=== PATIENT | male | born 1945 | race Caucasian/White ===

== ENCOUNTER → 2017-01-10 | Outpatient (CLI) | payer OTHER ==
[~2017-01-10] MED LIST: AMOX875T PO; ASPI81TA28 PO; ATV5 PO; ATV5X PO; FLM4 PO; LEVO50TA6 PO; METF500T5 PO; MTR800 PO; PANC1200 PO; PHEN64.8 PO; PHN/100 PO; SIMV40TA4 PO; SYN50 PO
[2017-01-10 17:43] LABS: BASO % 0.8 %; BASO ABS # 0.04 K/uL (0-0.2); COMPLETE YES; EOS % 1.7 %; HEMATOCRIT 43.8 % (42-52); IG% 0.2 %; LYMPH % 26.3 %; LYMPH ABS # 1.38 K/uL (1.2-3.4); MEAN CELL VOLUME 100.5 fL (80-100); MEAN CORPUSCULAR HEMOGLOBIN 34.4 pg (25-34); MEAN CORPUSCULAR HGB CONC 34.2 g/dl (32-36); MEAN PLATELET VOLUME 8.7 fL (7.4-10.4); MONO % 9.7 %; NEUT % 61.3 %; PLATELET COUNT 208 K/uL (130-400); RED BLOOD COUNT 4.36 M/uL (4.7-6.1); WHITE BLOOD COUNT 5.25 K/uL (4.8-10.8)
[2017-01-10 18:04] LABS: BLOOD UREA NITROGEN 14 mg/dl (7-18); BUN/CREATININE RATIO 11.8 (10-20); CALCIUM 8.7 mg/dl (8.5-10.1); CARBON DIOXIDE 26 mmol/L (21-32); CHLORIDE 106 mmol/L (98-107); GLUCOSE 92 mg/dl (70-99); POTASSIUM 4.3 mmol/L (3.5-5.1); SODIUM 141 mmol/L (136-145)
[2017-01-11 07:20] LABS: ESTIMATED AVERAGE GLUCOSE 140 mg/dl; HA1C FLAG Normal (Normal)
== END | disposition home or self-care (01) ==
LOC: C.LAB1850 16:19
PROVIDERS: ATTEND Internal Medicine
DX: E11.9 Type 2 diabetes mellitus without complications (principal)

== ENCOUNTER → 2017-02-17 | Outpatient (CLI) | payer OTHER ==
[2017-02-17 10:21] LABS: BASO % 0.4 %; BASO ABS # 0.02 K/uL (0-0.2); COMPLETE YES; EOS % 1.6 %; HEMATOCRIT 43.2 % (42-52); LYMPH % 25.2 %; LYMPH ABS # 1.23 K/uL (1.2-3.4); MEAN CORPUSCULAR HEMOGLOBIN 33.8 pg (25-34); MEAN CORPUSCULAR HGB CONC 33.8 g/dl (32-36); MEAN PLATELET VOLUME 8.4 fL (7.4-10.4); MONO % 10.2 %; NEUT % 62.6 %; PLATELET COUNT 220 K/uL (130-400); RED BLOOD COUNT 4.32 M/uL (4.7-6.1); WHITE BLOOD COUNT 4.88 K/uL (4.8-10.8)
[2017-02-17 10:54] LABS: ALT/SGPT 28 U/L (12-78); AST/SGOT 12 U/L (15-37); BLOOD UREA NITROGEN 13 mg/dl (7-18); BUN/CREATININE RATIO 12.1 (10-20); CALCIUM 8.7 mg/dl (8.5-10.1); CARBON DIOXIDE 29 mmol/L (21-32); CHLORIDE 103 mmol/L (98-107); GLUCOSE 144 mg/dl (70-99); POTASSIUM 4.2 mmol/L (3.5-5.1); SODIUM 139 mmol/L (136-145)
[2017-02-17 11:05] LABS: CHOLESTEROL 162 mg/dl (0-200); CHOLESTEROL/HDL RATIO 3.1; HDL CHOLESTEROL 53 mg/dl; LDL CHOLESTEROL CALCULATED 73 mg/dl; TRIGLYCERIDES 180 mg/dl (0-150); VERY LOW DENSITY LIPOPROT CALC 36 mg/dl
[2017-02-17 11:26] LABS: ESTIMATED AVERAGE GLUCOSE 146 mg/dl; HA1C FLAG Normal (Normal)
== END | disposition home or self-care (01) ==
LOC: C.LAB1850 09:07
PROVIDERS: ATTEND Internal Medicine
DX: N40.1 Benign prostatic hyperplasia with lower urinary tract symptoms (principal); E11.9 Type 2 diabetes mellitus without complications

== ENCOUNTER 2017-03-10 19:22 | Emergency (ER) | payer OTHER ==
[~2017-03-10 19:22] MED LIST changes: -AMOX875T PO; -ATV5X PO; -LEVO50TA6 PO
[2017-03-10 19:29] VITALS: TEMP 36.8
[2017-03-10] MEDS ORDERED: OXYCODONE HCL IR 5 MG TAB (IMMEDIATE RELEASE) PO STA (19:42)
--- NOTE | 2017-03-10 19:42 | EMERGENCY ROOM VISIT NOTE ---
History Report prepared by Yuli: Beto Henriquez Under the Supervision of: Dr. Ravi Morin D.O. First contact with patient: 19:27 Chief Complaint: FALL Stated Complaint: FALL/ HEAD PAIN History of Present Illness The patient is a 71 year old male who presents to the Emergency Room with complaints of head discomfort that started prior to arrival. The patient was in the bathroom wiping off his shirt when he fell backwards into the drywall. He hit the back of his head on the wall and complains of a headache right now. He denies loss of consciousness, chest pain, shortness of breath, or cough. The patient took Ibuprofen without much relief of his pain after the fall. Per patient's family, the patient seems to be at baseline. Source of History: patient, family Onset: prior to arrival Position: head Timing: other (persistent) Associated Symptoms: + headache, No LOC, No SOB, No chest pain, No cough Review of Systems See HPI for pertinent positives & negatives. A total of 10 systems reviewed and were otherwise negative. Past Medical & Surgical Medical Problems: (1) Cholecystectomy (2) Diab Marisa Wo Compl, Type Ii Or Unspec Type, Uncontrolled (3) Hyperlipidemia Nec/Nos (4) Hypertension Nos (5) Hypothyroidism (6) Pancreatitis (7) Seizure (8) TIA (transient ischemic attack) Family History Cancer Seizures Social History Smoking Status: Former Smoker Drug Use: none Marital Status: Housing Status: lives with significant other Occupation Status: retired, disabled Current/Historical Medications Scheduled Aspirin (Aspirin Ec), 81 MG PO DAILY Levothyroxine Sodium (Levothyroxine Sodium), 50 MCG PO QAM Metformin Hcl Er (Glucophage Er), 500 MG PO DAILY Pancrelipase (Lipase-Protease- (Creon [id number]), 12,000 UNITS PO TIDM Phenobarbital (Phenobarbital), 64.8 MG PO QID Phenytoin Sodium (Dilantin), 100 MG PO TID Simvastatin (Zocor), 40 MG PO HS Tamsulosin HCl (Tamsulosin HCl), 0.4 MG PO QAM Scheduled PRN Ibuprofen (Ibuprofen), 1 TAB PO TID PRN for Headache or Pain Lorazepam (Lorazepam), 0.5 MG PO TID PRN for Anxiety Allergies Coded Allergies: Morphine (Verified Allergy, Unknown, ?, 03/10/17) Nitrofurantoin (Verified Adverse Reaction, Mild, NAUSEA, 03/10/17) Meperidine (Verified Adverse Reaction, Unknown, SEIZURES, 03/10/17) Quinolones (Unverified Adverse Reaction, Unknown, NAUSEA, 03/10/17) Physical Exam Vital Signs Date Time Temp Pulse Resp B/P Pulse Ox O2 Delivery O2 Flow Rate FiO2 03/10/17 20:45 71 20 157/85 96 03/10/17 19:29 36.8 81 20 176/79 94 Room Air Physical Exam GENERAL: Patient is awake alert in no acute distress patient is resting comfortably and showing no signs of anxiety HEAD: Abrasion to right occipital scalp. No swelling appreciated. EYES: The conjunctivae are clear. The pupils are round and reactive. EARS, NOSE, MOUTH AND THROAT: The nose is without any evidence of any deformity. Mucous membranes are moist tongue is midline NECK: The neck is nontender and supple. RESPIRATORY: Normal respiratory effort is noted there is no evidence of wheezing rhonchi or rales CARDIOVASCULAR: Regular rate and rhythm noted there no murmurs rubs or gallops normal S1 normal S2 GASTROINTESTINAL: The abdomen is soft. Bowel sounds are present in all quadrants. Abdomen is nontender BACK: No midline tenderness or or step-off noted range of motion in flexion extension as well as rotation no signs of muscle spasm noted MUSCULOSKELETAL/EXTREMITIES: There is no evidence of gross deformity full range of motion is noted in the hips and shoulders SKIN: Trace pedal edema bilaterally. NEUROLOGIC: Patient is at baseline according to family members. Awake alert and oriented x3. Strength was symmetric. GCS of 15. Medical Decision & Procedures ER Provider Diagnostic Interpretation: CT results as stated below per my review and radiologist interpretation. CT OF THE HEAD WITHOUT CONTRAST CLINICAL HISTORY: Fall. COMPARISON STUDY: Head CT July 09, 2015. CT DOSE: 773.57 mGy.cm TECHNIQUE: Helical axial images of the head were obtained without IV contrast. Automated exposure control was utilized for the study. FINDINGS: No acute intracranial hemorrhage, midline shift or mass effect is present. Ventricular system is stable. Basilar cisterns are patent. There are no extra-axial collections. An old lacunar infarct within left basal ganglia is noted. White matter hypodensity suggests small vessel disease. There is no calvarial fracture. Soft tissue calcifications adjacent to the ears are chronic and unchanged. IMPRESSION: 1. No acute intracranial findings. 2. No calvarial fracture. Electronically signed by: Donald Young M.D. 03/10/2017 8:16 PM Dictated Date/Time: 03/10/2017 8:14 PM Medications Administered Medications (Trade) Dose Ordered Sig/Leni Route Start Time Stop Time Status Last Admin Dose Admin Oxycodone HCl (Roxicodone Immediate Rel Tab) 5 mg NOW STAT PO 03/10/17 19:42 03/10/17 19:43 DC 03/10/17 19:54 5 MG Oxycodone HCl (Roxicodone Immediate Rel 5MG Home Pack) 1 homepack UD ONCE PO 03/10/17 20:30 03/10/17 20:31 DC 03/10/17 20:41 1 HOMEPACK ED Course 1930: The patient was evaluated in room B7. A complete history and physical examination were performed. 1941: Ordered Oxycodone HCl 5 mg PO. 2014: At this time, I reevaluated the patient and he was resting comfortably. 2029: Ordered Oxycodone HCl 1 homepack PO. 2036: Upon reevaluation, the patient is resting comfortably. I discussed the results and treatment plan with him. She verbalized agreement of the treatment plan. The patient was discharged home. Medical Decision Prior records/ancillary studies reviewed. Triage Nursing notes reviewed. The patient's history was concerning for traumatic injury Differential diagnosis: Etiologies such as fracture, dislocation, intra-abdominal, pneumothorax, intrathoracic , intracranial, neurologic, as well as other traumatic pathologies were entertained. The patient is a 71-year-old male who presented to the emergency department for an evaluation after fall. The patient relates that he had a trip and fall where he fell backwards striking his head. There was no loss of consciousness but the patient was very concerned because he is a headache at this time. The patient had no focal neurologic deficits. He appeared to be at his baseline mental status according to his family members. I discussed the patient's radiographic studies with him. He was treated with pain medication in the emergency department. On subsequent reevaluation was feeling much better. He was encouraged to rest and avoid any strenuous activity. He was given head injury discharge instructions. He was also encouraged to follow-up with his family doctor soon as possible for reevaluation but return to the emergency Department immediately if symptoms change worsen or the need arises. Impression Primary Impression: Fall Additional Impression: Head injury Scribe Attestation The scribe's documentation has been prepared under my direction and personally reviewed by me in its entirety. I confirm that the note above accurately reflects all work, treatment, procedures, and medical decision making performed by me. Departure Information Dispostion Home / Self-Care Referrals Coleman Gillespie M.D. (PCP) Forms HOME CARE DOCUMENTATION FORM, IMPORTANT VISIT INFORMATION Patient Instructions ED Head Injury Closed, My [facility] Additional Instructions Continue all medications as prescribed. Follow-up with your family this week for reevaluation. Return to the emergency department immediately if symptoms change worsen or the need arises. Problem Qualifiers
--- NOTE | 2017-03-10 20:18 | DIAGNOSTIC IMAGING REPORT ---
CT OF THE HEAD WITHOUT CONTRAST CLINICAL HISTORY: Fall. COMPARISON STUDY: Head CT July 09, 2015. CT DOSE: 773.57 mGy.cm TECHNIQUE: Helical axial images of the head were obtained without IV contrast. Automated exposure control was utilized for the study. FINDINGS: No acute intracranial hemorrhage, midline shift or mass effect is present. Ventricular system is stable. Basilar cisterns are patent. There are no extra-axial collections. An old lacunar infarct within left basal ganglia is noted. White matter hypodensity suggests small vessel disease. There is no calvarial fracture. Soft tissue calcifications adjacent to the ears are chronic and unchanged. IMPRESSION: 1. No acute intracranial findings. 2. No calvarial fracture. Electronically signed by: Donald Young M.D. 03/10/2017 8:16 PM Dictated Date/Time: 03/10/2017 8:14 PM
[2017-03-10] MEDS ORDERED: OXYCODONE IR HOME PACK PO ONE (20:30)
[2017-03-10] MEDS ORDERED: LEVO50TA6 PO (20:30)
[2017-03-10] MEDS ORDERED: ATV5X PO (20:31)
[2017-03-10] MEDS ORDERED: FLM4 PO (20:37)
[2017-03-10 20:45] VITALS: BP 157/85; PULSE 71; O2SAT 96
[2017-09-27] MEDS ORDERED: LEVE500T13 PO (12:00)
== END 2017-03-10 20:46 | disposition home or self-care (01) ==
LOC: EDBD 19:22 → C.EDB 19:23
DX: S09.90XA Unspecified injury of head, initial encounter (principal); W19.XXXA Unspecified fall, initial encounter; W22.09XA Striking against other stationary object, initial encounter; Z90.49 Acquired absence of other specified parts of digestive tract; E11.9 Type 2 diabetes mellitus without complications; I10 Essential (primary) hypertension; E03.9 Hypothyroidism, unspecified; Z86.73 Personal history of transient ischemic attack (TIA), and cerebral infarction without residual deficits; Z80.9 Family history of malignant neoplasm, unspecified; Z82.0 Family history of epilepsy and other diseases of the nervous system; Z87.891 Personal history of nicotine dependence; Z79.82 Long term (current) use of aspirin; Z79.899 Other long term (current) drug therapy

== ENCOUNTER 2017-03-16 18:11 | Emergency (ER) | payer OTHER ==
[~2017-03-16] VITALS: Ht 177.8 cm; Wt 103.6 kg
[~2017-03-16 18:11] MED LIST changes: -ATV5 PO; +ATV5X PO; +LEVO50TA6 PO; -SYN50 PO
--- NOTE | 2017-03-16 18:42 | EMERGENCY ROOM VISIT NOTE ---
History Report prepared by Yuli: Francis Ortega Under the Supervision of: Dr. Ravi Morin D.O. First contact with patient: 18:15 Chief Complaint: HEAD PAIN Stated Complaint: FELL THIS PAST SAT. HEAD PAIN History of Present Illness The patient is a 71 year old male who presents to the Emergency Room with complaints of episodes of falls that started 4 days ago. He was seen here 4 days ago after falling on the back of his head. Ever since then, the patient notes that when he coughs, the back of his head "thumps". He has also been having neck pain. The patient denies a headache currently. He has fallen twice since then, and he does not know why this keeps happening. The patient says that he occasionally has weakness and pain in his legs when he walks. The patient's notes that she feels that the patient is safe at home. However, the nursing staff said that there is concern about the patient falling so much recently, and the patient's has had trouble getting the patient off of the floor all the time. The patient has been to rehab before at [facility] many years ago. The patient denies any chest pain, shortness of breath, or back pain. He does have prostate problems as well as a history of seizures. He is not sure when his last seizure was. Source of History: patient, family, nursing staff Onset: 4 days ago Position: other (global - falls) Symptom Intensity: 3 falls recently Timing: other (episodes) Associated Symptoms: + neck pain, + weakness (legs), No SOB, No back pain, No chest pain Note: Associated symptoms: Whenever he coughs, back of head "thumps". Occasional leg pain when walking. Review of Systems See HPI for pertinent positives & negatives. A total of 10 systems reviewed and were otherwise negative. Past Medical & Surgical Medical Problems: (1) Cholecystectomy (2) Diab Marisa Wo Compl, Type Ii Or Unspec Type, Uncontrolled (3) Hyperlipidemia Nec/Nos (4) Hypertension Nos (5) Hypothyroidism (6) Pancreatitis (7) Seizure (8) TIA (transient ischemic attack) Family History Cancer Seizures Social History Smoking Status: Former Smoker Drug Use: none Marital Status: Housing Status: lives with significant other Occupation Status: retired, disabled Current/Historical Medications Scheduled Amoxicillin & Pot Clavulanate (Augmentin 875-125 mg), 875 MG PO BID Aspirin (Aspirin Ec), 81 MG PO DAILY Levothyroxine Sodium (Levothyroxine Sodium), 50 MCG PO QAM Metformin Hcl Er (Glucophage Er), 500 MG PO DAILY Pancrelipase (Lipase-Protease- (Creon 41808), 12,000 UNITS PO TIDM Phenobarbital (Phenobarbital), 64.8 MG PO QID Phenytoin Sodium (Dilantin), 100 MG PO TID Simvastatin (Zocor), 40 MG PO HS Tamsulosin HCl (Tamsulosin HCl), 0.4 MG PO QAM Scheduled PRN Ibuprofen (Ibuprofen), 1 TAB PO TID PRN for Headache or Pain Lorazepam (Lorazepam), 0.5 MG PO TID PRN for Anxiety Allergies Coded Allergies: Morphine (Verified Allergy, Unknown, ?, 03/16/17) Nitrofurantoin (Verified Adverse Reaction, Mild, NAUSEA, 03/16/17) Meperidine (Verified Adverse Reaction, Unknown, SEIZURES, 03/16/17) Quinolones (Unverified Adverse Reaction, Unknown, NAUSEA, 03/16/17) Physical Exam Vital Signs Date Time Temp Pulse Resp B/P Pulse Ox O2 Delivery O2 Flow Rate FiO2 03/16/17 21:30 36.6 69 20 173/86 95 03/16/17 19:44 95 Room Air 03/16/17 19:44 95 Room Air 03/16/17 19:17 58 148/84 67 166/84 69 173/86 03/16/17 18:16 36.6 96 20 176/89 96 Room Air Physical Exam GENERAL: Patient is awake, alert, slow to answer questions but does not appear to be in pain or uncomfortable. EYES: The conjunctivae are clear. The pupils are round and reactive. EARS, NOSE, MOUTH AND THROAT: The nose is without any evidence of any deformity. Mucous membranes are moist tongue is midline. Ecchymosis over occipital scalp, no lacerations noted. NECK: Tenderness of upper cervical spine, range of motion intact. RESPIRATORY: Lung sounds diminished at both bases, no tachypnea or conversational dyspnea noted. CARDIOVASCULAR: Regular rate and rhythm noted there no murmurs rubs or gallops normal S1 normal S2 GASTROINTESTINAL: The abdomen is mildly distended but soft, no specific guarding or rigidity noted. BACK: No midline tenderness or or step-off noted range of motion in flexion extension as well as rotation no signs of muscle spasm noted MUSCULOSKELETAL/EXTREMITIES: There is no evidence of gross deformity full range of motion is noted in the hips and shoulders SKIN: Trace pedal edema bilaterally. NEUROLOGIC: Patient is oriented x3, strength symmetric but diminished bilaterally, patellar tendon reflexes 1+ bilaterally. Patient's mental status is at baseline according to family members. Medical Decision & Procedures ER Provider Diagnostic Interpretation: Radiology results as stated below per my review and radiologist interpretation: HEAD CT NONCONTRAST CT DOSE: 1231.56 mGy.cm HISTORY: Trauma EVALUATE ALTERED MENTAL STATUS/WEAKNESS TECHNIQUE: Multiaxial CT images of the head were performed without the use of intravenous contrast. Comparison: None. Findings: The paranasal sinuses and mastoid air cells are clear. The calvarium and skull base are intact. The ventricles and sulci are within normal limits. There is no mass, hematoma, midline shift, or acute infarct. Age-related atrophy and chronic small vessel change Impression: Age-related change. No acute process. No change from the prior exam. Electronically signed by: Gerard Cole M.D. 03/16/2017 7:45 PM Dictated Date/Time: 03/16/2017 7:44 PM CHEST ONE VIEW PORTABLE CLINICAL HISTORY: EVALUATE ALTERED MENTAL STATUS/WEAKNESS dyspnea COMPARISON STUDY: 07/07/2015 FINDINGS: Increased pulmonary vasculature compared to the prior exam. Small parenchymal infiltrate medial right base. Chronic fullness of the hilar shadows. Subsegmental atelectasis left base. IMPRESSION: Pulmonary vascular congestion. Superimposed infiltrate right base Electronically signed by: Gerard Cole M.D. 03/16/2017 7:17 PM Dictated Date/Time: 03/16/2017 7:[address] DOSE: HISTORY: Trauma fall TECHNIQUE: Multiaxial CT images of the cervical spine were performed and reformatted in the sagittal and coronal plane without the use of contrast. COMPARISON: None. FINDINGS: No fractures. No subluxation. Prevertebral soft tissues and the C1-C2 interval are intact. No pneumothorax. Degenerative changes throughout. IMPRESSION: Degenerative change. No acute process. Electronically signed by: Gerrad Cole M.D. 03/16/2017 7:47 PM Dictated Date/Time: 03/16/2017 7:46 PM Laboratory Results 03/16/17 18:55 Red Blood Count 4.13, Mean Corpuscular Volume 100.0, Mean Corpuscular Hemoglobin 34.6, Mean Corpuscular Hemoglobin Concent 34.6, Mean Platelet Volume 8.2, Neutrophils (%) (Auto) 46.5, Lymphocytes (%) (Auto) 35.4, Monocytes (%) ( Auto) 13.6, Eosinophils (%) (Auto) 3.7, Basophils (%) (Auto) 0.8, Neutrophils # (Auto) 1.77, Lymphocytes # (Auto) 1.35, Monocytes # (Auto) 0.52, Eosinophils # ( Auto) 0.14, Basophils # (Auto) 0.03 03/16/17 18:55 Test 03/16/17 18:55 03/16/17 18:57 03/16/17 19:00 White Blood Count 3.81 K/uL (4.8-10.8) Red Blood Count 4.13 M/uL (4.7-6.1) Hemoglobin 14.3 g/dL (14.0-18.0) Hematocrit 41.3 % (42-52) Mean Corpuscular Volume 100.0 fL (80-100) Mean Corpuscular Hemoglobin 34.6 pg (25-34) Mean Corpuscular Hemoglobin Concent 34.6 g/dl (32-36) Platelet Count 180 K/uL (130-400) Mean Platelet Volume 8.2 fL (7.4-10.4) Neutrophils (%) (Auto) 46.5 % Lymphocytes (%) (Auto) 35.4 % Monocytes (%) (Auto) 13.6 % Eosinophils (%) (Auto) 3.7 % Basophils (%) (Auto) 0.8 % Neutrophils # (Auto) 1.77 K/uL (1.4-6.5) Lymphocytes # (Auto) 1.35 K/uL (1.2-3.4) Monocytes # (Auto) 0.52 K/uL (0.11-0.59) Eosinophils # (Auto) 0.14 K/uL (0-0.5) Basophils # (Auto) 0.03 K/uL (0-0.2) RDW Standard Deviation 45.9 fL (36.4-46.3) RDW Coefficient of Variation 12.5 % (11.5-14.5) Immature Granulocyte % (Auto) 0.0 % Immature Granulocyte # (Auto) 0.00 K/uL (0.00-0.02) Prothrombin Time 10.3 SECONDS (9.0-12.0) Prothromb Time International Ratio 1.0 (0.9-1.1) Activated Partial Thromboplast Time 26.0 SECONDS (21.0-31.0) Partial Thromboplastin Ratio 1.0 Anion Gap 3.0 mmol/L (3-11) Est Creatinine Clear Calc Drug Dose 79.4 ml/min Estimated GFR () 87.2 Estimated GFR (Non- 75.2 BUN/Creatinine Ratio 10.3 (10-20) Calcium Level 8.7 mg/dl (8.5-10.1) Phosphorus Level 2.7 mg/dl (2.5-4.9) Magnesium Level 2.5 mg/dl (1.8-2.4) Total Bilirubin 0.3 mg/dl (0.2-1) Direct Bilirubin < 0.1 mg/dl (0-0.2) Aspartate Amino Transf (AST/SGOT) 13 U/L (15-37) Alanine Aminotransferase (ALT/SGPT) 21 U/L (12-78) Alkaline Phosphatase 89 U/L (45-117) Total Creatine Kinase 65 U/L (39-308) Creatine Kinase MB < 0.5 ng/ml (0.5-3.6) Creatine Kinase MB Ratio (0-3.0) Troponin I < 0.015 ng/ml (0-0.045) Total Protein 7.6 gm/dl (6.4-8.2) Albumin 4.2 gm/dl (3.4-5.0) Thyroid Stimulating Hormone (TSH) 2.360 uIu/ml (0.300-4.500) Phenytoin (Dilantin) Level 12.9 mcg/mL (10-20) Phenobarbital Level 42.3 mcg/mL (15.0-40.0) Bedside Glucose 130 mg/dl (70-99) Urine Color YELLOW Urine Appearance CLEAR (CLEAR) Urine pH 6.0 (4.5-7.5) Urine Specific [place] 1.007 (1.000-1.030) Urine Protein NEG (NEG) Urine Glucose (UA) NEG (NEG) Urine Ketones NEG (NEG) Urine Occult Blood NEG (NEG) Urine Nitrite NEG (NEG) Urine Bilirubin NEG (NEG) Urine Urobilinogen NEG (NEG) Urine Leukocyte Esterase NEG (NEG) Laboratory results per my review. Medications Administered Medications (Trade) Dose Ordered Sig/Leni Route Start Time Stop Time Status Last Admin Dose Admin Amoxicillin/ Clavulanate Potassium (Augmentin Tab) 875 mg ONE ONCE PO 03/16/17 20:45 03/16/17 20:46 DC 03/16/17 21:16 875 MG Amoxicillin/ Clavulanate Potassium (Augmentin 875MG Home Pack) 1 homepack UD ONCE PO 03/16/17 20:45 03/16/17 20:46 DC 03/16/17 20:45 1 HOMEPACK ECG Indication: weakness Rate (beats per minute): 55 Rhythm: sinus bradycardia Findings: no ectopy, other (no acute ST segment abnormalities) Change: no significant change (compared to May 08 2015) ED Course 1831: The patient was evaluated in room C11B. A complete history and physical examination were performed. 2044: Ordered Augmentin 875MG Home Pack 1 homepack PO, Augmentin Tab 875 mg PO. 2039: Upon reevaluation, the patient does not want to stay in the hospital. I discussed the results and treatment plan with him. He verbalized agreement of the treatment plan. He was discharged home. Medical Decision Prior records/ancillary studies reviewed and summarized above. Nursing notes reviewed. Additional history obtained from family and nursing staff. The patient's history was concerning for falls. Differential diagnosis: Etiologies such as metabolic, infection, hypo/hyperglycemia, electrolyte abnormalities, cardiac sources, intracerebral event, toxicologic, neurologic, as well as others were entertained. The patient is a 71-year-old male who presented to the emergency department for an evaluation of headache. I met this patient in the past. He has a history of frequent falls. The patient presented to the emergency department with family members who state that he's been having problems ambulating recently. The patient only complained of a headache which was worse with cough but he does admit that he's had a productive cough recently. The patient does not a fever. I discussed the patient's laboratory and radiographic studies with him. CT the head was obtained because of the ongoing headache but no signs of intracranial traumatic injury were noted. The patient was found have a questionable infiltrate on chest x-ray. He was started on antibiotic in the emergency department. I discussed the patient's condition with him. At this time I do feel that he is at risk for future falls because of his underlying medical condition as well as his medications. Nursing staff ambulated the patient and he did not do so well. He was able to ambulate but appeared very unsteady. I recommended that he be evaluated by the inpatient hospitalist group for possible further management and admission for possible placement or rehabilitation but the patient does not wish to be admitted at this time. He was started on oral antibiotic for pneumonia. He was encouraged to rest and avoid any strenuous activity. He was also advised to continue all medications as prescribed. His phenobarbital level was mildly elevated but his family member state that this is the level that he is maintained that for his seizure condition. He was also encouraged return to the emergency Department immediately if symptoms change worsen or the need arises. Impression Primary Impression: Fall Additional Impressions: Head injury Headache PNA (pneumonia) Scribe Attestation The scribe's documentation has been prepared under my direction and personally reviewed by me in its entirety. I confirm that the note above accurately reflects all work, treatment, procedures, and medical decision making performed by me. Departure Information Dispostion Home / Self-Care Prescriptions Amoxicillin & Pot Clavulanate (Augmentin 875-125 mg) 1 Tab Tab 875 MG PO BID, #20 TAB Prov: Ravi Morin, 03/16/17 Referrals Coleman Gillespie M.D. (PCP) Forms HOME CARE DOCUMENTATION FORM, IMPORTANT VISIT INFORMATION, WORK / SCHOOL INSTRUCTIONS Patient Instructions ED Head Injury Closed, My [facility] Additional Instructions Continue all medications as prescribed. Rest and avoid any strenuous activity. Follow-up with your family this week for reevaluation. Return to the emergency department immediately if symptoms change worsen or the need arises. Problem Qualifiers Primary Impression: Fall Encounter type: initial encounter Qualified Codes: W19.XXXA - Unspecified fall, initial encounter Additional Impressions: Head injury Encounter type: subsequent encounter Qualified Codes: S09.90XD - Unspecified injury of head, subsequent encounter Headache Headache type: unspecified Headache chronicity pattern: acute headache Intractability: not intractable Qualified Codes: R51 - Headache PNA (pneumonia) Pneumonia type: due to unspecified organism Laterality: unspecified laterality Lung location: unspecified part of lung Qualified Codes: J18.9 - Pneumonia, unspecified organism
[2017-03-16 19:11] LABS: BASO % 0.8 %; BASO ABS # 0.03 K/uL (0-0.2); COMPLETE YES; EOS % 3.7 %; HEMATOCRIT 41.3 % (42-52); LYMPH % 35.4 %; LYMPH ABS # 1.35 K/uL (1.2-3.4); MEAN CORPUSCULAR HEMOGLOBIN 34.6 pg (25-34); MEAN CORPUSCULAR HGB CONC 34.6 g/dl (32-36); MEAN PLATELET VOLUME 8.2 fL (7.4-10.4); MONO % 13.6 %; NEUT % 46.5 %; PLATELET COUNT 180 K/uL (130-400); RED BLOOD COUNT 4.13 M/uL (4.7-6.1); WHITE BLOOD COUNT 3.81 K/uL (4.8-10.8)
--- NOTE | 2017-03-16 19:20 | DIAGNOSTIC IMAGING REPORT ---
CHEST ONE VIEW PORTABLE CLINICAL HISTORY: EVALUATE ALTERED MENTAL STATUS/WEAKNESS dyspnea COMPARISON STUDY: 07/07/2015 FINDINGS: Increased pulmonary vasculature compared to the prior exam. Small parenchymal infiltrate medial right base. Chronic fullness of the hilar shadows. Subsegmental atelectasis left base. IMPRESSION: Pulmonary vascular congestion. Superimposed infiltrate right base Electronically signed by: Gerard Cole M.D. 03/16/2017 7:17 PM Dictated Date/Time: 03/16/2017 7:17 PM
[2017-03-16 19:30] LABS: ALT/SGPT 21 U/L (12-78); AST/SGOT 13 U/L (15-37); BLOOD UREA NITROGEN 10 mg/dl (7-18); BUN/CREATININE RATIO 10.3 (10-20); CALCIUM 8.7 mg/dl (8.5-10.1); CARBON DIOXIDE 30 mmol/L (21-32); CHLORIDE 103 mmol/L (98-107); CREATININE 0.99 mg/dl (0.60-1.40); GLUCOSE 136 mg/dl (70-99); MAGNESIUM 2.5 mg/dl (1.8-2.4); POTASSIUM 4.2 mmol/L (3.5-5.1); SODIUM 136 mmol/L (136-145)
[2017-03-16 19:31] LABS: PROTHROMBIN TIME (PATIENT) 10.3 SECONDS (9.0-12.0)
[2017-03-16 19:38] LABS: ALKALINE PHOSPHATASE 89 U/L (45-117); PHOSPHORUS 2.7 mg/dl (2.5-4.9)
[2017-03-16 19:43] LABS: URINE APPEARANCE CLEAR (CLEAR); URINE BILIRUBIN NEG (NEG); URINE COLOR YELLOW; URINE NITRITE NEG (NEG); URINE SPECIFIC GRAVITY 1.007 (1.000-1.030); UROBILINOGEN NEG (NEG)
[2017-03-16 19:44] VITALS: O2SAT 95; Ht 177.8 cm; Wt 103.6 kg
--- NOTE | 2017-03-16 19:47 | DIAGNOSTIC IMAGING REPORT ---
HEAD CT NONCONTRAST CT DOSE: 1231.56 mGy.cm HISTORY: Trauma EVALUATE ALTERED MENTAL STATUS/WEAKNESS TECHNIQUE: Multiaxial CT images of the head were performed without the use of intravenous contrast. Comparison: None. Findings: The paranasal sinuses and mastoid air cells are clear. The calvarium and skull base are intact. The ventricles and sulci are within normal limits. There is no mass, hematoma, midline shift, or acute infarct. Age-related atrophy and chronic small vessel change Impression: Age-related change. No acute process. No change from the prior exam. Electronically signed by: Gerard Cole M.D. 03/16/2017 7:45 PM Dictated Date/Time: 03/16/2017 7:44 PM
[2017-03-16 19:48] LABS: PHENOBARBITAL 42.3 mcg/mL (15.0-40.0)
--- NOTE | 2017-03-16 19:49 | DIAGNOSTIC IMAGING REPORT ---
CERVICAL SPINE CT CT DOSE: HISTORY: Trauma fall TECHNIQUE: Multiaxial CT images of the cervical spine were performed and reformatted in the sagittal and coronal plane without the use of contrast. COMPARISON: None. FINDINGS: No fractures. No subluxation. Prevertebral soft tissues and the C1-C2 interval are intact. No pneumothorax. Degenerative changes throughout. IMPRESSION: Degenerative change. No acute process. Electronically signed by: Gerard Cole M.D. 03/16/2017 7:47 PM Dictated Date/Time: 03/16/2017 7:46 PM
[2017-03-16 19:52] LABS: MANUAL MICROSCOPIC REQUIRED? NO; REVIEW REQ? NO
[2017-03-16] MEDS ORDERED: AMOX875T PO (20:43)
[2017-03-16] MEDS ORDERED: AMOXICIL/CLAVU 875MG HOME PACK PO ONE (20:45)
[2017-03-16] MEDS ORDERED: AMOXICILLIN/CLAVULANATE TAB 875 MG TAB PO ONE (20:45)
[2017-03-16 21:30] VITALS: BP 173/86; PULSE 69; TEMP 36.6; O2SAT 95
[2017-09-27] MEDS ORDERED: LEVE500T13 PO (12:00)
== END 2017-03-16 21:32 | disposition home or self-care (01) ==
LOC: EDBD 18:11 → C.EDC 18:14
DX: S09.90XD Unspecified injury of head, subsequent encounter (principal); W19.XXXD Unspecified fall, subsequent encounter; J18.9 Pneumonia, unspecified organism; Z90.49 Acquired absence of other specified parts of digestive tract; E11.9 Type 2 diabetes mellitus without complications; I10 Essential (primary) hypertension; E78.5 Hyperlipidemia, unspecified; E03.9 Hypothyroidism, unspecified; Z86.73 Personal history of transient ischemic attack (TIA), and cerebral infarction without residual deficits; Z80.9 Family history of malignant neoplasm, unspecified; Z82.0 Family history of epilepsy and other diseases of the nervous system; Z87.891 Personal history of nicotine dependence; Z79.82 Long term (current) use of aspirin; Z79.899 Other long term (current) drug therapy

== ENCOUNTER → 2017-03-24 | Outpatient (CLI) | payer OTHER ==
[~2017-03-24] MED LIST changes: +AMOX875T PO; +KPP250 PO; +LEVE500T PO; +LEVE500T13 PO; +PB30 PO; +SULF800T23 PO
== END | disposition home or self-care (01) ==
LOC: C.LABSPEC 17:14
PROVIDERS: ATTEND Urology
DX: R33.9 Retention of urine, unspecified (principal)

== ENCOUNTER 2017-05-15 10:09 | Emergency (ER) | payer OTHER ==
[~2017-05-15] VITALS: Ht 172.7 cm; Wt 98.0 kg
[~2017-05-15 10:09] MED LIST changes: -AMOX875T PO; -KPP250 PO; -LEVE500T PO; -LEVE500T13 PO; -PB30 PO; -SULF800T23 PO
[2017-05-15 10:24] VITALS: TEMP 36.8; Ht 172.7 cm; Wt 98.0 kg
--- NOTE | 2017-05-15 11:01 | EMERGENCY ROOM VISIT NOTE ---
History Report prepared by Yuli: Jourdan Martinez Under the Supervision of: Dr. Colleen Jean D.O. First contact with patient: 10:35 Chief Complaint: BACK INJURY Stated Complaint: RT FLANK PAIN History of Present Illness The patient is a 72 year old male who presents to the Emergency Room with complaints of intermittent right flank, back pain that began yesterday morning. He rates his pain a 7/10 in severity. He got out of bed at this time, when his legs "gave out" on him and he fell onto a hard plastic trash can. He did not injure anything else on his body during this time. He did not lose consciousness. Patient denies any other injury. He states that he falls regularly due to an issue that his PCP cannot figure out but has chronic leg weakness. Patient ambulates with a walker. He was able to get back up after the fall. He states that he receives injections in his back, but does not remember for what. He has not gotten any recently. He is also experiencing abdominal pain which is new. He denies any pain radiation, numbness, or other abnormal symptoms. He takes Aspirin 81 mg PO. He has a history of prostate problems which makes him have urinary hesitancy. He also has a history of abdominal tumors removed. Source of History: patient Onset: yesterday morning Position: back (right flank) Symptom Intensity: 7/10 Quality: ache Timing: intermittent Modifying Factors (Worsening): movement Associated Symptoms: + abdominal pain, + urinary symptoms, No LOC, No headache, No neck pain, No chest pain, No numbness Review of Systems See HPI for pertinent positives & negatives. A total of 10 systems reviewed and were otherwise negative. Past Medical & Surgical Medical Problems: (1) Cholecystectomy (2) Diab Marisa Wo Compl, Type Ii Or Unspec Type, Uncontrolled (3) Hyperlipidemia Nec/Nos (4) Hypertension Nos (5) Hypothyroidism (6) Pancreatitis (7) Seizure (8) TIA (transient ischemic attack) Family History Cancer Seizures Social History Smoking Status: Former Smoker Smokeless Tobacco Use: No Drug Use: none Marital Status: Housing Status: lives with significant other Occupation Status: retired, disabled Current/Historical Medications Scheduled Aspirin (Aspirin Ec), 81 MG PO DAILY Levothyroxine Sodium (Levothyroxine Sodium), 50 MCG PO QAM Metformin Hcl Er (Glucophage Er), 500 MG PO DAILY Pancrelipase (Lipase-Protease- (Creon [id number]), 12,000 UNITS PO TIDM Phenobarbital (Phenobarbital), 64.8 MG PO QID Phenytoin Sodium (Dilantin), 100 MG PO TID Simvastatin (Zocor), 40 MG PO HS Tamsulosin HCl (Tamsulosin HCl), 0.4 MG PO HS Scheduled PRN Ibuprofen (Ibuprofen), 1 TAB PO TID PRN for Headache or Pain Lorazepam (Lorazepam), 0.5 MG PO TID PRN for Anxiety Allergies Coded Allergies: Morphine (Verified Allergy, Unknown, ?, 05/15/17) Nitrofurantoin (Verified Adverse Reaction, Mild, NAUSEA, 05/15/17) Meperidine (Verified Adverse Reaction, Unknown, SEIZURES, 05/15/17) Quinolones (Unverified Adverse Reaction, Unknown, NAUSEA, 05/15/17) Physical Exam Vital Signs Date Time Temp Pulse Resp B/P (MAP) Pulse Ox O2 Delivery O2 Flow Rate FiO2 05/15/17 13:13 68 18 155/83 94 Room Air 05/15/17 11:54 60 18 125/75 92 Room Air 05/15/17 10:24 36.8 80 16 144/68 93 Physical Exam GENERAL: alert, well appearing, well nourished, no distress, non-toxic EYE EXAM: normal conjunctiva, PERRL and EOM's grossly intact OROPHARYNX: no exudate, no erythema, lips, buccal mucosa, and tongue normal and mucous membranes are moist NECK: supple, no nuchal rigidity, no adenopathy, non-tender LUNGS: Clear to auscultation. Normal chest wall mechanics, no wheezes rhonchi or rales. HEART: no murmurs, S1 normal and S2 normal ABDOMEN: abdomen soft, non-tender, normo-active bowel sounds, no masses, no rebound or guarding. No evidence of trauma. BACK: Back is symmetrical on inspection and there is no deformity, no midline tenderness to palpation, no CVA tenderness. 2 cm area of mild ecchymosis at the right flank. No crepitus. Nontender. No other low reproducible back pain. SKIN: no rashes and no bruising UPPER EXTREMITIES: upper extremities are grossly normal. LOWER EXTREMITIES: No pitting edema. NEURO EXAM: Cranial nerves II-XII grossly intact, normal speech. Decreased strength and range of motion. Midly decreased sensory exam. All baseline to the patient. Medical Decision & Procedures ER Provider Diagnostic Interpretation: Radiology results have been interpreted by the radiologist and reviewed by me. RENAL ULTRASOUND HISTORY: right flank pain, fall COMPARISON: Abdomen and pelvis CT 12/24/2012. Renal ultrasound 03/15/2013. FINDINGS: Right kidney: 11.1 cm . No hydronephrosis. Moderate cortical renal thinning, unchanged. Left kidney: 12.1 cm. No hydronephrosis. Moderate cortical renal thinning, unchanged. Bladder: No bladder wall thickening. The bilateral ureteral jets were identified. IMPRESSION: No hydronephrosis. Moderate cortical renal thinning, unchanged. Electronically signed by: Cali Gerard M.D. 05/15/2017 12:19 PM Dictated Date/Time: 05/15/2017 12:17 PM L-SPINE MIN 4 VIEWS ROUTINE, PELVIS 1 OR 2 VIEW ROUTINE CLINICAL HISTORY: fall, pain right low back COMPARISON STUDY: Lumbar spine MRI 11/16/2006. FINDINGS: No fracture or subluxation within the lumbar spine. Mild disc space narrowing at L4-L5 and L5-S1 with mild facet degenerative changes. Endplate sclerosis at the inferior L3 vertebral body likely due to degenerative change. 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 No fracture or dislocation within the pelvis or hips. The sacrum is intact. IMPRESSION: 1. No fracture or subluxation within the lumbar spine. 2. No fracture or dislocation within the pelvis or hips. 3. Degenerative changes as described above Electronically signed by: Cali Gerard M.D. 05/15/2017 11:46 AM Dictated Date/Time: 05/15/2017 11:41 AM L-SPINE MIN 4 VIEWS ROUTINE, PELVIS 1 OR 2 VIEW ROUTINE CLINICAL HISTORY: fall, pain right low back COMPARISON STUDY: Lumbar spine MRI 11/16/2006. FINDINGS: No fracture or subluxation within the lumbar spine. Mild disc space narrowing at L4-L5 and L5-S1 with mild facet degenerative changes. Endplate sclerosis at the inferior L3 vertebral body likely due to degenerative change. 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 No fracture or dislocation within the pelvis or hips. The sacrum is intact. IMPRESSION: 1. No fracture or subluxation within the lumbar spine. 2. No fracture or dislocation within the pelvis or hips. 3. Degenerative changes as described above Electronically signed by: Cali Gerard M.D. 05/15/2017 11:46 AM Dictated Date/Time: 05/15/2017 11:41 AM Laboratory Results Test 05/15/17 11:10 Urine Color YELLOW Urine Appearance CLEAR (CLEAR) Urine pH 5.5 (4.5-7.5) Urine Specific [place] 1.012 (1.000-1.030) Urine Protein NEG (NEG) Urine Glucose (UA) NEG (NEG) Urine Ketones NEG (NEG) Urine Occult Blood NEG (NEG) Urine Nitrite NEG (NEG) Urine Bilirubin NEG (NEG) Urine Urobilinogen NEG (NEG) Urine Leukocyte Esterase NEG (NEG) Laboratory results per my review. Medications Administered Medications (Trade) Dose Ordered Sig/Leni Route Start Time Stop Time Status Last Admin Dose Admin Lidocaine (Lidoderm Patch 5%) 1 patch NOW STAT TD 05/15/17 12:37 05/15/17 12:39 DC 05/15/17 13:00 1 PATCH Ibuprofen (Motrin Tab) 600 mg NOW STAT PO 05/15/17 12:50 05/15/17 12:51 DC 05/15/17 13:04 600 MG ED Course 1035: The patient was evaluated in room C12B. A complete history and physical exam was performed. 1220: I updated the patient on his results. The nurses will road test the patient to see if he is ready for discharge. 1237: Ordered Lidocaine 1 patch TD 1250: Ordered Motrin Tab 600 mg PO 1330: Upon reevaluation, the patient is feeling better. I discussed the findings and the treatment plan with the patient. He verbalizes agreement and understanding. He was discharged home. Medical Decision Differential diagnoses include major intracranial, cervical, spinal, thoracic, abdominal, pelvic and neurologic injury. Fracture, contusion, sprain, strain, laceration, abrasions included as well. Medication Reconciliation: I attest that I have personally reviewed the patient' s current medication list. Blood pressure screening: Patient was found to have an elevated blood pressure and was referred to their primary doctor for recheck and further treatment. Patient well-appearing here despite complaints. History of renal abnormality noted on imaging, no hematuria noted. Patient with isolated right low back pain , not reproducible on exam. No additional injury found despite small area of ecchymosis in the right flank. Patient not anticoagulated, doubt occult traumatic injury or intrathoracic/intra-abdominal bleeding. Doubt retroperitoneal trauma. Patient well-appearing here throughout, vital signs stable, was able to ambulate in his usual state with his walker and verified that he appeared steady and at his baseline. Patient and with no other concerns or complaints. Discussed follow-up as an outpatient with family doctor, symptoms watch and return for, they verbalized understanding were agreeable with plan. Impression Primary Impression: Fall Additional Impression: Back pain Scribe Attestation The scribe's documentation has been prepared under my direction and personally reviewed by me in its entirety. I confirm that the note above accurately reflects all work, treatment, procedures, and medical decision making performed by me. Departure Information Dispostion Home / Self-Care Referrals Coleman Gillespie M.D. (PCP) Forms HOME CARE DOCUMENTATION FORM, IMPORTANT VISIT INFORMATION Patient Instructions My [facility] Additional Instructions Please follow up with her family doctor to recheck your pain. Please always use your walker. Please continue regular medications as prescribed. If you have any worsening pain, develop difficulty urinating, have numbness or tingling , fevers, or you have any other new or concerning symptoms, please return the emergency room. Problem Qualifiers Primary Impression: Fall Encounter type: initial encounter Qualified Codes: W19.XXXA - Unspecified fall, initial encounter Additional Impression: Back pain Back pain location: low back pain Chronicity: acute Back pain laterality: right Sciatica presence: without sciatica Qualified Codes: M54.5 - Low back pain
[2017-05-15 11:27] LABS: URINE APPEARANCE CLEAR (CLEAR); URINE BILIRUBIN NEG (NEG); URINE COLOR YELLOW; URINE NITRITE NEG (NEG); URINE PH 5.5 (4.5-7.5); URINE SPECIFIC GRAVITY 1.012 (1.000-1.030); UROBILINOGEN NEG (NEG); ZZUR CULT IF INDIC CLEAN CATCH NO
[2017-05-15 11:31] LABS: MANUAL MICROSCOPIC REQUIRED? NO; REVIEW REQ? NO
--- NOTE | 2017-05-15 11:47 | DIAGNOSTIC IMAGING REPORT ---
L-SPINE MIN 4 VIEWS ROUTINE, PELVIS 1 OR 2 VIEW ROUTINE CLINICAL HISTORY: fall, pain right low back COMPARISON STUDY: Lumbar spine MRI 11/16/2006. FINDINGS: No fracture or subluxation within the lumbar spine. Mild disc space narrowing at L4-L5 and L5-S1 with mild facet degenerative changes. Endplate sclerosis at the inferior L3 vertebral body likely due to degenerative change. 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 No fracture or dislocation within the pelvis or hips. The sacrum is intact. IMPRESSION: 1. No fracture or subluxation within the lumbar spine. 2. No fracture or dislocation within the pelvis or hips. 3. Degenerative changes as described above Electronically signed by: Cali Gerard M.D. 05/15/2017 11:46 AM Dictated Date/Time: 05/15/2017 11:41 AM
--- NOTE | 2017-05-15 12:20 | DIAGNOSTIC IMAGING REPORT ---
RENAL ULTRASOUND HISTORY: right flank pain, fall COMPARISON: Abdomen and pelvis CT 12/24/2012. Renal ultrasound 03/15/2013. FINDINGS: Right kidney: 11.1 cm . No hydronephrosis. Moderate cortical renal thinning, unchanged. Left kidney: 12.1 cm. No hydronephrosis. Moderate cortical renal thinning, unchanged. Bladder: No bladder wall thickening. The bilateral ureteral jets were identified. IMPRESSION: No hydronephrosis. Moderate cortical renal thinning, unchanged. Electronically signed by: Cali Gerard M.D. 05/15/2017 12:19 PM Dictated Date/Time: 05/15/2017 12:17 PM
[2017-05-15] MEDS ORDERED: ACETAMINOPHEN 325 MG TAB PO STA (12:37)
[2017-05-15] MEDS ORDERED: LIDODERM (LIDOCAINE) PATCH 5% TD STA (12:37)
[2017-05-15] MEDS ORDERED: IBUPROFEN 600 MG TAB PO STA (12:50)
[2017-05-15 13:13] VITALS: BP 155/83; PULSE 68; O2SAT 94
[2017-09-27] MEDS ORDERED: LEVE500T13 PO (12:00)
== END 2017-05-15 13:30 | disposition home or self-care (01) ==
LOC: C.EDC 11:10
DX: M54.9 Dorsalgia, unspecified (principal); W19.XXXA Unspecified fall, initial encounter; E11.9 Type 2 diabetes mellitus without complications; I10 Essential (primary) hypertension; E78.5 Hyperlipidemia, unspecified; E03.9 Hypothyroidism, unspecified; G40.909 Epilepsy, unspecified, not intractable, without status epilepticus; Z86.73 Personal history of transient ischemic attack (TIA), and cerebral infarction without residual deficits; Z90.49 Acquired absence of other specified parts of digestive tract; Z87.891 Personal history of nicotine dependence; Z79.82 Long term (current) use of aspirin; Z79.84 Long term (current) use of oral hypoglycemic drugs; Z79.899 Other long term (current) drug therapy; Z88.5 Allergy status to narcotic agent; Z88.8 Allergy status to other drugs, medicaments and biological substances; Z80.9 Family history of malignant neoplasm, unspecified; Z82.0 Family history of epilepsy and other diseases of the nervous system

== ENCOUNTER → 2017-05-19 | Outpatient (CLI) | payer OTHER ==
[~2017-05-19] MED LIST changes: +KPP250 PO; +LEVE500T PO; +LEVE500T13 PO; +PB30 PO; +SULF800T23 PO
== END | disposition home or self-care (01) ==
LOC: C.LABSPEC 16:52
PROVIDERS: ATTEND Podiatrist Foot & Ankle Surgery
DX: L60.0 Ingrowing nail (principal)

== ENCOUNTER → 2017-05-25 | Outpatient (CLI) | payer OTHER ==
[~2017-05-25] MED LIST changes: -KPP250 PO; -LEVE500T PO; -LEVE500T13 PO; -PB30 PO; -SULF800T23 PO
[2017-05-25 12:34] LABS: ESTIMATED AVERAGE GLUCOSE 151 mg/dl; HA1C FLAG Normal (Normal)
== END | disposition home or self-care (01) ==
LOC: C.LAB1850 09:50
PROVIDERS: ATTEND Internal Medicine
DX: E11.9 Type 2 diabetes mellitus without complications (principal)

== ENCOUNTER → 2017-08-18 | Outpatient (CLI) | payer OTHER ==
[2017-08-19 06:03] LABS: ESTIMATED AVERAGE GLUCOSE 157 mg/dl; HA1C FLAG Normal (Normal)
== END | disposition home or self-care (01) ==
LOC: C.LAB1850 15:48
PROVIDERS: ATTEND Physician Assistant
DX: E11.9 Type 2 diabetes mellitus without complications (principal)

== ENCOUNTER 2017-09-19 10:35 | Emergency (ER) | payer OTHER ==
[~2017-09-19] VITALS: Ht 177.8 cm; Wt 102.3 kg
[2017-09-19 10:58] VITALS: TEMP 36.6; Ht 177.8 cm; Wt 102.3 kg
[2017-09-19 11:02] VITALS: O2SAT 93
--- NOTE | 2017-09-19 12:19 | DIAGNOSTIC IMAGING REPORT ---
HEAD WITHOUT CONTRAST (CT) CLINICAL HISTORY: 72 years-old Male with fall hit head. Acute head injury status post fall. No loss of consciousness TECHNIQUE: Multiple axial CT images of the head were obtained without contrast. A dose lowering technique was utilized adhering to the principles of ALARA. COMPARISON: CT head 03/16/2017. FINDINGS: No acute intracranial hemorrhage, midline shift, mass, large territorial ischemia or abnormal extra-axial collection. Mild to moderate atrophy. Background chronic microvascular ischemic changes. Focal area of low-attenuation within the left bates radiata and internal capsule is compatible with remote lacunar infarction. This appears unchanged. The calvarium is intact. The paranasal sinuses, mastoid air cells, and middle ear cavities are clear. Prior bilateral cataract repair. IMPRESSION: 1. No acute intracranial abnormality. Negative for hemorrhage or calvarial fracture. 2. Chronic age-related findings as above. The above report was generated using voice recognition software. It may contain grammatical, syntax or spelling errors. Electronically signed by: Masoud Neely M.D. 09/19/2017 12:18 PM Dictated Date/Time: 09/19/2017 12:15 PM
--- NOTE | 2017-09-19 12:31 | DIAGNOSTIC IMAGING REPORT ---
CERVICAL SPINE CT CT DOSE: 1133.53 mGy.cm HISTORY: Neck pain. fall hit head TECHNIQUE: Multiaxial CT images of the cervical spine were performed and reformatted in the sagittal and coronal plane without the use of contrast. A dose lowering technique was utilized adhering to the principles of ALARA. COMPARISON: Cervical spine CT 03/16/2017. FINDINGS: No fractures. No subluxation. Prevertebral soft tissues and the C1-C2 interval are intact. No pneumothorax. Mild disc space narrowing at C2-C3. Severe disc space narrowing at C3-C4, C4-C5, C5-C6 with endplate osteophytes. This remains unchanged. Mild to moderate facet osteoarthritis throughout the cervical spine. IMPRESSION: No fractures within the cervical spine. Electronically signed by: Cali Gerard M.D. 09/19/2017 12:29 PM Dictated Date/Time: 09/19/2017 12:17 PM
[2017-09-19 12:54] VITALS: BP 99/65; PULSE 57; O2SAT 94
--- NOTE | 2017-09-19 17:00 | EMERGENCY ROOM VISIT NOTE ---
History Report prepared by Glenibedith: Lopez Stratton Under the Supervision of: Dr. Martinez Cruz D.O. First contact with patient: 10:42 Stated Complaint: FALL History of Present Illness The patient is a 72 year old male who presents to the Emergency Room by EMS for evaluation of a head injury occurring just prior to arrival. He states that he was taking a bath when he lost his balance and fell. He denies any headache, chest pain, nausea, abdominal pain, back pain, neck pain, or urinary symptoms. The patient has a history of a previous stroke. He notes that he has slurred speech at baseline. He did not lose consciousness on the fall. The patient's states that the patient has a history of seizures, but did not have any seizure-like activity today. She states that the patient is at his mental baseline. The patient is not on any blood thinners. He always has a slight left -sided facial droop which is from her previous old stroke associated with slurred speech per . He denies any other complaints. Source of History: patient Onset: Just prior to arrival Position: head Quality: other (injury) Timing: other (episode) Associated Symptoms: No LOC, No headache, No neck pain, No chest pain, No abdominal pain, No back pain, No urinary symptoms Review of Systems See HPI for pertinent positives & negatives. A total of 10 systems reviewed and were otherwise negative. Past Medical & Surgical Medical Problems: (1) Cholecystectomy (2) Diab Marisa Wo Compl, Type Ii Or Unspec Type, Uncontrolled (3) Hyperlipidemia Nec/Nos (4) Hypertension Nos (5) Hypothyroidism (6) Pancreatitis (7) Seizure (8) TIA (transient ischemic attack) Family History Cancer Seizures Social History Smoking Status: Former Smoker Drug Use: none Marital Status: Housing Status: lives with significant other Occupation Status: retired, disabled Current/Historical Medications Scheduled Aspirin (Aspirin Ec), 81 MG PO DAILY Levothyroxine Sodium (Levothyroxine Sodium), 50 MCG PO QAM Metformin Hcl Er (Glucophage Er), 500 MG PO DAILY Pancrelipase (Lipase-Protease- (Creon 36137), 12,000 UNITS PO TIDM Phenobarbital (Phenobarbital), 64.8 MG PO QID Phenytoin Sodium (Dilantin), 100 MG PO TID Simvastatin (Zocor), 40 MG PO HS Tamsulosin HCl (Tamsulosin HCl), 0.4 MG PO HS Scheduled PRN Lorazepam (Lorazepam), 0.5 MG PO TID PRN for Anxiety Allergies Coded Allergies: Morphine (Verified Allergy, Unknown, ?, 05/15/17) Nitrofurantoin (Verified Adverse Reaction, Mild, NAUSEA, 05/15/17) Meperidine (Verified Adverse Reaction, Unknown, SEIZURES, 05/15/17) Quinolones (Unverified Adverse Reaction, Unknown, NAUSEA, 05/15/17) Physical Exam Vital Signs Date Time Temp Pulse Resp B/P (MAP) Pulse Ox O2 Delivery O2 Flow Rate FiO2 09/19/17 12:54 57 16 99/65 94 09/19/17 12:15 62 18 148/90 93 Room Air 09/19/17 11:02 93 Room Air 09/19/17 10:58 36.6 71 18 147/78 94 Room Air 09/19/17 10:53 68 Physical Exam GENERAL: Sitting up in bed, disheveled, slightly slurred speech (at baseline per ). HEAD: normal cephalic, atraumatic EYE EXAM: normal conjunctiva, PERRL and EOM's grossly intact OROPHARYNX: no exudate, no erythema, lips, buccal mucosa, and tongue normal and mucous membranes are moist EARS: TMs clear b/l NECK: supple, no nuchal rigidity, no adenopathy, non-tender CHEST: stable to compression anteriorly and posteriorly LUNGS: clear to auscultation. Normal chest wall mechanics HEART: no murmurs, S1 normal and S2 normal ABDOMEN: abdomen soft, non-tender, normo-active bowel sounds, no masses, no rebound or guarding. PELVIS: stable to compression anteriorly and posteriorly BACK: Back is symmetrical on inspection and there is no deformity, no midline tenderness, no CVA tenderness. UPPER EXTREMITIES: full active and passive range of motion of all joints without tenderness to palpation LOWER EXTREMITIES: full active and passive range of motion of all joints without tenderness to palpation NEURO EXAM: Normal sensorium. Slightly slurred speech(old per Pt/). Faint left sided facial droop (old per Pt/). No weakness of arms, no weakness of legs. No drift. Finger to nose intact. Gross sensation intact. Medical Decision & Procedures ER Provider Diagnostic Interpretation: Radiology results as stated below per my review and the radiologist's interpretation: HEAD WITHOUT CONTRAST (CT) FINDINGS: No acute intracranial hemorrhage, midline shift, mass, large territorial ischemia or abnormal extra-axial collection. Mild to moderate atrophy. Background chronic microvascular ischemic changes. Focal area of low-attenuation within the left bates radiata and internal capsule is compatible with remote lacunar infarction. This appears unchanged. The calvarium is intact. The paranasal sinuses, mastoid air cells, and middle ear cavities are clear. Prior bilateral cataract repair. IMPRESSION: 1. No acute intracranial abnormality. Negative for hemorrhage or calvarial fracture. 2. Chronic age-related findings as above. The above report was generated using voice recognition software. It may contain grammatical, syntax or spelling errors. Electronically signed by: Masoud Neely M.D. 09/19/2017 12:[address] FINDINGS: No fractures. No subluxation. Prevertebral soft tissues and the C1-C2 interval are intact. No pneumothorax. Mild disc space narrowing at C2-C3. Severe disc space narrowing at C3-C4, C4-C5, C5-C6 with endplate osteophytes. This remains unchanged. Mild to moderate facet osteoarthritis throughout the cervical spine. IMPRESSION: No fractures within the cervical spine. Electronically signed by: Cali Gerard M.D. 09/19/2017 12:29 PM ECG Indication: other (fall) Rate (beats per minute): 69 Rhythm: sinus rhythm Findings: no ectopy, other (Normal axis) ED Course ED COURSE: Vital signs were reviewed and showed mild hypertension. The patients medical record was reviewed The above diagnostic studies were performed and reviewed. ED treatments and interventions as stated above. 1050: The patient was evaluated in room B3B. A complete history and physical examination was performed. 1140: I updated the patient on his results. 1240: Upon reevaluation, the patient is resting comfortably. I discussed my findings with the patient and he understands and agrees with the treatment plan. Based on the patients age, coexisting illnesses, exam and lab findings the decision to treat as an outpatient was made. The patient remained stable while under my care. The patient appeared well at the time of discharge. Medical Decision Differential diagnoses include major intracranial, cervical, spinal, thoracic, abdominal, pelvic and neurologic injury. Fracture, contusion, sprain, strain, laceration, abrasions included as well. Patient is a 72-year-old male who presents to ER following a fall. Patient notes he was in the bathtub and lost his balance and fell down. He has no other complaints. She did not pass out. Does not take blood thinners. No head or neck pain. CT was performed was unremarkable. Patient has no other complaints. Exam is completely benign. EKG was unremarkable. Left sided facial droop and slurred speech his old following multiple years. Patient was discharged follow-up with PCP. Discussed with Pt concerning signs and symptoms to watch out for. Pt was instructed to follow up with their PCP and discussed with the patient their option to return to the ED at anytime for persistent or worsening symptoms. The appropriate anticipatory guidance and out-patient management, including indications for return to the emergency department, were explained at length to the patient and understood. Blood Pressure Screening Patient's blood pressure: Elevated blood pressure Blood pressure disposition: Elevated BP felt to be situational Impression Primary Impression: Fall Scribe Attestation The scribe's documentation has been prepared under my direction and personally reviewed by me in its entirety. I confirm that the note above accurately reflects all work, treatment, procedures, and medical decision making performed by me. Departure Information Dispostion Home / Self-Care Referrals Coleman Gillespie M.D. (PCP) Forms HOME CARE DOCUMENTATION FORM, IMPORTANT VISIT INFORMATION Patient Instructions Falls Prevent Home, My [facility], Patient When Falls Additional Instructions Please follow up with your primary care doctor or if you are a student, [facility] with in the next 24 hours. Any worsening of your symptoms, please return to the ED immediately. This includes any fevers greater than 100.4, worsening pain, chest pain, shortness breath, persistent nausea, vomiting, unable to eat or drink, or any other concerning signs or symptoms from your standpoint. Problem Qualifiers Primary Impression: Fall Encounter type: initial encounter Qualified Codes: W19.XXXA - Unspecified fall, initial encounter
== END 2017-09-19 12:57 | disposition home or self-care (01) ==
LOC: EDBD 10:35 → C.EDB 10:36
DX: S09.90XA Unspecified injury of head, initial encounter (principal); W19.XXXA Unspecified fall, initial encounter; R47.81 Slurred speech; E78.5 Hyperlipidemia, unspecified; E11.9 Type 2 diabetes mellitus without complications; E03.9 Hypothyroidism, unspecified; K86.1 Other chronic pancreatitis; G40.909 Epilepsy, unspecified, not intractable, without status epilepticus; Z86.73 Personal history of transient ischemic attack (TIA), and cerebral infarction without residual deficits; Z90.49 Acquired absence of other specified parts of digestive tract; Z87.891 Personal history of nicotine dependence; Z79.82 Long term (current) use of aspirin; Z79.84 Long term (current) use of oral hypoglycemic drugs; Z79.899 Other long term (current) drug therapy; Z88.5 Allergy status to narcotic agent; Z88.8 Allergy status to other drugs, medicaments and biological substances; Z80.9 Family history of malignant neoplasm, unspecified; Z82.0 Family history of epilepsy and other diseases of the nervous system

== ENCOUNTER 2017-10-07 10:56 | Emergency (ER) | payer OTHER ==
[~2017-10-07] VITALS: Ht 180.3 cm; Wt 99.3 kg
[~2017-10-07 10:56] MED LIST changes: +LEVE500T13 PO; -MTR800 PO
[2017-10-07 11:04] VITALS: TEMP 36.5; Ht 180.3 cm; Wt 99.3 kg
[2017-10-07 11:57] VITALS: O2SAT 93
--- NOTE | 2017-10-07 12:02 | EMERGENCY ROOM VISIT NOTE ---
History First contact with patient: 11:42 Chief Complaint: OTHER COMPLAINT Stated Complaint: REFERRED BY PHYSICIAN History of Present Illness The patient is a 72 year old male who presents to the Emergency Room via ambulance with complaints of "referred by physician". The patient was recently admitted here for seizures, and has been on a new seizure medication. He is receiving therapy at home. This morning with the therapist was at the house, the patient went to stand up and became dizzy. There was also apparently some coordinating ability with his legs. They then called his family doctor, Dr. Gillespie. Dr. Gillespie then recommended coming to the hospital for evaluation. The therapist called the ambulance and he was brought here. The patient denies any complaints at this time. The at the bedside notes he does seem to be weaker over the past week, as he used to be independent going to the bathroom now she has to help him to this region. The patient at this time denies any nausea, vomiting, chest pain, shortness of breath, new onset of weakness or speech troubles. He does have a history of urinary tract infections/ complications of this region. Review of Systems A complete 10-point Review of Systems was discussed with the patient, with pertinent positives and negatives listed in the History of Present Illness. All remaining Review of Systems questions can be considered negative unless otherwise specified. Past Medical/Surgical History Medical Problems: (1) Altered mental status (2) Cholecystectomy (3) Diab Marisa Wo Compl, Type Ii Or Unspec Type, Uncontrolled (4) Hyperlipidemia Nec/Nos (5) Hypertension Nos (6) Hypothyroidism (7) Pancreatitis (8) Seizure (9) TIA (transient ischemic attack) Family History Cancer Seizures Social History Smoking Status: Former Smoker Drug Use: none Marital Status: Housing Status: lives with significant other Occupation Status: retired, disabled Current/Historical Medications Scheduled Aspirin (Aspirin Ec), 81 MG PO DAILY Levetiracetam (Keppra), 500 MG PO BID Levothyroxine Sodium (Levothyroxine Sodium), 50 MCG PO QAM Metformin Hcl Er (Glucophage Er), 500 MG PO DAILY Pancrelipase (Lipase-Protease- (Creon 39823), 12,000 UNITS PO TIDM Phenobarbital (Phenobarbital), 64.8 MG PO QID Phenytoin Sodium (Dilantin), 100 MG PO TID Simvastatin (Zocor), 40 MG PO HS Tamsulosin HCl (Tamsulosin HCl), 0.4 MG PO HS Scheduled PRN Lorazepam (Lorazepam), 0.5 MG PO TID PRN for Anxiety Physical Exam Vital Signs Date Time Temp Pulse Resp B/P (MAP) Pulse Ox O2 Delivery O2 Flow Rate FiO2 10/07/17 13:49 65 18 118/66 94 Room Air 71 122/70 70 123/64 10/07/17 13:19 89 Room Air 10/07/17 13:18 63 10/07/17 13:02 64 18 147/81 93 Room Air 10/07/17 11:57 93 Room Air 10/07/17 11:04 36.5 68 20 147/81 95 Room Air 10/07/17 11:04 70 Physical Exam VITAL SIGNS - Vital signs and nursing notes were reviewed. Stable. GENERAL -72-year-old male appearing his stated age who is in no acute distress. Communicates well with provider and answers questions appropriately, his responses are slightly delayed/slowed but are appropriate. SKIN - Without rashes. No petechial rashes. HEAD - NC/AT. EYES - PERRL with EOMI bilaterally. Sclera anicteric. No hyphema. EARS - No deformities of external structures noted on gross examination bilaterally. NOSE - Midline and without cyanosis. No epistaxis or purulent drainage noted. MOUTH/OROPHARYNX - Without perioral cyanosis. Buccal mucosa pink and moist and without leukoplakia. Tongue midline with equal elevation of palate bilaterally. NECK - Neck with FROM. No meningismus. LUNGS - Chest wall symmetric without accessory muscle use, intercostals retractions, or central cyanosis. Normal vesicular breath sounds CTA B/L. No wheezes, rales, or rhonchi appreciated. CARDIAC - RRR with S1/S2. No murmur, rubs, or gallops appreciated. EXTREMITIES - No clubbing or peripheral cyanosis. No pretibial edema present. He is neurovascularly intact in the extremities. +5/5 strength noted in UE/LE bilaterally. NEUROLOGIC - Cranial nerves II through XII grossly intact. Sensory intact to light touch throughout. Equal elevation of the legs bilaterally and appropriately. PSYCH - A&Ox3 and cooperates fully with examiner. Pt is very pleasant and interacts well with examiner. Medical Decision & Procedures ER Provider Diagnostic Interpretation: HEAD WITHOUT CONTRAST (CT) CT DOSE: 634.23 mGy.cm HISTORY: Mental status change Stroke TECHNIQUE: Multiaxial CT images of the head were performed without the use of intravenous contrast. A dose lowering technique was utilized adhering to the principles of ALARA. Comparison: 09/25/2017 Findings: The paranasal sinuses and mastoid air cells are clear. The calvarium and skull base are intact. The ventricles and sulci are within normal limits. There is no mass, hematoma, midline shift, or acute infarct. Age-related atrophy and chronic small vessel change Impression: No acute intracranial abnormality. Age-related change The above report was generated using voice recognition software. It may contain grammatical, syntax or spelling errors. Electronically signed by: Gerard Cole M.D. 10/07/2017 12:23 PM Dictated Date/Time: 10/07/2017 12:16 PM CHEST ONE VIEW PORTABLE CLINICAL HISTORY: recent febrile state infection COMPARISON STUDY: 09/25/2017 FINDINGS: Mild chronic bibasilar atelectatic change. Lungs otherwise appear clear. No evidence for cardiac enlargement. IMPRESSION: Chronic change. No acute process. The above report was generated using voice recognition software. It may contain grammatical, syntax or spelling errors. Electronically signed by: Gerard Cole M.D. 10/07/2017 12:14 PM Dictated Date/Time: 10/07/2017 12:13 PM Laboratory Results 10/07/17 11:10 Red Blood Count 4.56, Mean Corpuscular Volume 99.6, Mean Corpuscular Hemoglobin 34.6, Mean Corpuscular Hemoglobin Concent 34.8, Mean Platelet Volume 8.3, Neutrophils (%) (Auto) 65.6, Lymphocytes (%) (Auto) 24.2, Monocytes (%) (Auto) 7.9, Eosinophils (%) (Auto) 1.3, Basophils (%) (Auto) 0.6, Neutrophils # (Auto) 3.58, Lymphocytes # (Auto) 1.32, Monocytes # (Auto) 0.43, Eosinophils # (Auto) 0.07, Basophils # (Auto) 0.03 10/07/17 11:10 Test 10/07/17 11:10 White Blood Count 5.45 K/uL (4.8-10.8) Red Blood Count 4.56 M/uL (4.7-6.1) Hemoglobin 15.8 g/dL (14.0-18.0) Hematocrit 45.4 % (42-52) Mean Corpuscular Volume 99.6 fL (80-100) Mean Corpuscular Hemoglobin 34.6 pg (25-34) Mean Corpuscular Hemoglobin Concent 34.8 g/dl (32-36) Platelet Count 278 K/uL (130-400) Mean Platelet Volume 8.3 fL (7.4-10.4) Neutrophils (%) (Auto) 65.6 % Lymphocytes (%) (Auto) 24.2 % Monocytes (%) (Auto) 7.9 % Eosinophils (%) (Auto) 1.3 % Basophils (%) (Auto) 0.6 % Neutrophils # (Auto) 3.58 K/uL (1.4-6.5) Lymphocytes # (Auto) 1.32 K/uL (1.2-3.4) Monocytes # (Auto) 0.43 K/uL (0.11-0.59) Eosinophils # (Auto) 0.07 K/uL (0-0.5) Basophils # (Auto) 0.03 K/uL (0-0.2) RDW Standard Deviation 46.6 fL (36.4-46.3) RDW Coefficient of Variation 12.9 % (11.5-14.5) Immature Granulocyte % (Auto) 0.4 % Immature Granulocyte # (Auto) 0.02 K/uL (0.00-0.02) Prothrombin Time 10.9 SECONDS (9.0-12.0) Prothromb Time International Ratio 1.0 (0.9-1.1) Activated Partial Thromboplast Time 27.7 SECONDS (21.0-31.0) Partial Thromboplastin Ratio 1.1 Anion Gap 9.0 mmol/L (3-11) Est Creatinine Clear Calc Drug Dose 65.4 ml/min Estimated GFR () 69.3 Estimated GFR (Non- 59.8 BUN/Creatinine Ratio 8.9 (10-20) Calcium Level 9.1 mg/dl (8.5-10.1) Magnesium Level 2.7 mg/dl (1.8-2.4) Total Creatine Kinase 43 U/L (39-308) Creatine Kinase MB < 0.5 ng/ml (0.5-3.6) Creatine Kinase MB Ratio (0-3.0) Troponin I < 0.015 ng/ml (0-0.045) Medical Decision Patient was seen and evaluated as above. The patient questions why he is here. He believes he is here because when he stood up today from a chair while his therapist was at the house he felt slightly dizzy. The states he is slightly weaker compared to baseline and has to help to the bathroom and at times is like a "wet noodle". He is well on exam, and there is no neurovascular deficit. His strength is equal in the upper and lower extremities. EKG reveals normal sinus rhythm. No evidence of ME. Nonspecific ST segment abnormality which is unchanged compared to previous. There is no leukocytosis. Slight anemia with red blood cell count of 4.56. Hemoglobin appropriate 15.8. Coags normal. Metabolic panel reveals sodium low at 135, random glucose high at 169, mag 2.7. Troponin negative. Chest x-ray negative. CT the head no acute process. I suspect that the patient may be either experiencing side effects of his new seizure medication, but do not suspect any emergent process. He was offered inpatient management, but prefers to go home. I certainly will honor this request and the case was also discussed with the attending physician. The patient was educated upon management, educated upon worrisome symptoms which to return, had questions and provided discharge, was discharged home in good condition. The patient does take antibiotic daily for underlying urinary tract infection ailments. I do not suspect any worsening or exacerbation of this. In the evaluation and treatment of this patient, the following differential diagnoses were considered: Concussion, Contrecoup Injury, Brain Tumor, Depression, Encephalitis, Hypothyroidism, Meningitis, CVA, TIA, Migraine, Cluster Headache, Intracranial Abnormality, Intracranial Hemorrhage, Subdural Hematoma, Subarachnoid Hemorrhage, Hydrocephalus. Medication Reconcilliation Current Medication List: was personally reviewed by me Blood Pressure Screening Patient's blood pressure: Elevated blood pressure Blood pressure disposition: Elevated BP felt to be situational Impression Primary Impression: Dizziness Departure Information Dispostion Home / Self-Care Condition GOOD Referrals Coleman Gillespie M.D. (PCP) Patient Instructions My [facility] Additional Instructions You have been treated in the Emergency Department your initial episode of dizziness. Laboratory results and imaging studies have ruled out any emergent causes for your dizziness. As per your request we will discharge you to home. For pain control, you can use the following [id number] medicines (if >12 yo): Drink plenty of water and stay well hydrated. As with any trip to the Emergency Department, you should follow-up with your Primary Care Provider from today's visit. Return to the emergency department if your symptoms persist despite treatment plan outlined above or if the following symptoms occur: increased fevers, chills , worsening nausea/vomiting, blood in your stool or urine.
--- NOTE | 2017-10-07 12:15 | DIAGNOSTIC IMAGING REPORT ---
CHEST ONE VIEW PORTABLE CLINICAL HISTORY: recent febrile state infection COMPARISON STUDY: 09/25/2017 FINDINGS: Mild chronic bibasilar atelectatic change. Lungs otherwise appear clear. No evidence for cardiac enlargement. IMPRESSION: Chronic change. No acute process. The above report was generated using voice recognition software. It may contain grammatical, syntax or spelling errors. Electronically signed by: Gerard Cole M.D. 10/07/2017 12:14 PM Dictated Date/Time: 10/07/2017 12:13 PM
--- NOTE | 2017-10-07 12:25 | DIAGNOSTIC IMAGING REPORT ---
HEAD WITHOUT CONTRAST (CT) CT DOSE: 634.23 mGy.cm HISTORY: Mental status change Stroke TECHNIQUE: Multiaxial CT images of the head were performed without the use of intravenous contrast. A dose lowering technique was utilized adhering to the principles of ALARA. Comparison: 09/25/2017 Findings: The paranasal sinuses and mastoid air cells are clear. The calvarium and skull base are intact. The ventricles and sulci are within normal limits. There is no mass, hematoma, midline shift, or acute infarct. Age-related atrophy and chronic small vessel change Impression: No acute intracranial abnormality. Age-related change The above report was generated using voice recognition software. It may contain grammatical, syntax or spelling errors. Electronically signed by: Gerard Cole M.D. 10/07/2017 12:23 PM Dictated Date/Time: 10/07/2017 12:16 PM
[2017-10-07 12:27] LABS: BASO % 0.6 %; BASO ABS # 0.03 K/uL (0-0.2); COMPLETE YES; EOS % 1.3 %; HEMATOCRIT 45.4 % (42-52); IG% 0.4 %; LYMPH % 24.2 %; LYMPH ABS # 1.32 K/uL (1.2-3.4); MEAN CELL VOLUME 99.6 fL (80-100); MEAN CORPUSCULAR HEMOGLOBIN 34.6 pg (25-34); MEAN CORPUSCULAR HGB CONC 34.8 g/dl (32-36); MEAN PLATELET VOLUME 8.3 fL (7.4-10.4); MONO % 7.9 %; NEUT % 65.6 %; PLATELET COUNT 278 K/uL (130-400); RED BLOOD COUNT 4.56 M/uL (4.7-6.1); WHITE BLOOD COUNT 5.45 K/uL (4.8-10.8)
[2017-10-07 12:34] LABS: BLOOD UREA NITROGEN 11 mg/dl (7-18); BUN/CREATININE RATIO 8.9 (10-20); CALCIUM 9.1 mg/dl (8.5-10.1); CARBON DIOXIDE 25 mmol/L (21-32); CHLORIDE 101 mmol/L (98-107); CREATININE 1.19 mg/dl (0.60-1.40); GLUCOSE 169 mg/dl (70-99); MAGNESIUM 2.7 mg/dl (1.8-2.4); POTASSIUM 4.2 mmol/L (3.5-5.1); SODIUM 135 mmol/L (136-145)
[2017-10-07 12:37] LABS: PARTIAL THROMBOPLASTIN RATIO 1.1; PROTHROMBIN TIME (PATIENT) 10.9 SECONDS (9.0-12.0)
--- NOTE | 2017-10-07 13:24 | EMERGENCY ROOM VISIT NOTE ---
ED Visit Note First contact with patient: 11:42 I have seen and examined this patient with Azar Ibarra and agree with the treatment plan. Problem List Medical Problems: (1) Cholecystectomy Status: Resolved (2) Diab Marisa Wo Compl, Type Ii Or Unspec Type, Uncontrolled Status: Chronic (3) Hyperlipidemia Nec/Nos Status: Chronic (4) Hypertension Nos Status: Chronic (5) Hypothyroidism Status: Chronic (6) Pancreatitis Status: Resolved (7) Seizure Status: Chronic (8) TIA (transient ischemic attack) Status: Resolved Current/Historical Medications Scheduled Aspirin (Aspirin Ec), 81 MG PO DAILY Levetiracetam (Keppra), 500 MG PO BID Levothyroxine Sodium (Levothyroxine Sodium), 50 MCG PO QAM Metformin Hcl Er (Glucophage Er), 500 MG PO DAILY Pancrelipase (Lipase-Protease- (Creon 29071), 12,000 UNITS PO TIDM Phenobarbital (Phenobarbital), 64.8 MG PO QID Phenytoin Sodium (Dilantin), 100 MG PO TID Simvastatin (Zocor), 40 MG PO HS Tamsulosin HCl (Tamsulosin HCl), 0.4 MG PO HS Scheduled PRN Lorazepam (Lorazepam), 0.5 MG PO TID PRN for Anxiety Allergies Coded Allergies: Morphine (Verified Allergy, Unknown, ?, 10/07/17) Nitrofurantoin (Verified Adverse Reaction, Mild, NAUSEA, 10/07/17) Quinolones (Verified Adverse Reaction, Mild, NAUSEA, 10/07/17) Meperidine (Verified Adverse Reaction, Unknown, SEIZURES, 10/07/17) Vital Signs Date Time Temp Pulse Resp B/P (MAP) Pulse Ox O2 Delivery O2 Flow Rate FiO2 10/07/17 13:19 89 Room Air 10/07/17 13:18 63 10/07/17 13:02 64 18 147/81 93 Room Air 10/07/17 11:57 93 Room Air 10/07/17 11:04 36.5 68 20 147/81 95 Room Air 10/07/17 11:04 70 Laboratory Results 10/07/17 11:10 Red Blood Count 4.56, Mean Corpuscular Volume 99.6, Mean Corpuscular Hemoglobin 34.6, Mean Corpuscular Hemoglobin Concent 34.8, Mean Platelet Volume 8.3, Neutrophils (%) (Auto) 65.6, Lymphocytes (%) (Auto) 24.2, Monocytes (%) (Auto) 7.9, Eosinophils (%) (Auto) 1.3, Basophils (%) (Auto) 0.6, Neutrophils # (Auto) 3.58, Lymphocytes # (Auto) 1.32, Monocytes # (Auto) 0.43, Eosinophils # (Auto) 0.07, Basophils # (Auto) 0.03 10/07/17 11:10 Test 10/07/17 11:10 White Blood Count 5.45 K/uL (4.8-10.8) Red Blood Count 4.56 M/uL (4.7-6.1) Hemoglobin 15.8 g/dL (14.0-18.0) Hematocrit 45.4 % (42-52) Mean Corpuscular Volume 99.6 fL (80-100) Mean Corpuscular Hemoglobin 34.6 pg (25-34) Mean Corpuscular Hemoglobin Concent 34.8 g/dl (32-36) Platelet Count 278 K/uL (130-400) Mean Platelet Volume 8.3 fL (7.4-10.4) Neutrophils (%) (Auto) 65.6 % Lymphocytes (%) (Auto) 24.2 % Monocytes (%) (Auto) 7.9 % Eosinophils (%) (Auto) 1.3 % Basophils (%) (Auto) 0.6 % Neutrophils # (Auto) 3.58 K/uL (1.4-6.5) Lymphocytes # (Auto) 1.32 K/uL (1.2-3.4) Monocytes # (Auto) 0.43 K/uL (0.11-0.59) Eosinophils # (Auto) 0.07 K/uL (0-0.5) Basophils # (Auto) 0.03 K/uL (0-0.2) RDW Standard Deviation 46.6 fL (36.4-46.3) RDW Coefficient of Variation 12.9 % (11.5-14.5) Immature Granulocyte % (Auto) 0.4 % Immature Granulocyte # (Auto) 0.02 K/uL (0.00-0.02) Prothrombin Time 10.9 SECONDS (9.0-12.0) Prothromb Time International Ratio 1.0 (0.9-1.1) Activated Partial Thromboplast Time 27.7 SECONDS (21.0-31.0) Partial Thromboplastin Ratio 1.1 Anion Gap 9.0 mmol/L (3-11) Est Creatinine Clear Calc Drug Dose 65.4 ml/min Estimated GFR () 69.3 Estimated GFR (Non- 59.8 BUN/Creatinine Ratio 8.9 (10-20) Calcium Level 9.1 mg/dl (8.5-10.1) Magnesium Level 2.7 mg/dl (1.8-2.4) Total Creatine Kinase 43 U/L (39-308) Creatine Kinase MB < 0.5 ng/ml (0.5-3.6) Creatine Kinase MB Ratio (0-3.0) Troponin I < 0.015 ng/ml (0-0.045) Departure Information Referrals Coleman Gillespie M.D. (PCP) Patient Instructions My [facility]
[2017-10-07 13:49] VITALS: BP 123/64; PULSE 70; O2SAT 94
== END 2017-10-07 14:02 | disposition home or self-care (01) ==
LOC: EDBD 10:56 → C.EDC 10:57
DX: R42 Dizziness and giddiness (principal); E11.9 Type 2 diabetes mellitus without complications; E78.5 Hyperlipidemia, unspecified; I10 Essential (primary) hypertension; E03.9 Hypothyroidism, unspecified; R56.9 Unspecified convulsions; Z86.73 Personal history of transient ischemic attack (TIA), and cerebral infarction without residual deficits; Z87.891 Personal history of nicotine dependence; Z79.82 Long term (current) use of aspirin; Z79.84 Long term (current) use of oral hypoglycemic drugs; Z82.0 Family history of epilepsy and other diseases of the nervous system

== ENCOUNTER 2017-10-10 17:22 | Inpatient (IN) | payer OTHER ==
[~2017-10-10] VITALS: Ht 182.9 cm; Wt 96.9 kg
--- NOTE | 2017-10-10 17:45 | EMERGENCY ROOM VISIT NOTE ---
History Report prepared by Yuli: Jourdan Martinez Under the Supervision of: Dr. Alcides Nichols M.D. First contact with patient: 17:26 Stated Complaint: WEAKNESS History of Present Illness The patient is a 72 year old male who presents to the Emergency Room with complaints of worsening weakness that has been about 2 weeks ago. He has a past medical history of small seizures and was placed on two new seizure medications while continuing his Phenobarbital 1 month ago. Since then, his family believes he seems more confused and "drugged up." He was seen in our ER a couple of days ago for the same symptoms. They tried to follow up with his PCP, but they referred him back to the ER. This is because he experience three falls today. He did not fall to the ground and did not experience any injury, trauma, or loss of consciousness. He also has a history of chronic UTI's and is taking Cefadroxil. He denies any fevers, chills, chest pain, shortness of breath, nausea, vomiting, and diarrhea. . Source of History: patient Onset: 2 weeks ago Position: other (global) Symptom Intensity: moderate Quality: other (Weakness) Timing: constant Associated Symptoms: No LOC, No fevers, No chills, No chest pain, No SOB, No nausea, No vomiting, No diarrhea Note: He experienced three falls today without any known trauma or injury. Per the patient's family, he is mildly confused. Review of Systems See HPI for pertinent positives and negatives. A total of ten systems were reviewed and were otherwise negative. Past Medical & Surgical Medical Problems: (1) Altered mental status (2) Cholecystectomy (3) Diab Marisa Wo Compl, Type Ii Or Unspec Type, Uncontrolled (4) Falls frequently (5) Hyperlipidemia Nec/Nos (6) Hypertension Nos (7) Hypothyroidism (8) Pancreatitis (9) Seizure (10) TIA (transient ischemic attack) Family History Cancer Seizures Social History Smoking Status: Former Smoker Drug Use: none Marital Status: Housing Status: lives with significant other Occupation Status: retired, disabled Current/Historical Medications Scheduled Aspirin (Aspirin Ec), 81 MG PO DAILY Levetiracetam (Keppra), 500 MG PO BID Levothyroxine Sodium (Levothyroxine Sodium), 50 MCG PO QAM Metformin Hcl Er (Glucophage Er), 500 MG PO DAILY Pancrelipase (Lipase-Protease- (Creon [id number]), 12,000 UNITS PO TIDM Phenobarbital (Phenobarbital), 64.8 MG PO QID Phenytoin Sodium (Dilantin), 100 MG PO TID Simvastatin (Zocor), 40 MG PO HS Tamsulosin HCl (Tamsulosin HCl), 0.4 MG PO HS Scheduled PRN Lorazepam (Lorazepam), 0.5 MG PO TID PRN for Anxiety Allergies Coded Allergies: Morphine (Verified Allergy, Unknown, ?, 10/07/17) Nitrofurantoin (Verified Adverse Reaction, Mild, NAUSEA, 10/07/17) Quinolones (Verified Adverse Reaction, Mild, NAUSEA, 10/07/17) Meperidine (Verified Adverse Reaction, Unknown, SEIZURES, 10/07/17) Physical Exam Vital Signs Date Time Temp Pulse Resp B/P (MAP) Pulse Ox O2 Delivery O2 Flow Rate FiO2 10/10/17 19:15 71 10/10/17 19:01 68 20 140/70 95 Room Air 10/10/17 18:36 68 18 134/68 94 Room Air 10/10/17 17:35 79 18 145/76 96 Room Air Physical Exam GENERAL: Drowsy and fatigued appearing, in no distress. HENT: Normocephalic, atraumatic. Oropharynx reveals dry mucous membranes. EYES: Normal conjunctiva. Sclera non-icteric. NECK: Supple. No nuchal rigidity. FROM. No JVD. RESPIRATORY: Clear to auscultation. CARDIAC: Regular rate, normal rhythm. Extremities warm and well perfused. Pulses equal. ABDOMEN: Obese, soft, non-distended. No tenderness to palpation. No rebound or guarding. No masses. RECTAL: Deferred. MUSCULOSKELETAL: Chest examination reveals no tenderness. The back is symmetrical on inspection without obvious abnormality. There is no CVA tenderness to palpation. No joint edema. LOWER EXTREMITIES: Calves are equal size bilaterally and non-tender. No edema. No discoloration. NEURO: Normal sensorium. Mild slow dysarthric speech. Slow motor movements but no gross motor or sensory deficits. SKIN: No rash or jaundice noted. Medical Decision & Procedures ER Provider Diagnostic Interpretation: Radiology results as stated below per my review and radiologist interpretation: CHEST ONE VIEW PORTABLE CLINICAL HISTORY: Weakness. COMPARISON STUDY: Chest radiograph October 07, 2017. FINDINGS: Lung volumes are normal. Linear bibasilar opacities suggest atelectasis or scarring. There is no consolidation to suggest pneumonia and there is no evidence of pulmonary edema. Cardiomediastinal silhouette is normal. A battery pack projects over the lower chest. Note is made of an indeterminate 1.2 cm radiodensity which projects over the left upper hemithorax. IMPRESSION: 1. No acute cardiopulmonary findings. 2. 1.2 cm oval-shaped radiodensity which projects over the left upper hemithorax. It's unclear whether this is on or within the patient. Electronically signed by: Donald Young M.D. 10/10/2017 6:28 PM Dictated Date/Time: 10/10/2017 6:25 PM Laboratory Results 10/10/17 18:00 Red Blood Count 4.34, Mean Corpuscular Volume 100.9, Mean Corpuscular Hemoglobin 34.1, Mean Corpuscular Hemoglobin Concent 33.8, Mean Platelet Volume 8.1, Neutrophils (%) (Auto) 56.4, Lymphocytes (%) (Auto) 30.4, Monocytes (%) ( Auto) 10.4, Eosinophils (%) (Auto) 2.2, Basophils (%) (Auto) 0.4, Neutrophils # (Auto) 2.59, Lymphocytes # (Auto) 1.40, Monocytes # (Auto) 0.48, Eosinophils # ( Auto) 0.10, Basophils # (Auto) 0.02 10/10/17 18:00 Test 10/10/17 17:35 10/10/17 18:00 Urine Color YELLOW Urine Appearance CLEAR (CLEAR) Urine pH 5.0 (4.5-7.5) Urine Specific [place] 1.020 (1.000-1.030) Urine Protein NEG (NEG) Urine Glucose (UA) 1+ (NEG) Urine Ketones NEG (NEG) Urine Occult Blood NEG (NEG) Urine Nitrite NEG (NEG) Urine Bilirubin NEG (NEG) Urine Urobilinogen NEG (NEG) Urine Leukocyte Esterase TRACE (NEG) Urine WBC (Auto) 1-5 /hpf (0-5) Urine RBC (Auto) 0-4 /hpf (0-4) Urine Hyaline Casts (Auto) 1-5 /lpf (0-5) Urine Epithelial Cells (Auto) 5-10 /lpf (0-5) Urine Bacteria (Auto) NEG (NEG) White Blood Count 4.60 K/uL (4.8-10.8) Red Blood Count 4.34 M/uL (4.7-6.1) Hemoglobin 14.8 g/dL (14.0-18.0) Hematocrit 43.8 % (42-52) Mean Corpuscular Volume 100.9 fL (80-100) Mean Corpuscular Hemoglobin 34.1 pg (25-34) Mean Corpuscular Hemoglobin Concent 33.8 g/dl (32-36) Platelet Count 237 K/uL (130-400) Mean Platelet Volume 8.1 fL (7.4-10.4) Neutrophils (%) (Auto) 56.4 % Lymphocytes (%) (Auto) 30.4 % Monocytes (%) (Auto) 10.4 % Eosinophils (%) (Auto) 2.2 % Basophils (%) (Auto) 0.4 % Neutrophils # (Auto) 2.59 K/uL (1.4-6.5) Lymphocytes # (Auto) 1.40 K/uL (1.2-3.4) Monocytes # (Auto) 0.48 K/uL (0.11-0.59) Eosinophils # (Auto) 0.10 K/uL (0-0.5) Basophils # (Auto) 0.02 K/uL (0-0.2) RDW Standard Deviation 48.2 fL (36.4-46.3) RDW Coefficient of Variation 13.1 % (11.5-14.5) Immature Granulocyte % (Auto) 0.2 % Immature Granulocyte # (Auto) 0.01 K/uL (0.00-0.02) Anion Gap 9.0 mmol/L (3-11) Est Creatinine Clear Calc Drug Dose 78.1 ml/min Estimated GFR () 85.6 Estimated GFR (Non- 73.8 BUN/Creatinine Ratio 13.1 (10-20) Calcium Level 9.1 mg/dl (8.5-10.1) Phosphorus Level 2.8 mg/dl (2.5-4.9) Magnesium Level 2.4 mg/dl (1.8-2.4) Total Bilirubin 0.2 mg/dl (0.2-1) Direct Bilirubin < 0.1 mg/dl (0-0.2) Aspartate Amino Transf (AST/SGOT) 14 U/L (15-37) Alanine Aminotransferase (ALT/SGPT) 24 U/L (12-78) Alkaline Phosphatase 104 U/L (45-117) Ammonia 47.2 umol/L (11-32) Total Protein 8.3 gm/dl (6.4-8.2) Albumin 4.0 gm/dl (3.4-5.0) Lipase 175 U/L (73-393) Thyroid Stimulating Hormone (TSH) 2.180 uIu/ml (0.300-4.500) Phenytoin (Dilantin) Level 14.6 mcg/mL (10-20) Phenobarbital Level 52.7 mcg/mL (15.0-40.0) Laboratory results reviewed by me Medications Administered Medications (Trade) Dose Ordered Sig/Leni Route Start Time Stop Time Status Last Admin Dose Admin Sodium Chloride 1,000 ml @ 999 mls/hr Q1H1M STAT IV 10/10/17 18:02 10/10/17 19:02 DC 10/10/17 18:38 999 MLS/HR ED Course 1726: The patient was evaluated in room B8. A complete history and physical exam was performed. 1801: Ordered Sodium Chloride 1000 ml @ 999 mls/hr IV 0: The patient was updated on his need for further treatment as an inpatient at this time. He doesn't want to stay; however, he is unable to demonstrate capacity in terms of describing his diagnosis and risks/benefits of leaving vs. staying. I will speak with a medicine service. 1914: Upon reexamination, the patient was resting. I discussed the test results and treatment plan with him and his family. The patient will be evaluated by Dr. Nolan of the [facility] for further management. Medical Decision I reviewed the patient's past medical history, medications, and the nursing notes as described above. Differential diagnosis includes but is not limited to: polypharmacy, medications adverse effect, dehydration, electrolyte abnormality, pneumonia, bronchitis, and UTI. The patient is a 72-year-old gentleman with a past medical history of TIA, seizure disorder on phenobarbital, Keppra, Dilantin presents to emergency Department from home after experiencing worsening generalized weakness per history of present illness. Patient was seen emergency Department 3 days ago and had unremarkable workup with negative CT of the head. Patient was feeling improved and so was discharged with plan for outpatient follow-up and physical therapy evaluation, which has not been performed yet. On arrival the patient is in no acute distress, afebrile with stable vital signs. He has mild slurred speech but is able to answer questions appropriately although has poor, short- term memory. He was able to ambulatge to the bathroom with a walker and 2 person assist and even still the patient did stumble (which he did not remember 10 minutes later). Family reports that his worsening symptoms have really evolved since his recent admission for seizures where they say was put on Keppra and Dilantin into addition to his long-standing phenobarbital. Labs notable for supratherapeutic level of phenobarbital which is 52.7 up from his normally elevated level of low 40s, which likely explains his worsening ataxia, drowsiness and fatigue. I discussed this with the patient and the family and the patient did report that he did not want to be admitted, however, he was unable to demonstrate he has capacity to make that decision at this time , as he was unable to explain with sufficient detail his diagnosis and risks and benefits. For instance, when asked why it was recommended he stay he replied that "his blood pressure was up". When I corrected him that it was his phenobarbital that was elevated, he was unable to explain the risks of such and elevation. Case was d/w Dr. Nolan, [facility] hospitalist, who will admit the patient for further management to allow his phenobarbital to metabolize and likely neurology consultation to discuss improved titration of his AEDs. Medication Reconcilliation Current Medication List: was personally reviewed by me Blood Pressure Screening Patient's blood pressure: Normal blood pressure Blood pressure disposition: Did not require urgent referral Consults Time Called: 1909 Consulting Physician: Dr. Nolan - [facility] [place] Returned Call: 1914 I discussed the patient with him - He will evaluate the patient for further treatment. Impression Primary Impression: Accidental medication overdose Additional Impression: Phenobarbital toxicity Scribe Attestation The scribe's documentation has been prepared under my direction and personally reviewed by me in its entirety. I confirm that the note above accurately reflects all work, treatment, procedures, and medical decision making performed by me. Departure Information Dispostion Being Evaluated By Hospitalist Referrals Coleman Gillespie M.D. (PCP) Problem Qualifiers Primary Impression: Accidental medication overdose Encounter type: initial encounter Qualified Codes: T50.901A - Poisoning by unspecified drugs, medicaments and biological substances, accidental ( unintentional), initial encounter Additional Impression: Phenobarbital toxicity Encounter type: initial encounter Injury intent: accidental or unintentional Qualified Codes: T42.3X1A - Poisoning by barbiturates, accidental (unintentional), initial encounter
[2017-10-10] MEDS ORDERED: SODIUM CHLORIDE 0.9% 1000ML 1,000 ML IV STA (18:02)
[2017-10-10 18:14] LABS: BASO % 0.4 %; BASO ABS # 0.02 K/uL (0-0.2); COMPLETE YES; EOS % 2.2 %; HEMATOCRIT 43.8 % (42-52); IG% 0.2 %; LYMPH % 30.4 %; MEAN CELL VOLUME 100.9 fL (80-100); MEAN CORPUSCULAR HEMOGLOBIN 34.1 pg (25-34); MEAN CORPUSCULAR HGB CONC 33.8 g/dl (32-36); MEAN PLATELET VOLUME 8.1 fL (7.4-10.4); MONO % 10.4 %; NEUT % 56.4 %; PLATELET COUNT 237 K/uL (130-400); RED BLOOD COUNT 4.34 M/uL (4.7-6.1)
[2017-10-10 18:24] LABS: URINE APPEARANCE CLEAR (CLEAR); URINE BILIRUBIN NEG (NEG); URINE COLOR YELLOW; URINE NITRITE NEG (NEG); UROBILINOGEN NEG (NEG); ZZUR CULT IF INDIC CLEAN CATCH NO
[2017-10-10 18:29] LABS: MANUAL MICROSCOPIC REQUIRED? NO; REVIEW REQ? NO
--- NOTE | 2017-10-10 18:29 | DIAGNOSTIC IMAGING REPORT ---
CHEST ONE VIEW PORTABLE CLINICAL HISTORY: Weakness. COMPARISON STUDY: Chest radiograph October 07, 2017. FINDINGS: Lung volumes are normal. Linear bibasilar opacities suggest atelectasis or scarring. There is no consolidation to suggest pneumonia and there is no evidence of pulmonary edema. Cardiomediastinal silhouette is normal. A battery pack projects over the lower chest. Note is made of an indeterminate 1.2 cm radiodensity which projects over the left upper hemithorax. IMPRESSION: 1. No acute cardiopulmonary findings. 2. 1.2 cm oval-shaped radiodensity which projects over the left upper hemithorax. It's unclear whether this is on or within the patient. Electronically signed by: Donald Young M.D. 10/10/2017 6:28 PM Dictated Date/Time: 10/10/2017 6:25 PM
[2017-10-10 18:34] LABS: ALT/SGPT 24 U/L (12-78); AST/SGOT 14 U/L (15-37); BLOOD UREA NITROGEN 13 mg/dl (7-18); BUN/CREATININE RATIO 13.1 (10-20); CALCIUM 9.1 mg/dl (8.5-10.1); CARBON DIOXIDE 27 mmol/L (21-32); CHLORIDE 102 mmol/L (98-107); GLUCOSE 166 mg/dl (70-99); MAGNESIUM 2.4 mg/dl (1.8-2.4); POTASSIUM 4.3 mmol/L (3.5-5.1); SODIUM 138 mmol/L (136-145)
[2017-10-10 18:43] LABS: ALKALINE PHOSPHATASE 104 U/L (45-117); PHOSPHORUS 2.8 mg/dl (2.5-4.9)
[2017-10-10 18:58] LABS: PHENOBARBITAL 52.7 mcg/mL (15.0-40.0)
--- NOTE | 2017-10-10 20:13 | History and Physical ---
History & Physical Date & Time of Service: Oct 10, 2017 at 20:13 Chief Complaint: Weakness Primary Care Physician: Coleman Gillespie M.D. History of Present Illness Source: patient, family The patient is a 72-year-old male who presents to the emergency department with progressively worsening generalized weakness and increased frequency of falling over the past 2 weeks. He was most recently hospitalized at [facility] from September 25 through September 27, where he had the addition of Keppra and Dilantin to his present phenobarbital dose to better control seizures. Since that time, his family reports that he's been more confused. He was seen in the ER a few days ago for the similar symptoms. He was referred back to the ER again today by his PCP due to a series of 3 falls that occurred earlier in the day today prior to arrival. He denies any injury to his head or other body areas. He does have a history of recurrent urinary tract infections, and presently is taking cefadroxil. He has not had any recent travels or sick exposures. Past Medical/Surgical History Medical Problems: (1) Cholecystectomy Status: Resolved (2) Diab Marisa Wo Compl, Type Ii Or Unspec Type, Uncontrolled Status: Chronic (3) Hyperlipidemia Nec/Nos Status: Chronic (4) Hypertension Nos Status: Chronic (5) Hypothyroidism Status: Chronic (6) Pancreatitis Status: Resolved (7) Seizure Status: Chronic (8) TIA (transient ischemic attack) Status: Resolved Family History Cancer Seizures Social History Smoking Status: Former Smoker Smokeless Tobacco Use: No Alcohol Use: none Drug Use: none Marital Status: Housing status: lives with family Occupational Status: retired, disabled Immunizations History of Influenza Vaccine: Yes History of Tetanus Vaccine?: Yes History of Pneumococcal: Yes History of Hepatitis B Vaccine: Unknown Multi-Drug Resistant Organisms History of MDRO: No Allergies Coded Allergies: Morphine (Verified Allergy, Unknown, ?, 10/07/17) Nitrofurantoin (Verified Adverse Reaction, Mild, NAUSEA, 10/07/17) Quinolones (Verified Adverse Reaction, Mild, NAUSEA, 10/07/17) Meperidine (Verified Adverse Reaction, Unknown, SEIZURES, 10/07/17) Home Medications Scheduled Aspirin (Aspirin Ec), 81 MG PO DAILY Levetiracetam (Keppra), 500 MG PO BID Levothyroxine Sodium (Levothyroxine Sodium), 50 MCG PO QAM Metformin Hcl Er (Glucophage Er), 500 MG PO DAILY Pancrelipase (Lipase-Protease- (Creon 31993), 12,000 UNITS PO TIDM Phenobarbital (Phenobarbital), 64.8 MG PO QID Phenytoin Sodium (Dilantin), 100 MG PO TID Simvastatin (Zocor), 40 MG PO HS Tamsulosin HCl (Tamsulosin HCl), 0.4 MG PO HS Scheduled PRN Lorazepam (Lorazepam), 0.5 MG PO TID PRN for Anxiety Review of Systems The patient denies chest pain, palpitations, shortness of breath, cough, lower extremity swelling, sore throat, fevers, chills, sweats, weight change, fatigue, nausea, vomiting, diarrhea or constipation, abdominal pain, pelvic pain, blood in urine or stool, dysuria, urinary frequency or urgency, lightheadedness , dizziness, headache, loss of consciousness, rash, abnormal bruising or bleeding, focal weakness, numbness or tingling in arms or legs, generalized arthralgias or myalgias, back or neck pain, or night sweats. The review of systems is otherwise negative other than for that already noted above, and at least 10 systems have been reviewed. Physical Exam Vital Signs Date Time Temp Pulse Resp B/P (MAP) Pulse Ox O2 Delivery O2 Flow Rate FiO2 10/10/17 19:15 71 10/10/17 19:01 68 20 140/70 95 Room Air 10/10/17 18:36 68 18 134/68 94 Room Air 10/10/17 17:35 79 18 145/76 96 Room Air The patient is awake, well-developed and adequately nourished, alert and oriented 3, speaks slowly, normocephalic and atraumatic, lying in bed and in no acute distress. HEENT--PERRL, EOMI, mucous membranes and oropharynx dry. Neck--supple, no JVD or bruits, thyroid normal, trachea midline, no adenopathy. Heart--normal S1 and S2, no extra beats, no murmurs, rubs or gallops. Lungs--clear bilaterally with good air movement, no respiratory distress, no accessory muscle use. Abdomen--normal bowel sounds and soft, nontender and nondistended, no hernias or masses, no organomegaly. Extremities--no cyanosis, clubbing or edema. There are good distal pulses b/l. Dermatologic--normal skin turgor, normal color, warm and dry, no abnormal lymph nodes, no rash. Neurologic--cranial nerves II through XII grossly intact. Rheumatologic--normal range of motion. Psychiatric--normal affect. Diagnostics Laboratory Results Results Past 24 Hours Test 10/10/17 17:35 10/10/17 18:00 Range/Units Urine Color YELLOW Urine Appearance CLEAR CLEAR Urine pH 5.0 4.5-7.5 Urine Specific Bowdle 1.020 1.000-1.030 Urine Protein NEG NEG Urine Glucose (UA) 1+ NEG Urine Ketones NEG NEG Urine Occult Blood NEG NEG Urine Nitrite NEG NEG Urine Bilirubin NEG NEG Urine Urobilinogen NEG NEG Urine Leukocyte Esterase TRACE NEG Urine WBC (Auto) 1-5 0-5 /hpf Urine RBC (Auto) 0-4 0-4 /hpf Urine Hyaline Casts (Auto) 1-5 0-5 /lpf Urine Epithelial Cells (Auto) 5-10 0-5 /lpf Urine Bacteria (Auto) NEG NEG White Blood Count 4.60 4.8-10.8 K/uL Red Blood Count 4.34 4.7-6.1 M/uL Hemoglobin 14.8 14.0-18.0 g/dL Hematocrit 43.8 42-52 % Mean Corpuscular Volume 100.9 80-100 fL Mean Corpuscular Hemoglobin 34.1 25-34 pg Mean Corpuscular Hemoglobin Concent 33.8 32-36 g/dl Platelet Count 237 130-400 K/uL Mean Platelet Volume 8.1 7.4-10.4 fL Neutrophils (%) (Auto) 56.4 % Lymphocytes (%) (Auto) 30.4 % Monocytes (%) (Auto) 10.4 % Eosinophils (%) (Auto) 2.2 % Basophils (%) (Auto) 0.4 % Neutrophils # (Auto) 2.59 1.4-6.5 K/uL Lymphocytes # (Auto) 1.40 1.2-3.4 K/uL Monocytes # (Auto) 0.48 0.11-0.59 K/uL Eosinophils # (Auto) 0.10 0-0.5 K/uL Basophils # (Auto) 0.02 0-0.2 K/uL RDW Standard Deviation 48.2 36.4-46.3 fL RDW Coefficient of Variation 13.1 11.5-14.5 % Immature Granulocyte % (Auto) 0.2 % Immature Granulocyte # (Auto) 0.01 0.00-0.02 K/uL Sodium Level 138 136-145 mmol/L Potassium Level 4.3 3.5-5.1 mmol/L Chloride Level 102 98-107 mmol/L Carbon Dioxide Level 27 21-32 mmol/L Anion Gap 9.0 3-11 mmol/L Blood Urea Nitrogen 13 7-18 mg/dl Creatinine 1.00 0.60-1.40 mg/dl Est Creatinine Clear Calc Drug Dose 78.1 ml/min Estimated GFR () 85.6 Estimated GFR (Non- 73.8 BUN/Creatinine Ratio 13.1 10-20 Random Glucose 166 70-99 mg/dl Calcium Level 9.1 8.5-10.1 mg/dl Phosphorus Level 2.8 2.5-4.9 mg/dl Magnesium Level 2.4 1.8-2.4 mg/dl Total Bilirubin 0.2 0.2-1 mg/dl Direct Bilirubin < 0.1 0-0.2 mg/dl Aspartate Amino Transf (AST/SGOT) 14 15-37 U/L Alanine Aminotransferase (ALT/SGPT) 24 12-78 U/L Alkaline Phosphatase 104 45-117 U/L Ammonia 47.2 11-32 umol/L Total Protein 8.3 6.4-8.2 gm/dl Albumin 4.0 3.4-5.0 gm/dl Lipase 175 73-393 U/L Thyroid Stimulating Hormone (TSH) 2.180 0.300-4.500 uIu/ml Phenytoin (Dilantin) Level 14.6 10-20 mcg/mL Phenobarbital Level 52.7 15.0-40.0 mcg/mL Diagnostic Radiology Patient Name: VOLODYMYR VENEGAS Unit Number: [id number] Dictated: 10/10/171824 Transcribed: 10/10/171824 JA Printed Date/Time: [~ rep prt dt]/[~ rep prt tm] [~ rep ct labl] - [~ rep ct ivnm] [facility] [place] [address] Dictated: 10/10/171824 Transcribed: 10/10/171824 JA Printed Date/Time: [~ rep prt dt]/[~ rep prt tm] [~ rep ct labl] - [~ rep ct ivnm] [~ rep ct add3]] CHEST ONE VIEW PORTABLE CLINICAL HISTORY: Weakness. COMPARISON STUDY: Chest radiograph October 07, 2017. FINDINGS: Lung volumes are normal. Linear bibasilar opacities suggest atelectasis or scarring. There is no consolidation to suggest pneumonia and there is no evidence of pulmonary edema. Cardiomediastinal silhouette is normal. A battery pack projects over the lower chest. Note is made of an indeterminate 1.2 cm radiodensity which projects over the left upper hemithorax. IMPRESSION: 1. No acute cardiopulmonary findings. 2. 1.2 cm oval-shaped radiodensity which projects over the left upper hemithorax. It's unclear whether this is on or within the patient. Electronically signed by: Donald Young M.D. 10/10/2017 6:28 PM Dictated Date/Time: 10/10/2017 6:25 PM The status of this report is Signed. Draft = Not yet reviewed or approved by Radiologist. Signed = Reviewed and approved by Radiologist. <AttendingPhy></AttendingPhy> <FamilyPhy>Coleman Gillespie M.D.</FamilyPhy> < PrimaryPhy>Coleman Gillespie M.D.</PrimaryPhy> <UnitNumber>[id number]</UnitNumber > <VisitNumber>[id number]</VisitNumber> <PatientName>VOLODYMYR VENEGAS [place]ria</ PatientName> <DateOfBirth>1945</DateOfBirth> <Location>[facility]</Location> < ServiceDate>10/10/17</ServiceDate> <MNE>ESINDI</MNE> <OrderingPhy>Alcides Nichols M.D.</OrderingPhy> <OrderingPhyMNE>f rep ord dr murray</OrderingPhyMNE> <DictatingPhyMNE>f rep dict dr murray</DictatingPhyMNE> <CCListMNE>f rep ct mne</ CCListMNE> <AdmittingPhyMNE>f pt admit dr murray</AdmittingPhyMNE> <AttendingPhyMNE >f pt attend dr murray</AttendingPhyMNE> <ConsultingPhyMNE>f pt consult dr murray</ConsultingPhyMNE> <FamilyPhyMNE>f pt fam dr murray</FamilyPhyMNE> <OtherPhyMNE>f pt other dr murray</OtherPhyMNE> < PrimaryPhyMNE>f pt prim care dr murray</PrimaryPhyMNE> <ReferringPhyMNE>f pt referring dr murray</ReferringPhyMNE> Patient Name: VOLODYMYR VENEGAS Unit Number: [id number] Dictated: 10/07/171215 Transcribed: 10/07/171215 MS Printed Date/Time: [~ rep prt dt]/[~ rep prt tm] [~ rep ct labl] - [~ rep ct ivnm] [facility] Radiology Department [place] [id number] Dictated: 10/07/171215 Transcribed: 10/07/171215 MS Printed Date/Time: [~ rep prt dt]/[~ rep prt tm] [~ rep ct labl] - [~ rep ct ivnm] [~ rep ct add3]] HEAD WITHOUT CONTRAST (CT) CT DOSE: 634.23 mGy.cm HISTORY: Mental status change Stroke TECHNIQUE: Multiaxial CT images of the head were performed without the use of intravenous contrast. A dose lowering technique was utilized adhering to the principles of ALARA. Comparison: 09/25/2017 Findings: The paranasal sinuses and mastoid air cells are clear. The calvarium and skull base are intact. The ventricles and sulci are within normal limits. There is no mass, hematoma, midline shift, or acute infarct. Age-related atrophy and chronic small vessel change Impression: No acute intracranial abnormality. Age-related change The above report was generated using voice recognition software. It may contain grammatical, syntax or spelling errors. Electronically signed by: Gerard Cole M.D. 10/07/2017 12:23 PM Dictated Date/Time: 10/07/2017 12:16 PM The status of this report is Signed. Draft = Not yet reviewed or approved by Radiologist. Signed = Reviewed and approved by Radiologist. <AttendingPhy></AttendingPhy> <FamilyPhy>Coleman Gillespie M.D.</FamilyPhy> < PrimaryPhy>Coleman Gillespie M.D.</PrimaryPhy> <UnitNumber>[id number]</UnitNumber > <VisitNumber>[id number]</VisitNumber> <PatientName>VOLODYMYR VENEGAS</ PatientName> <DateOfBirth>1945</DateOfBirth> <Location>[facility]</Location> < ServiceDate>10/07/17</ServiceDate> <MNE>ESINDI</MNE> <OrderingPhy>Azar Ibarra PA-C</OrderingPhy> <OrderingPhyMNE>f rep ord dr murray</OrderingPhyMNE> < DictatingPhyMNE>f rep dict dr murray</DictatingPhyMNE> <CCListMNE>f rep ct mne</ CCListMNE> <AdmittingPhyMNE>f pt admit dr murray</AdmittingPhyMNE> <AttendingPhyMNE >f pt attend dr murray</AttendingPhyMNE> <ConsultingPhyMNE>f pt consult dr murray</ConsultingPhyMNE> <FamilyPhyMNE>f pt fam dr murray</FamilyPhyMNE> <OtherPhyMNE>f pt other dr murray</OtherPhyMNE> < PrimaryPhyMNE>f pt prim care dr murray</PrimaryPhyMNE> <ReferringPhyMNE>f pt referring dr murray</ReferringPhyMNE> EKG EKG performed on October 07, shows normal sinus rhythm at 68 bpm, and no acute ST-T changes, and no change compared 09/27/2017 Impression Assessment and Plan Progressive generalized weakness/phenobarbital toxicity/altered mental state-- The patient be admitted to the telemetry unit. Phenobarbital level of 52.7 is higher than his usual mildly elevated level, and will therefore hold phenobarbital dosing tonight, and recheck level in a.m. For now continue Dilantin and Keppra. Check levels. Consult his neurologist Dr. Valentine. No active signs of infection or metabolic encephalopathy. Hold any further cefadroxil, and follow urine culture and sensitivity report. Diabetes mellitus--hold metformin 500 mg by mouth daily. Place on Accu-Cheks before meals and at bedtime with NovoLog coverage per scale. Hypothyroidism--continue levothyroxine sodium 50 g by mouth every morning. Hyperlipidemia--continue simvastatin 40 mg by mouth at bedtime. BPH--continue tamsulosin 0.4 mg by mouth at bedtime. Pancreatic insufficiency--continue Creon 12,000 units by mouth 3 times a day with meals Level of Care Telemetry Advanced Directives Existing Advance Directive: No Existing Living Will: No Existing Power of Doctor Of Nursing Practice: No Resuscitation Status FULL RESUSCITATION VTE Prophylaxis VTE Risk Assessment Done? Y/N: Yes Risk Level: Moderate Given or contraindicated: SCD's
[2017-10-10] MEDS ORDERED: GLUCAGON FOR INJ 1 MG VIAL SQ PRN (20:30)
[2017-10-10] MEDS ORDERED: GLUCOSE 40% GEL 15 GM TUBE PO PRN (20:30)
[2017-10-10] MEDS ORDERED: ONDANSETRON INJ 2 MG/ML 2 ML VIAL IV PRN (20:30)
[2017-10-10] MEDS ORDERED: LORAZEPAM 0.5 MG TAB PO PRN (20:30)
[2017-10-10] MEDS ORDERED: ACETAMINOPHEN 325 MG TAB PO PRN (20:30)
[2017-10-10] MEDS ORDERED: GLUCOSE 10 TABS/TUBE PO PRN (20:30)
[2017-10-10] MEDS ORDERED: DEXTROSE 50% 50 ML SYR IV PRN (20:30)
[2017-10-10 20:40] VITALS: BP 152/82; PULSE 79; TEMP 36.5; O2SAT 98; Ht 182.9 cm; Wt 96.9 kg
[2017-10-10] MEDS: INSULIN ASPART 100 UNITS/ML 3 ML PEN SC SCH (21:41)
[2017-10-10] MEDS: SODIUM CHLORIDE 0.9% 1000ML 1,000 ML IV SCH (21:41)
[2017-10-10] MEDS: SIMVASTATIN 40 MG TAB PO SCH (23:12)
[2017-10-10] MEDS: TAMSULOSIN HCL 0.4 MG CAP PO SCH (23:12)
[2017-10-10] MEDS: PHENYTOIN SODIUM ER 100 MG CAP PO SCH (23:12)
[2017-10-10] MEDS: LEVETIRACETAM 500 MG TAB PO SCH (23:13)
[2017-10-11] VITALS (8 sets, daily range): BP systolic 129–149; BP diastolic 68–81; PULSE 64–74; TEMP 36.4–36.9; O2SAT 90–95
[2017-10-11] MEDS: LEVOTHYROXINE 50 MCG TAB PO SCH (06:23)
[2017-10-11 06:59] LABS: BASO % 0.4 %; BASO ABS # 0.02 K/uL (0-0.2); COMPLETE YES; HEMATOCRIT 38.7 % (42-52); LYMPH % 30.3 %; LYMPH ABS # 1.35 K/uL (1.2-3.4); MEAN CORPUSCULAR HEMOGLOBIN 33.9 pg (25-34); MEAN CORPUSCULAR HGB CONC 33.6 g/dl (32-36); MEAN PLATELET VOLUME 8.2 fL (7.4-10.4); NEUT % 58.3 %; PLATELET COUNT 203 K/uL (130-400); RED BLOOD COUNT 3.83 M/uL (4.7-6.1); WHITE BLOOD COUNT 4.45 K/uL (4.8-10.8)
[2017-10-11 07:14] LABS: PROTHROMBIN TIME (PATIENT) 10.8 SECONDS (9.0-12.0)
[2017-10-11 07:30] LABS: ALT/SGPT 18 U/L (12-78); AST/SGOT 10 U/L (15-37); BLOOD UREA NITROGEN 10 mg/dl (7-18); BUN/CREATININE RATIO 11.3 (10-20); CALCIUM 8.5 mg/dl (8.5-10.1); CARBON DIOXIDE 24 mmol/L (21-32); CHLORIDE 106 mmol/L (98-107); CREATININE 0.88 mg/dl (0.60-1.40); GLUCOSE 148 mg/dl (70-99); MAGNESIUM 2.2 mg/dl (1.8-2.4); POTASSIUM 4.3 mmol/L (3.5-5.1); SODIUM 139 mmol/L (136-145)
[2017-10-11 07:34] LABS: ALKALINE PHOSPHATASE 81 U/L (45-117)
[2017-10-11] MEDS: ASPIRIN 81 MG ECTAB PO SCH (07:46)
[2017-10-11] MEDS: LEVETIRACETAM 500 MG TAB PO SCH ×2 (07:46→20:54)
[2017-10-11] MEDS: PANCREAZE (LIPASE 4,200U) CAP PO SCH ×3 (07:46→17:26)
[2017-10-11] MEDS: PHENYTOIN SODIUM ER 100 MG CAP PO SCH ×3 (07:47→20:54)
[2017-10-11] MEDS: INSULIN ASPART 100 UNITS/ML 3 ML PEN SC SCH ×4 (07:51→20:52)
--- NOTE | 2017-10-11 08:43 | Clinical Documentation Query ---
CLINICAL DOCUMENTATION QUERY Dr. CANALES, In your clinical opinion is this patient being managed for: (x ) Toxic encephalopathy due to phenobarbital toxicity ( ) Not Agree ( ) Other explanation of clinical findings (Please Explain) ( ) Unable to determine (Please Define) ( ) Need to Discuss The medical record reflects the following clinical findings, treatment, and risk factors. Clinical Indicators: 72 yo male presenting with altered mental status. Family reported confusion at home. Phenobarbital level 52.7. Treatment: hold phenobarbital pm dose, IV fluids, recheck phenobarbital level Risk Factors: phenobarbital toxicity Please clarify and document your clinical opinion in the progress notes and discharge summary. Terms such as "probable", "suspected", "likely", "questionable", "possible", or "still to be ruled out" are acceptable. IF IN AGREEMENT, YOU MUST DOCUMENT ABOVE DIAGNOSTIC STATEMENT IN DAILY PROGRESS NOTES AND DISCHARGE SUMMARY. This document is not part of the patient's record. Thank You, Suzi Goff, RN [phone]
[2017-10-11] MEDS ORDERED: PHENOBARBITAL 32.4 MG TAB PO SCH (09:00)
--- NOTE | 2017-10-11 11:35 | Hospitalist Progress Note ---
Hospitalist Progress Note Date of Service Oct 11, 2017. (Fidelia Mike PA-C) Subjective Pt evaluation today including: conversation w/ patient, conversation w/ family , physical exam, chart review, lab review, review of studies, review of inpatient medication list Patient seen and evaluated. No acute events overnight. Patient is known to me from previous admission and mentation appears baseline at this time. Suspect underlying MR and can be slow to respond at times. Discussed with , who unfortunately I suspect some underlying MR with her as well, expressed that she would like to know what medications he is one and when to take it. She states that she gives his Phenobarbital and dinner and at bedtime but wasn' t sure about a morning dose. HHS are active with this patient and she states that the nurse does help with medication but she feels that it had her confused and is not sure if she is giving the right medications. She cannot say if he has been taking additional medication and is not the greatest historian. There is concern for possible accidentally taking too much of this medication. She states the home health nurse helps with medication but the largely gives the meds and again expresses confusion. Phenobarbital levels are trending down but does chronically run high normally around 38-42. Had long discussion as patient was just recently admitted and has chronic ataxic gait and frequent falls. Is in agreement to rehab at this time (which he declined on last admission). Would like to go to [place] but is a little hesitant to agree to SNF but will continue to evaluate. Constitutional: No fever, No chills, No weakness Respiratory: No cough, No shortness of breath Cardiovascular: No chest pain, No palpitations Abdomen: No pain, No nausea, No vomiting, No diarrhea, No constipation Musculoskeletal: No joint pain Male : No dysuria Neurologic: + balance problems (chronic) Heme: No abnormal bleeding/bruising Skin: No rash (Fidelia Mike, LORENC) Medications Current Inpatient Medications Medications (Trade) Dose Ordered Sig/Leni Route Start Time Stop Time Status Last Admin Dose Admin Sodium Chloride 1,000 ml @ 50 mls/hr Q20H IV 10/10/17 20:21 11/09/17 20:20 10/10/17 21:41 50 MLS/HR Acetaminophen (Tylenol Tab) 650 mg Q4H PRN PO 10/10/17 20:30 11/09/17 20:29 Aspirin (Ecotrin Tab) 81 mg DAILY PO 10/11/17 09:00 11/10/17 08:59 10/11/17 07:46 81 MG Levetiracetam (Keppra Tab) 500 mg BID PO 10/10/17 21:00 11/09/17 20:59 10/11/17 07:46 500 MG Levothyroxine Sodium (Synthroid Tab) 50 mcg DAILYBB PO 10/11/17 06:00 11/10/17 06:59 10/11/17 06:23 50 MCG Lorazepam (Ativan Tab) 0.5 mg TID PRN PO 10/10/17 20:30 11/09/17 20:29 Phenytoin Sodium (Dilantin Er Cap) 100 mg TID PO 10/10/17 21:00 11/09/17 20:59 10/11/17 07:47 100 MG Simvastatin (Zocor Tab) 40 mg HS PO 10/10/17 21:00 11/09/17 20:59 10/10/17 23:12 40 MG Tamsulosin HCl (Flomax Cap) 0.4 mg HS PO 10/10/17 21:00 11/09/17 20:59 10/10/17 23:12 0.4 MG Amylase/Lipase/ Protease (Pancreaze (Lipase 4,200U) Cap) 3 cap TIDM PO 10/11/17 07:30 11/10/17 07:59 10/11/17 07:46 3 CAP Phenobarbital (Phenobarbital Tab) 64.8 mg TID PO 10/11/17 09:00 11/10/17 08:59 Future Hold Ondansetron HCl (Zofran Inj) 4 mg Q6H PRN IV 10/10/17 20:30 11/09/17 20:29 Insulin Aspart (novoLOG ASPART) SLIDING SCALE If C... ACHS SC 10/10/17 21:00 11/09/17 20:59 10/11/17 07:51 3 UNITS Glucose (Glucose 40% Gel) UD PRN PO 10/10/17 20:30 11/09/17 20:29 Glucose (Glucose Chew Tab) 1 tabs UD PRN PO 10/10/17 20:30 11/09/17 20:29 Dextrose (Dextrose 50% 50ML Syringe) 50 ml UD PRN IV 10/10/17 20:30 11/09/17 20:29 Glucagon (Glucagon Inj) 1 mg UD PRN SQ 10/10/17 20:30 11/09/17 20:29 (Fidelia Mike PA-C) Objective Vital Signs Date Time Temp Pulse Resp B/P (MAP) Pulse Ox O2 Delivery O2 Flow Rate FiO2 10/11/17 08:05 36.5 69 16 131/74 (93) 93 10/11/17 08:00 Room Air 10/11/17 04:00 Room Air 10/11/17 03:30 36.9 74 18 129/68 (88) 90 Room Air 10/11/17 00:24 36.8 71 18 130/77 (94) 93 Room Air 10/11/17 00:01 Room Air 10/10/17 20:40 36.5 79 18 152/82 98 Room Air 10/10/17 20:24 36.8 69 20 158/86 96 Room Air 10/10/17 19:15 71 10/10/17 19:01 68 20 140/70 95 Room Air 10/10/17 18:36 68 18 134/68 94 Room Air 10/10/17 17:35 79 18 145/76 96 Room Air (Fidelia Mike PA-C) Physical Exam General Appearance: WD/WN, no apparent distress Eyes: sclerae normal ENT: hearing grossly normal Neck: supple, no JVD, trachea midline Respiratory/Chest: lungs clear, normal breath sounds, no respiratory distress, no accessory muscle use Cardiovascular: regular rate, rhythm, no gallop, no murmur Abdomen: normal bowel sounds, non tender, soft Neurologic/Psychiatric: alert, oriented x 3 Skin: normal color, warm/dry (Fidelia Mike PA-C) Laboratory Results Last 24 Hours Test 10/10/17 17:35 10/10/17 18:00 10/10/17 21:07 10/11/17 06:22 Urine Color YELLOW Urine Appearance CLEAR Urine pH 5.0 Urine Specific [place] 1.020 Urine Protein NEG Urine Glucose (UA) 1+ Urine Ketones NEG Urine Occult Blood NEG Urine Nitrite NEG Urine Bilirubin NEG Urine Urobilinogen NEG Urine Leukocyte Esterase TRACE Urine WBC (Auto) 1-5 /hpf Urine RBC (Auto) 0-4 /hpf Urine Hyaline Casts (Auto) 1-5 /lpf Urine Epithelial Cells (Auto) 5-10 /lpf Urine Bacteria (Auto) NEG White Blood Count 4.60 K/uL 4.45 K/uL Red Blood Count 4.34 M/uL 3.83 M/uL Hemoglobin 14.8 g/dL 13.0 g/dL Hematocrit 43.8 % 38.7 % Mean Corpuscular Volume 100.9 fL 101.0 fL Mean Corpuscular Hemoglobin 34.1 pg 33.9 pg Mean Corpuscular Hemoglobin Concent 33.8 g/dl 33.6 g/dl Platelet Count 237 K/uL 203 K/uL Mean Platelet Volume 8.1 fL 8.2 fL Neutrophils (%) (Auto) 56.4 % 58.3 % Lymphocytes (%) (Auto) 30.4 % 30.3 % Monocytes (%) (Auto) 10.4 % 9.0 % Eosinophils (%) (Auto) 2.2 % 2.0 % Basophils (%) (Auto) 0.4 % 0.4 % Neutrophils # (Auto) 2.59 K/uL 2.59 K/uL Lymphocytes # (Auto) 1.40 K/uL 1.35 K/uL Monocytes # (Auto) 0.48 K/uL 0.40 K/uL Eosinophils # (Auto) 0.10 K/uL 0.09 K/uL Basophils # (Auto) 0.02 K/uL 0.02 K/uL RDW Standard Deviation 48.2 fL 48.7 fL RDW Coefficient of Variation 13.1 % 13.4 % Immature Granulocyte % (Auto) 0.2 % 0.0 % Immature Granulocyte # (Auto) 0.01 K/uL 0.00 K/uL Sodium Level 138 mmol/L 139 mmol/L Potassium Level 4.3 mmol/L 4.3 mmol/L Chloride Level 102 mmol/L 106 mmol/L Carbon Dioxide Level 27 mmol/L 24 mmol/L Anion Gap 9.0 mmol/L 9.0 mmol/L Blood Urea Nitrogen 13 mg/dl 10 mg/dl Creatinine 1.00 mg/dl 0.88 mg/dl Est Creatinine Clear Calc Drug Dose 78.1 ml/min 88.9 ml/min Estimated GFR () 85.6 98.1 Estimated GFR (Non- 73.8 84.6 BUN/Creatinine Ratio 13.1 11.3 Random Glucose 166 mg/dl 148 mg/dl Calcium Level 9.1 mg/dl 8.5 mg/dl Phosphorus Level 2.8 mg/dl Magnesium Level 2.4 mg/dl 2.2 mg/dl Total Bilirubin 0.2 mg/dl 0.3 mg/dl Direct Bilirubin < 0.1 mg/dl < 0.1 mg/dl Aspartate Amino Transf (AST/SGOT) 14 U/L 10 U/L Alanine Aminotransferase (ALT/SGPT) 24 U/L 18 U/L Alkaline Phosphatase 104 U/L 81 U/L Ammonia 47.2 umol/L Total Protein 8.3 gm/dl 6.9 gm/dl Albumin 4.0 gm/dl 3.4 gm/dl Lipase 175 U/L Thyroid Stimulating Hormone (TSH) 2.180 uIu/ml Phenytoin (Dilantin) Level 14.6 mcg/mL Phenobarbital Level 52.7 mcg/mL 47.2 mcg/mL Bedside Glucose 129 mg/dl Prothrombin Time 10.8 SECONDS Prothromb Time International Ratio 1.0 Activated Partial Thromboplast Time 26.8 SECONDS Partial Thromboplastin Ratio 1.0 Test 10/11/17 06:37 Bedside Glucose 149 mg/dl (Fidelia Mike, LORENC) Assessment and Plan 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 Patient has been reluctant to decrease dosing in the past - Discussion with who states she feels confused by his medications as they have a nurse coming in to help organize them and reports that the still tries to manage the medications - suspect that accidentally he may be getting more than his prescribed dose - Phenobarbital level is coming down and dosing has been held - will need to monitor for breakthrough seizures or withdrawal - Patient appears at baseline mentation at this time Generalized Weakness: - Patient has chronic ataxic gait and has a long history of falls which appears to have acutely worsened - Suspect his chronic issues and phenobarbital toxicity causing this increased weakness - patient reporting that he feels his normal self and is ready to go home - PT/OT evaluations - had long discussion with and patient about acute rehab. He is in aggreement to go to [facility] and will see if he qualifies. He states his home PT stated that he should consider rehab - I think he would be a good candidate and this was recommended on previous admission and he declined - Recent treatment for UTI - On Cefadroxil - will hold at this time Seizure Disorder: - Recent admission for concern of status epilepticus as patient was having unusual seizure like activity while on Phenobarbital and Dilantin. Keppra was instituted on last admission - Keppra 500 mg BID and Dilantin 100 mg TID - Continue to hold Phenobarbital and assess levels - may need to keep low dose on to prevent breakthrough seizures or withdrawal - Consult neurology - follows with [facility] - Dr. Valentine T2DM: A1c 7.1 - Hold Metformin 500 mg daily and cover with SSI Hypothyroidism: STABLE - Levothyroxine 50 mcg daily Hyperlipidemia: STABLE - Simvastatin 40 mg daily BPH: STABLE - Tamsulosin 0.4 mg daily Pancreatic Insufficiency: STABLE - Supplemental enzymes TID DVT Prophylaxis: SCD Code Status: FULL RESUSCITATION Disposition: - PT/OT evaluations - Likely need some sort of rehab - was established with [facility] on previous admission Continued [facility] stay due to: ambulation difficulties Discharge planning: rehab hospital, shelter facility (Fidelia Mike, PA-C) i personally examined pt and verified all brown points w Danii Mike PAC feeling more like himself, family notes that he's looking more like himself amenable to go to rehab vitals noted nad breahting unlabored no distress ataxia -due to anticonvulsants - not clear if just due to recent dose changes or due to unreliable taking of meds at home -med management as above -rehab -stable for med/surg (Martinez Caballero D.Sneha.)
[2017-10-11] MEDS: SODIUM CHLORIDE 0.9% 1000ML 1,000 ML IV SCH (13:41)
--- NOTE | 2017-10-11 15:19 | Neurology Consultation ---
Neurology Consultation Date of Consultation: Oct 11, 2017. Attending Physician: Martinez Caballero D.O. Primary Care Physician: Coleman Gillespie M.D. Reason for Consultation: phenobarb toxicity History of Present Illness Source: patient, spouse Ra is a 72 y/o male with PMH: Seizure Disorder, Cerebellar Ataxic Gait, Lacunar CVA, T2DM with Peripheral Neuropathy, HLD, Hypothyroidism, BPH, H/O Pancreatitis S/P Pseudocyst Removal, and S/P Cholecystectomy who presents to the ED c/o urinary retention, abdominal pain, and possible seizure. he was seen at [facility] 09/25- and Keppra was added to his antiseizure medications. He has been resistant and (refusing) to have his phenobarbital level reduced an it always is on the high side. he had three falls and brought to the ED. He was found to have a elevated phenobarb level above the high normal he has been maintained on. His organizes his medications and states she is confused about which medications should be given and may have given him additional doses. denies CP, SOB, abdominal pain, weakness, N, V, bowel or bladder issues Past Medical/Surgical History Medical Problems: (1) Accidental medication overdose Status: Acute (2) Back pain Status: Acute (3) Dizziness Status: Acute (4) Headache Status: Acute (5) Phenobarbital toxicity Status: Acute (6) PNA (pneumonia) Status: Acute Social History Smoking Status: Former smoker Smokeless Tobacco Use: No Alcohol Use: none Drug Use: none Marital Status: Housing Status: lives with significant other Occupation Status: retired, disabled Allergies Coded Allergies: Morphine (Verified Allergy, Unknown, ?, 10/07/17) Nitrofurantoin (Verified Adverse Reaction, Mild, NAUSEA, 10/07/17) Quinolones (Verified Adverse Reaction, Mild, NAUSEA, 10/07/17) Meperidine (Verified Adverse Reaction, Unknown, SEIZURES, 10/07/17) Current Inpatient Medications Current Inpatient Medications Medications (Trade) Dose Ordered Sig/Leni Route Start Time Stop Time Status Last Admin Dose Admin Sodium Chloride 1,000 ml @ 50 mls/hr Q20H IV 10/10/17 20:21 11/09/17 20:20 10/11/17 13:41 50 MLS/HR Acetaminophen (Tylenol Tab) 650 mg Q4H PRN PO 10/10/17 20:30 11/09/17 20:29 Aspirin (Ecotrin Tab) 81 mg DAILY PO 10/11/17 09:00 11/10/17 08:59 10/11/17 07:46 81 MG Levetiracetam (Keppra Tab) 500 mg BID PO 10/10/17 21:00 11/09/17 20:59 10/11/17 07:46 500 MG Levothyroxine Sodium (Synthroid Tab) 50 mcg DAILYBB PO 10/11/17 06:00 11/10/17 06:59 10/11/17 06:23 50 MCG Lorazepam (Ativan Tab) 0.5 mg TID PRN PO 10/10/17 20:30 11/09/17 20:29 Phenytoin Sodium (Dilantin Er Cap) 100 mg TID PO 10/10/17 21:00 11/09/17 20:59 10/11/17 13:32 100 MG Simvastatin (Zocor Tab) 40 mg HS PO 10/10/17 21:00 11/09/17 20:59 10/10/17 23:12 40 MG Tamsulosin HCl (Flomax Cap) 0.4 mg HS PO 10/10/17 21:00 11/09/17 20:59 10/10/17 23:12 0.4 MG Amylase/Lipase/ Protease (Pancreaze (Lipase 4,200U) Cap) 3 cap TIDM PO 10/11/17 07:30 11/10/17 07:59 10/11/17 12:05 3 CAP Phenobarbital (Phenobarbital Tab) 64.8 mg TID PO 10/11/17 09:00 11/10/17 08:59 Future Hold Ondansetron HCl (Zofran Inj) 4 mg Q6H PRN IV 10/10/17 20:30 11/09/17 20:29 Insulin Aspart (novoLOG ASPART) SLIDING SCALE If C... ACHS SC 10/10/17 21:00 11/09/17 20:59 10/11/17 12:47 2 UNITS Glucose (Glucose 40% Gel) UD PRN PO 10/10/17 20:30 11/09/17 20:29 Glucose (Glucose Chew Tab) 1 tabs UD PRN PO 10/10/17 20:30 12/13/17 20:29 Dextrose (Dextrose 50% 50ML Syringe) 50 ml UD PRN IV 10/10/17 20:30 11/09/17 20:29 Glucagon (Glucagon Inj) 1 mg UD PRN SQ 10/10/17 20:30 11/09/17 20:29 Physical Exam Vital Signs (Past 24 Hrs): Date Time Temp Pulse Resp B/P (MAP) Pulse Ox O2 Delivery O2 Flow Rate FiO2 10/11/17 14:40 Room Air 10/11/17 12:00 Room Air 10/11/17 11:29 36.4 68 19 130/79 (96) 94 Room Air 10/11/17 08:05 36.5 69 16 131/74 (93) 93 10/11/17 08:00 Room Air 10/11/17 04:00 Room Air 10/11/17 03:30 36.9 74 18 129/68 (88) 90 Room Air 10/11/17 00:24 36.8 71 18 130/77 (94) 93 Room Air 10/11/17 00:01 Room Air 10/10/17 20:40 36.5 79 18 152/82 98 Room Air 10/10/17 20:24 36.8 69 20 158/86 96 Room Air 10/10/17 19:15 71 10/10/17 19:01 68 20 140/70 95 Room Air 10/10/17 18:36 68 18 134/68 94 Room Air 10/10/17 17:35 79 18 145/76 96 Room Air Physical Exam: Constitutional: appearance nourished, pale Ears, Nose, Mouth and Throat: mucous membranes moist, no injection and skin normal, eyes normal Cardiovascular: normal S-1 and S-2 and regular rate and rhythm Respiratory: course breath sounds Musculoskeletal: no peripheral edema Skin: no stigmata of neurocutaneous disease noted and normal and intact Eyes: extraocular muscles intact (EOMI) and pupils equal, round and reactive to light (PERRL) NEUROLOGIC EXAMINATION: Mental status: Alert and interactive Oriented [facility], 2017 Oriented to person Speech fluent with no evidence of aphasia Cranial Nerves smile eye brow raise symmetric Reflexes: Deep tendon reflexes were symmetrical decreased LE Sensory: loss of GT proprioception, loss of vibration sensation to knees. cool touch to ankle Coordination: finger to nose minimal reaching tremor Gait/Stance: Posture normal. Gait normal: with steady with steps, base, turning, heel and toe walking and tandem gait. 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 5/5 bilaterally hip flex plantar flex ext 5/5 bilaterally Laboratory Results Past 24 Hours: 10/11/17 06:22 Red Blood Count 3.83, Mean Corpuscular Volume 101.0, Mean Corpuscular Hemoglobin 33.9, Mean Corpuscular Hemoglobin Concent 33.6, Mean Platelet Volume 8.2, Neutrophils (%) (Auto) 58.3, Lymphocytes (%) (Auto) 30.3, Monocytes (%) ( Auto) 9.0, Eosinophils (%) (Auto) 2.0, Basophils (%) (Auto) 0.4, Neutrophils # ( Auto) 2.59, Lymphocytes # (Auto) 1.35, Monocytes # (Auto) 0.40, Eosinophils # ( Auto) 0.09, Basophils # (Auto) 0.02 10/11/17 06:22 Test 10/10/17 17:35 10/10/17 18:00 10/11/17 06:22 10/11/17 11:39 Urine Color YELLOW Urine Appearance CLEAR (CLEAR) Urine pH 5.0 (4.5-7.5) Urine Specific [place] 1.020 (1.000-1.030) Urine Protein NEG (NEG) Urine Glucose (UA) 1+ (NEG) Urine Ketones NEG (NEG) Urine Occult Blood NEG (NEG) Urine Nitrite NEG (NEG) Urine Bilirubin NEG (NEG) Urine Urobilinogen NEG (NEG) Urine Leukocyte Esterase TRACE (NEG) Urine WBC (Auto) 1-5 /hpf (0-5) Urine RBC (Auto) 0-4 /hpf (0-4) Urine Hyaline Casts (Auto) 1-5 /lpf (0-5) Urine Epithelial Cells (Auto) 5-10 /lpf (0-5) Urine Bacteria (Auto) NEG (NEG) Phosphorus Level 2.8 mg/dl (2.5-4.9) Ammonia 47.2 umol/L (11-32) Lipase 175 U/L (73-393) Thyroid Stimulating Hormone (TSH) 2.180 uIu/ml (0.300-4.500) Phenytoin (Dilantin) Level 14.6 mcg/mL (10-20) White Blood Count 4.45 K/uL (4.8-10.8) Red Blood Count 3.83 M/uL (4.7-6.1) Hemoglobin 13.0 g/dL (14.0-18.0) Hematocrit 38.7 % (42-52) Mean Corpuscular Volume 101.0 fL (80-100) Mean Corpuscular Hemoglobin 33.9 pg (25-34) Mean Corpuscular Hemoglobin Concent 33.6 g/dl (32-36) Platelet Count 203 K/uL (130-400) Mean Platelet Volume 8.2 fL (7.4-10.4) Neutrophils (%) (Auto) 58.3 % Lymphocytes (%) (Auto) 30.3 % Monocytes (%) (Auto) 9.0 % Eosinophils (%) (Auto) 2.0 % Basophils (%) (Auto) 0.4 % Neutrophils # (Auto) 2.59 K/uL (1.4-6.5) Lymphocytes # (Auto) 1.35 K/uL (1.2-3.4) Monocytes # (Auto) 0.40 K/uL (0.11-0.59) Eosinophils # (Auto) 0.09 K/uL (0-0.5) Basophils # (Auto) 0.02 K/uL (0-0.2) RDW Standard Deviation 48.7 fL (36.4-46.3) RDW Coefficient of Variation 13.4 % (11.5-14.5) Immature Granulocyte % (Auto) 0.0 % Immature Granulocyte # (Auto) 0.00 K/uL (0.00-0.02) Prothrombin Time 10.8 SECONDS (9.0-12.0) Prothromb Time International Ratio 1.0 (0.9-1.1) Activated Partial Thromboplast Time 26.8 SECONDS (21.0-31.0) Partial Thromboplastin Ratio 1.0 Anion Gap 9.0 mmol/L (3-11) Est Creatinine Clear Calc Drug Dose 88.9 ml/min Estimated GFR () 98.1 Estimated GFR (Non- 84.6 BUN/Creatinine Ratio 11.3 (10-20) Calcium Level 8.5 mg/dl (8.5-10.1) Magnesium Level 2.2 mg/dl (1.8-2.4) Total Bilirubin 0.3 mg/dl (0.2-1) Direct Bilirubin < 0.1 mg/dl (0-0.2) Aspartate Amino Transf (AST/SGOT) 10 U/L (15-37) Alanine Aminotransferase (ALT/SGPT) 18 U/L (12-78) Alkaline Phosphatase 81 U/L (45-117) Total Protein 6.9 gm/dl (6.4-8.2) Albumin 3.4 gm/dl (3.4-5.0) Bedside Glucose 132 mg/dl (70-99) Test 10/11/17 11:55 Phenobarbital Level 46.9 mcg/mL (15.0-40.0) Imaging no new imaging Impression 72 year old male phenobarb toxicity Plan 1. stop phenobarb and check level every day until level is in the 30 then restart at 64.8 mg BID 2. continue dilantin 100 mg TID 3. continue Keppra 500 mg BID 4. PT/OT for discharge needs 5. family needs help with medication dispensing-nursing at home safety 6. fall precaution 7. will likely need rehab prior to returning home 8. medical management per primary team I have seen and discussed above patient with Dr Chetan Valentine, neurology Paatient seen and reviewed likely had a bump in his chronically high phenobarbital level due to keppra addition for now would stop phenobarbital entirely monitor levels and ambulatory status until level is out of toxic range and gait is deemed safe for return to home and then restart phenobarbital at 64.5 mg bid we will follow along Chetan Valentine MD
[2017-10-11] MEDS: SIMVASTATIN 40 MG TAB PO SCH (20:53)
[2017-10-11] MEDS: TAMSULOSIN HCL 0.4 MG CAP PO SCH (20:53)
[2017-10-12] MEDS: LEVOTHYROXINE 50 MCG TAB PO SCH (05:45)
[2017-10-12 05:47] LABS: BASO % 1.1 %; BASO ABS # 0.06 K/uL (0-0.2); COMPLETE YES; EOS % 1.7 %; HEMATOCRIT 41.6 % (42-52); IG% 0.2 %; LYMPH % 26.1 %; LYMPH ABS # 1.38 K/uL (1.2-3.4); MEAN CELL VOLUME 100.2 fL (80-100); MEAN CORPUSCULAR HEMOGLOBIN 33.5 pg (25-34); MEAN CORPUSCULAR HGB CONC 33.4 g/dl (32-36); MEAN PLATELET VOLUME 7.8 fL (7.4-10.4); MONO % 7.9 %; PLATELET COUNT 217 K/uL (130-400); RED BLOOD COUNT 4.15 M/uL (4.7-6.1); WHITE BLOOD COUNT 5.29 K/uL (4.8-10.8)
[2017-10-12 06:12] LABS: BUN/CREATININE RATIO 10.2 (10-20); CALCIUM 8.9 mg/dl (8.5-10.1); CREATININE 0.96 mg/dl (0.60-1.40)
[2017-10-12 06:49] VITALS: BP 144/77; PULSE 68; TEMP 36.5; O2SAT 92
[2017-10-12] MEDS: PHENYTOIN SODIUM ER 100 MG CAP PO SCH ×2 (07:28→13:32)
[2017-10-12] MEDS: LEVETIRACETAM 500 MG TAB PO SCH (07:28)
[2017-10-12] MEDS: PANCREAZE (LIPASE 4,200U) CAP PO SCH ×2 (07:29→12:39)
[2017-10-12] MEDS: ASPIRIN 81 MG ECTAB PO SCH (07:29)
[2017-10-12] MEDS: INSULIN ASPART 100 UNITS/ML 3 ML PEN SC SCH ×2 (08:44→12:40)
[2017-10-12] MEDS ORDERED: PHEN64.8 PO (11:12)
--- NOTE | 2017-10-12 11:22 | Discharge Instructions ---
Discharge Instructions Date of Service Oct 12, 2017. Admission Reason for Admission: Falls Frequently, Phenobarbital Toxicity Discharge Discharge Diagnosis / Problem: Toxic Encephalopathy due to Phenobarbital Toxicity Discharge Goals Goal(s): Decrease discomfort, Improve function, Increase independence Activity Recommendations Activity Level: Assistance Required Therapies: Physical Therapy, Occupational Therapy . 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 Patient has been reluctant to decrease dosing in the past - Discussion with who states she feels confused by his medications as they have a nurse coming in to help organize them and reports that the still tries to manage the medications - suspect that accidentally he may be getting more than his prescribed dose - Phenobarbital level is coming down and dosing has been held - will need to monitor for breakthrough seizures or withdrawal which none have been present - Follows with [facility] - Dr. Valentine - recommending to continue to hold Phenobarbital until levels go into 30 range then can resume Phenobarbital 64.8 mg BID -- Was previously on QID dosing -- Recommend follow-up appointment after D/C from [facility] - Patient appears at baseline mentation at this time - does have some suspected mild MR but is alert and oriented and has good recall. Can be slow to answer questions but does respond appropriately. Generalized Weakness: - Patient has chronic ataxic gait and has a long history of falls which appears to have acutely worsened - Suspect his chronic issues and phenobarbital toxicity causing this increased weakness - patient reporting that he feels his normal self and is ready to go home - Recent treatment for UTI - On Cefadroxil - will hold at this time - no urinary symptoms, no fever, no leukocytosis Seizure Disorder: - Recent admission for concern of status epilepticus as patient was having unusual seizure-like activity while on Phenobarbital and Dilantin. Keppra was instituted on last admission - Keppra 500 mg BID and Dilantin 100 mg TID - Continue to hold Phenobarbital and assess levels - once in non-toxic level can institute BID dosing T2DM: A1c 7.1 - Continue Metformin Hypothyroidism: STABLE - Levothyroxine 50 mcg daily Hyperlipidemia: STABLE - Simvastatin 40 mg daily BPH: STABLE - Tamsulosin 0.4 mg daily Pancreatic Insufficiency: STABLE - Supplemental enzymes TID DVT Prophylaxis: SCD Code Status: FULL RESUSCITATION Disposition: - Concern for confusion with medications at home and will likely need continued home health services to assist with medications - Recommend PCP F/U (Dr. Gillespie) and Neurology (Dr. Valentine) upon D/C from [facility] Diet Patient's current hospital diet: Diabetes Type 2 Diet Discharge Diet Recommended Diet: Diabetes Type 2 Diet Pending Studies Studies pending at discharge: no Physician Orders On Transfer POLST Discussion: without POLST completion Laboratory Results Hemoglobin A1c Test 08/18/17 15:53 Range/Units Estimated Average Glucose 157 mg/dl Hemoglobin A1c 7.1 H 4.5-5.6 % Medical Emergencies . Who to Call and When: Medical Emergencies: If at any time you feel your situation is an emergency, please call 911 immediately. . Non-Emergent Contact Non-Emergency issues call your: Primary Care Provider Call Non-Emergent contact if: you have a fever, your pain is concerning you, you have any medication questions . . "Provider Documentation" section prepared by Fidelia Mike. . Core Measure Problem Core Measures: None
[2017-10-12 14:19] VITALS: BP 144/77; PULSE 68; TEMP 36.5; O2SAT 92
--- NOTE | 2017-10-12 14:48 | Discharge Summary ---
Discharge Summary Date of Service Oct 12, 2017. 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 Seizure Disorder 2. Cerebellar Ataxic Gait 3. Lacunar CVA 4. T2DM with Peripheral Neuropathy 5. HLD 6. BPH 7. S/P Cholecystectomy 8. S/P Pancreatic Pseudocyst Removal Immunizations: Have You Had Influenza Vaccine: Yes History of Tetanus Vaccine?: Yes History of Pneumococcal: Yes History of Hepatitis B Vaccine: Unknown Procedures: CHEST ONE VIEW PORTABLE FINDINGS: Lung volumes are normal. Linear bibasilar opacities suggest atelectasis or scarring. There is no consolidation to suggest pneumonia and there is no evidence of pulmonary edema. Cardiomediastinal silhouette is normal. A battery pack projects over the lower chest. Note is made of an indeterminate 1.2 cm radiodensity which projects over the left upper hemithorax. IMPRESSION: 1. No acute cardiopulmonary findings. 2. 1.2 cm oval-shaped radiodensity which projects over the left upper hemithorax. It's unclear whether this is on or within the patient. Consultations: 1. Neurology 2. PT/OT (Fidelia Mike PA-C) Medication Reconciliation Changed Medications: Phenobarbital (Phenobarbital) 64.8 Mg Tab 64.8 MG PO BID for 14 Days, #28 (Changed from: QID; 100) Please hold this medication until Phenobarbital level is < 40 then resume as prescribed. Continued Medications: Aspirin (Aspirin Ec) 81 Mg Tab 81 MG PO DAILY Levetiracetam (Keppra) 500 Mg Tab 500 MG PO BID, #60 TAB Levothyroxine Sodium (Levothyroxine Sodium) 50 Mcg Tab 50 MCG PO QAM, #90 Lorazepam (Lorazepam) 0.5 Mg Tab 0.5 MG PO TID PRN for Anxiety, #90 Metformin Hcl Er (Glucophage Er) 500 Mg Tab 500 MG PO DAILY, #90 Pancrelipase (Lipase-Protease- (Creon 78979) 1 Cap Cap 97148 UNITS PO TIDM, CAP WITH MEALS AND SNACKS Phenytoin Sodium (Dilantin) 100 Mg Cap 100 MG PO TID, CAP Simvastatin (Zocor) 40 Mg Tab 40 MG PO HS Tamsulosin HCl (Tamsulosin HCl) 0.4 Mg Cap 0.4 MG PO HS Discharge Exam Review of Systems: Constitutional: No fever, No chills ENT: No nasal symptoms, No sore throat Respiratory: No cough, No shortness of breath Cardiovascular: No chest pain, No palpitations Abdomen: No pain, No nausea, No vomiting, No diarrhea, No constipation Musculoskeletal: No swelling, No calf pain Genitourinary - Male: No dysuria Neurologic: + balance problems (chronic), No weakness Hematologic / Lymphatic: No abnormal bleeding/bruising Integumentary: No rash, No itch Physical Exam: General Appearance: WD/WN, no apparent distress Neck: supple, no JVD, trachea midline Respiratory/Chest: lungs clear, normal breath sounds, no respiratory distress, no accessory muscle use Cardiovascular: regular rate, rhythm, no gallop, no murmur Abdomen / GI: normal bowel sounds, non tender, soft Extremities: no calf tenderness Neurologic/Psychiatric: alert, normal mood/affect, oriented x 3 Skin: normal color, warm/dry (Fidelia Mike, KAREN) Hospital Course ADMISSION: The patient is a 72-year-old male who presents to the emergency department with progressively worsening generalized weakness and increased frequency of falling over the past 2 weeks. He was most recently hospitalized at [facility] from September 25 through September 27, where he had the addition of Keppra and Dilantin to his present phenobarbital dose to better control seizures. Since that time, his family reports that he's been more confused. He was seen in the ER a few days ago for the similar symptoms. He was referred back to the ER again today by his PCP due to a series of 3 falls that occurred earlier in the day today prior to arrival. He denies any injury to his head or other body areas. He does have a history of recurrent urinary tract infections , and presently is taking cefadroxil. He has not had any recent travels or sick exposures. HOSPITAL COURSE: Mr. Vang was admitted for Toxic Encephalopathy 2/2 Phenobarbital Toxicity producing generalized weakness. On arrival, patient's pheno level was 52 and has trended down to 41 with holding Phenobarbital. No breakthrough seizures or withdrawal effects noted. He normally runs mildly toxic in 38-42 range and has been reluctant to go to a lower dose. Patient's expresses concern of confusion as she normally manages his medications but home nursing has been assisting. She is not sure what medications and how often to give them. She thinks the nurse gives some medications but she is still doing them. Suspect he may have been getting accidental additional dosing. It will be important to have medication assistance upon D/C from [facility]. No metabolic source was identified as a cause of his weakness. He was recently treated for UTI and antibiotics have been stopped at this point. Patient returned to baseline mentation quickly with Phenobarbital held. Patient has a chronic cerebellar ataxic gait with frequent falls that factors into this acute events. Plan to hold Phenobarbital medication until level is below 40 and can changed to BID dosing instead of previous QID dosing. He is to continue his Dilantin and Keppra (started on previous admission for seizure breakthrough/ possible status epilepticus). Total Time Spent: Greater than 30 minutes This includes examination of the patient, discharge planning, medication reconciliation, and communication with other providers. (Fidelia Mike PA-C) i personally examined pt and verified all brown points w A Rashid PAC feeling ok ready for HSR plans as above weakness/ataxia/anticonvulsant toxicity -stable for HSR. follow levels, resume meds as per neuro recommendations (Martinez Caballero, D.O.) Discharge Instructions Please refer to the electronic Patient Visit Report (Discharge Instructions) for additional information. (Fidelia Mike PA-C) Additional Copies To Coleman Gillespie M.D.; [facility]
== END 2017-10-12 16:44 | DRG 917 ==
LOC: EDBD 17:22 → C.EDB 17:23 → C.2T 20:06 → ENRESERV 20:13 → C.MS4W 10-11 17:46
PROVIDERS: ADMIT Hospitalist; ATTEND Family Medicine
DX: T42.3X1A Poisoning by barbiturates, accidental (unintentional), initial encounter (principal); G92 Toxic encephalopathy; G40.909 Epilepsy, unspecified, not intractable, without status epilepticus; R26.0 Ataxic gait; E11.42 Type 2 diabetes mellitus with diabetic polyneuropathy; E03.9 Hypothyroidism, unspecified; E78.5 Hyperlipidemia, unspecified; N40.0 Benign prostatic hyperplasia without lower urinary tract symptoms; K86.89 Other specified diseases of pancreas; Z87.440 Personal history of urinary (tract) infections; Z87.891 Personal history of nicotine dependence; Z79.82 Long term (current) use of aspirin; Z79.84 Long term (current) use of oral hypoglycemic drugs; Z79.899 Other long term (current) drug therapy; Z88.8 Allergy status to other drugs, medicaments and biological substances; Z82.0 Family history of epilepsy and other diseases of the nervous system

== ENCOUNTER → 2017-10-16 | Outpatient (CLI) | payer OTHER ==
[~2017-10-16] MED LIST changes: +KPP250 PO; +LEVE500T PO; +PB30 PO; +SULF800T23 PO
--- NOTE | 2017-10-26 14:18 | CODING QUERY NO DIAGNOSIS ---
TREATMENT RENDERED WITHOUT A DIAGNOSIS Dr. Valentine, To promote full compliance with coding requirements relating to patient care, physician participation is requested in all cases of polysomnograph tech uncertainty. Please assist us with providing a diagnosis/symptom for the test(s) below: A diagnosis/symptom was not documented on your Order. A valid diagnosis/symptom is required to bill all insurances. Please remember that we are unable to code a diagnosis of rule out, probable, possible, questionable, or suspected. Tests that require a diagnosis: * PHENOBARBITAL LEVEL DIAGNOSIS: DATE OF SERVICE: 10/16/17 Provider Signature: Date: Thank you Chinedu Root [facility] Information Management Once completed, please kindly fax back to [phone] For questions please call [phone]
== END | disposition home or self-care (01) ==
LOC: C.LABSPEC 11:17
PROVIDERS: ATTEND Psychiatry & Neurology Neurology
DX: G40.909 Epilepsy, unspecified, not intractable, without status epilepticus (principal); Z51.81 Encounter for therapeutic drug level monitoring; Z79.899 Other long term (current) drug therapy

== ENCOUNTER 2017-10-28 06:31 | Inpatient (IN) | payer OTHER ==
[~2017-10-28] VITALS: Ht 180.3 cm; Wt 91.7 kg
[~2017-10-28 06:31] MED LIST changes: -KPP250 PO; -LEVE500T PO; -PB30 PO; -SULF800T23 PO
--- NOTE | 2017-10-28 07:24 | EMERGENCY ROOM VISIT NOTE ---
History Report prepared by Yuli: Susan Roa Under the Supervision of: Dr. Daniel Dias M.D. First contact with patient: 07:06 Chief Complaint: SEIZURE Stated Complaint: SEIZURE Nursing Triage Summary: pt brought to main ED by ALS from home for seizure. pt has hx of seizures, ALS reports seizure free approx 1 year. ALS reports pt's thought he had a seizure with full body shaking that "didn't last too long." also reported to ALS that pt had his phenobarbital dose lowered 2 weeks ago. upon arrival, pt alert and oriented x4, breathing regularly, independently. pt noted to have dry cough, states "I have a cold." pupils equal, round, reactive bilaterally. 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 Per , the patient was in bed when he began kicking and flailing his arms while seizing. She immediately turned him to his side and his seizing progressed causing him to roll out of bed as she caught him before he hit the floor. She notes the seizure did not last long and he did not hit his head. EMS notes the patient was awake, alert and oriented x4, breathing regularly and independently. The patient states it has been one year since his last seizure. Per , the patient's phenobarbital dose was lowered about two weeks ago due to his level being too high. She notes that he takes his seizure medications consistently. She states that he was started on Keppra recently. The patients notes he has a cold, though he currently feels normal. He denies incontinence, tongue bites, neck pain, leg pain or swelling. He has a history of seizures and hyperglycemia. He has had a cholecystectomy and a partial pancreatectomy. 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 No leg pain or swelling. He notes having a cold, feels normal. Review of Systems All systems have been listed, reviewed, and are negative other than those previously mentioned. Please see Additional Medical History Sheet. Past Medical & Surgical Medical Problems: (1) Altered mental status (2) Cholecystectomy (3) Diab Marisa Wo Compl, Type Ii Or Unspec Type, Uncontrolled (4) Falls frequently (5) Hyperlipidemia Nec/Nos (6) Hypertension Nos (7) Hypothyroidism (8) Pancreatitis (9) Seizure (10) Seizures (11) TIA (transient ischemic attack) Family History Cancer Seizures Social History Smoking Status: Former Smoker Drug Use: none Marital Status: Housing Status: lives with significant other Occupation Status: retired, disabled Current/Historical Medications Scheduled Aspirin (Aspirin Ec), 81 MG PO DAILY Levetiractam (Levetiracetam), 500 MG PO BID Levothyroxine Sodium (Levothyroxine Sodium), 50 MCG PO QAM Metformin Hcl Er (Glucophage Er), 500 MG PO DAILY Pancrelipase (Lipase-Protease- (Creon 77110), 12,000 UNITS PO TIDM Phenytoin Sodium (Dilantin), 100 MG PO TID Simvastatin (Zocor), 40 MG PO HS Tamsulosin HCl (Tamsulosin HCl), 0.4 MG PO HS Scheduled PRN Lorazepam (Lorazepam), 0.5 MG PO TID PRN for Anxiety Allergies Coded Allergies: Morphine (Verified Allergy, Unknown, ?, 10/28/17) Nitrofurantoin (Verified Adverse Reaction, Mild, NAUSEA, 10/28/17) Quinolones (Verified Adverse Reaction, Mild, NAUSEA, 10/28/17) Meperidine (Verified Adverse Reaction, Unknown, SEIZURES, 10/28/17) Physical Exam Vital Signs Date Time Temp Pulse Resp B/P (MAP) Pulse Ox O2 Delivery O2 Flow Rate FiO2 10/28/17 12:05 85 17 10/28/17 12:00 123/75 10/28/17 11:47 94 17 10/28/17 11:30 108/79 10/28/17 11:25 129/78 10/28/17 11:17 97 17 10/28/17 11:01 129/78 10/28/17 10:47 102 16 99 10/28/17 10:41 218/106 10/28/17 10:40 140 24 218/106 94 Nasal Cannula 4.0 10/28/17 10:37 95 Nasal Cannula 4.0 10/28/17 10:37 66 Room Air 10/28/17 10:17 92 16 10/28/17 10:12 175/82 10/28/17 10:06 95 16 10/28/17 09:36 78 19 93 10/28/17 09:31 134/77 10/28/17 09:06 74 16 90 10/28/17 09:01 131/75 10/28/17 08:36 76 16 91 10/28/17 08:31 77 20 133/81 91 10/28/17 08:01 76 14 139/82 93 10/28/17 07:32 139/64 10/28/17 07:31 79 17 91 10/28/17 07:25 128/83 10/28/17 07:02 82 10/28/17 07:01 80 16 10/28/17 06:36 154/80 10/28/17 06:35 36.4 84 18 154/80 95 Room Air 10/28/17 06:35 95 Room Air Physical Exam GENERAL: Patient awake, alert, oriented x 3. Patient follows commands. Patient does not appear toxic. Patient is adequately hydrated and well- nourished. Appropriate. SKIN: No erythema, pallor, cyanosis or rash HEENT: Normal head, pupils equal, reactive to light and accommodation. Ears normal and clear. Oral cavity and posterior pharynx appear normal. No bite flood on tongue. Neck: Without adenopathy, no neck vein distention. LUNGS: Clear to auscultation. No wheezes, no rales, no rhonchi. HEART: No murmurs. No gallops. No rubs ABDOMEN: No masses, no rebound, no hepatomegaly or splenomegaly. Obese. Large well healed scar across abdomen. EXTREMITIES: No signs of trauma. No pedal or pretibial edema. No calf or thigh tenderness. NEUROLOGIC: Cranial nerves II-XII within normal limits. No gross motor sensory function deficits. Medical Decision & Procedures Laboratory Results 10/28/17 07:25 Red Blood Count 3.97, Mean Corpuscular Volume 98.5, Mean Corpuscular Hemoglobin 34.5, Mean Corpuscular Hemoglobin Concent 35.0, Mean Platelet Volume 8.1, Neutrophils (%) (Auto) 72.9, Lymphocytes (%) (Auto) 14.5, Monocytes (%) (Auto) 11.6, Eosinophils (%) (Auto) 0.6, Basophils (%) (Auto) 0.2, Neutrophils # (Auto ) 3.82, Lymphocytes # (Auto) 0.76, Monocytes # (Auto) 0.61, Eosinophils # (Auto ) 0.03, Basophils # (Auto) 0.01 10/28/17 07:25 10/28/17 08:22 Test 10/28/17 07:25 10/28/17 08:22 10/28/17 10:23 White Blood Count 5.24 K/uL (4.8-10.8) Red Blood Count 3.97 M/uL (4.7-6.1) Hemoglobin 13.7 g/dL (14.0-18.0) Hematocrit 39.1 % (42-52) Mean Corpuscular Volume 98.5 fL (80-100) Mean Corpuscular Hemoglobin 34.5 pg (25-34) Mean Corpuscular Hemoglobin Concent 35.0 g/dl (32-36) Platelet Count 203 K/uL (130-400) Mean Platelet Volume 8.1 fL (7.4-10.4) Neutrophils (%) (Auto) 72.9 % Lymphocytes (%) (Auto) 14.5 % Monocytes (%) (Auto) 11.6 % Eosinophils (%) (Auto) 0.6 % Basophils (%) (Auto) 0.2 % Neutrophils # (Auto) 3.82 K/uL (1.4-6.5) Lymphocytes # (Auto) 0.76 K/uL (1.2-3.4) Monocytes # (Auto) 0.61 K/uL (0.11-0.59) Eosinophils # (Auto) 0.03 K/uL (0-0.5) Basophils # (Auto) 0.01 K/uL (0-0.2) RDW Standard Deviation 46.4 fL (36.4-46.3) RDW Coefficient of Variation 12.9 % (11.5-14.5) Immature Granulocyte % (Auto) 0.2 % Immature Granulocyte # (Auto) 0.01 K/uL (0.00-0.02) Anion Gap 8.0 mmol/L (3-11) Estimated GFR () 87.7 Estimated GFR (Non- 75.6 BUN/Creatinine Ratio 14.2 (10-20) Calcium Level 8.8 mg/dl (8.5-10.1) Total Bilirubin 0.5 mg/dl (0.2-1) Alanine Aminotransferase (ALT/SGPT) 21 U/L (12-78) Alkaline Phosphatase 85 U/L (45-117) Troponin I < 0.015 ng/ml (0-0.045) Total Protein 7.4 gm/dl (6.4-8.2) Albumin 3.7 gm/dl (3.4-5.0) Globulin 3.7 gm/dl (2.5-4.0) Albumin/Globulin Ratio 1.0 (0.9-2) Phenytoin (Dilantin) Level 10.2 mcg/mL (10-20) Aspartate Amino Transf (AST/SGOT) 14 U/L (15-37) Urine Color DK YELLOW Urine Appearance TURBID (CLEAR) Urine pH 5.5 (4.5-7.5) Urine Specific [place] 1.016 (1.000-1.030) Urine Protein 2+ (NEG) Urine Glucose (UA) NEG (NEG) Urine Ketones NEG (NEG) Urine Occult Blood 2+ (NEG) Urine Nitrite POS (NEG) Urine Bilirubin NEG (NEG) Urine Urobilinogen NEG (NEG) Urine Leukocyte Esterase LARGE (NEG) Urine WBC (Auto) >30 /hpf (0-5) Urine RBC (Auto) 5-10 /hpf (0-4) Urine Hyaline Casts (Auto) 10-30 /lpf (0-5) Urine Epithelial Cells (Auto) >30 /lpf (0-5) Urine Bacteria (Auto) NEG (NEG) Urine Pathogenic Casts EPITHELIAL CASTS /lpf (0) Urine Yeast (Auto) (NONE PRSENT) Laboratory results as stated above per my review. Medications Administered Medications (Trade) Dose Ordered Sig/Leni Route Start Time Stop Time Status Last Admin Dose Admin Miscellaneous Information (Nursing Verbal Med Order) 1 ea ONE ONCE N/A 10/28/17 10:45 10/28/17 10:46 DC 10/28/17 10:46 1 EA Levetiracetam 500 mg/Dextrose 105 ml @ 420 mls/hr ONE ONCE IV 10/28/17 11:45 10/28/17 11:59 DC 10/28/17 11:51 420 MLS/HR ECG Indication: other (seizure) Rate (beats per minute): 77 Rhythm: normal sinus Findings: no acute ischemic change, no ectopy ED Course 0703: Past medical records reviewed. The patient was evaluated in room B10. A complete history and physical examination was performed. 1010: I reassessed the patient at this time. He is feeling better and resting comfortably. 1038: I witnessed the end of a grand mal seizure. It resolved prior to administration of medications. I ordered Ativan 1 mg IV. Per wide, this seizure was "worse than the one this morning." 1136: I spoke with thomas Holbrook at this time. We discussed the patient 's case and he recommends the patient be evaluated for further management by the [facility]. 1140: I reassessed the patient at this time. He is feeling better and resting comfortably. I discussed the results and treatment plan with the patient. I answered all pertaining questions that he had. He expressed understanding and verbalized agreement. 1149: Ordered Levetiracetam 500 mg/Dextrose 105 mL @ 420 mls/hr Medical Decision Nurses notes reviewed. Medical history sheet reviewed. Differential diagnosis includes but is not limited to: seizure disorder, medication adjustment, and metabolic disorder. The patient has a history of seizure disorder and had another seizure this morning. There didn't appear to be no precipitating event. The patient had been on phenobarbital but he was weaned off of that medication. He continues to take Keppra and Dilantin as prescribed. Multiple labs and imaging were obtained. Please see above. The patient was doing well here in the ED and I considered having him discharge but he had another grandma seizure while here. In light of the second seizure today I believe he will require further evaluation here in the hospital. I discussed care with the hospitalist. The patient was given an additional 500 mg of IV Keppra. Medication Reconcilliation Current Medication List: was personally reviewed by me Blood Pressure Screening Patient's blood pressure: Normal blood pressure Blood pressure disposition: Did not require urgent referral Consults Time Called: 1130 Consulting Physician: thomas Holbrook Returned Call: [phone] I spoke with thomas Holbrook at this time. We discussed the patient's case. The patient will be evaluated for further management by the [facility]. Impression Primary Impression: Seizure disorder Scribe Attestation The scribe's documentation has been prepared under my direction and personally reviewed by me in its entirety. I confirm that the note above accurately reflects all work, treatment, procedures, and medical decision making performed by me. Departure Information Dispostion Being Evaluated By Hospitalist Referrals Coleman Gillespie M.D. (PCP) Patient Instructions My [facility]
[2017-10-28] MEDS ORDERED: LEVE500T PO (07:37)
[2017-10-28 07:38] LABS: BASO % 0.2 %; BASO ABS # 0.01 K/uL (0-0.2); COMPLETE YES; EOS % 0.6 %; HEMATOCRIT 39.1 % (42-52); IG% 0.2 %; LYMPH % 14.5 %; LYMPH ABS # 0.76 K/uL (1.2-3.4); MEAN CELL VOLUME 98.5 fL (80-100); MEAN CORPUSCULAR HEMOGLOBIN 34.5 pg (25-34); MEAN PLATELET VOLUME 8.1 fL (7.4-10.4); MONO % 11.6 %; NEUT % 72.9 %; PLATELET COUNT 203 K/uL (130-400); RED BLOOD COUNT 3.97 M/uL (4.7-6.1); WHITE BLOOD COUNT 5.24 K/uL (4.8-10.8)
[2017-10-28 08:06] LABS: ALKALINE PHOSPHATASE 85 U/L (45-117); ALT/SGPT 21 U/L (12-78); BLOOD UREA NITROGEN 14 mg/dl (7-18); BUN/CREATININE RATIO 14.2 (10-20); CALCIUM 8.8 mg/dl (8.5-10.1); CARBON DIOXIDE 26 mmol/L (21-32); CHLORIDE 100 mmol/L (98-107); CREATININE 0.98 mg/dl (0.60-1.40); GLUCOSE 175 mg/dl (70-99); SODIUM 134 mmol/L (136-145)
[2017-10-28 08:45] LABS: POTASSIUM 3.8 mmol/L (3.5-5.1)
[2017-10-28 10:38] LABS: URINE APPEARANCE TURBID (CLEAR); URINE BILIRUBIN NEG (NEG); URINE COLOR DK YELLOW; URINE EPITHELIAL CELL AUTO >30 /lpf (0-5); URINE NITRITE POS (NEG); URINE PH 5.5 (4.5-7.5); URINE SPECIFIC GRAVITY 1.016 (1.000-1.030); UROBILINOGEN NEG (NEG); ZZUR CULT IF INDIC CLEAN CATCH YES
[2017-10-28 10:39] LABS: MANUAL MICROSCOPIC REQUIRED? NO; REVIEW REQ? YES
[2017-10-28] MEDS ORDERED: LORAZEPAM 2 MG/ML 1 ML VIAL ONE (10:39)
[2017-10-28] MEDS ORDERED: NURSING VERBAL MED ORDER ONE (10:45)
[2017-10-28 10:54] LABS: URINE PATH CASTS EPITHELIAL CASTS /lpf (0)
[2017-10-28] MEDS ORDERED: LEVETIRACETAM IV 500 MG in DEXTROSE 5% 100ML 100 ML IV ONE (11:45)
[2017-10-28] MEDS ORDERED: MAGNESIUM HYDROXIDE SUSP 30 ML UDC PO PRN (12:15)
[2017-10-28] MEDS ORDERED: POLYETHYLENE (MIRALAX) 17 GM PACK PO PRN (12:15)
[2017-10-28] MEDS ORDERED: LORAZEPAM 2 MG/ML 1 ML VIAL IV PRN (12:15)
[2017-10-28] MEDS ORDERED: ALUMINUM/MAGNESIUM/SIMETH (MAALOX MAX) 30 ML UDC PO PRN (12:15)
[2017-10-28] MEDS ORDERED: LORAZEPAM 0.5 MG TAB PO PRN (12:15)
[2017-10-28] MEDS ORDERED: ONDANSETRON INJ 2 MG/ML 2 ML VIAL IV PRN (12:15)
--- NOTE | 2017-10-28 12:47 | History and Physical ---
History & Physical Date & Time of Service: Oct 28, 2017 at 12:27 Chief Complaint: Seizure Primary Care Physician: Coleman Gillespie M.D. History of Present Illness Source: patient, family 72 y/o M Hx DM II, HPL, hypothyroid, TIA, pancreatic insufficiency, seizure disorder. The had been taking Phenobarbital in addition Keppra and Dilantin until recently when the Phenobarbital was tapered down. He had a seizure this AM and was post-ictal for an extended period. He was transferred to the ER at the behest of his . The pt was evaluated in the ER for a period and discharge was anticipated. He than had an additional grand mal seizure however , which lasted several minutes. At this point, his did not feel that she could safely take him home. He is groggy but awake and alert at the time of evaluation. HE denies recent fevers, CP, SOB, N/V or dysuria. His UA is (+) despite a lack of symptoms. Past Medical/Surgical History Medical Problems: (1) Cholecystectomy Status: Resolved (2) Diab Marisa Wo Compl, Type Ii Or Unspec Type, Uncontrolled Status: Chronic (3) Hyperlipidemia Nec/Nos Status: Chronic (4) Hypertension Nos Status: Chronic (5) Hypothyroidism Status: Chronic (6) Pancreatitis - pancreatic insufficiency Status: Resolved (7) Seizure Status: Chronic (8) TIA (transient ischemic attack) Status: Resolved Family History Cancer Seizures Social History Smoking Status: Former Smoker Drug Use: none Marital Status: Housing status: lives with family Occupational Status: retired, disabled Immunizations History of Influenza Vaccine: Yes History of Tetanus Vaccine?: Yes History of Pneumococcal: Yes History of Hepatitis B Vaccine: Unknown Multi-Drug Resistant Organisms History of MDRO: No Allergies Coded Allergies: Morphine (Verified Allergy, Unknown, ?, 10/28/17) Nitrofurantoin (Verified Adverse Reaction, Mild, NAUSEA, 10/28/17) Quinolones (Verified Adverse Reaction, Mild, NAUSEA, 10/28/17) Meperidine (Verified Adverse Reaction, Unknown, SEIZURES, 10/28/17) Home Medications Scheduled Aspirin (Aspirin Ec), 81 MG PO DAILY Levetiractam (Levetiracetam), 500 MG PO BID Levothyroxine Sodium (Levothyroxine Sodium), 50 MCG PO QAM Metformin Hcl Er (Glucophage Er), 500 MG PO DAILY Pancrelipase (Lipase-Protease- ([id number] [id number]), 12,000 UNITS PO TIDM Phenytoin Sodium (Dilantin), 100 MG PO TID Simvastatin (Zocor), 40 MG PO HS Tamsulosin HCl (Tamsulosin HCl), 0.4 MG PO HS Scheduled PRN Lorazepam (Lorazepam), 0.5 MG PO TID PRN for Anxiety Review of Systems Constitutional: No fever, No chills, No sweats Eyes: No worsening of vision ENT: No hearing loss, No nasal symptoms Respiratory: No cough, No wheezing Cardiovascular: No chest pain Abdomen: No pain, No vomiting Musculoskeletal: No joint pain Genitourinary - Male: No hematuria Neurologic: + weakness, + problem reported (2 witnessed seizures as above), No memory loss, No paralysis Psychiatric: No depression symptoms Endocrine: + fatigue Hematologic / Lymphatic: No abnormal bleeding/bruising Integumentary: No rash Allergic / Immunologic: No environmental allergies Physical Exam Vital Signs Date Time Temp Pulse Resp B/P (MAP) Pulse Ox O2 Delivery O2 Flow Rate FiO2 10/28/17 12:00 123/75 10/28/17 11:47 94 17 10/28/17 11:30 108/79 10/28/17 11:25 129/78 10/28/17 11:17 97 17 10/28/17 11:01 129/78 10/28/17 10:47 102 16 99 10/28/17 10:41 218/106 10/28/17 10:40 140 24 218/106 94 Nasal Cannula 4.0 10/28/17 10:37 95 Nasal Cannula 4.0 10/28/17 10:37 66 Room Air 10/28/17 10:17 92 16 10/28/17 10:12 175/82 10/28/17 10:06 95 16 10/28/17 09:36 78 19 93 10/28/17 09:31 134/77 10/28/17 09:06 74 16 90 10/28/17 09:01 131/75 10/28/17 08:36 76 16 91 10/28/17 08:31 77 20 133/81 91 10/28/17 08:01 76 14 139/82 93 10/28/17 07:32 139/64 10/28/17 07:31 79 17 91 10/28/17 07:25 128/83 10/28/17 07:02 82 10/28/17 07:01 80 16 10/28/17 06:36 154/80 10/28/17 06:35 36.4 84 18 154/80 95 Room Air 10/28/17 06:35 95 Room Air General Appearance: WD/WN, no apparent distress Head: normocephalic Eyes: normal inspection Neck: supple, no JVD Respiratory/Chest: chest non-tender, lungs clear Cardiovascular: regular rate, rhythm, no edema, no gallop Abdomen/GI: normal bowel sounds, non tender, soft Back: normal inspection, no CVA tenderness Extremities/Musculoskelatal: normal inspection, no calf tenderness, normal capillary refill Neurologic/Psych: inspection clerk II-XII nml as tested, no motor/sensory deficits, alert, + pertinent finding (Pt is slw to answer question - likely a medication effect - he does not exhibit any focal deficits) Skin: normal color Diagnostics Laboratory Results Results Past 24 Hours Test 10/28/17 07:25 10/28/17 08:22 10/28/17 10:23 Range/Units White Blood Count 5.24 4.8-10.8 K/uL Red Blood Count 3.97 4.7-6.1 M/uL Hemoglobin 13.7 14.0-18.0 g/dL Hematocrit 39.1 42-52 % Mean Corpuscular Volume 98.5 80-100 fL Mean Corpuscular Hemoglobin 34.5 25-34 pg Mean Corpuscular Hemoglobin Concent 35.0 32-36 g/dl Platelet Count 203 130-400 K/uL Mean Platelet Volume 8.1 7.4-10.4 fL Neutrophils (%) (Auto) 72.9 % Lymphocytes (%) (Auto) 14.5 % Monocytes (%) (Auto) 11.6 % Eosinophils (%) (Auto) 0.6 % Basophils (%) (Auto) 0.2 % Neutrophils # (Auto) 3.82 1.4-6.5 K/uL Lymphocytes # (Auto) 0.76 1.2-3.4 K/uL Monocytes # (Auto) 0.61 0.11-0.59 K/uL Eosinophils # (Auto) 0.03 0-0.5 K/uL Basophils # (Auto) 0.01 0-0.2 K/uL RDW Standard Deviation 46.4 36.4-46.3 fL RDW Coefficient of Variation 12.9 11.5-14.5 % Immature Granulocyte % (Auto) 0.2 % Immature Granulocyte # (Auto) 0.01 0.00-0.02 K/uL Sodium Level 134 136-145 mmol/L Potassium Level 3.8 3.5-5.1 mmol/L Chloride Level 100 98-107 mmol/L Carbon Dioxide Level 26 21-32 mmol/L Anion Gap 8.0 3-11 mmol/L Blood Urea Nitrogen 14 7-18 mg/dl Creatinine 0.98 0.60-1.40 mg/dl Estimated GFR () 87.7 Estimated GFR (Non- 75.6 BUN/Creatinine Ratio 14.2 10-20 Random Glucose 175 70-99 mg/dl Calcium Level 8.8 8.5-10.1 mg/dl Total Bilirubin 0.5 0.2-1 mg/dl Aspartate Amino Transf (AST/SGOT) 14 15-37 U/L Alanine Aminotransferase (ALT/SGPT) 21 12-78 U/L Alkaline Phosphatase 85 45-117 U/L Troponin I < 0.015 0-0.045 ng/ml Total Protein 7.4 6.4-8.2 gm/dl Albumin 3.7 3.4-5.0 gm/dl Globulin 3.7 2.5-4.0 gm/dl Albumin/Globulin Ratio 1.0 0.9-2 Phenytoin (Dilantin) Level 10.2 10-20 mcg/mL Urine Color DK YELLOW Urine Appearance TURBID CLEAR Urine pH 5.5 4.5-7.5 Urine Specific [place] 1.016 1.000-1.030 Urine Protein 2+ NEG Urine Glucose (UA) NEG NEG Urine Ketones NEG NEG Urine Occult Blood 2+ NEG Urine Nitrite POS NEG Urine Bilirubin NEG NEG Urine Urobilinogen NEG NEG Urine Leukocyte Esterase LARGE NEG Urine WBC (Auto) >30 0-5 /hpf Urine RBC (Auto) 5-10 0-4 /hpf Urine Hyaline Casts (Auto) 10-30 0-5 /lpf Urine Epithelial Cells (Auto) >30 0-5 /lpf Urine Bacteria (Auto) NEG NEG Urine Pathogenic Casts EPITHELIAL CASTS 0 /lpf Urine Yeast (Auto) NONE PRSENT Microbiology Results 10/28/17 Urine Culture, Received Pending Impression Assessment and Plan 72 y/o M Hx DM II, HPL, hypothyroid, TIA, pancreatic insufficiency, seizure disorder. The had been taking Phenobarbital in addition Keppra and Dilantin until recently when the Phenobarbital was tapered down. He had a seizure this AM and was post-ictal for an extended period. He was transferred to the ER at the behest of his . The pt was evaluated in the ER for a period and discharge was anticipated. He than had an additional grand mal seizure however , which lasted several minutes. At this point, his did not feel that she could safely take him home. He is groggy but awake and alert at the time of evaluation. HE denies recent fevers, CP, SOB, N/V or dysuria. His UA is (+) despite a lack of symptoms. 1) Seizure disorder - breakthrough seizures x 2 - Pt provided with an additional dose of Keppra - level is pending - Dilantin is at lower end of therapeutic. We will monitor on telemetry overnight and provide Ativan as needed for additional activity. A decision on restarting Phenobarbital will be left to the discretion of the neurology service as this was recently D/Cd. A consult has been requested. 2) DM II - Metformin held - placed on Q6H SS 3) HPL - cont Statin 4) Hypothyroidism - cont Synthroid 5) Reported Hx of TIA - cont ASA, Statin 6) UA is marginally (+) - no WBC, fever or dysuria presently - will obtain culture and treat if + prior to DC. Level of Care Telemetry Resuscitation Status FULL RESUSCITATION VTE Prophylaxis VTE Risk Assessment Done? Y/N: Yes Risk Level: Moderate Given or contraindicated: SCD's
[2017-10-28] MEDS ORDERED: IV FLUIDS COMPLETED PRN (13:45)
[2017-10-28] MEDS ORDERED: LACTATED RINGER'S 1000ML 1,000 ML IV ONE (14:00)
[2017-10-28 15:22] VITALS: BP 126/74; PULSE 81; TEMP 37.1; O2SAT 92
[2017-10-28] MEDS: ACETAMINOPHEN 325 MG TAB PO PRN ×2 (15:39→22:03)
[2017-10-28] MEDS: PHENYTOIN SODIUM ER 100 MG CAP PO SCH ×2 (15:39→20:13)
[2017-10-28] MEDS: INSULIN ASPART 100 UNITS/ML 3 ML PEN SC SCH ×2 (15:41→16:57)
[2017-10-28] MEDS: PANCREAZE (LIPASE 10,500U) CAP PO SCH (16:59)
[2017-10-28 18:22] VITALS: BP 118/60; PULSE 73; TEMP 36.6; O2SAT 94; Ht 180.3 cm; Wt 91.7 kg
[2017-10-28 19:10] VITALS: BP 124/70; PULSE 75; TEMP 37.3; O2SAT 92
[2017-10-28] MEDS: PHENOBARBITAL 32.4 MG TAB PO SCH (20:12)
[2017-10-28] MEDS: SIMVASTATIN 40 MG TAB PO SCH (20:12)
[2017-10-28] MEDS: TAMSULOSIN HCL 0.4 MG CAP PO SCH (20:13)
--- NOTE | 2017-10-28 20:20 | NEUROLOGY CONSULTATION ---
DATE OF CONSULTATION: 10/28/2017 HISTORY OF PRESENT ILLNESS: Mr. Vang is the patient well known to my partner Dr. Valentine with a history of chronic seizure disorder. He has a history of diabetes, hyperlipidemia, hypothyroidism, TIA, pancreatic insufficiency and seizure. He has been taking Dilantin 300 a day, Keppra, I believe, 500 b.i.d. and phenobarbital. Phenobarbital had been 64.8 taken 4 a day and the patient had had some toxicity associated with an elevated level. The phenobarbital has been on hold for approximately 2-3 weeks with the expectation of being resumed when the level was more normal at a dose of 64.8. On this background, the patient had a typical seizure at home according to his . He was not injured. He was on the bed and she lowered him to the floor. He was brought to the Emergency Room, presumably by ambulance and he had a generalized seizure while in the Emergency Room, "lasting several minutes." The patient was given Ativan 1 mg and an additional Keppra 500 b.i.d. LABORATORY DATA: Notable for a +2 occult blood urinalysis, positive nitrites, large leukocyte esterase, greater than 30 white cells, epithelial cast, negative bacteria. Toxicology phenobarbital 8.4, Dilantin 10.2, Keppra pending. Chemistry notable for a sodium of 134, glucose 175, normal transaminases. White count was 5.24, H&H 37/39.1 and platelet count of 2017. He has not had any recurrent events. The patient indicates that he has been in his usual state of health. He has chronic and unchanged headaches. He has not had any new weakness, numbness. PAST MEDICAL HISTORY: As above. PAST SURGICAL HISTORY: Notable cholecystectomy. SOCIAL HISTORY: Former smoker, lives with . He is on disability. FAMILY HISTORY: Cancer and seizure. ALLERGIES: MORPHINE, NITROFURANTOIN, QUINOLONES AND MEPERIDINE. HOME MEDICATIONS: Aspirin 81 daily, Keppra 500 b.i.d., levothyroxine, metformin, pancrelipase, Dilantin 100 t.i.d., Zocor, tamsulosin p.r.n., Ativan 0.5 t.i.d. p.r.n. REVIEW OF SYSTEMS: No fever, chills, sweats, change in vision, hearing loss, nasal symptoms, cough, wheezing, chest pain, vomiting, joint pain and hematuria. No memory loss, paralysis, depression. He does have some fatigue. No abnormal bleeding and bruising. PHYSICAL EXAMINATION: VITAL SIGNS: 37.1, 81, 18, 126/74, 92%. GENERAL: The patient is awake, alert, oriented x3, mildly dysarthric speech which appears to be at baseline. HEENT: His head is normocephalic, atraumatic. NECK: There are no carotid bruits. CARDIAC: No heart murmurs. NEUROLOGIC: There is no evidence of tongue biting. Pupils are equal, round, reactive to light. I had difficulty visualizing optic nerves. Normal arriola, motility, normal facial symmetry. Symmetric strength, no drift. Normal rapid alternating movement. Symmetric reflexes. Downgoing toes. Zdgchk-hi-enxt and dvqn-nv-vial are normal. IMPRESSION: Breakthrough seizures related to low phenobarbital level. PLAN: Resume phenobarbital tonight first dose 64.8 now and starting 64.8 b.i.d. In the short run, I have increased the Keppra to 750 b.i.d. Apparently the patient has been resistant in the past to increasing dose of Keppra, but I think this will tide him over while the phenobarbital to becomes therapeutic. If he were to have a generalized seizures, we have several options, one of which would include a partial load of Dilantin of 500 mg. Probably we would avoid intravenously loading phenobarbital if we did not have to, to avoid respiratory suppression. We will follow with you. MTDD
[2017-10-28] MEDS: LEVETIRACETAM 250 MG TAB PO SCH (20:24)
[2017-10-28] MEDS ORDERED: LEVETIRACETAM 500 MG TAB PO SCH (21:00)
[2017-10-28 23:45] VITALS: BP 125/66; PULSE 73; TEMP 36.7; O2SAT 93
[2017-10-29 00:10] VITALS: BP 120/70; PULSE 68; TEMP 36.9; O2SAT 91
[2017-10-29] MEDS: INSULIN ASPART 100 UNITS/ML 3 ML PEN SC SCH ×4 (00:10→17:20)
[2017-10-29 02:53] VITALS: BP 122/65; PULSE 70; TEMP 36.9; O2SAT 91
[2017-10-29] MEDS ORDERED: GLUCOSE 40% GEL 15 GM TUBE PO PRN (04:15)
[2017-10-29] MEDS ORDERED: GLUCOSE 10 TABS/TUBE PO PRN (04:15)
[2017-10-29] MEDS ORDERED: GLUCAGON FOR INJ 1 MG VIAL SQ PRN (04:15)
[2017-10-29] MEDS ORDERED: DEXTROSE 50% 50 ML SYR IV PRN (04:15)
[2017-10-29] MEDS: CEFTRIAXONE SOD INJ 1 GM in DEXTROSE 5% ADD-VANTAGE 50ML 50 ML IV SCH (04:40)
[2017-10-29] MEDS: LEVOTHYROXINE 50 MCG TAB PO SCH (06:10)
[2017-10-29 07:45] VITALS: BP 129/77; PULSE 75; TEMP 36.9; O2SAT 95
[2017-10-29] MEDS: ASPIRIN 81 MG ECTAB PO SCH (08:21)
[2017-10-29] MEDS: PHENYTOIN SODIUM ER 100 MG CAP PO SCH ×3 (08:21→20:43)
[2017-10-29] MEDS: PANCREAZE (LIPASE 10,500U) CAP PO SCH ×3 (08:21→17:19)
[2017-10-29] MEDS: LEVETIRACETAM 250 MG TAB PO SCH ×2 (08:22→20:43)
[2017-10-29] MEDS: PHENOBARBITAL 32.4 MG TAB PO SCH ×2 (09:24→20:42)
[2017-10-29 11:35] VITALS: BP 149/80; PULSE 76; TEMP 36.8; O2SAT 93
--- NOTE | 2017-10-29 12:13 | PROGRESS NOTE ---
DATE: 10/29/2017 SUBJECTIVE: I am seeing Mr. Vang in follow up of two breakthrough seizures in the setting of an adjustment of phenobarbital dosing. He has done well overnight, phenobarbital 64.8 b.i.d. was reinstituted and Keppra increased transiently to 750 b.i.d. He has not had any recurrent episodes and is generally feeling well and is interested in going home. PHYSICAL EXAMINATION: GENERAL: He is awake and alert. Speech is mildly dysarthric, it sounds like it is at baseline. VITAL SIGNS: Temperature 36.8, pulse 76, respirations 18, blood pressure 149/80, O2 sat 93%. NEUROLOGICAL: He has normal extraocular motility without nystagmus. Normal facial symmetry. Nivahi-rm-ludt is normal. IMPRESSION AND PLAN: Recent breakthrough seizures related to phenobarbital adjustment, phenobarbital has been restarted 64.8 b.i.d. I would continue the higher dose of Keppra 750 b.i.d. for 3 weeks allowing the phenobarbital to readjust to its new baseline and then reducing the Keppra to 500 in the morning 750 for 2 weeks and then 500 b.i.d. The patient should contact Dr. Valentine's office postdischarge, to schedule an appointment. PRAVEENA
[2017-10-29 15:52] VITALS: BP 128/76; PULSE 72; TEMP 37; O2SAT 93
--- NOTE | 2017-10-29 17:44 | Progress Note ---
Subjective Date of Service: Oct 29, 2017. Subjective Pt evaluation today including: conversation w/ patient, conversation w/ family , physical exam, chart review, lab review, review of inpatient medication list Problem List Medical Problems: (1) Accidental medication overdose Status: Acute (2) Back pain Status: Acute (3) Dizziness Status: Acute (4) Headache Status: Acute (5) Phenobarbital toxicity Status: Acute (6) PNA (pneumonia) Status: Acute (7) Seizure disorder Status: Acute Review of Systems Constitutional: No see HPI, No fever, No chills, No sweats, No weight loss, No weakness, No fatigue, No problem reported Eyes: No see HPI, No worsening of vision, No eye pain, No redness, No discharge , No diplopia, No problem reported ENT: No see HPI, No hearing loss, No unusual epistaxis, No nasal symptoms, No sore throat, No tinnitus, No dental problems, No trouble swallowing, No problem reported Respiratory: No see HPI, No cough, No sputum, No wheezing, No shortness of breath, No dyspnea on exertion, No dyspnea at rest, No hemoptysis, No problem reported Cardiac: No see HPI, No chest pain, No orthopnea, No PND, No edema, No claudication, No palpitations, No problem reported Abdomen: No see HPI, No pain, No nausea, No vomiting, No diarrhea, No constipation, No GI bleeding, No problem reported Musculoskeletal: No see HPI, No joint pain, No muscle pain, No swelling, No calf pain, No problem reported Male : No see HPI, No dysuria, No urinary frequency, No incontinence, No nocturia more than once/night, No slowing stream, No hematuria, No sexual dysfunction, No problem reported Neurologic: No see HPI, No memory loss, No paralysis, No weakness, No numbness/ tingling, No vertigo, No balance problems, No problem reported Psychiatric: No see HPI, No depression symptoms, No anhedonism, No anxiety, No insomnia, No substance abuse, No problem reported Heme: No see HPI, No abnormal bleeding/bruising, No clotting problems, No swollen lymph nodes, No night sweats, No problem reported Endo: No see HPI, No fatigue, No excessive thirst, No excessive urination, No problem reported Skin: No see HPI, No rash, No itch, No new/changing skin lesions, No color change, No bleeding, No problem reported Medications Current Inpatient Medications Medications (Trade) Dose Ordered Sig/Leni Route Start Time Stop Time Status Last Admin Dose Admin Aspirin (Ecotrin Tab) 81 mg DAILY PO 10/29/17 09:00 11/28/17 08:59 10/29/17 08:21 81 MG Levothyroxine Sodium (Synthroid Tab) 50 mcg DAILYBB PO 10/29/17 06:00 11/28/17 05:59 10/29/17 06:10 50 MCG Lorazepam (Ativan Tab) 0.5 mg TID PRN PO 10/28/17 12:15 11/27/17 12:14 Phenytoin Sodium (Dilantin Er Cap) 100 mg TID PO 10/28/17 14:00 11/27/17 13:59 10/29/17 14:16 100 MG Simvastatin (Zocor Tab) 40 mg HS PO 10/28/17 21:00 11/27/17 20:59 10/28/17 20:12 40 MG Tamsulosin HCl (Flomax Cap) 0.4 mg HS PO 10/28/17 21:00 11/27/17 20:59 Amylase/Lipase/ Protease (Pancreaze (Lipase 10,500U) Cap) 1 cap TIDM PO 10/28/17 16:45 11/27/17 16:44 10/29/17 17:19 1 CAP Acetaminophen (Tylenol Tab) 650 mg Q6H PRN PO 10/28/17 12:15 11/27/17 12:14 10/28/17 22:03 650 MG Al Hydrox/Mg Hydrox/Simethicone (Maalox Max Susp) 15 ml Q4H PRN PO 10/28/17 12:15 11/27/17 12:14 Magnesium Hydroxide (Milk Of Magnesia Susp) 30 ml Q12H PRN PO 10/28/17 12:15 11/27/17 12:14 Ondansetron HCl (Zofran Inj) 4 mg Q6H PRN IV 10/28/17 12:15 11/27/17 12:14 Polyethylene (Miralax Powder Packet) 17 gm DAILY PRN PO 10/28/17 12:15 11/27/17 12:14 Lorazepam (Ativan Inj) 2 mg Q3H PRN IV 10/28/17 12:15 11/27/17 12:14 Insulin Aspart (novoLOG ASPART) SLIDING SCALE G... Q6H SC 10/28/17 12:15 11/27/17 12:14 Miscellaneous (Iv Fluids Completed) 1 ea PRN PRN N/A 10/28/17 13:45 10/28/18 13:44 Phenobarbital (Phenobarbital Tab) 64.8 mg BID PO 10/28/17 18:00 11/27/17 17:59 10/29/17 09:24 64.8 MG Levetiracetam (Keppra Tab) 750 mg BID PO 10/28/17 21:00 11/27/17 20:59 10/29/17 08:22 750 MG Ceftriaxone Sodium 1 gm/ Dextrose 50 ml @ 100 mls/hr Q24H IV 10/29/17 04:30 11/03/17 04:29 10/29/17 04:40 100 MLS/HR Glucose (Glucose 40% Gel) 15-30 GRAMS 15 GRAMS... UD PRN PO 10/29/17 04:15 11/28/17 04:14 Glucose (Glucose Chew Tab) 4-8 Tablets 4 Tabl... UD PRN PO 10/29/17 04:15 11/28/17 04:14 Dextrose (Dextrose 50% 50ML Syringe) 25-50ML OF 50% DW IV FOR... UD PRN IV 10/29/17 04:15 11/28/17 04:14 Glucagon (Glucagon Inj) 1 mg UD PRN SQ 10/29/17 04:15 11/28/17 04:14 Objective Vital Signs Date Time Temp Pulse Resp B/P (MAP) Pulse Ox O2 Delivery O2 Flow Rate FiO2 10/29/17 17:02 Room Air 10/29/17 15:52 37.0 72 21 128/76 (93) 93 Room Air 10/29/17 12:30 Room Air 10/29/17 11:35 36.8 76 18 149/80 (103) 93 Room Air 10/29/17 08:00 Room Air 10/29/17 07:45 36.9 75 18 129/77 (94) 95 Room Air 10/29/17 03:00 Room Air 10/29/17 02:53 36.9 70 19 122/65 (84) 91 Room Air 10/29/17 00:05 Room Air 10/28/17 23:45 36.7 73 19 125/66 (85) 93 Room Air 10/28/17 20:15 Room Air 10/28/17 19:10 37.3 75 16 124/70 (88) 92 Room Air 10/28/17 18:22 36.6 73 20 118/60 94 Room Air Physical Exam General Appearance: WD/WN, no apparent distress Eyes: normal inspection, EOMI ENT: normal ENT inspection, hearing grossly normal Neck: supple Respiratory/Chest: chest non-tender, lungs clear, normal breath sounds, no respiratory distress, no accessory muscle use Cardiovascular: regular rate, rhythm, no edema, no gallop, no JVD, no murmur Abdomen: normal bowel sounds, non tender, soft, no organomegaly, no pulsatile mass Extremities: normal range of motion, non-tender, normal inspection, no pedal edema, no calf tenderness Neurologic/Psychiatric: instrument technologist II-XII nml as tested, no motor/sensory deficits, alert, normal mood/affect, oriented x 3 Skin: normal color, warm/dry, no rash Laboratory Results Last 24 Hours Test 10/28/17 20:48 10/28/17 23:56 10/29/17 05:57 10/29/17 11:22 Bedside Glucose 131 mg/dl 148 mg/dl 156 mg/dl 156 mg/dl Test 10/29/17 16:41 Bedside Glucose 129 mg/dl Assessment and Plan 72-year-old man with past medical history of hypothyroidism, antiemetic insufficiency, seizure disorder, diabetes mellitus type 2, dyslipidemia and TIA. Patient presented to the ED with breakthrough seizure. Phenobarbital was recently tapered down. In the ED levels of phenobarbital and Dilantin were both low Urine analysis was suggestive for UTI Assessment Seizure disorder with breakthrough seizure 2 Urinary tract infection present on admission Diabetes mellitus type 2 Dyslipidemia Hypothyroidism currently on Synthroid Plan Continue ceftriaxone with close monitoring for seizure disorders as ceftriaxone can lower special procedure Border line low Dilantin, low phenobarbital level, Keppra level is pending Consult statistical engineer appreciated, phenobarbital dose was adjusted, also patient was loaded with a small dose of Dilantin Follow-up urine culture Continue sliding scale insulin, and continue holding metformin Check TSH Check labs in a.m. Heparin for DVT prophylaxis
[2017-10-29 19:33] VITALS: BP 151/75; PULSE 71; TEMP 36.2; O2SAT 94
[2017-10-29 19:44] LABS: URINE APPEARANCE TURBID (CLEAR); URINE BILIRUBIN NEG (NEG); URINE COLOR YELLOW; URINE NITRITE NEG (NEG); URINE PH 5.5 (4.5-7.5); URINE SPECIFIC GRAVITY 1.013 (1.000-1.030); UROBILINOGEN NEG (NEG); ZZURINE CULT IF INDIC CATH YES
[2017-10-29 19:47] LABS: MANUAL MICROSCOPIC REQUIRED? NO; REVIEW REQ? YES
[2017-10-29] MEDS: SIMVASTATIN 40 MG TAB PO SCH (20:42)
[2017-10-29] MEDS: TAMSULOSIN HCL 0.4 MG CAP PO SCH (20:43)
[2017-10-30] VITALS (7 sets, daily range): BP systolic 120–153; BP diastolic 67–81; PULSE 55–81; TEMP 36.3–36.9; O2SAT 91–96
[2017-10-30] MEDS: INSULIN ASPART 100 UNITS/ML 3 ML PEN SC SCH ×5 (00:15→20:27)
--- NOTE | 2017-10-30 02:10 | Progress Note ---
Progress Note Date of Service Oct 30, 2017. Progress Note nocturia with only approx 100-200 cc/ time, bladder scan for 600 cc additional 0.4 mg of flomax x 1 and straight cath prn
[2017-10-30] MEDS ORDERED: TAMSULOSIN HCL 0.4 MG CAP PO ONE (02:15)
[2017-10-30] MEDS ORDERED: NURSING VERBAL MED ORDER ONE (03:15)
[2017-10-30] MEDS: CEFTRIAXONE SOD INJ 1 GM in DEXTROSE 5% ADD-VANTAGE 50ML 50 ML IV SCH (04:29)
[2017-10-30] MEDS: LEVOTHYROXINE 50 MCG TAB PO SCH (05:11)
[2017-10-30 07:44] LABS: BASO % 0.2 %; BASO ABS # 0.01 K/uL (0-0.2); COMPLETE YES; EOS % 1.6 %; HEMATOCRIT 39.9 % (42-52); IG% 0.2 %; LYMPH % 21.1 %; LYMPH ABS # 0.92 K/uL (1.2-3.4); MEAN CORPUSCULAR HEMOGLOBIN 34.7 pg (25-34); MEAN CORPUSCULAR HGB CONC 35.1 g/dl (32-36); MEAN PLATELET VOLUME 7.8 fL (7.4-10.4); MONO % 11.9 %; PLATELET COUNT 184 K/uL (130-400); RED BLOOD COUNT 4.03 M/uL (4.7-6.1); WHITE BLOOD COUNT 4.37 K/uL (4.8-10.8)
[2017-10-30 07:56] LABS: BUN/CREATININE RATIO 10.5 (10-20); CALCIUM 8.7 mg/dl (8.5-10.1); CREATININE 0.88 mg/dl (0.60-1.40); POTASSIUM 4.1 mmol/L (3.5-5.1)
[2017-10-30] MEDS: PHENYTOIN SODIUM ER 100 MG CAP PO SCH ×3 (08:22→20:10)
[2017-10-30] MEDS: ASPIRIN 81 MG ECTAB PO SCH (08:23)
[2017-10-30] MEDS: PANCREAZE (LIPASE 10,500U) CAP PO SCH ×3 (08:23→17:00)
[2017-10-30] MEDS: LEVETIRACETAM 250 MG TAB PO SCH ×2 (08:23→20:09)
[2017-10-30] MEDS: PHENOBARBITAL 32.4 MG TAB PO SCH ×2 (08:33→20:09)
--- NOTE | 2017-10-30 08:44 | Pharmacy Progress Note ---
Pharmacy Abx Initial Consult Date of Service Oct 30, 2017. Pharmacy Dosing Scope Date of Consult: 10/30/17 Pharmacy is consulted to initiate Vancomycin IV dosing therapy, order appropriate labs and adjust drug dose/frequency. Subjective The patient is a 72 year old male admitted on Oct 29, 2017 at 17:47. Objective Height (Feet): 5 Height (Inches): 11.00 Weight (Kilograms): 91.600 Vital Signs (Past 12Hrs) Vital Signs Past 12 Hours Date Time Temp Pulse Resp B/P (MAP) Pulse Ox O2 Delivery O2 Flow Rate FiO2 10/30/17 08:16 36.3 81 18 144/81 (102) 96 10/30/17 04:30 Room Air 10/30/17 02:36 36.5 69 20 122/71 (88) 96 Room Air 10/30/17 00:17 Room Air 10/30/17 00:10 36.9 68 17 120/70 (87) 91 Room Air Lab Results (24Hrs) Laboratory Tests (24 Hours) Test 10/30/17 07:04 Lactic Acid Level 1.1 mmol/L (0.4-2.0) White Blood Count 4.37 K/uL (4.8-10.8) L Red Blood Count 4.03 M/uL (4.7-6.1) L Hemoglobin 14.0 g/dL (14.0-18.0) Hematocrit 39.9 % (42-52) L Mean Corpuscular Volume 99.0 fL (80-100) Mean Corpuscular Hemoglobin 34.7 pg (25-34) H Mean Corpuscular Hemoglobin Concent 35.1 g/dl (32-36) Platelet Count 184 K/uL (130-400) Mean Platelet Volume 7.8 fL (7.4-10.4) Neutrophils (%) (Auto) 65.0 % Lymphocytes (%) (Auto) 21.1 % Monocytes (%) (Auto) 11.9 % Eosinophils (%) (Auto) 1.6 % Basophils (%) (Auto) 0.2 % Neutrophils # (Auto) 2.84 K/uL (1.4-6.5) Lymphocytes # (Auto) 0.92 K/uL (1.2-3.4) L Monocytes # (Auto) 0.52 K/uL (0.11-0.59) Eosinophils # (Auto) 0.07 K/uL (0-0.5) Basophils # (Auto) 0.01 K/uL (0-0.2) Micro Results Date/Time Source Procedure Growth Status 10/29/17 19:33 Urine,Catheterized Urine Culture Pending Received 10/28/17 10:23 Urine , Clean Catch Urine Culture - Preliminary Staph Species Resulted Risk Factors for Resistance * History of infection with a multidrug-resistant organism in 2000 and 2006. * Recent hospital admissions Assessment & Plan Assessment 72 year old male initiated on Vancomycin IV for staph species in the urine. Repeat urine culture pending. Final C/S on primary urine pending. Note: Pt does have history of enterococcal infections but >10 years ago Plan Vancomycin IV * Loading dose: 2250 mg (25 mg/kg) * Maintenance dose: 1250 mg IV (13.5 mg/kg) every 12 hours * Goal trough level for UTI: 15 mcg/mL * Tough level ordered for 11/01/17 @0830 prior to 0900 dose Pharmacy will continue to follow and will adjust dose/frequency as necessary. Thank you.
[2017-10-30] MEDS ORDERED: VANCOMYCIN CONSULT ACTIVE PRN (08:45)
[2017-10-30] MEDS ORDERED: VANCOMYCIN INJ 2,250 MG in SODIUM CHLORIDE 0.9% 500ML 500 ML IV ONE (09:00)
--- NOTE | 2017-10-30 11:52 | PROGRESS NOTE ---
DATE: 10/30/2017 I am seeing Mr. Vang in a followup of a breakthrough seizure that occurred in the setting with adjustment of phenobarbital. Phenobarbital has been reinstituted at 64.8 b.i.d. and Keppra increased to 750 b.i.d. He has not had any seizures since doing so. He appears to have been kept in the hospital for some urinary retention and possible infection. He is awake and alert at his baseline and no significant dysarthria. IMPRESSION: Chronic seizure disorder, recent breakthrough seizure related to adjustment of phenobarbital dose and no seizures since phenobarbital 64.8 mg bid has been resumed. Phenobarbital level should be checked in 3-[address] Valentine may want to reduce his Keppra back to his baseline dose from 750 b.i.d. to 500 b.i.d. The patient should contact Dr. Valentine's office to discuss an appointment postdischarge. We will sign off. MTDD
--- NOTE | 2017-10-30 18:50 | Progress Note ---
Subjective Date of Service: Oct 30, 2017. Subjective Pt evaluation today including: conversation w/ patient, physical exam, chart review, lab review, review of studies, review of inpatient medication list Problem List Medical Problems: (1) Accidental medication overdose Status: Acute (2) Back pain Status: Acute (3) Dizziness Status: Acute (4) Headache Status: Acute (5) Phenobarbital toxicity Status: Acute (6) PNA (pneumonia) Status: Acute (7) Seizure disorder Status: Acute Review of Systems Constitutional: No see HPI, No fever, No chills, No sweats, No weight loss, No weakness, No fatigue, No problem reported Eyes: No see HPI, No worsening of vision, No eye pain, No redness, No discharge , No diplopia, No problem reported ENT: No see HPI, No hearing loss, No unusual epistaxis, No nasal symptoms, No sore throat, No tinnitus, No dental problems, No trouble swallowing, No problem reported Respiratory: No see HPI, No cough, No sputum, No wheezing, No shortness of breath, No dyspnea on exertion, No dyspnea at rest, No hemoptysis, No problem reported Cardiac: No see HPI, No chest pain, No orthopnea, No PND, No edema, No claudication, No palpitations, No problem reported Abdomen: No see HPI, No pain, No nausea, No vomiting, No diarrhea, No constipation, No GI bleeding, No problem reported Musculoskeletal: No see HPI, No joint pain, No muscle pain, No swelling, No calf pain, No problem reported Male : No see HPI, No dysuria, No urinary frequency, No incontinence, No nocturia more than once/night, No slowing stream, No hematuria, No sexual dysfunction, No problem reported Neurologic: No see HPI, No memory loss, No paralysis, No weakness, No numbness/ tingling, No vertigo, No balance problems, No problem reported Psychiatric: No see HPI, No depression symptoms, No anhedonism, No anxiety, No insomnia, No substance abuse, No problem reported Heme: No see HPI, No abnormal bleeding/bruising, No clotting problems, No swollen lymph nodes, No night sweats, No problem reported Endo: No see HPI, No fatigue, No excessive thirst, No excessive urination, No problem reported Skin: No see HPI, No rash, No itch, No new/changing skin lesions, No color change, No bleeding, No problem reported Medications Current Inpatient Medications Medications (Trade) Dose Ordered Sig/Leni Route Start Time Stop Time Status Last Admin Dose Admin Aspirin (Ecotrin Tab) 81 mg DAILY PO 10/29/17 09:00 11/28/17 08:59 10/30/17 08:23 81 MG Levothyroxine Sodium (Synthroid Tab) 50 mcg DAILYBB PO 10/29/17 06:00 11/28/17 05:59 10/30/17 05:11 50 MCG Lorazepam (Ativan Tab) 0.5 mg TID PRN PO 10/28/17 12:15 11/27/17 12:14 Phenytoin Sodium (Dilantin Er Cap) 100 mg TID PO 10/28/17 14:00 11/27/17 13:59 10/30/17 15:06 100 MG Simvastatin (Zocor Tab) 40 mg HS PO 10/28/17 21:00 11/27/17 20:59 10/29/17 20:42 40 MG Tamsulosin HCl (Flomax Cap) 0.4 mg HS PO 10/28/17 21:00 11/27/17 20:59 10/29/17 20:43 0.4 MG Amylase/Lipase/ Protease (Pancreaze (Lipase 10,500U) Cap) 1 cap TIDM PO 10/28/17 16:45 11/27/17 16:44 10/30/17 08:23 1 CAP Acetaminophen (Tylenol Tab) 650 mg Q6H PRN PO 10/28/17 12:15 11/27/17 12:14 10/28/17 22:03 650 MG Al Hydrox/Mg Hydrox/Simethicone (Maalox Max Susp) 15 ml Q4H PRN PO 10/28/17 12:15 11/27/17 12:14 Magnesium Hydroxide (Milk Of Magnesia Susp) 30 ml Q12H PRN PO 10/28/17 12:15 11/27/17 12:14 Ondansetron HCl (Zofran Inj) 4 mg Q6H PRN IV 10/28/17 12:15 11/27/17 12:14 10/30/17 15:33 4 MG Polyethylene (Miralax Powder Packet) 17 gm DAILY PRN PO 10/28/17 12:15 11/27/17 12:14 Lorazepam (Ativan Inj) 2 mg Q3H PRN IV 10/28/17 12:15 11/27/17 12:14 Miscellaneous (Iv Fluids Completed) 1 ea PRN PRN N/A 10/28/17 13:45 10/28/18 13:44 Phenobarbital (Phenobarbital Tab) 64.8 mg BID PO 10/28/17 18:00 11/27/17 17:59 10/30/17 08:33 64.8 MG Levetiracetam (Keppra Tab) 750 mg BID PO 10/28/17 21:00 11/27/17 20:59 10/30/17 08:23 750 MG Ceftriaxone Sodium 1 gm/ Dextrose 50 ml @ 100 mls/hr Q24H IV 10/29/17 04:30 11/03/17 04:29 10/30/17 04:29 100 MLS/HR Glucose (Glucose 40% Gel) 15-30 GRAMS 15 GRAMS... UD PRN PO 10/29/17 04:15 11/28/17 04:14 Glucose (Glucose Chew Tab) 4-8 Tablets 4 Tabl... UD PRN PO 10/29/17 04:15 11/28/17 04:14 Dextrose (Dextrose 50% 50ML Syringe) 25-50ML OF 50% DW IV FOR... UD PRN IV 10/29/17 04:15 11/28/17 04:14 Glucagon (Glucagon Inj) 1 mg UD PRN SQ 10/29/17 04:15 11/28/17 04:14 Insulin Aspart (novoLOG ASPART) SLIDING SCALE G... ACHS SC 10/30/17 07:00 11/29/17 06:59 10/30/17 08:25 1 UNITS Vancomycin HCl 1250 mg/Sodium Chloride 275 ml @ 125 mls/hr Q12H IV 10/30/17 21:00 11/09/17 20:59 Vancomycin HCl (Consult) 1 ea UD PRN N/A 10/30/17 08:45 11/29/17 08:44 Objective Vital Signs Date Time Temp Pulse Resp B/P (MAP) Pulse Ox O2 Delivery O2 Flow Rate FiO2 10/30/17 16:31 36.7 77 21 153/76 (101) 95 Room Air 10/30/17 16:05 Room Air 10/30/17 12:05 Room Air 10/30/17 11:49 36.6 55 18 137/80 (99) 96 10/30/17 08:16 36.3 81 18 144/81 (102) 96 10/30/17 08:00 Room Air 10/30/17 04:30 Room Air 10/30/17 02:36 36.5 69 20 122/71 (88) 96 Room Air 10/30/17 00:17 Room Air 10/30/17 00:10 36.9 68 17 120/70 (87) 91 Room Air 10/29/17 19:33 36.2 71 21 151/75 (100) 94 Room Air 10/29/17 19:30 Room Air Physical Exam General Appearance: WD/WN, no apparent distress Eyes: normal inspection, EOMI ENT: normal ENT inspection, hearing grossly normal Neck: supple Respiratory/Chest: chest non-tender, lungs clear, normal breath sounds, no respiratory distress, no accessory muscle use Cardiovascular: regular rate, rhythm, no edema, no gallop, no JVD, no murmur Abdomen: non tender, soft, no organomegaly, no pulsatile mass Extremities: normal range of motion, non-tender, normal inspection, no pedal edema, no calf tenderness Neurologic/Psychiatric: budget and policy analyst II-XII nml as tested, no motor/sensory deficits, alert, normal mood/affect, + pertinent finding (slightly confused) Skin: normal color, warm/dry, no rash Laboratory Results Last 24 Hours Test 10/29/17 19:33 10/30/17 00:12 10/30/17 06:34 10/30/17 07:04 Urine Color YELLOW Urine Appearance TURBID Urine pH 5.5 Urine Specific Levan 1.013 Urine Protein 1+ Urine Glucose (UA) NEG Urine Ketones NEG Urine Occult Blood 2+ Urine Nitrite NEG Urine Bilirubin NEG Urine Urobilinogen NEG Urine Leukocyte Esterase LARGE Urine WBC (Auto) >30 /hpf Urine RBC (Auto) 0-4 /hpf Urine Hyaline Casts (Auto) 10-30 /lpf Urine Epithelial Cells (Auto) 10-20 /lpf Urine Bacteria (Auto) NEG Urine Pathogenic Casts /lpf Bedside Glucose 139 mg/dl 167 mg/dl White Blood Count 4.37 K/uL Red Blood Count 4.03 M/uL Hemoglobin 14.0 g/dL Hematocrit 39.9 % Mean Corpuscular Volume 99.0 fL Mean Corpuscular Hemoglobin 34.7 pg Mean Corpuscular Hemoglobin Concent 35.1 g/dl Platelet Count 184 K/uL Mean Platelet Volume 7.8 fL Neutrophils (%) (Auto) 65.0 % Lymphocytes (%) (Auto) 21.1 % Monocytes (%) (Auto) 11.9 % Eosinophils (%) (Auto) 1.6 % Basophils (%) (Auto) 0.2 % Neutrophils # (Auto) 2.84 K/uL Lymphocytes # (Auto) 0.92 K/uL Monocytes # (Auto) 0.52 K/uL Eosinophils # (Auto) 0.07 K/uL Basophils # (Auto) 0.01 K/uL RDW Standard Deviation 46.8 fL RDW Coefficient of Variation 12.9 % Immature Granulocyte % (Auto) 0.2 % Immature Granulocyte # (Auto) 0.01 K/uL Sodium Level 134 mmol/L Potassium Level 4.1 mmol/L Chloride Level 100 mmol/L Carbon Dioxide Level 28 mmol/L Anion Gap 6.0 mmol/L Blood Urea Nitrogen 9 mg/dl Creatinine 0.88 mg/dl Est Creatinine Clear Calc Drug Dose 85.2 ml/min Estimated GFR () 98.1 Estimated GFR (Non- 84.6 BUN/Creatinine Ratio 10.5 Random Glucose 168 mg/dl Lactic Acid Level 1.1 mmol/L Calcium Level 8.7 mg/dl Total Bilirubin 0.4 mg/dl Aspartate Amino Transf (AST/SGOT) 16 U/L Alanine Aminotransferase (ALT/SGPT) 20 U/L Alkaline Phosphatase 88 U/L Total Protein 7.4 gm/dl Albumin 3.7 gm/dl Globulin 3.7 gm/dl Albumin/Globulin Ratio 1.0 Test 10/30/17 11:37 10/30/17 16:47 Bedside Glucose 136 mg/dl 114 mg/dl Assessment and Plan 72-year-old man with past medical history of hypothyroidism, antiemetic insufficiency, seizure disorder, diabetes mellitus type 2, dyslipidemia and TIA. Patient presented to the ED with breakthrough seizure. Phenobarbital was recently tapered down. In the ED levels of phenobarbital and Dilantin were both low Urine analysis was suggestive for UTI Assessment Seizure disorder with breakthrough seizure 2 Urinary tract infection present on admission Diabetes mellitus type 2 Dyslipidemia Hypothyroidism currently on Synthroid Plan Continue vanco / ceftriaxone with close monitoring for seizure disorders as ceftriaxone can lower seizure threshold Border line low Dilantin, low phenobarbital level, Keppra level is pending Consult neurologist appreciated, phenobarbital dose was adjusted, also patient was loaded with a small dose of Dilantin Follow-up urine culture, growing staph up till now 7 pm 12 sensitivity is not back yet Continue sliding scale insulin, and continue holding metformin normal TSH last month Check labs in a.m. Heparin for DVT prophylaxis
[2017-10-30] MEDS: TAMSULOSIN HCL 0.4 MG CAP PO SCH (20:09)
[2017-10-30] MEDS: SIMVASTATIN 40 MG TAB PO SCH (20:10)
[2017-10-30] MEDS: VANCOMYCIN INJ 1,250 MG in SODIUM CHLORIDE 0.9% 250ML 250 ML IV SCH (20:15)
[2017-10-30] MEDS: ACETAMINOPHEN 325 MG TAB PO PRN (23:10)
[2017-10-31] VITALS (8 sets, daily range): BP systolic 112–142; BP diastolic 67–74; PULSE 65–74; TEMP 36.4–36.9; O2SAT 93–96
[2017-10-31] MEDS: CEFTRIAXONE SOD INJ 1 GM in DEXTROSE 5% ADD-VANTAGE 50ML 50 ML IV SCH (04:24)
[2017-10-31] MEDS: LEVOTHYROXINE 50 MCG TAB PO SCH (05:07)
[2017-10-31] MEDS: INSULIN ASPART 100 UNITS/ML 3 ML PEN SC SCH ×3 (07:00→16:15)
[2017-10-31] MEDS: PHENYTOIN SODIUM ER 100 MG CAP PO SCH ×2 (07:31→14:24)
[2017-10-31] MEDS: PANCREAZE (LIPASE 10,500U) CAP PO SCH ×3 (07:32→16:51)
[2017-10-31] MEDS: LEVETIRACETAM 250 MG TAB PO SCH (07:32)
[2017-10-31] MEDS: ASPIRIN 81 MG ECTAB PO SCH (07:32)
[2017-10-31] MEDS: VANCOMYCIN INJ 1,250 MG in SODIUM CHLORIDE 0.9% 250ML 250 ML IV SCH (07:37)
[2017-10-31] MEDS: PHENOBARBITAL 32.4 MG TAB PO SCH (07:37)
[2017-10-31 07:38] LABS: BASO % 0.2 %; BASO ABS # 0.01 K/uL (0-0.2); COMPLETE YES; EOS % 1.3 %; HEMATOCRIT 43.1 % (42-52); IG% 0.2 %; LYMPH % 21.9 %; LYMPH ABS # 1.03 K/uL (1.2-3.4); MEAN CELL VOLUME 99.5 fL (80-100); MEAN CORPUSCULAR HEMOGLOBIN 34.2 pg (25-34); MEAN CORPUSCULAR HGB CONC 34.3 g/dl (32-36); MEAN PLATELET VOLUME 8.2 fL (7.4-10.4); MONO % 9.6 %; NEUT % 66.8 %; PLATELET COUNT 234 K/uL (130-400); RED BLOOD COUNT 4.33 M/uL (4.7-6.1); WHITE BLOOD COUNT 4.71 K/uL (4.8-10.8)
[2017-10-31 08:06] LABS: BUN/CREATININE RATIO 9.7 (10-20); CALCIUM 9.2 mg/dl (8.5-10.1); CREATININE 0.99 mg/dl (0.60-1.40); MAGNESIUM 2.6 mg/dl (1.8-2.4)
[2017-10-31 08:09] LABS: ALB/GLOB RATIO 1.1 (0.9-2)
[2017-10-31] MEDS ORDERED: PB30 PO (12:14)
[2017-10-31] MEDS ORDERED: KPP250 PO (12:14)
[2017-10-31] MEDS ORDERED: SULF800T23 PO (12:20)
--- NOTE | 2017-10-31 17:29 | Discharge Instructions ---
Discharge Instructions Date of Service Oct 31, 2017. Admission Reason for Admission: Seizures Discharge Discharge Diagnosis / Problem: Epilepsy/ Unsteady Gait Discharge Goals Goal(s): Decrease discomfort, Improve function Activity Recommendations Activity Limitations: resume your previous activity Lifting Limitations: gradually increase as tolerated . Instructions / Follow-Up Instructions / Follow-Up F/U with PCP in 2 weeks F/U with Neurology in 3-4 weeks to recheck phenobarbital level Current Hospital Diet Patient's current hospital diet: AHA Diet (Heart Healthy), Diabetes Type 2 Diet Discharge Diet Recommended Diet: AHA Diet (Heart Healthy), Diabetes Type 2 Diet Pending Studies Studies pending at discharge: no Laboratory Results Hemoglobin A1c Test 08/18/17 15:53 Range/Units Estimated Average Glucose 157 mg/dl Hemoglobin A1c 7.1 H 4.5-5.6 % Medical Emergencies . Who to Call and When: Medical Emergencies: If at any time you feel your situation is an emergency, please call 911 immediately. . Non-Emergent Contact Non-Emergency issues call your: Primary Care Provider Call Non-Emergent contact if: you have any medication questions . . "Provider Documentation" section prepared by Charlie Andersen. . VTE Core Measure Inpt VTE Proph given/why not?: SCD's
--- NOTE | 2017-10-31 18:16 | Discharge Summary ---
Discharge Summary Date of Service Oct 31, 2017. Discharge Summary Admission Date: Oct 29, 2017 at 17:47 Discharge Date: Oct 31, 2017 Discharge Disposition: Home with services Principal Diagnosis: Seizure Disorder with Breakthrough Seizure X 2; UTI Problems/Secondary Diagnoses: 1. T2DM 2. Seizure Disorder 3. HLP 4. Hypothyroidism 5. TIA 6. Pancreatic Insufficiency 7. Chronic Ataxic Gait Immunizations: Have You Had Influenza Vaccine: Yes History of Tetanus Vaccine?: Yes History of Pneumococcal: Yes History of Hepatitis B Vaccine: Unknown Consultations: 1. Neurology - [facility] Medication Reconciliation New Medications: Sulfa/Trimethoprim (Bactrim Ds 800MG/160MG) Tab 1 TAB PO BID, #14 TAB Start twice a day on 11/01 and continue until pills gone. Levetiractam (Keppra) 250 Mg Tab 750 MG PO BID for 30 Days, #180 TAB Phenobarbital (Phenobarbital) 32.4 Mg Tab 64.8 MG PO BID for 14 Days, #56 TAB Continued Medications: Aspirin (Aspirin Ec) 81 Mg Tab 81 MG PO DAILY Levothyroxine Sodium (Levothyroxine Sodium) 50 Mcg Tab 50 MCG PO QAM Lorazepam (Lorazepam) 0.5 Mg Tab 0.5 MG PO TID PRN for Anxiety Metformin Hcl Er (Glucophage Er) 500 Mg Tab 500 MG PO DAILY Pancrelipase (Lipase-Protease- (Creon 52349) 1 Cap Cap 13299 UNITS PO TIDM, CAP WITH MEALS AND SNACKS Phenytoin Sodium (Dilantin) 100 Mg Cap 100 MG PO TID, CAP Simvastatin (Zocor) 40 Mg Tab 40 MG PO HS Tamsulosin HCl (Tamsulosin HCl) 0.4 Mg Cap 0.4 MG PO HS Discontinued Medications: Levetiractam (Levetiracetam) 500 Mg Tab 500 MG PO BID Discharge Exam Review of Systems: Constitutional: No fever, No chills ENT: No nasal symptoms, No sore throat, No trouble swallowing Respiratory: No cough, No shortness of breath Cardiovascular: No chest pain, No palpitations Abdomen: No pain, No nausea, No vomiting, No diarrhea, No constipation, No GI bleeding Musculoskeletal: No swelling, No calf pain Genitourinary - Male: No hematuria, No dysuria, No urinary frequency Neurologic: + balance problems (chronic) Hematologic / Lymphatic: No abnormal bleeding/bruising Integumentary: No rash Physical Exam: General Appearance: WD/WN, no apparent distress Eyes: sclerae normal ENT: hearing grossly normal Neck: supple, no JVD, trachea midline Respiratory/Chest: lungs clear, normal breath sounds, no respiratory distress, no accessory muscle use Cardiovascular: regular rate, rhythm, no gallop, no murmur Abdomen / GI: normal bowel sounds, non tender, soft Extremities: no calf tenderness, no pedal edema Neurologic/Psychiatric: alert, oriented x 3 Skin: normal color, warm/dry Hospital Course ADMISSION: 72 y/o M Hx DM II, HPL, hypothyroid, TIA, pancreatic insufficiency, seizure disorder. The had been taking Phenobarbital in addition Keppra and Dilantin until recently when the Phenobarbital was tapered down. He had a seizure this AM and was post-ictal for an extended period. He was transferred to the ER at the behest of his . The pt was evaluated in the ER for a period and discharge was anticipated. He than had an additional grand mal seizure however, which lasted several minutes. At this point, his did not feel that she could safely take him home. He is groggy but awake and alert at the time of evaluation. HE denies recent fevers, CP, SOB, N/V or dysuria. His UA is (+) despite a lack of symptoms. HOSPITAL COURSE: Mr. Vang was admitted for breakthrough seizures x 2. Due to previous admission, his Phenobarbital was held due to toxicity. Compared to previous admissions his clarity does appear to be improved now that he is subtherapeutic on this medication. Neurology was consulted and he was placed back on Phenobarbital 64.8 mg BID with plans to draw Phenobarbital level in 3-4 weeks and make additional adjustments to medications if needed. His Keppra was increased from 500 mg to 750 mg BID with plans to possibly taper this back to his normal dosing pending pheno level. Patient is asymptomatic from UTI standpoint but will complete a course of Bactrim to cover to a total of 10 days. He participated in PT that recommended him to be able to return home. He does have a chronic ataxic gait and multiple falls. He did got to [facility] on last admission but states he didn't like it and decided to go home early. He is not interested in further PT services as an inpatient but is agreeable to [facility]HS. Due to his frequent falls from his chronic ataxic gait and seizure disorder, he is at high risk for readmission. Total Time Spent: Greater than 30 minutes This includes examination of the patient, discharge planning, medication reconciliation, and communication with other providers. Discharge Instructions Please refer to the electronic Patient Visit Report (Discharge Instructions) for additional information. Additional Copies To Coleman Gillespie M.D.
[2017-10-31] MEDS ORDERED: SULFAMETHOXAZOLE/TRIMETHOPRIM DS 800/160MG TAB PO SCH (21:00)
[2017-11-01] MEDS ORDERED: VANCOMYCIN TROUGH SCH (08:30)
== END 2017-10-31 18:03 | disposition home health service (06) | DRG 101 ==
LOC: EDBD 06:31 → C.EDB 06:32 → C.2T 12:09 → ENRESERV 12:36 → OBSVTOIN 10-29 17:47 → ENRESERV 10-31 16:03 → CANBEDREQ 10-31 17:28
PROVIDERS: ADMIT Internal Medicine; ATTEND Internal Medicine Sports Medicine
DX: G40.802 Other epilepsy, not intractable, without status epilepticus (principal); N39.0 Urinary tract infection, site not specified; T42.3X6A Underdosing of barbiturates, initial encounter; R26.0 Ataxic gait; E03.9 Hypothyroidism, unspecified; E11.9 Type 2 diabetes mellitus without complications; K86.89 Other specified diseases of pancreas; E78.5 Hyperlipidemia, unspecified; Z79.899 Other long term (current) drug therapy; Z79.84 Long term (current) use of oral hypoglycemic drugs; Z79.82 Long term (current) use of aspirin; Z91.81 History of falling; Z86.73 Personal history of transient ischemic attack (TIA), and cerebral infarction without residual deficits; Z87.891 Personal history of nicotine dependence; Z84.89 Family history of other specified conditions

== ENCOUNTER 2017-10-31 21:57 | Emergency (ER) | payer OTHER ==
[~2017-10-31] VITALS: Ht 180.3 cm; Wt 99.8 kg
[~2017-10-31 21:57] MED LIST changes: +KPP250 PO; +LEVE500T PO; -LEVE500T13 PO; +PB30 PO; -PHEN64.8 PO; +SULF800T23 PO
[2017-10-31 22:00] VITALS: Ht 180.3 cm; Wt 99.8 kg
[2017-10-31] MEDS ORDERED: LEVETIRACETAM IV 500 MG in DEXTROSE 5% 100ML 100 ML IV STA (22:01)
[2017-10-31 22:03] VITALS: O2SAT 94
--- NOTE | 2017-10-31 22:15 | EMERGENCY ROOM VISIT NOTE ---
History Report prepared by Yuli: Jeana Chavez Under the Supervision of: Dr. Sharif Damian D.O. First contact with patient: 21:45 Chief Complaint: SEIZURE Stated Complaint: SEIZURE History of Present Illness The patient is a 72 year old male who presents to the Emergency Room with complaints of an episode of seizure PONY ROUGHER. The patient presents to the ED by EMS. According to the patient's , he had a seizure lasting around 2 minutes. He was sitting in a recliner. Upon EMS arrival, he was post ictal. He is slowly improving. The patient does not have any injuries. The patient has a history of seizures. He has been taking his medications. Source of History: EMS Onset: PONY ROUGHER Position: other (global) Quality: other (seizure) Timing: other (episodic) Note: Pt has no injuries. Review of Systems See HPI for pertinent positives and negatives. A total of ten systems were reviewed and were otherwise negative. Past Medical & Surgical Medical Problems: (1) Altered mental status (2) Cholecystectomy (3) Diab Marisa Wo Compl, Type Ii Or Unspec Type, Uncontrolled (4) Falls frequently (5) Hyperlipidemia Nec/Nos (6) Hypertension Nos (7) Hypothyroidism (8) Pancreatitis (9) Seizure (10) Seizures (11) TIA (transient ischemic attack) (12) UTI (urinary tract infection) Family History Cancer Seizures Social History Smoking Status: Former Smoker Drug Use: none Marital Status: Housing Status: lives with significant other Occupation Status: retired, disabled Current/Historical Medications Scheduled Aspirin (Aspirin Ec), 81 MG PO DAILY Levetiractam (Keppra), 750 MG PO BID Levothyroxine Sodium (Levothyroxine Sodium), 50 MCG PO QAM Metformin Hcl Er (Glucophage Er), 500 MG PO DAILY Pancrelipase (Lipase-Protease- (Creon 44840), 12,000 UNITS PO TIDM Phenobarbital (Phenobarbital), 64.8 MG PO BID Phenytoin Sodium (Dilantin), 100 MG PO TID Simvastatin (Zocor), 40 MG PO HS Sulfa/Trimethoprim (Bactrim Ds 800MG/160MG), 1 TAB PO BID Tamsulosin HCl (Tamsulosin HCl), 0.4 MG PO HS Scheduled PRN Lorazepam (Lorazepam), 0.5 MG PO TID PRN for Anxiety Allergies Coded Allergies: Morphine (Verified Allergy, Unknown, ?, 10/31/17) Nitrofurantoin (Verified Adverse Reaction, Mild, NAUSEA, 10/31/17) Quinolones (Verified Adverse Reaction, Mild, NAUSEA, 10/31/17) Meperidine (Verified Adverse Reaction, Unknown, SEIZURES, 10/31/17) Physical Exam Vital Signs Date Time Temp Pulse Resp B/P (MAP) Pulse Ox O2 Delivery O2 Flow Rate FiO2 10/31/17 23:35 36.5 80 17 125/71 95 10/31/17 22:09 83 10/31/17 22:04 77 17 157/83 93 Room Air 10/31/17 22:03 95 Room Air 10/31/17 22:03 94 Room Air 10/31/17 22:00 36.7 71 18 157/83 93 Room Air Physical Exam GENERAL: Awake, alert, well-appearing, in no distress HENT: Normocephalic, atraumatic. Oropharynx unremarkable. EYES: Normal conjunctiva. Sclera non-icteric. NECK: Supple. No nuchal rigidity. FROM. No JVD. RESPIRATORY: Clear to auscultation. CARDIAC: Regular rate, normal rhythm. Extremities warm and well perfused. Pulses equal. ABDOMEN: Soft, non-distended. No tenderness to palpation. No rebound or guarding. No masses. RECTAL: Deferred. MUSCULOSKELETAL: Chest examination reveals no tenderness. The back is symmetrical on inspection without obvious abnormality. There is no CVA tenderness to palpation. No joint edema. LOWER EXTREMITIES: Calves are equal size bilaterally and non-tender. No edema. No discoloration. NEURO: Normal sensorium. No sensory or motor deficits noted. SKIN: No rash or jaundice noted. Medical Decision & Procedures Laboratory Results 10/31/17 22:10 Red Blood Count 4.31, Mean Corpuscular Volume 98.1, Mean Corpuscular Hemoglobin 32.9, Mean Corpuscular Hemoglobin Concent 33.6, Mean Platelet Volume 8.2, Neutrophils (%) (Auto) 74.0, Lymphocytes (%) (Auto) 15.5, Monocytes (%) (Auto) 8.9, Eosinophils (%) (Auto) 0.8, Basophils (%) (Auto) 0.6, Neutrophils # (Auto) 4.71, Lymphocytes # (Auto) 0.99, Monocytes # (Auto) 0.57, Eosinophils # (Auto) 0.05, Basophils # (Auto) 0.04 10/31/17 22:10 Test 10/31/17 22:10 White Blood Count 6.37 K/uL (4.8-10.8) Red Blood Count 4.31 M/uL (4.7-6.1) Hemoglobin 14.2 g/dL (14.0-18.0) Hematocrit 42.3 % (42-52) Mean Corpuscular Volume 98.1 fL (80-100) Mean Corpuscular Hemoglobin 32.9 pg (25-34) Mean Corpuscular Hemoglobin Concent 33.6 g/dl (32-36) Platelet Count 224 K/uL (130-400) Mean Platelet Volume 8.2 fL (7.4-10.4) Neutrophils (%) (Auto) 74.0 % Lymphocytes (%) (Auto) 15.5 % Monocytes (%) (Auto) 8.9 % Eosinophils (%) (Auto) 0.8 % Basophils (%) (Auto) 0.6 % Neutrophils # (Auto) 4.71 K/uL (1.4-6.5) Lymphocytes # (Auto) 0.99 K/uL (1.2-3.4) Monocytes # (Auto) 0.57 K/uL (0.11-0.59) Eosinophils # (Auto) 0.05 K/uL (0-0.5) Basophils # (Auto) 0.04 K/uL (0-0.2) RDW Standard Deviation 46.0 fL (36.4-46.3) RDW Coefficient of Variation 12.8 % (11.5-14.5) Immature Granulocyte % (Auto) 0.2 % Immature Granulocyte # (Auto) 0.01 K/uL (0.00-0.02) Anion Gap 11.0 mmol/L (3-11) Est Creatinine Clear Calc Drug Dose 75.7 ml/min Estimated GFR () 82.6 Estimated GFR (Non- 71.2 BUN/Creatinine Ratio 12.8 (10-20) Calcium Level 9.2 mg/dl (8.5-10.1) Laboratory results reviewed by me Medications Administered Medications (Trade) Dose Ordered Sig/Leni Route Start Time Stop Time Status Last Admin Dose Admin Levetiracetam 500 mg/Dextrose 105 ml @ 420 mls/hr ONE STAT IV 10/31/17 22:01 10/31/17 22:15 DC 10/31/17 22:01 420 MLS/HR ECG Indication: altered mental status Rate (beats per minute): 63 Rhythm: normal sinus Findings: no acute ischemic change, other (normal axis, normal intervals) ED Course 2156: The patient was evaluated in room B10. A complete history and physical exam was performed. 2200: Levetiracetam 500 mg/Dextrose 105 ml @ 420 mls/hr IV. 2331: I discussed the patient's case with NATALIO Holbrook hospitalist. The patient will be evaluated for further treatment and disposition. 0010: I reevaluated the patient. I discussed results and discharge instructions with him and his : they verbalized understanding and agreement. The patient is ready for discharge. Medical Decision Differential diagnoses include but are not limited to; seizure, metabolic derangement, subtherapeutic anticonvulsant level, noncompliance, hypoglycemia. Patient was given a dose of IV Keppra in the emergency department. Patient did not have any further seizure activity. The case was discussed with the [facility] hospitalist who also evaluated the patient and spoke to the patient 's at bedside. After a period of observation there is no alteration mental status he was able to ambulate without any difficulty and there is no seizure activity. Reassessment of the patient at 12:10 AM is resting in no distress he's nonfocal I have discussed evaluation with the patient and the patient's myself. Patient will be discharged to home Medication Reconcilliation Current Medication List: was personally reviewed by me Blood Pressure Screening Patient's blood pressure: Elevated blood pressure Blood pressure disposition: Elevated BP felt to be situational Consults Time Called: [id number] Consulting Physician: MARIA E Holbrook hospitalist Returned Call: [phone] Discussed the patient's case. The patient will be evaluated for further treatment and disposition. Impression Primary Impression: Seizure Scribe Attestation The scribe's documentation has been prepared under my direction and personally reviewed by me in its entirety. I confirm that the note above accurately reflects all work, treatment, procedures, and medical decision making performed by me. Departure Information Dispostion Home / Self-Care Referrals Dranov, Coleman,M.D. (PCP) Patient Instructions ED Seizure Recurrent, My [facility] Additional Instructions Continue your seizure meds, follow up primary care physician, return for any worsening of conditions
[2017-10-31 22:37] LABS: BASO % 0.6 %; BASO ABS # 0.04 K/uL (0-0.2); COMPLETE YES; EOS % 0.8 %; HEMATOCRIT 42.3 % (42-52); IG% 0.2 %; LYMPH % 15.5 %; LYMPH ABS # 0.99 K/uL (1.2-3.4); MEAN CELL VOLUME 98.1 fL (80-100); MEAN CORPUSCULAR HEMOGLOBIN 32.9 pg (25-34); MEAN CORPUSCULAR HGB CONC 33.6 g/dl (32-36); MEAN PLATELET VOLUME 8.2 fL (7.4-10.4); MONO % 8.9 %; PLATELET COUNT 224 K/uL (130-400); RED BLOOD COUNT 4.31 M/uL (4.7-6.1); WHITE BLOOD COUNT 6.37 K/uL (4.8-10.8)
[2017-10-31 22:48] LABS: BUN/CREATININE RATIO 12.8 (10-20); CALCIUM 9.2 mg/dl (8.5-10.1); CREATININE 1.03 mg/dl (0.60-1.40); POTASSIUM 3.7 mmol/L (3.5-5.1)
[2017-11-01] VITALS: BP 130/68; PULSE 85; TEMP 36.6; O2SAT 95
--- NOTE | 2017-11-01 00:12 | History and Physical ---
History & Physical Date & Time of Service: Oct 31, 2017 at 23:52 Chief Complaint: Seizure Primary Care Physician: Coleman Gillespie M.D. History of Present Illness Source: patient 72 y/o M Hx DM II, HPL, hypothyroid, TIA, pancreatic insufficiency, seizure disorder. The pt has been admitted multiple times recently following breakthrough seizures and had been D/Cd from the hospital earlier in the day. At the time of DC he was on a combination of Dilantin, Keppra and Phenobarbital. A few hours after arriving home, he suffered a seizure which lasted approximately 2 minutes. His called EMS and he was transferred to the hospital therefore. At the time of evaluation in the ER, he is AAO x 3 although slightly lethargic. He denies CP, SOB, N/V, dysuria or fevers. The pt exhibited intermittent hypoxia while in the ER. Past Medical/Surgical History Medical Problems: (1) Cholecystectomy (2) Diab Marisa Wo Compl, Type Ii Or Unspec Type, Uncontrolled (3) Hyperlipidemia Nec/Nos (4) Hypertension Nos (5) Hypothyroidism (6) Pancreatitis - pancreatic insufficiency (7) Seizure (8) TIA (transient ischemic attack) Family History Cancer Seizures Social History Smoking Status: Former Smoker Drug Use: none Marital Status: Housing status: lives with family Occupational Status: retired, disabled Immunizations History of Influenza Vaccine: Yes History of Tetanus Vaccine?: Yes History of Pneumococcal: Yes History of Hepatitis B Vaccine: Unknown Multi-Drug Resistant Organisms History of MDRO: No Allergies Coded Allergies: Morphine (Verified Allergy, Unknown, ?, 10/31/17) Nitrofurantoin (Verified Adverse Reaction, Mild, NAUSEA, 10/31/17) Quinolones (Verified Adverse Reaction, Mild, NAUSEA, 10/31/17) Meperidine (Verified Adverse Reaction, Unknown, SEIZURES, 10/31/17) Home Medications Scheduled Aspirin (Aspirin Ec), 81 MG PO DAILY Levetiractam (Keppra), 750 MG PO BID Levothyroxine Sodium (Levothyroxine Sodium), 50 MCG PO QAM Metformin Hcl Er (Glucophage Er), 500 MG PO DAILY Pancrelipase (Lipase-Protease- (Creon [id number]), 12,000 UNITS PO TIDM Phenobarbital (Phenobarbital), 64.8 MG PO BID Phenytoin Sodium (Dilantin), 100 MG PO TID Simvastatin (Zocor), 40 MG PO HS Sulfa/Trimethoprim (Bactrim Ds 800MG/160MG), 1 TAB PO BID Tamsulosin HCl (Tamsulosin HCl), 0.4 MG PO HS Scheduled PRN Lorazepam (Lorazepam), 0.5 MG PO TID PRN for Anxiety Review of Systems Constitutional: No fever, No chills, No sweats Eyes: No worsening of vision ENT: No hearing loss, No unusual epistaxis, No nasal symptoms Respiratory: No cough, No sputum, No wheezing Cardiovascular: No chest pain, No orthopnea, No PND Abdomen: No pain, No nausea, No vomiting Musculoskeletal: No joint pain Genitourinary - Male: No hematuria, No dysuria Neurologic: + weakness, + problem reported (Seizure as above - no tongue biting or urination noted ), No memory loss, No paralysis Endocrine: + fatigue Hematologic / Lymphatic: No abnormal bleeding/bruising Integumentary: No rash Allergic / Immunologic: No environmental allergies Physical Exam Vital Signs Date Time Temp Pulse Resp B/P (MAP) Pulse Ox O2 Delivery O2 Flow Rate FiO2 10/31/17 23:35 36.5 80 17 125/71 95 10/31/17 22:09 83 10/31/17 22:04 77 17 157/83 93 Room Air 10/31/17 22:03 95 Room Air 10/31/17 22:03 94 Room Air 10/31/17 22:00 36.7 71 18 157/83 93 Room Air General Appearance: WD/WN, no apparent distress, + pertinent finding (Lethargic , elderly male - no distress - awake and oriented) Head: normocephalic Eyes: normal inspection ENT: normal ENT inspection, pharynx normal Neck: supple, no JVD Respiratory/Chest: chest non-tender, lungs clear, normal breath sounds Cardiovascular: regular rate, rhythm, no edema, no gallop Abdomen/GI: normal bowel sounds, non tender, soft Back: normal inspection, no CVA tenderness, no muscle spasm Neurologic/Psych: outside sales II-XII nml as tested, no motor/sensory deficits, alert, oriented x 3 Skin: normal color, warm/dry, no rash Diagnostics Laboratory Results Results Past 24 Hours Test 10/31/17 22:10 Range/Units White Blood Count 6.37 4.8-10.8 K/uL Red Blood Count 4.31 4.7-6.1 M/uL Hemoglobin 14.2 14.0-18.0 g/dL Hematocrit 42.3 42-52 % Mean Corpuscular Volume 98.1 80-100 fL Mean Corpuscular Hemoglobin 32.9 25-34 pg Mean Corpuscular Hemoglobin Concent 33.6 32-36 g/dl Platelet Count 224 130-400 K/uL Mean Platelet Volume 8.2 7.4-10.4 fL Neutrophils (%) (Auto) 74.0 % Lymphocytes (%) (Auto) 15.5 % Monocytes (%) (Auto) 8.9 % Eosinophils (%) (Auto) 0.8 % Basophils (%) (Auto) 0.6 % Neutrophils # (Auto) 4.71 1.4-6.5 K/uL Lymphocytes # (Auto) 0.99 1.2-3.4 K/uL Monocytes # (Auto) 0.57 0.11-0.59 K/uL Eosinophils # (Auto) 0.05 0-0.5 K/uL Basophils # (Auto) 0.04 0-0.2 K/uL RDW Standard Deviation 46.0 36.4-46.3 fL RDW Coefficient of Variation 12.8 11.5-14.5 % Immature Granulocyte % (Auto) 0.2 % Immature Granulocyte # (Auto) 0.01 0.00-0.02 K/uL Sodium Level 132 136-145 mmol/L Potassium Level 3.7 3.5-5.1 mmol/L Chloride Level 97 98-107 mmol/L Carbon Dioxide Level 24 21-32 mmol/L Anion Gap 11.0 3-11 mmol/L Blood Urea Nitrogen 13 7-18 mg/dl Creatinine 1.03 0.60-1.40 mg/dl Est Creatinine Clear Calc Drug Dose 75.7 ml/min Estimated GFR () 82.6 Estimated GFR (Non- 71.2 BUN/Creatinine Ratio 12.8 10-20 Random Glucose 149 70-99 mg/dl Calcium Level 9.2 8.5-10.1 mg/dl Impression Assessment and Plan 72 y/o M Hx DM II, HPL, hypothyroid, TIA, pancreatic insufficiency, seizure disorder. The pt has been admitted multiple times recently following breakthrough seizures and had been D/Cd from the hospital earlier in the day. At the time of DC he was on a combination of Dilantin, Keppra and Phenobarbital. A few hours after arriving home, he suffered a seizure which lasted approximately 2 minutes. His called EMS and he was transferred to the hospital therefore. At the time of evaluation in the ER, he is AAO x 3 although slightly lethargic. He denies CP, SOB, N/V, dysuria or fevers. The pt exhibited intermittent hypoxia while in the ER. 1) Seizure - The pt is currently on 3 medications and per our records, has a tendency to suffer breakthrough seizures. He has recovered adequately at present and we believe he can likely follow-up with his neurologist the following day. It was reported as above that he was intermittently hypoxic in the ER. This seems to correlate with his somnolence and may indicate underlying CT or obesity hypoventilation. He would also be at risk of aspiration however, so that if desaturation persists when he is fully awake, we may have to reconsider DC. 2) DM - controlled on oral meds - cont current regimen. 3) Hypothyroidism - cont Synthroid 4) Pancreatic insufficiency - cont Creon Please consider the above a consult - total time for this consult including review of labs, meds, recent records - discussion with pt, , ER attending - 36 min
== END 2017-11-01 00:41 | disposition home or self-care (01) ==
LOC: EDBD 21:57 → C.EDB 21:58
DX: R56.9 Unspecified convulsions (principal); E11.9 Type 2 diabetes mellitus without complications; E78.5 Hyperlipidemia, unspecified; I10 Essential (primary) hypertension; E03.9 Hypothyroidism, unspecified; R29.6 Repeated falls; Z86.73 Personal history of transient ischemic attack (TIA), and cerebral infarction without residual deficits; Z87.891 Personal history of nicotine dependence; Z79.82 Long term (current) use of aspirin; Z79.84 Long term (current) use of oral hypoglycemic drugs; Z82.0 Family history of epilepsy and other diseases of the nervous system

== ENCOUNTER → 2017-12-08 | Outpatient (CLI) | payer OTHER ==
[~2017-12-08] MED LIST changes: -LEVE500T PO
[2017-12-08 12:30] LABS: BASO % 0.4 %; BASO ABS # 0.02 K/uL (0-0.2); EOS % 1.6 %; EOS ABS # 0.07 K/uL (0-0.5); HEMATOCRIT 44.8 % (42-52); HEMOGLOBIN 14.9 g/dL (14.0-18.0); LYMPH % 32.8 %; LYMPH ABS # 1.48 K/uL (1.2-3.4); MEAN CELL VOLUME 101.6 fL (80-100); MEAN CORPUSCULAR HEMOGLOBIN 33.8 pg (25-34); MEAN CORPUSCULAR HGB CONC 33.3 g/dl (32-36); MEAN PLATELET VOLUME 8.4 fL (7.4-10.4); MONO ABS # 0.45 K/uL (0.11-0.59); NEUT % 55.2 %; NEUT ABS # 2.49 K/uL (1.4-6.5); PLATELET COUNT 200 K/uL (130-400); RED CELL DISTRIBUTION WIDTH CV 12.9 % (11.5-14.5); RED CELL DISTRIBUTION WIDTH SD 48.9 fL (36.4-46.3); WHITE BLOOD COUNT 4.51 K/uL (4.8-10.8)
[2017-12-08 12:33] LABS: ALT/SGPT 20 U/L (12-78); AST/SGOT 13 U/L (15-37); BLOOD UREA NITROGEN 11 mg/dl (7-18); CALCIUM 9.1 mg/dl (8.5-10.1); CARBON DIOXIDE 28 mmol/L (21-32); CHOLESTEROL 175 mg/dl (0-200); CREATININE 0.93 mg/dl (0.60-1.40); GLUCOSE 149 mg/dl (70-99); HEMOGLOBIN A1C 6.4 % (4.5-5.6); POTASSIUM 4.3 mmol/L (3.5-5.1); SODIUM 137 mmol/L (136-145)
[2017-12-08 12:43] LABS: LDL CHOLESTEROL CALCULATED 93 mg/dl
== END | disposition home or self-care (01) ==
LOC: C.LAB1850 09:38
PROVIDERS: ATTEND Physician Assistant
DX: E78.00 Pure hypercholesterolemia, unspecified (principal); E03.9 Hypothyroidism, unspecified; I10 Essential (primary) hypertension

== ENCOUNTER → 2018-04-04 | Outpatient (CLI) | payer OTHER ==
[~2018-04-04] MED LIST changes: +ACET-1311 PO; +DLN/100 PO; -FLM4 PO; -KPP250 PO; +LEVE250T PO; +LORA-741 PO; -PANC1200 PO; +PANC6000 PO; -PB30 PO; +PHEN64.8 PO; -PHN/100 PO; +SIMV40TA2 PO; -SIMV40TA4 PO; -SULF800T23 PO; +TAMS0.4C38 PO
[2018-04-05 06:46] LABS: HEMOGLOBIN A1C 6.8 % (4.5-5.6)
== END | disposition home or self-care (01) ==
LOC: C.LAB1850 16:49
PROVIDERS: ATTEND Internal Medicine
DX: E11.9 Type 2 diabetes mellitus without complications (principal)

== ENCOUNTER 2019-02-14 10:32 | Observation (INO) ==
[2019-02-14] MEDS ORDERED: SODIUM CHLORIDE 0.9% 1000ML 1,000 ML IV ONE (11:58)
[2019-02-14 12:21] LABS: Hematocrit (blood only) 44.4 % (42-52); Hemoglobin 15.5 g/dL (14.0-18.0); Immature Granulocytes # (auto) 0.01 K/uL (0.00-0.02); Immature Granulocytes % (auto) 0.2 %; Lymphocytes # (auto) 0.38 K/uL (1.2-3.4); Lymphocytes % (auto) 7.3 %; Mean Corpuscular Hgb Conc 34.9 g/dL (32-36); Mean Corpuscular Volume 99.6 fL (80-100); Mean Platelet Volume 8.5 fL (7.4-10.4); Monocytes # (auto) 0.41 K/uL (0.11-0.59); Monocytes % (auto) 7.9 %; Neutrophils % (auto) 84.6 %; Platelet Count 159 K/uL (130-400); RDW Coefficient of Variation 12.4 % (11.5-14.5); RDW Standard Deviation 44.8 fL (36.4-46.3); Red Blood Count 4.46 M/uL (4.7-6.1)
[2019-02-14 12:30] LABS: Alanine Aminotransferase 21 U/L (12-78); Albumin Level 3.8 gm/dl (3.4-5.0); Aspartate Aminotransferase 16 U/L (15-37); BUN Creatinine Ratio 16.2 (10-20); Blood Urea Nitrogen 19 mg/dl (7-18); Calcium 8.4 mg/dl (8.5-10.1); Carbon Dioxide 24 mmol/L (21-32); Chloride 104 mmol/L (98-107); Creatinine Clr Calc Pharmacy 63.9 ml/min; Est GFR (African American) 71.7; Est GFR (Non-African American) 61.9; Glucose 238 mg/dl (70-99); Sodium 136 mmol/L (136-145)
[2019-02-14 12:31] LABS: INR 1.1 (0.9-1.1); Partial Thromboplastin Time 26.5 Seconds (21.0-31.0); Prothrombin Time 10.8 Seconds (9.0-12.0)
[2019-02-14 12:35] LABS: Alkaline Phosphatase 100 U/L (45-117); Bilirubin,Total 0.7 mg/dl (0.2-1); Total Protein 7.8 gm/dl (6.4-8.2); Troponin I < 0.015 ng/ml (0-0.045)
--- NOTE | 2019-02-14 12:35 | XRay Report ---
XR chest 1V portable HISTORY: 73 years-old Male Sepsis acute sepsis COMPARISON: Chest and rib radiographs 08/08/2018 TECHNIQUE: Portable AP view the chest FINDINGS: Cardiac mediastinal and hilar silhouettes appear unchanged. Subsegmental bibasilar opacities redemons trated suggestive of atelectasis/scarring and appear unchanged from comparison. There is no pneumotho rax, pleural effusion or overt pulmonary edema. Degenerative changes of the shoulders and spine. IMPRESSION: No acute process. The above report was generated using voice recognition software. It may contain grammatical, syntax o r spelling errors. Electronically signed by: Masoud Neely M.D. 02/14/2019 12:34 PM
[2019-02-14 13:01] LABS: Appearance Urine Clear (Clear); Bacteria Urine Automated Negative (Negative); Bilirubin Urine Negative (Negative); Blood Urine Negative (Negative); Color Urine Yellow; Epithelial Cell Urine Auto 0-5 /lpf (0-5); Glucose Urine UA 2+ (Negative); Ketones Urine Trace (Negative); Leukocyte Esterase Urine Negative (Negative); Nitrite Urine Negative (Negative); Protein Urine Trace (Negative); RBC Urine Automated 0-4 /hpf (0-4); Urobilinogen Urine Negative (Negative); WBC Urine Automated 0 /hpf (0-5); pH Urine 5.5 (4.5-7.5)
[2019-02-14] MEDS ORDERED: ACETAMINOPHEN 325 MG TAB PO STA (13:18)
--- NOTE | 2019-02-14 13:26 | CT Scan Report ---
CT SCAN OF THE BRAIN WITHOUT IV CONTRAST CLINICAL HISTORY: Headache. COMPARISON STUDY: CT of the brain dated 10/07/2017. TECHNIQUE: Unenhanced axial CT scan of the brain is performed from the vertex to the skull base. A do se lowering technique was utilized adhering to the principles of ALARA. FINDINGS: Brain parenchyma: There are age-related involutional changes noting mild subcortical and periventric ular microangiopathic change. There is no hemorrhage, mass effect, or evidence of acute territorial i schemia by CT criteria. A chronic lacunar infarct is seen within the anterior limb of the left internet e commerce specialist al capsule. Franklin-white matter differentiation is preserved. No extra-axial fluid collection is seen. Ventricles, sulci, cisterns: Prominent secondary to involutional change. Intracranial vasculature: There is atherosclerotic calcification of the cavernous carotid and vertebr al arteries. Calvarium: Unremarkable. Sinuses and mastoids: There is mild mucosal thickening right maxillary antrum, ethmoid sinuses, and t he right frontal sinus. The mastoid air cells are well pneumatized. Orbits: The bony orbits are grossly intact. There are bilateral ocular lens implants. IMPRESSION: There is no hemorrhage, mass effect, or evidence of acute territorial ischemia by CT solitario rodriguez. Electronically signed by: Jose Umana M.D. 02/14/2019 1:25 PM
--- NOTE | 2019-02-14 13:29 | CT Scan Report ---
ABDOMEN AND PELVIS CT WITHOUT CONTRAST CT DOSE: 1679.71 mGy.cm HISTORY: Generalized abdominal pain. TECHNIQUE: Multiaxial CT images of the abdomen and pelvis were performed without contrast. A dose lo wering technique was utilized adhering to the principles of ALARA. COMPARISON STUDY: Abdomen and pelvis CT 11/07/2018. FINDINGS: Patchy bibasilar densities. These are nonspecific but favor subsegmental atelectasis. No najera spicious lytic or blastic osseous lesions. Cholecystectomy. The unenhanced liver, spleen, adrenal gla nds, and pancreas are unremarkable. No hydronephrosis. Moderate bilateral cortical renal scarring/thi nning. Central mesenteric infiltration persists. This favors a mesenteric panniculitis. No retroperit maza lymphadenopathy. There is a left circumaortic renal vein. The bladder is decompressed by Garcia catheter. Suboptimal evaluation for bowel pathology due to the lack of intravenous and oral contrast. However, there is no definite bowel wall thickening or obstruction. A few colonic diverticula. No ev idence for diverticulitis. Normal appendix. IMPRESSION: 1. No bowel wall thickening or obstruction. 2. 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 3. Cholecystectomy. 4. Patchy bibasilar densities are nonspecific but favor atelectasis. 5. The bladder is decompressed by a Garcia catheter. Electronically signed by: Cali Gerard M.D. 02/14/2019 1:27 PM
--- NOTE | 2019-02-14 15:01 | History & Physical Report ---
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 Pt ate hot sausage two nights ago and had n/v after that, however yesterday he was fine during the day. Shortly before bed, he had return of n/v that lasted into the principal quality engineer. He was able to sleep and has not had any n/v since that time. He had some abd pain with the emesis, but is having difficulty qualifying that further, including specific location. states he has been hot to the touch, but did not take a temp. No one else is sick. No recent n/v prior to this. states he has been quite weak since this happened. She states his PO intake has been down for some time. Pt denies fever, SOB, chest pain, c/d, LE pain or swelling. Allergies Allergy/AdvReac Type Severity Reaction Status Date / Time morphine Allergy Unknown ? Verified 02/14/19 11:36 nitrofurantoin AdvReac Mild NAUSEA Verified 02/14/19 11:36 Quinolones AdvReac Mild NAUSEA Verified 02/14/19 11:36 meperidine AdvReac Unknown SEIZURES Verified 02/14/19 11:36 Home Medications Home Medications Medication Instructions Recorded Confirmed Type aspirin 81 mg PO DAILY 08/11/18 02/14/19 History levetiracetam 750 mg PO AMPM 08/11/18 02/14/19 History levothyroxine 50 mcg PO DAILY 08/11/18 02/14/19 History [id number] [Creon] 12,000 units PO TIDM 08/11/18 02/14/19 History lorazepam 0.5 mg PO QAM 08/11/18 02/14/19 History lorazepam 1 mg PO HS 08/11/18 02/14/19 History metformin 500 mg PO DAILY 08/11/18 02/14/19 History phenobarbital 64.8 mg PO BID 08/11/18 02/14/19 History phenytoin sodium extended 100 mg PO TID 08/11/18 02/14/19 History simvastatin 40 mg PO HS 08/11/18 02/14/19 History acetaminophen [Tylenol Extra 1,000 mg PO QID PRN 11/07/18 02/14/19 History Strength] tamsulosin [Flomax] 0.4 mg PO HS 11/07/18 02/14/19 History ondansetron 4 mg PO Q8H PRN #30 tab 11/10/18 02/14/19 Rx Past Med/Surg History Medical History TIA (transient ischemic attack) (Resolved 04/08/14) Falls frequently Seizures Diabetes (Chronic) Social History Preferred Language: German Feels Safe at Home: Yes Smoking Status: Never smoker Hx Alcohol Use: No Hx Substance Use: No Review of Systems Pertinent positives and negatives reviewed in HPI--all others negative Physical Exam Vital Signs (Past 24 Hours): Last Vital Signs Temp 37.6 C H 02/14/19 10:36 Pulse 99 H 02/14/19 13:10 Resp 20 02/14/19 13:10 BP 147/74 H 02/14/19 13:10 Pulse Ox 96 02/14/19 13:10 Constitutional: WD/WN, vitals as above Eyes: normal visual arriola by confrontation and + anicteric sclerae Neck: normal visual inspection and trachea midline Respiratory: normal respiratory effort, lungs clear to auscultation Cardiovascular: Rate/Rhythm: regular rhythm and + tachycardic Gastrointestinal (Abdomen): Inspection/Auscultation: abdomen not distended Percussion/Palpation: abdomen soft; abdomen nontender Musculoskeletal: Head/Neck/Chest: normocephalic and head atraumatic negative for edema, peripheral pulses intact Skin: no rashes, warm and dry Neurologic: awake; not confused Speech / Cognition: normal speech L sided facial droop, states is chronic since CVA in his 30s Psychiatric: Orientation: oriented x 3 Affect: + flat affect (with slow speech) Results & Data Diagnostic Findings CXR: neg for acute CT head: neg for acute CT AP: neg for acute ECG Rhythm: sinus tachycardia Code Status & VTE Plan Code Status DNR/DNI per pt. states as he wishes, although was hesitant initially "You can't leave me". VTE Prophylaxis Plan VTE Prophylaxis will be ordered: Yes
--- NOTE | 2019-02-14 15:39 | Emergency Department Note ---
Entered by Glory Govea acting as a scribe for Hans Padilla MD History of Present Illness General Chief complaint: Vomiting Stated complaint: vomit/weakness Time Seen by Provider: 02/14/19 11:21 Source: patient and family () History of Present Illness Provider complaint: vomiting and diarrhea Onset (ago): day(s) 2 Location: left and right Maximum Pain Intensity: 3 Quality: + other (vomiting and diarrhea) Associated symptoms: + headaches, + weakness and + other (abdominal pain, burning with urination); no chest pain and no shortness of breath The patient is a 73 year old male who presents to the Emergency Room with complaints of vomiting and diarrhea for the last 2 days. Per , the patient has not had blood in his stool or vomit. His states that the patient has had abdominal pain and been weak but has not had chest pain or shortness of breath. The patient reports having burning with urination and a headache. His states that the patient has a history of a stroke. His states that the patient takes a baby aspirin but no other blood thinners. Home Medications Home Medications Medication Instructions Recorded Confirmed Type aspirin 81 mg PO DAILY 08/11/18 02/14/19 History levetiracetam 750 mg PO AMPM 08/11/18 02/14/19 History levothyroxine 50 mcg PO DAILY 08/11/18 02/14/19 History [id number] [Creon] 12,000 units PO TIDM 08/11/18 02/14/19 History lorazepam 0.5 mg PO QAM 08/11/18 02/14/19 History lorazepam 1 mg PO HS 08/11/18 02/14/19 History metformin 500 mg PO DAILY 08/11/18 02/14/19 History phenobarbital 64.8 mg PO BID 08/11/18 02/14/19 History phenytoin sodium extended 100 mg PO TID 08/11/18 02/14/19 History simvastatin 40 mg PO HS 08/11/18 02/14/19 History acetaminophen [Tylenol Extra 1,000 mg PO QID PRN 11/07/18 02/14/19 History Strength] tamsulosin [Flomax] 0.4 mg PO HS 11/07/18 02/14/19 History ondansetron 4 mg PO Q8H PRN #30 tab 11/10/18 02/14/19 Rx Allergies Allergy/AdvReac Type Severity Reaction Status Date / Time morphine Allergy Unknown ? Verified 02/14/19 11:36 nitrofurantoin AdvReac Mild NAUSEA Verified 02/14/19 11:36 Quinolones AdvReac Mild NAUSEA Verified 02/14/19 11:36 meperidine AdvReac Unknown SEIZURES Verified 02/14/19 11:36 Past Med/Surg History Medical History TIA (transient ischemic attack) (Resolved 04/08/14) Falls frequently Seizures Diabetes (Chronic) Social History Preferred Language: Ukrainian Feels Safe at Home: Yes Smoking Status: Never smoker Hx Alcohol Use: No Hx Substance Use: No Review of Systems See HPI for pertinent positives & negatives. and A total of 10 systems reviewed and were otherwise negative Physical Exam Vital Signs Vital Signs - 24 hr 02/14/19 10:36 02/14/19 10:45 02/14/19 12:00 Temperature 37.6 C H Temperature Source Oral Sepsis Recent Fever Within 48 Hours Yes Sepsis New/Unexplained Change in Mental Status No Sepsis Action Taken by Nursing No Action Required Pulse Rate 110 H Pulse Rate [Apical] 110 H 104 H Pulse Rhythm Regular Pulse Rhythm [Apical] Regular Regular Pulse Strength Normal Respiratory Rate 20 20 18 Respiratory Effort / Characteristics Non-Labored Spontaneous Non-Labored Spontaneous Non-Labored Spontaneous Respiratory Depth Normal Normal Normal Respiratory Pattern Regular Regular Regular Blood Pressure 139/96 Blood Pressure [Right Arm] 129/71 Blood Pressure Mean 110 Blood Pressure Mean [Right Arm] 90 Pulse Oximetry 88 L 93 96 Oxygen Delivery Method Room Air Nasal Cannula Nasal Cannula Oxygen Flow Rate 2 2 02/14/19 12:35 02/14/19 13:10 Temperature Temperature Source Sepsis Recent Fever Within 48 Hours Sepsis New/Unexplained Change in Mental Status Sepsis Action Taken by Nursing Pulse Rate 100 H Pulse Rate [Apical] 99 H Pulse Rhythm Regular Pulse Rhythm [Apical] Pulse Strength Respiratory Rate 19 20 Respiratory Effort / Characteristics Respiratory Depth Respiratory Pattern Blood Pressure Blood Pressure [Right Arm] 147/74 H Blood Pressure Mean Blood Pressure Mean [Right Arm] 98 Pulse Oximetry 96 96 Oxygen Delivery Method Nasal Cannula Room Air Oxygen Flow Rate 2 General: Mildly ill-appearing older, sleepy but arousable male in no acute distress. Answers questions appropriately. HEENT: Normal cephalic atraumatic. Pupils are equal round and reactive to light. Extraocular movements are intact. Oropharynx is pink with moist mucous membranes. No swelling of the mouth lips or tongue. Neck: Supple with a midline trachea. No meningeal signs or stiffness, no JVD or bruits. No Stridor. Chest: Clear to auscultation bilaterally. No wheezes or rhonchi. No increased work of breathing. Heart: regular rate and rhythm. Abdomen: Soft nontender, nondistended without rebound guarding or rigidity. Extremities: No cyanosis clubbing or edema. No calf tenderness or assymetry Spine/Back. Non tender to palpation. No CVA tenderness Skin: Good turgor without rashes. Neurologic exam: Cranial nerves two through 12 are intact. Motor and sensation are intact and symmetrical throughout. Course 1122: Past medical records reviewed. The patient was evaluated in room C6, and a complete history and physical examination were performed. 1328: I checked on the patient. He is more awake now. 1345: I updated the patient and his who verbalized agreement and understanding of the treatment plan. He said that he no longer has a headache. 1423: I discussed the patient's case with Dr. Kandace Guidry who will evaluate the patient for further management. Consultations Consultation #1: Dr. Kandace Guidry Time: 14:23 Administered Medications Discontinued Medications Acetaminophen (Tylenol) 650 mg PO NOW STA Stop: 02/14/19 13:19 Last Admin: 02/14/19 13:26 Dose: 650 mg Documented by: [id number] Sodium Chloride (Nss 1000ml) 1,000 mls @ 999 mls/hr IV .Q1H1M ONE Stop: 02/14/19 12:58 Last Infusion: 02/14/19 13:29 Dose: 0 mls/hr Documented by: [id number] Admin: 02/14/19 12:21 Dose: 999 mls/hr Documented by: [id number] Medical Decision Making Differential Diagnosis The patient is a 73 year old male who presents to the ED with vomiting. Differential diagnosis includes sepsis, dehydration, electrolyte or metabolic abnormality, intra-abdominal infection, and influenza. Medical Records Attestation: I reviewed the patient's medical records. Home Medications Current Medication List: was personally reviewed by me Laboratory Data Attestation: I reviewed the patient's lab results. Result diagrams: 02/14/19 10:45 02/14/19 10:45 Lab Results 02/14/19 02/14/19 02/14/19 Range/Units 10:45 10:45 10:45 WBC 5.20 (4.8-10.8) K/uL RBC 4.46 L (4.7-6.1) M/uL Hgb 15.5 (14.0-18.0) g/dL Hct 44.4 (42-52) % MCV 99.6 (80-100) fL MCH 34.8 H (25-34) pg MCHC 34.9 (32-36) g/dL RDW Std Deviation 44.8 (36.4-46.3) fL RDW Coeff of Amber 12.4 (11.5-14.5) % Plt Count 159 (130-400) K/uL MPV 8.5 (7.4-10.4) fL Immature Gran % (Auto) 0.2 % Neut % (Auto) 84.6 % Lymph % (Auto) 7.3 % Ballard % (Auto) 7.9 % Eos % (Auto) 0.0 % Baso % (Auto) 0.0 % Immature Gran # (Auto) 0.01 (0.00-0.02) K/uL Neut # (Auto) 4.40 (1.4-6.5) K/uL Lymph # (Auto) 0.38 L (1.2-3.4) K/uL Ballard # (Auto) 0.41 (0.11-0.59) K/uL Eos # (Auto) 0.00 (0-0.5) K/uL Baso # (Auto) 0.00 (0-0.2) K/uL PT 10.8 (9.0-12.0) Seconds INR 1.1 (0.9-1.1) APTT 26.5 (21.0-31.0) Seconds PTT Ratio 1.0 Sodium 136 (136-145) mmol/L Potassium 4.0 (3.5-5.1) mmol/L Chloride 104 (98-107) mmol/L Carbon Dioxide 24 (21-32) mmol/L Anion Gap 8.0 (3-11) BUN 19 H (7-18) mg/dl Creatinine 1.15 (0.6-1.4) mg/dl Est Cr Clr Drug Dosing 63.9 ml/min Est GFR ( Amer) 71.7 Est GFR (Non-Af Amer) 61.9 BUN/Creatinine Ratio 16.2 (10-20) Glucose 238 H (70-99) mg/dl Lactate (0.4-2.0) mmol/L Calcium 8.4 L (8.5-10.1) mg/dl Total Bilirubin 0.7 (0.2-1) mg/dl AST 16 (15-37) U/L ALT 21 (12-78) U/L Alkaline Phosphatase 100 (45-117) U/L Troponin I < 0.015 (0-0.045) ng/ml Total Protein 7.8 (6.4-8.2) gm/dl Albumin 3.8 (3.4-5.0) gm/dl Globulin 4.0 (2.5-4.0) gm/dl Albumin/Globulin Ratio 1.0 (0.9-2) Urine Color Urine Appearance (Clear) Urine pH (4.5-7.5) Ur Specific Starlight (1.000-1.030) Urine Protein (Negative) Urine Glucose (UA) (Negative) Urine Ketones (Negative) Urine Blood (Negative) Urine Nitrite (Negative) Urine Bilirubin (Negative) Urine Urobilinogen (Negative) Ur Leukocyte Esterase (Negative) Urine WBC (Auto) (0-5) /hpf Urine RBC (Auto) (0-4) /hpf U Hyaline Cast (Auto) (0-5) /lpf U Epithel Cells (Auto) (0-5) /lpf Urine Bacteria (Auto) (Negative) Influenza Type A Ag (Neg) Influenza Type B Ag (Neg) 02/14/19 02/14/19 02/14/19 Range/Units 10:45 12:23 12:30 WBC (4.8-10.8) K/uL RBC (4.7-6.1) M/uL Hgb (14.0-18.0) g/dL Hct (42-52) % MCV (80-100) fL MCH (25-34) pg MCHC (32-36) g/dL RDW Std Deviation (36.4-46.3) fL RDW Coeff of Amber (11.5-14.5) % Plt Count (130-400) K/uL MPV (7.4-10.4) fL Immature Gran % (Auto) % Neut % (Auto) % Lymph % (Auto) % Ballard % (Auto) % Eos % (Auto) % Baso % (Auto) % Immature Gran # (Auto) (0.00-0.02) K/uL Neut # (Auto) (1.4-6.5) K/uL Lymph # (Auto) (1.2-3.4) K/uL Ballard # (Auto) (0.11-0.59) K/uL Eos # (Auto) (0-0.5) K/uL Baso # (Auto) (0-0.2) K/uL PT (9.0-12.0) Seconds INR (0.9-1.1) APTT (21.0-31.0) Seconds PTT Ratio Sodium (136-145) mmol/L Potassium (3.5-5.1) mmol/L Chloride (98-107) mmol/L Carbon Dioxide (21-32) mmol/L Anion Gap (3-11) BUN (7-18) mg/dl Creatinine (0.6-1.4) mg/dl Est Cr Clr Drug Dosing ml/min Est GFR ( Amer) Est GFR (Non-Af Amer) BUN/Creatinine Ratio (10-20) Glucose (70-99) mg/dl Lactate 1.7 (0.4-2.0) mmol/L Calcium (8.5-10.1) mg/dl Total Bilirubin (0.2-1) mg/dl AST (15-37) U/L ALT (12-78) U/L Alkaline Phosphatase (45-117) U/L Troponin I (0-0.045) ng/ml Total Protein (6.4-8.2) gm/dl Albumin (3.4-5.0) gm/dl Globulin (2.5-4.0) gm/dl Albumin/Globulin Ratio (0.9-2) Urine Color Yellow Urine Appearance Clear (Clear) Urine pH 5.5 (4.5-7.5) Ur Specific Starlight 1.020 (1.000-1.030) Urine Protein Trace H (Negative) Urine Glucose (UA) 2+ H (Negative) Urine Ketones Trace H (Negative) Urine Blood Negative (Negative) Urine Nitrite Negative (Negative) Urine Bilirubin Negative (Negative) Urine Urobilinogen Negative (Negative) Ur Leukocyte Esterase Negative (Negative) Urine WBC (Auto) 0 (0-5) /hpf Urine RBC (Auto) 0-4 (0-4) /hpf U Hyaline Cast (Auto) 1-5 (0-5) /lpf U Epithel Cells (Auto) 0-5 (0-5) /lpf Urine Bacteria (Auto) Negative (Negative) Influenza Type A Ag Neg for Influ A (Neg) Influenza Type B Ag Neg for Influ B (Neg) Imaging Data Radiologist's Impression: Radiology results as stated below per my review and the radiologist's interpretation: XR chest 1V portable HISTORY: 73 years-old Male Sepsis acute sepsis COMPARISON: Chest and rib radiographs 08/08/2018 TECHNIQUE: Portable AP view the chest FINDINGS: Cardiac mediastinal and hilar silhouettes appear unchanged. Subsegmental bibasilar opacities redemonstrated suggestive of atelectasis/scarring and appear unchanged from comparison. There is no pneumothorax, pleural effusion or overt p ulmonary edema. Degenerative changes of the shoulders and spine. IMPRESSION: No acute process. The above report was generated using voice recognition software. It may contain grammatical, syntax or spelling errors. Electronically signed by: Masoud Neely M.D. 02/14/2019 12:[address] SCAN OF THE BRAIN WITHOUT IV CONTRAST CLINICAL HISTORY: Headache. COMPARISON STUDY: CT of the brain dated 10/07/2017. TECHNIQUE: Unenhanced axial CT scan of the brain is performed from the vertex to the skull base. A dose lowering technique was utilized adhering to the prin ciples of ANGEL. FINDINGS: Brain parenchyma: There are age-related involutional changes noting mild subcortical and periventricular microangiopathic change. There is no hemorrhage, mass effect, or evidence of acute territorial ischemia by CT criteria. A chronic lacunar infarct is seen within the anterior limb of the left internal capsule. Franklin-white matter differentiation is preserved. No extra-axial fluid collection is seen. Ventricles, sulci, cisterns: Prominent secondary to involutional change. Intracranial vasculature: There is atherosclerotic calcification of the cavernous carotid and vertebral arteries. Calvarium: Unremarkable. Sinuses and mastoids: There is mild mucosal thickening right maxillary antrum, ethmoid sinuses, and the right frontal sinus. The mastoid air cells are well pneumatized. Orbits: The bony orbits are grossly intact. There are bilateral ocular lens implants. IMPRESSION: There is no hemorrhage, mass effect, or evidence of acute territorial ischemia by CT criteria. Electronically signed by: Jose Umana M.D. 02/14/2019 1:25 PM [address] AND PELVIS CT WITHOUT CONTRAST CT DOSE: 1679.71 mGy.cm HISTORY: Generalized abdominal pain. TECHNIQUE: Multiaxial CT images of the abdomen and pelvis were performed without contrast. A dose lowering technique was utilized adhering to the principles of ALARA. COMPARISON STUDY: Abdomen and pelvis CT 11/07/2018. FINDINGS: Patchy bibasilar densities. These are nonspecific but favor subsegmental atelectasis. No suspicious lytic or blastic osseous lesions. Cholecystectomy. The unenhanced liver, spleen, adrenal glands, and pancreas are unremarkable. No hydronephrosis. Moderate bilateral cortical renal scarring/thinning. Central mesenteric infiltration persists. This favors a mesenteric panniculitis. No retroperitoneal lymphadenopathy. There is a left circumaortic renal vein. The bladder is decompressed by Garcia catheter. Suboptimal evaluation for bowel pathology due to the lack of intravenous and oral contrast. However, there is no definite bowel wall thickening or obstruction. A few colonic diverticula. No evidence for diverticulitis. Normal appendix. IMPRESSION: 1. No bowel wall thickening or obstruction. 2. 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 3. Cholecystectomy. 4. Patchy bibasilar densities are nonspecific but favor atelectasis. 5. The bladder is decompressed by a Garcia catheter. Electronically signed by: Cali Gerard M.D. 02/14/2019 1:27 PM ECG Data Attestation: I personally reviewed and interpreted this ECG as follows: Indication: weakness Rate (beats per minute): 111 Rhythm: sinus tachycardia Findings: + other (non-specific T wave abnormalities ); no ST depression, no ST elevation and no acute ischemic change Comparison ECG Date: from (01/12/18) Change: no significant change (rate has increased) Blood Pressure Blood Pressure Findings: Elevated blood pressure Blood Pressure Disposition: further management by hospitalist [facility] Narrative This patient comes in as described above. He has had a fever generalized weakness, nausea, vomiting, diarrhea as well as abdominal pain. initially had a headache as well said it was mild. IV access established hydrated with IV normal saline boluses. Given his fever. Tic workup was done he was also given p.o. acetaminophen and this helped his headache it resolved completely has no meningeal signs or stiffness. He seems sleepy initially although perked up quite a bit after receiving hydration antipyretics. Chest x-ray does not show any definite pneumonia. He has no significant white count or lactic acid elevation. he has no significant electrolyte or metabolic abnormalities. CAT scan of his head is unremarkable CAT scan of the abdomen is also unremarkable w ith no acute intra-abdominal processes. Urinalysis thus far does not suggest infection. Given his age and his fever as well as his dehydration, I do think he needs to be admitted for hydration and further treatment and evaluation. At this point is most likely viral but he needs to be further evaluated for bacterial infection/sepsis as well. I have consulted Dr. Pabon to see him in the ER for these measures. Impression & Plan Dehydration, Fever, Nausea, vomiting, and diarrhea, Weakness Discharge Plan Visit Data Chief Complaint: Vomiting Stated Complaint: vomit/weakness ED Provider: Hans Padilla Discharge Problem: Dehydration, Fever, Nausea, vomiting, and diarrhea, Weakness Patient Disposition: Being Evaluated by Hospitalist Forms Stand Alone Forms: My [facility] Prescriptions Prescriptions: No Action acetaminophen [Tylenol Extra Strength] 500 mg Tablet 1,000 mg PO QID PRN (Reason: Pain) RF: 0 tamsulosin [Flomax] 0.4 mg capsule 0.4 mg PO HS RF: 0 phenytoin sodium extended 100 mg capsule 100 mg PO TID RF: 0 aspirin 81 mg Tablet,Delayed Release (Dr/Ec) 81 mg PO DAILY RF: 0 simvastatin 40 mg tablet 40 mg PO HS RF: 0 lorazepam 0.5 mg tablet 0.5 mg PO QAM RF: 0 levetiracetam 250 mg tablet 750 mg PO AMPM RF: 0 levothyroxine 50 mcg tablet 50 mcg PO DAILY RF: 0 phenobarbital 64.8 mg tablet 64.8 mg PO BID RF: 0 lorazepam 1 mg Tablet 1 mg PO HS RF: 0 metformin 500 mg tablet extended release 24 hr 500 mg PO DAILY RF: 0 Creon 6,000-19,000 -30,000 unit capsule,delayed release(DR/EC) 12,000 units PO TIDM RF: 0 ondansetron 4 mg tablet,disintegrating 4 mg PO Q8H PRN (Reason: nausea and vomiting) Qty: 30 RF: 0 Referrals Referrals: Jani Gillespie MD [Primary Care Provider] - The scribe's documentation has been prepared under my direction and personally reviewed by me in its entirety. I confirm that the note above accurately reflects all work, treatment, procedures, and medical decision making performed by me.
[2019-02-14] MEDS ORDERED: DEXTROSE 50% 50 ML SYRINGE IV PRN (16:46)
[2019-02-14] MEDS ORDERED: CARBOHYDRATES FOR HYPOGLYCEMIA PO PRN (16:46)
[2019-02-14] MEDS ORDERED: GLUCOSE 40% GEL 15 GM TUBE PO PRN (16:46)
[2019-02-14] MEDS ORDERED: ONDANSETRON 4 MG OD TAB PO PRN (16:46)
[2019-02-14] MEDS ORDERED: ACETAMINOPHEN 325 MG TAB PO PRN (16:46)
[2019-02-14] MEDS ORDERED: MAGNESIUM HYDROXIDE SUSP 30 ML UDC PO PRN (16:46)
[2019-02-14] MEDS ORDERED: ACETAMINOPHEN 500 MG TAB PO PRN (16:46)
[2019-02-14] MEDS ORDERED: GLUCOSE 10 TABS/TUBE PO PRN (16:46)
[2019-02-14] MEDS ORDERED: ONDANSETRON INJ 2 MG/ML 2 ML VIAL IV PRN (16:46)
[2019-02-14] MEDS ORDERED: GLUCAGON FOR INJ 1 MG VIAL SQ PRN (16:46)
[2019-02-14] MEDS: SODIUM CHLOR 0.45% + 20MEQ KCL 20 MEQ/1,000 ML BAG IV SCH (17:31)
[2019-02-14] MEDS: PANCREAZE (LIPASE 10,500U) CAP PO SCH (17:32)
[2019-02-14] MEDS: INSULIN ASPART 100 UNITS/ML 3 ML PEN SC SCH ×2 (18:39→20:22)
[2019-02-14] MEDS: PHENYTOIN SODIUM ER 100 MG CAP PO SCH (20:24)
[2019-02-14] MEDS: levETIRAcetam 250 MG TAB PO SCH (20:25)
[2019-02-14] MEDS: PHENobarbital 32.4 MG TAB PO SCH (20:27)
[2019-02-14] MEDS ORDERED: LORazepam 1 MG TAB PO SCH (21:00)
[2019-02-14] MEDS ORDERED: TAMSULOSIN HCL 0.4 MG CAP PO SCH (21:00)
[2019-02-14] MEDS ORDERED: SIMVASTATIN 40 MG TAB PO SCH (21:00)
[2019-02-14] MEDS: HEPARIN SOD 5,000 UNIT/0.5 ML VIAL SQ SCH (22:08)
[2019-02-15] MEDS: HEPARIN SOD 5,000 UNIT/0.5 ML VIAL SQ SCH ×2 (06:19→13:00)
[2019-02-15] MEDS ORDERED: LEVOTHYROXINE SODIUM 50 MCG TABLET PO SCH (06:30)
[2019-02-15 08:27] LABS: BUN Creatinine Ratio 15.2 (10-20); Calcium 8.7 mg/dl (8.5-10.1); Est GFR (African American) 92.7; Potassium 4.1 mmol/L (3.5-5.1)
[2019-02-15] MEDS: PHENYTOIN SODIUM ER 100 MG CAP PO SCH ×2 (08:42→13:00)
[2019-02-15] MEDS: levETIRAcetam 250 MG TAB PO SCH (08:42)
[2019-02-15] MEDS: INSULIN ASPART 100 UNITS/ML 3 ML PEN SC SCH ×2 (08:44→12:59)
[2019-02-15] MEDS: PANCREAZE (LIPASE 10,500U) CAP PO SCH ×3 (08:47→15:58)
[2019-02-15] MEDS: PHENobarbital 32.4 MG TAB PO SCH (08:51)
[2019-02-15] MEDS ORDERED: LORazepam 0.5 MG TAB PO SCH (09:00)
[2019-02-15] MEDS ORDERED: METFORMIN HCL ER 500 MG TABCR PO SCH (09:00)
[2019-02-15] MEDS ORDERED: ASPIRIN 81 MG ECTAB PO SCH (09:00)
[2019-02-15] MEDS: SODIUM CHLOR 0.45% + 20MEQ KCL 20 MEQ/1,000 ML BAG IV SCH (13:08)
[2019-02-15 13:42] LABS: Estimated Average Glucose 166 mg/dl; Hemoglobin A1C 7.4 % (4.5-5.6)
--- NOTE | 2019-02-15 15:08 | Discharge Summary ---
Date of Service February 15, 2019 Admission HPI Per Admitting Provider 73 y/o M c/o n/v. Pt ate hot sausage two nights ago and had n/v after that, however yesterday he was fine during the day. Shortly before bed, he had return of n/v that lasted into the communications coordinator. He was able to sleep and has not had any n/v since that time. He had some abd pain with the emesis, but is having difficulty qualifying that further, including specific location. states he has been hot to the touch, but did not take a temp. No one else is sick. No recent n/v prior to this. states he has been quite weak since this happened. She states his PO intake has been down for some time. Pt denies fever, SOB, chest pain, c/d, LE pain or swelling. [place] [address] Emergency Department Note Signed Patient: VOLODYMYR VENEGASte of Service: 02/14/19 MR#: [id number] Phy: Acct ID:[id number] Phy: Coleman Gillespie MD Date: 1945Fam Phy: Age: 73Location: ED Sex: M cc: Physician Billing~ *NOTICE TO RECEIVING [employer]/AGENCY This information is strictly Confidential and protected under [place] law. [place] law prohibits you from making any further disclosure of this information unless further disclosure is expressly permitted by the written consent of the person to whom it pertains or is authorized by law. A general authorization for the release of medical or other information is not sufficient for this purpose. Hospital accepts no responsibility if the information is made available to any other person, INCLUDING THE PATIENT. Entered by Glory Govea acting as a scribe for Hans Padilla MD History of Present Illness General Chief complaint: Vomiting Stated complaint: vomit/weakness Time Seen by Provider: 02/14/19 11:21 Source: patient and family () History of Present Illness Provider complaint: vomiting and diarrhea Onset (ago): day(s) 2 Location: left and right Maximum Pain Intensity: 3 Quality: + other (vomiting and diarrhea) Associated symptoms: + headaches, + weakness and + other (abdominal pain, burning with urination); no chest pain and no shortness of breath The patient is a 73 year old male who presents to the Emergency Room with complaints of vomiting and diarrhea for the last 2 days. Per , the patient has not had blood in his stool or vomit. His states that the patient has had abdominal pain and been weak but has not had chest pain or shortness of breath. The patient reports having burning with urination and a headache. His states that the patient has a history of a stroke. His states that the patient takes a baby aspirin but no other blood thinners. Home Medications Home Medications Medication Instructions Recorded Confirmed Type aspirin 81 mg PO DAILY 08/11/18 02/14/19 History levetiracetam 750 mg PO AMPM 08/11/18 02/14/19 History levothyroxine 50 mcg PO DAILY 08/11/18 02/14/19 History [id number] [Creon] 12,000 units PO TIDM 08/11/18 02/14/19 History lorazepam 0.5 mg PO QAM 08/11/18 02/14/19 History lorazepam 1 mg PO HS 08/11/18 02/14/19 History metformin 500 mg PO DAILY 08/11/18 02/14/19 History phenobarbital 64.8 mg PO BID 08/11/18 02/14/19 History phenytoin sodium extended 100 mg PO TID 08/11/18 02/14/19 History simvastatin 40 mg PO HS 08/11/18 02/14/19 History acetaminophen [Tylenol Extra 1,000 mg PO QID PRN 11/07/18 02/14/19 History Strength] tamsulosin [Flomax] 0.4 mg PO HS 11/07/18 02/14/19 History ondansetron 4 mg PO Q8H PRN #30 tab 11/10/18 02/14/19 Rx Allergies Allergy/AdvReac Type Severity Reaction Status Date / Time morphine Allergy Unknown ? Verified 02/14/19 11:36 nitrofurantoin AdvReac Mild NAUSEA Verified 02/14/19 11:36 Quinolones AdvReac Mild NAUSEA Verified 02/14/19 11:36 meperidine AdvReac Unknown SEIZURES Verified 02/14/19 11:36 Past Med/Surg History Medical History TIA (transient ischemic attack) (Resolved 04/08/14) Falls frequently Seizures Diabetes (Chronic) Social History Preferred Language: Amharic Feels Safe at Home: Yes Smoking Status: Never smoker Hx Alcohol Use: No Hx Substance Use: No Review of Systems See HPI for pertinent positives & negatives. and A total of 10 systems reviewed and were otherwise negative Physical Exam Vital Signs Vital Signs - 24 hr 02/14/19 10:36 02/14/19 10:45 02/14/19 12:00 Temperature 37.6 C H Temperature Source Oral Sepsis Recent Fever Within 48 Hours Yes Sepsis New/Unexplained Change in Mental Status No Sepsis Action Taken by Nursing No Action Required Pulse Rate 110 H Pulse Rate [Apical] 110 H 104 H Pulse Rhythm Regular Pulse Rhythm [Apical] Regular Regular Pulse Strength Normal Respiratory Rate 20 20 18 Respiratory Effort / Characteristics Non-Labored Spontaneous Non-Labored Spontaneous Non-Labored Spontaneous Respiratory Depth Normal Normal Normal Respiratory Pattern Regular Regular Regular Blood Pressure 139/96 Blood Pressure [Right Arm] 129/71 Blood Pressure Mean 110 Blood Pressure Mean [Right Arm] 90 Pulse Oximetry 88 L 93 96 Oxygen Delivery Method Room Air Nasal Cannula Nasal Cannula Oxygen Flow Rate 2 2 02/14/19 12:35 02/14/19 13:10 Temperature Temperature Source Sepsis Recent Fever Within 48 Hours Sepsis New/Unexplained Change in Mental Status Sepsis Action Taken by Nursing Pulse Rate 100 H Pulse Rate [Apical] 99 H Pulse Rhythm Regular Pulse Rhythm [Apical] Pulse Strength Respiratory Rate 19 20 Respiratory Effort / Characteristics Respiratory Depth Respiratory Pattern Blood Pressure Blood Pressure [Right Arm] 147/74 H Blood Pressure Mean Blood Pressure Mean [Right Arm] 98 Pulse Oximetry 96 96 Oxygen Delivery Method Nasal Cannula Room Air Oxygen Flow Rate 2 General: Mildly ill-appearing older, sleepy but arousable male in no acute distress. Answers questions appropriately. HEENT: Normal cephalic atraumatic. Pupils are equal round and reactive to light. Extraocular movements are intact. Oropharynx is pink with moist mucous membranes. No swelling of the mouth lips or tongue. Neck: Supple with a midline trachea. No meningeal signs or stiffness, no JVD or bruits. No Stridor. Chest: Clear to auscultation bilaterally. No wheezes or rhonchi. No increased work of breathing. Heart: regular rate and rhythm. Abdomen: Soft nontender, nondistended without rebound guarding or rigidity. Extremities: No cyanosis clubbing or edema. No calf tenderness or assymetry Spine/Back. Non tender to palpation. No CVA tenderness Skin: Good turgor without rashes. Neurologic exam: Cranial nerves two through 12 are intact. Motor and sensation are intact and symmetrical throughout. Principal Diagnosis Nausea with vomiting Discharge Exam Constitutional WD/WN, vitals as above Eyes + anicteric sclerae and EOM intact bilaterally ENMT Mouth: oral mucous membranes not dry Neck normal visual inspection and trachea midline Respiratory normal respiratory effort, lungs clear to auscultation Cardiovascular Rate/Rhythm: regular rate and regular rhythm Extremities: no pedal edema Gastrointestinal (Abdomen) Percussion/Palpation: + hernia; abdomen nontender, no guarding and abdomen not rigid Musculoskeletal Head/Neck/Chest: normocephalic and head atraumatic Skin no rashes, warm and dry Neurologic moves all extremities and awake Psychiatric Orientation: alert and oriented to person Eye Contact: good eye contact Affect: euthymic affect Discharge Data Allergies Allergy/AdvReac Type Severity Reaction Status Date / Time morphine Allergy Unknown ? Verified 02/14/19 11:36 nitrofurantoin AdvReac Mild NAUSEA Verified 02/14/19 11:36 Quinolones AdvReac Mild NAUSEA Verified 02/14/19 11:36 meperidine AdvReac Unknown SEIZURES Verified 02/14/19 11:36 Consultations 02/14/19 13:48 ED Decision to Admit Stat 02/14/19 16:46 Consult Case Management - Discharge Planning Routine Ordered Studies 02/14/19 11:53 CT abd pelvis wo con Stat IMPRESSION: 1. No bowel wall thickening or obstruction. 2. 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 3. Cholecystectomy. 4. Patchy bibasilar densities are nonspecific but favor atelectasis. 5. The bladder is decompressed by a Garcia catheter. CT head/brain wo con Stat - No acute process. Hospital Course (1) Nausea & vomiting: Uncertain etiology, gastroenteritis seems most likely vs dehydration via osmotic loss through urine via sugar from elevated sugars Flu neg UA, CXR neg for infection CT AP neg for acute Electrolytes WNL CT head neg for acute Was hydrated with maintenance fluids and received NSS 500cc Bolus x2 (once in ER and once during admission) Pt tolerated meals without nausea or vomiting Nausea was well controlled with Zofran during stay. 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 permanent Continue 81mg aspirin (6) Anxiety: continue home meds May want to evaluate home ativan dosing as outpatient states is scheduled, not PRN (7) Hyperlipidemia: continue home meds (8) BPH (benign prostatic hyperplasia): continue home meds (9) DVT prophylaxis: Heparin for DVT proph Total Time Total Time Spent Total Time Spent (In Minutes): <30 Total Time Includes: Examination of the Patient, Discharge Planning and Medication Reconciliation Discharge Plan Discharge Items Patient Disposition: Home - Self-Care Reason For Visit: GASTROENTERITIS,WEAKNESS Discharge Diagnosis: Gastroenteritis, Nausea with Vomiting Discharge Goals: Improve disease control and Therapeutic intervention Activity: Per 'Additional Instructions' section Non-emergency contact: Primary Care Provider Call non-emergency contact if: you have any medication questions and your symptoms worsen Follow-up/Referrals: Jani Gillespie MD [Primary Care Provider] - Diet: Carb Consistent or DM2 Addtl Provider Instructions: Please call your primary care provider for next available appointment for hospital follow up. You were admitted to the hospital for nausea and vomiting that is suspected to be from a viral illness (stomach bug). Your nausea and vomiting have resolved with hospital treatment. Please ensure you stay well hydrated with clear fluids, drink plenty of water. Avoid sugary drinks and caffineated beverages as these can dehydrate you. Also, please be aware that elevated blood sugars from your diabetes can cause dehydration too. If not feeling well, please check your blood sugars and keep a journal that you can show your primary care physician as your medication regimen might need further discussion. Recommend avoiding fatty foods like sausage and also try eating smaller portions as fatty foods and large meals could contribute to nausea and vomiting. If symptoms return and are severe, please return to the Emergency Department for further evaluation. It is safe to resume all of your home medications. A prescription for Zofran 4mg disintegrating tablet for nausea/vomiting has been sent electronically to your pharmacy ([facility]). * Zofran 4mg ODT (dissolves under tongue). If nauseous take one tab. You can take one every 8 hours but only if you are nauseous or vomiting. * This medication is what you were given here in the hospital to control your nausea. This is also listed on your home medication list. * A prescription was sent to ensure you had medication, if you do not need medication as you have enough already, you can disregard picking up prescription. Prescriptions: New ondansetron 4 mg Tablet,Disintegrating 4 mg PO Q8H PRN (Reason: nausea and vomiting) Qty: 30 RF: 0 Continued acetaminophen [Tylenol Extra Strength] 500 mg Tablet 1,000 mg PO QID PRN (Reason: Pain) RF: 0 tamsulosin [Flomax] 0.4 mg capsule 0.4 mg PO HS RF: 0 phenytoin sodium extended 100 mg capsule 100 mg PO TID RF: 0 aspirin 81 mg Tablet,Delayed Release (Dr/Ec) 81 mg PO DAILY RF: 0 simvastatin 40 mg tablet 40 mg PO HS RF: 0 lorazepam 0.5 mg tablet 0.5 mg PO QAM RF: 0 levetiracetam 250 mg tablet 750 mg PO AMPM RF: 0 levothyroxine 50 mcg tablet 50 mcg PO DAILY RF: 0 phenobarbital 64.8 mg tablet 64.8 mg PO BID RF: 0 lorazepam 1 mg Tablet 1 mg PO HS RF: 0 metformin 500 mg tablet extended release 24 hr 500 mg PO DAILY RF: 0 aacirp-cqfdqjos-nliravr 6,000-19,000 -30,000 unit capsule,delayed release(DR/EC) 12,000 units PO TIDM RF: 0 Discontinued ondansetron 4 mg tablet,disintegrating 4 mg PO Q8H PRN (Reason: nausea and vomiting) Qty: 30 RF: 0 Stand-Alone Forms: [facility]/Other Patient Handouts: Hyperglycemia, Hypoglycemia Discharge Orders: Discharge Order (Routine); Ordered 02/15/19 Ordered By: Chinedu Isaac Admission Data Admit Date/Time: 02/14/19 14:50 Attending Provider: Martinez Caballero Admit Provider: Katey Pabon Primary Care Provider: Jani Gillespie Other Providers: Katey Pabon Service: Medical Other Interventions: Discharge Summary Assessment (RN) Last Done: 02/15/19 15:40 Supervising Physician Co-Signing Physician Notes I personally examined the patient and verified all brown points of history and exam, discussed case, and agree with decision making with Dr Isaac feeling better ate well several meals today no vomiting belly feels good would like to go home, would like him to go home as well vitals noted nad breathing unlabored no accessory muscle use, no rashes/pallor/icterus, no focal neuro deficits intractable nausea/vomiting - now resolved. likely viral GE vs severe indigestion from sausages --> stable for home. outpt f/u PCP otherwise as above
== END 2019-02-15 17:27 | disposition home or self-care (01) ==
LOC: 4W 10:32 → ED 10:32 → SUATTDRO 14:50 → 4W 16:02

== ENCOUNTER 2020-11-07 01:54 | Inpatient (IN) ==
[2020-11-07] MEDS ORDERED: ACETAMINOPHEN 1,000 MG/100 ML VIAL IV STA (02:06)
--- NOTE | 2020-11-07 02:12 | Emergency Department Note ---
History of Present Illness General Chief complaint: Fall Stated complaint: FEVER/FALL Time Seen by Provider: 11/07/20 01:57 History of Present Illness This 75-year-old presents to the ER complaining of fever and fall Location: Generalized Quality: Feverish Severity: Moderate Duration: Tonight Timing: Tonight Context: Patient was weak and fell and was sent in Modifying factors: better with rest; worse with activity Son lives with him and has Covid. Patient states his legs are weak and he fell and collapsed. Patient denies of fever, weakness and diarrhea. No recent antibiotics. Patient denies chest pain, dyspnea, abdominal pain. Unsure if he hit his head. History is also obtained from EMS. Pulse ox at home was 88% per EMS. Home Medications Medication Instructions Recorded Confirmed Type Wheeled Walker #1 ea 12/31/19 09/05/20 Rx aspirin 81 mg tablet,delayed 81 mg PO QAM #90 tab 10/07/20 11/07/20 Rx release levetiracetam 250 mg tablet 750 mg PO BID #540 tab 10/07/20 11/07/20 Rx parqib-hhycsvnj-rjimgvn 2 cap PO QID #720 cap 10/07/20 11/07/20 Rx 6,000-19,000-30,000 unit capsule,delayed rel metformin 500 mg tablet,extended 500 mg PO DAILY #90 tab 10/07/20 11/07/20 Rx release 24 hr phenobarbital 64.8 mg tablet 64.8 mg PO BID #180 tab 10/07/20 11/07/20 Rx phenytoin sodium extended 100 mg 100 mg PO TID #270 cap 10/07/20 11/07/20 Rx capsule tamsulosin 0.4 mg capsule 0.4 mg PO .COMPLEX #90 cap 10/28/20 11/07/20 Rx hydrocortisone acetate [Anusol-HC] 25 mg [place] BID PRN 11/07/20 11/07/20 History levothyroxine 50 mcg PO DAILYBB 11/07/20 11/07/20 History lorazepam 0.5 mg PO BID PRN 11/07/20 11/07/20 History simvastatin 40 mg PO HS 11/07/20 11/07/20 History Allergies Allergy/AdvReac Type Severity Reaction Status Date / Time morphine Allergy Unknown ? Verified 11/07/20 02:27 nitrofurantoin AdvReac Mild NAUSEA Verified 11/07/20 02:27 Quinolones AdvReac Mild NAUSEA Verified 11/07/20 02:27 meperidine AdvReac Unknown SEIZURES Verified 11/07/20 02:27 Past Med/Surg History Medical History (Updated 11/07/20 @ 02:59 by Denise Hernandez PA-C) CVA (cerebral vascular accident) TIA (transient ischemic attack) (04/08/14) 2013 Ventral hernia Surgical History H/O abdominal surgery Hx of cholecystectomy Family History Mother Hypertension Brother Hypertension Kidney stones Denies family history of Myocardial infarction Stroke Social History Smoking Status: Former smoker Tobacco Type: Cigarettes Hx Alcohol Use: No Hx Substance Use: No Preferred Language: [place] Communication Ability: Impaired Senior [employer] Specialist Required: No Beliefs That Will Affect Care: None marital status: Current Living Situation: Spouse How many Children do You have: 0 Feels Safe at Home: Yes Assistive Devices: Denture - Upper, Denture - Lower and Walker Review of Systems A total of 10 systems reviewed and were otherwise negative Physical Exam Vital Signs Vital Signs - 24 hr 11/07/20 02:19 11/07/20 02:32 11/07/20 02:33 Temperature 37.5 C Temperature Source Oral Pulse Rate 97 H 92 H Pulse Rate [Right Finger] Respiratory Rate 16 Respiratory Effort / Characteristics Non-Labored Respiratory Depth Blood Pressure 146/78 H Blood Pressure [Right Arm] Blood Pressure Mean 100 Blood Pressure Mean [Right Arm] Blood Pressure Position Lying Blood Pressure Position [Right Arm] Pulse Oximetry 95 95 Oxygen Delivery Method Room Air Nasal Cannula Oxygen Flow Rate 2 Sepsis Recent Fever Within 48 Hours No Sepsis New/Unexplained Change in Mental Status No Sepsis Action Taken by Nursing No Action Required 11/07/20 04:23 Temperature Temperature Source Pulse Rate Pulse Rate [Right Finger] 69 Respiratory Rate 16 Respiratory Effort / Characteristics Respiratory Depth Normal Blood Pressure Blood Pressure [Right Arm] 141/87 H Blood Pressure Mean Blood Pressure Mean [Right Arm] 105 Blood Pressure Position Blood Pressure Position [Right Arm] Lying Pulse Oximetry 95 Oxygen Delivery Method Nasal Cannula Oxygen Flow Rate 2 Sepsis Recent Fever Within 48 Hours Sepsis New/Unexplained Change in Mental Status Sepsis Action Taken by Nursing VITALS: Vitals are noted on the nurse's note and reviewed by myself. Vital signs febrile pulse ox 90% on room air. GENERAL: Elderly male mildly ill-appearing SKIN: The skin was without rashes, erythema, edema, or bruising. There is no tenting of the skin. Capillary reflex less than 2 seconds. HEAD: Normocephalic atraumatic. EARS: External auditory canals clear, tympanic membranes pearly lamb without erythema or effusion bilaterally. EYES: Pupils equal round and reactive to light and accommodation. Conjunctivae without injection, sclerae without icterus. Extraocular movements intact. NOSE: Patent, turbinates without inflammation or discharge. No sinus tenderness. MOUTH: Mucous membranes mildly dry Pharynx without erythema or exudate. Uvula midline. Airway patent. Tongue does not deviate. NECK: Supple without nuchal rigidity. No lymphadenopathy. No thyromegaly. Cervical spine is nontender. No JVD. HEART: Regular rate and rhythm LUNGS: Clear to auscultation bilaterally without wheezes, rales or rhonchi. No retractions or accessory muscle use. ABDOMEN: Positive bowel sounds x 4. Normal tympanic percussion. Soft, nontender, without masses or organomegaly. Patel sign negative. No guarding or rebound tenderness. No CVA tenderness MUSCULOSKELETAL: No muscle atrophy, erythema, or edema noted. NEURO: Patient was alert and oriented to person place and time. Normal sensation to light and sharp touch. No focal neurological deficits. Course Administered Medications Discontinued Medications Dexamethasone (Dexamethasone Sod Inj 10 Mg/Ml Vial) 6 mg IV NOW ONE Stop: 11/07/20 02:57 Last Admin: 11/07/20 03:25 Dose: 6 mg Documented by: [id number] Sodium Chloride (Nss 1000ml) 1,000 mls @ 999 mls/hr IV .Q1H1M JESUS Stop: 11/07/20 03:15 Last Admin: 11/07/20 02:17 Dose: 999 mls/hr Documented by: [id number] Acetaminophen (Ofirmev) 1,000 mg in 100 mls @ 400 mls/hr IV NOW STA Stop: 11/07/20 02:20 Last Admin: 11/07/20 02:17 Dose: 400 mls/hr Documented by: [id number] Medical Decision Making Medical Records Attestation: I reviewed the patient's medical records. Home Medications Current Medication List: was personally reviewed by me Laboratory Data Attestation: I reviewed the patient's lab results. Result diagrams: 11/07/20 02:11 11/07/20 02:11 Lab Results 11/07/20 11/07/20 11/07/20 Range/Units 02:11 02:11 02:11 WBC 3.09 L (4.8-10.8) K/uL RBC 4.17 L (4.7-6.1) M/uL Hgb 14.6 (14.0-18.0) g/dL Hct 41.9 L (42-52) % MCV 100.5 H (80-100) fL MCH 35.0 H (25-34) pg MCHC 34.8 (32-36) g/dL RDW Std Deviation 45.7 (36.4-46.3) fL RDW Coeff of Amber 12.4 (11.5-14.5) % Plt Count 159 (130-400) K/uL MPV 8.4 (7.4-10.4) fL Immature Gran % (Auto) 0.3 % Neut % (Auto) 56.7 % Lymph % (Auto) 15.5 % [place] % (Auto) 27.5 % Eos % (Auto) 0.0 % Baso % (Auto) 0.0 % Neut # (Auto) 1.75 (1.4-6.5) K/uL Lymph # (Auto) 0.48 L (1.2-3.4) K/uL [place] # (Auto) 0.85 H (0.11-0.59) K/uL Eos # (Auto) 0.00 (0-0.5) K/uL Baso # (Auto) 0.00 (0-0.2) K/uL Immature Gran # (Auto) 0.01 (0.00-0.02) K/uL PT Cancelled INR Cancelled APTT Cancelled PTT Ratio Cancelled Sodium 134 L (136-145) mmol/L Potassium 3.9 (3.5-5.1) mmol/L Chloride 100 (98-107) mmol/L Carbon Dioxide 26 (21-32) mmol/L Anion Gap 8.0 (3-11) BUN 10 (7-18) mg/dl Creatinine 1.15 (0.6-1.4) mg/dl Est Cr Clr Drug Dosing 63.8 ml/min Est GFR ( Amer) 70.7 Est GFR (Non-Af Amer) 61.0 BUN/Creatinine Ratio 9.0 L (10-20) Glucose 174 H (70-99) mg/dl Lactate (0.4-2.0) mmol/L Calcium 8.9 (8.5-10.1) mg/dl Magnesium 2.1 (1.8-2.4) mg/dl Total Bilirubin 0.5 (0.2-1) mg/dl AST 32 (15-37) U/L ALT 27 (12-78) U/L Alkaline Phosphatase 116 (45-117) U/L Troponin I < 0.015 (0-0.045) ng/ml Total Protein 8.0 (6.4-8.2) gm/dl Albumin 4.1 (3.4-5.0) gm/dl Globulin 3.9 (2.5-4.0) gm/dl Albumin/Globulin Ratio 1.1 (0.9-2) Procalcitonin (0-0.5) ng/ml Urine Color Urine Appearance (Clear) Urine pH (4.5-7.5) Ur Specific [place] (1.000-1.030) Urine Protein (Negative) Urine Glucose (UA) (Negative) Urine Ketones (Negative) Urine Blood (Negative) Urine Nitrite (Negative) Urine Bilirubin (Negative) Urine Urobilinogen (Negative) Ur Leukocyte Esterase (Negative) Urine WBC (Auto) (0-5) /hpf Urine RBC (Auto) (0-4) /hpf U Hyaline Cast (Auto) (0-5) /lpf U Epithel Cells (Auto) (0-5) /lpf Urine Bacteria (Auto) (Negative) COVID-19 Eval Order Influ A Molecular Assay (Negative) Influ B Molecular Assay (Negative) SARS-CoV-2, RNA, NAAT (NEGATIVE) 11/07/20 11/07/20 11/07/20 Range/Units 02:11 02:11 02:22 WBC (4.8-10.8) K/uL RBC (4.7-6.1) M/uL Hgb (14.0-18.0) g/dL Hct (42-52) % MCV (80-100) fL MCH (25-34) pg MCHC (32-36) g/dL RDW Std Deviation (36.4-46.3) fL RDW Coeff of Amber (11.5-14.5) % Plt Count (130-400) K/uL MPV (7.4-10.4) fL Immature Gran % (Auto) % Neut % (Auto) % Lymph % (Auto) % [place] % (Auto) % Eos % (Auto) % Baso % (Auto) % Neut # (Auto) (1.4-6.5) K/uL Lymph # (Auto) (1.2-3.4) K/uL [place] # (Auto) (0.11-0.59) K/uL Eos # (Auto) (0-0.5) K/uL Baso # (Auto) (0-0.2) K/uL Immature Gran # (Auto) (0.00-0.02) K/uL PT INR APTT PTT Ratio Sodium (136-145) mmol/L Potassium (3.5-5.1) mmol/L Chloride (98-107) mmol/L Carbon Dioxide (21-32) mmol/L Anion Gap (3-11) BUN (7-18) mg/dl Creatinine (0.6-1.4) mg/dl Est Cr Clr Drug Dosing ml/min Est GFR ( Amer) Est GFR (Non-Af Amer) BUN/Creatinine Ratio (10-20) Glucose (70-99) mg/dl Lactate 2.5 H* (0.4-2.0) mmol/L Calcium (8.5-10.1) mg/dl Magnesium (1.8-2.4) mg/dl Total Bilirubin (0.2-1) mg/dl AST (15-37) U/L ALT (12-78) U/L Alkaline Phosphatase (45-117) U/L Troponin I (0-0.045) ng/ml Total Protein (6.4-8.2) gm/dl Albumin (3.4-5.0) gm/dl Globulin (2.5-4.0) gm/dl Albumin/Globulin Ratio (0.9-2) Procalcitonin 0.10 (0-0.5) ng/ml Urine Color Urine Appearance (Clear) Urine pH (4.5-7.5) Ur Specific [place] (1.000-1.030) Urine Protein (Negative) Urine Glucose (UA) (Negative) Urine Ketones (Negative) Urine Blood (Negative) Urine Nitrite (Negative) Urine Bilirubin (Negative) Urine Urobilinogen (Negative) Ur Leukocyte Esterase (Negative) Urine WBC (Auto) (0-5) /hpf Urine RBC (Auto) (0-4) /hpf U Hyaline Cast (Auto) (0-5) /lpf U Epithel Cells (Auto) (0-5) /lpf Urine Bacteria (Auto) (Negative) COVID-19 [facility] A Molecular Assay (Negative) Influ B Molecular Assay (Negative) SARS-CoV-2, RNA, NAAT (NEGATIVE) 11/07/20 11/07/20 11/07/20 Range/Units 02:22 02:27 02:27 WBC (4.8-10.8) K/uL RBC (4.7-6.1) M/uL Hgb (14.0-18.0) g/dL Hct (42-52) % MCV (80-100) fL MCH (25-34) pg MCHC (32-36) g/dL RDW Std Deviation (36.4-46.3) fL RDW Coeff of Amber (11.5-14.5) % Plt Count (130-400) K/uL MPV (7.4-10.4) fL Immature Gran % (Auto) % Neut % (Auto) % Lymph % (Auto) % [place] % (Auto) % Eos % (Auto) % Baso % (Auto) % Neut # (Auto) (1.4-6.5) K/uL Lymph # (Auto) (1.2-3.4) K/uL [place] # (Auto) (0.11-0.59) K/uL Eos # (Auto) (0-0.5) K/uL Baso # (Auto) (0-0.2) K/uL Immature Gran # (Auto) (0.00-0.02) K/uL PT INR APTT PTT Ratio Sodium (136-145) mmol/L Potassium (3.5-5.1) mmol/L Chloride (98-107) mmol/L Carbon Dioxide (21-32) mmol/L Anion Gap (3-11) BUN (7-18) mg/dl Creatinine (0.6-1.4) mg/dl Est Cr Clr Drug Dosing ml/min Est GFR ( Amer) Est GFR (Non-Af Amer) BUN/Creatinine Ratio (10-20) Glucose (70-99) mg/dl Lactate (0.4-2.0) mmol/L Calcium (8.5-10.1) mg/dl Magnesium (1.8-2.4) mg/dl Total Bilirubin (0.2-1) mg/dl AST (15-37) U/L ALT (12-78) U/L Alkaline Phosphatase (45-117) U/L Troponin I (0-0.045) ng/ml Total Protein (6.4-8.2) gm/dl Albumin (3.4-5.0) gm/dl Globulin (2.5-4.0) gm/dl Albumin/Globulin Ratio (0.9-2) Procalcitonin (0-0.5) ng/ml Urine Color Yellow Urine Appearance Clear (Clear) Urine pH 7.0 (4.5-7.5) Ur Specific [place] 1.015 (1.000-1.030) Urine Protein 2+ H (Negative) Urine Glucose (UA) Trace H (Negative) Urine Ketones Trace H (Negative) Urine Blood 1+ H (Negative) Urine Nitrite Negative (Negative) Urine Bilirubin Negative (Negative) Urine Urobilinogen Positive H (Negative) Ur Leukocyte Esterase Negative (Negative) Urine WBC (Auto) 1-5 (0-5) /hpf Urine RBC (Auto) 0-4 (0-4) /hpf U Hyaline Cast (Auto) 0 (0-5) /lpf U Epithel Cells (Auto) >30 H (0-5) /lpf Urine Bacteria (Auto) Negative (Negative) COVID-19 Eval Order Influ A Molecular Assay Negative (Negative) Influ B Molecular Assay Negative (Negative) SARS-CoV-2, RNA, NAAT POSITIVE A* (NEGATIVE) Imaging Data Attestation: I personally reviewed and interpreted this imaging study as follows: MDM Narrative Prior records/ancillary studies reviewed. Triage Nursing notes reviewed. Additional history obtained from EMS. The patient's history was concerning for fever. Differential diagnosis: Etiologies such as viral syndrome, otitis, pharyngitis, pneumonia, influenza, meningitis, urinary tract infection, sepsis, bacteremia, as well as others were entertained. Physical examination: As above ER treatment provided: An order was placed for continuous cardiac monitoring. The monitor shows a rate of 60-1 20 with a sinus rhythm. IV fluids, Tylenol, Decadron, nasal cannula On reassessment the patient felt better. Diagnostics interpreted by me: ECG: Ordered for weakness EKG: Poor baseline, no acute ST-T wave changes, normal axis, rate of 99. Impression normal sinus rhythm interpreted by myself I think arrhythmia is unlikely. EKG shows normal sinus rhythm with no interval abnormalities such as QT prolongation or WPW. There are no findings to suggest Brugada syndrome. Cardiac monitoring in the emergency department reveals no tachycardic or bradycardic dysrhythmia. Hypertrophic cardiomyopathy was considered but there are no clear historical elements pointing toward this. EKG is not suggestive. The QRS voltage is not extremely large and there are no suggestive Q waves. The labs revealed positive Covid, elevated lactic Blood cultures pending Leukopenia Imaging studies: Chest x-ray with no acute consolidation, pneumothorax or free air per my interpretation CT HEAD: No acute intracranial hemorrhage, edema or mass. Mild cerebral and moderate cerebellar atrophy. Chronic right thalamic and left basal ganglia infarcts. Mild periventricular white matter chronic small vessel ischemic changes. No extra-axial fluid collection. No calvarial fracture. Chronic sinus disease. Orbits and mastoids are unremarkable. Radiologist: Sukhdev Yarbrough M.D. CT C SPINE: Comparison 08/13/2019. Normal alignment of cranial-cervical junction. No acute fracture or malalignment. Moderate to advanced multilevel spondylosis, as before. No prevertebral soft tissue swelling or paraspinous hematoma. Radiologist: Sukhdev Yarbrough M.D. Consultation: A consultation was placed with Dr Gaines. The case was discussed and diagnostics were reviewed. The patient was evaluated in the ER for further treatment. This appears to be consistent with Covid infection. Patient was hypoxic. He is given Decadron. Sats came up with nasal cannula. He was hydrated as above. Medicine was consulted. He will be evaluated for admission.. By the evaluation outlined above emergent etiologies such as otitis, pharyngitis, meningitis, urinary tract infection, sepsis, bacteremia, as well as others were deemed r elatively unlikely. The pt informed about the findings as listed above. All questions were answered and pleased with the treatment. The chart was completed utilizing [employer] voice recognition software. Grammatical errors, random word insertions, pronoun errors, and incomplete sentences are an occassional consequence of this system due to software limitations, ambient noise, and hardware issues. Any formal questions or concerns about the content, text, or information contained within the body of this dictation should be directly addressed to the physician assistant professor of forestry for clarification. Impression & Plan COVID-19 virus infection Discharge Plan Visit Data Chief Complaint: Fall Stated Complaint: FEVER/FALL ED Provider: Angi Roa ED Midlevel Provider: Denise Hernandez Discharge Problem: COVID-19 virus infection Patient Disposition: Admitted As Inpatient Condition: Fair Forms Stand Alone Forms: [facility] [employer] Prescriptions Prescriptions: No Action (DME) Adelia Chavez Misc See Rx Instructions .ROUTE .MEDSUPPLY Qty: 1 RF: 0 aspirin 81 mg tablet,delayed release (DR/EC) 81 mg PO QAM Qty: 90 RF: 3 levetiracetam 250 mg tablet 750 mg PO BID Qty: 540 RF: 3 Creon 6,000-19,000 -30,000 unit capsule,delayed release(DR/EC) 2 cap PO QID Qty: 720 RF: 3 metformin 500 mg tablet extended release 24 hr 500 mg PO DAILY Qty: 90 RF: 3 phenobarbital 64.8 mg tablet 64.8 mg PO BID Qty: 180 RF: 1 phenytoin sodium extended 100 mg capsule 100 mg PO TID Qty: 270 RF: 3 tamsulosin [Flomax] 0.4 mg capsule 0.4 mg PO .COMPLEX Qty: 90 RF: 3 simvastatin 40 mg tablet 40 mg PO HS RF: 0 hydrocortisone acetate [Anusol-HC] 25 mg suppository 25 mg [place] BID PRN (Reason: Hemorrhoids) RF: 0 lorazepam 0.5 mg tablet 0.5 mg PO BID PRN (Reason: Anxiety) RF: 0 levothyroxine 50 mcg tablet 50 mcg PO DAILYBB RF: 0 Referrals Referrals: Coleman Gillespie MD [Primary Care Provider] -
[2020-11-07] MEDS ORDERED: SODIUM CHLORIDE 0.9% 1000ML 1,000 ML IV SCH (02:15)
[2020-11-07 02:26] LABS: Hematocrit (blood only) 41.9 % (42-52); Hemoglobin 14.6 g/dL (14.0-18.0); Immature Granulocytes # (auto) 0.01 K/uL (0.00-0.02); Immature Granulocytes % (auto) 0.3 %; Lymphocytes # (auto) 0.48 K/uL (1.2-3.4); Lymphocytes % (auto) 15.5 %; Mean Corpuscular Hgb Conc 34.8 g/dL (32-36); Mean Corpuscular Volume 100.5 fL (80-100); Mean Platelet Volume 8.4 fL (7.4-10.4); Monocytes # (auto) 0.85 K/uL (0.11-0.59); Monocytes % (auto) 27.5 %; Neutrophils # (auto) 1.75 K/uL (1.4-6.5); Neutrophils % (auto) 56.7 %; Platelet Count 159 K/uL (130-400); RDW Coefficient of Variation 12.4 % (11.5-14.5); RDW Standard Deviation 45.7 fL (36.4-46.3); Red Blood Count 4.17 M/uL (4.7-6.1); White Blood Count 3.09 K/uL (4.8-10.8)
[2020-11-07 02:40] LABS: Appearance Urine Clear (Clear); Bacteria Urine Automated Negative (Negative); Bilirubin Urine Negative (Negative); Blood Urine 1+ (Negative); Cast Urine Automated 0 /lpf (0-5); Color Urine Yellow; Epithelial Cell Urine Auto >30 /lpf (0-5); Glucose Urine UA Trace (Negative); Ketones Urine Trace (Negative); Leukocyte Esterase Urine Negative (Negative); Nitrite Urine Negative (Negative); Protein Urine 2+ (Negative); RBC Urine Automated 0-4 /hpf (0-4); Specific Gravity Urine 1.015 (1.000-1.030); Urobilinogen Urine Positive (Negative)
[2020-11-07 02:46] LABS: Alanine Aminotransferase 27 U/L (12-78); Albumin Level 4.1 gm/dl (3.4-5.0); Aspartate Aminotransferase 32 U/L (15-37); Blood Urea Nitrogen 10 mg/dl (7-18); Calcium 8.9 mg/dl (8.5-10.1); Carbon Dioxide 26 mmol/L (21-32); Chloride 100 mmol/L (98-107); Creatinine Clr Calc Pharmacy 63.8 ml/min; Est GFR (African American) 70.7; Glucose 174 mg/dl (70-99); Magnesium 2.1 mg/dl (1.8-2.4); Potassium 3.9 mmol/L (3.5-5.1); Sodium 134 mmol/L (136-145)
[2020-11-07 02:51] LABS: Albumin Globulin Ratio 1.1 (0.9-2); Alkaline Phosphatase 116 U/L (45-117); Bilirubin,Total 0.5 mg/dl (0.2-1); Globulin 3.9 gm/dl (2.5-4.0); Troponin I < 0.015 ng/ml (0-0.045)
[2020-11-07] MEDS ORDERED: DEXAMETHASONE SOD INJ 10 MG/ML VIAL IV ONE (02:56)
--- NOTE | 2020-11-07 03:00 | Emergency Department Note ---
ED Visit Note I have personally seen and evaluated the patient with the PA. I agree with the diagnosis and management decisions and have been personally involved in the case. Please see Mitzi Hernandez PA-C's notes for further details of the history, physical and visit. .
[2020-11-07 03:28] LABS: Influenza A virus by PCR Negative (Negative); Influenza B virus by PCR Negative (Negative)
--- NOTE | 2020-11-07 04:50 | History & Physical Report ---
Date of Service November 07, 2020 Assessment & Plan (1) COVID-19 virus infection: Pneumonia due to COVID-19 virus infection with hypoxia- Pulse ox 88% on room air, improved to 95% on 2 L. Decadron 6 mg IV every morning Remdesivir IV per protocol Ceftriaxone 1 g IV daily Azithromycin 500 mg IV daily Ventolin HFA 2 puffs 4 times daily, and every 2 hours as needed Present on Admission?: Yes (2) Hypoxia: See above Present on Admission?: Yes (3) Enlarged prostate with lower urinary tract symptoms (LUTS): Continue tamsulosin Present on Admission?: Yes (4) Hypothyroidism: Continue levothyroxine 50 mcg daily Present on Admission?: Yes (5) Hypercholesterolemia: Continue simvastatin 40 mg at bedtime Present on Admission?: Yes (6) Seizure disorder: Continue Keppra and phenobarbital Present on Admission?: Yes (7) DM type 2 (diabetes mellitus, type 2): Hold metformin. Placed on Accu-Cheks before meals and at bedtime with NovoLog coverage per scale Present on Admission?: Yes (8) Hyperlipidemia: History of Present Illness Chief Complaint: The patient presents to the emergency department with complaint of severe generalized weakness to the point where he fell and collapsed at home this evening Primary Care Provider: Coleman Gillespie MD The patient is a 75-year-old male with a past medical history including incomplete bladder emptying, recurrent UTI, hypertension, hypothyroidism, ataxic gait, BPH with LUTS, hypercholesterolemia, headache, peripheral neuropathy, seizure disorder, diabetes mellitus type 2, hyperlipidemia and frequent falls. The patient is presently living with his son who has been diagnosed with COVID- 19. The patient was noted by EMS to be 88% on room air upon their arrival. Work-up in the emergency department included the following pertinent laboratories: Sodium 134, glucose 174. COVID-[address] virus testing was positive. CT of head and CT cervical spine showed no acute findings. Chest x-ray with hazy infiltrates at bases, left greater than right. Allergies Allergy/AdvReac Type Severity Reaction Status Date / Time morphine Allergy Unknown ? Verified 11/07/20 02:27 nitrofurantoin AdvReac Mild NAUSEA Verified 11/07/20 02:27 Quinolones AdvReac Mild NAUSEA Verified 11/07/20 02:27 meperidine AdvReac Unknown SEIZURES Verified 12/11/20 02:27 Home Medications Medication Instructions Recorded Confirmed Type Wheeled Walker #1 ea 12/31/19 09/05/20 Rx aspirin 81 mg tablet,delayed 81 mg PO QAM #90 tab 10/07/20 11/07/20 Rx release levetiracetam 250 mg tablet 750 mg PO BID #540 tab 10/07/20 11/07/20 Rx slrmra-mjtqhckd-kpuflnc 2 cap PO QID #720 cap 10/07/20 11/07/20 Rx 6,000-19,000-30,000 unit capsule,delayed rel metformin 500 mg tablet,extended 500 mg PO DAILY #90 tab 10/07/20 11/07/20 Rx release 24 hr phenobarbital 64.8 mg tablet 64.8 mg PO BID #180 tab 10/07/20 11/07/20 Rx phenytoin sodium extended 100 mg 100 mg PO TID #270 cap 10/07/20 11/07/20 Rx capsule tamsulosin 0.4 mg capsule 0.4 mg PO .COMPLEX #90 cap 10/28/20 11/07/20 Rx hydrocortisone acetate [Anusol-HC] 25 mg TN BID PRN 11/07/20 11/07/20 History levothyroxine 50 mcg PO DAILYBB 11/07/20 11/07/20 History lorazepam 0.5 mg PO BID PRN 11/07/20 11/07/20 History simvastatin 40 mg PO HS 11/07/20 11/07/20 History Past Med/Surg History Medical History (Updated 11/07/20 @ 06:25 by Jose Nolan MD) CVA (cerebral vascular accident) TIA (transient ischemic attack) (04/08/14) 2013 Ventral hernia Surgical History H/O abdominal surgery Hx of cholecystectomy Family History Mother Hypertension Brother Hypertension Kidney stones Denies family history of Myocardial infarction Stroke Social History Smoking Status: Former smoker Tobacco Type: Cigarettes Hx Alcohol Use: No Hx Substance Use: No Preferred Language: Vietnamese Communication Ability: Impaired Chromosomal Disorders Counselor Required: No Beliefs That Will Affect Care: None marital status: Current Living Situation: Spouse How many Children do You have: 0 Feels Safe at Home: Yes Assistive Devices: Denture - Upper, Denture - Lower and Walker Review of Systems Review of Systems: The patient denies chest pain, palpitations, lower extremity swelling, sore throat, fevers, chills, sweats, nausea, vomiting, diarrhea , constipation, abdominal pain, pelvic pain, blood in urine or stool, dysuria, headache, memory loss, loss of consciousness, rash, abnormal bruising or bleeding, focal weakness, numbness or tingling in arms or legs, neck pain, or night sweats. The review of systems is otherwise negative other than for that already noted above, and at least 10 systems have been reviewed. Physical Exam Physical Exam: The patient is awake, alert and oriented 3, normocephalic and atraumatic, lying in bed and in no acute distress. HEENT--PERRL, EOMI, mucous membranes and oropharynx normal. Neck--supple. No JVD. No bruits. Thyroid normal, trachea midline, no adenopathy. Heart--normal S1 and S2. No murmurs, rubs or gallops. Lungs--few coarse breath sounds bilaterally. No respiratory distress, no accessory muscle use. Abdomen--normal bowel sounds and soft. Nontender. Nondistended. Extremities--no cyanosis or clubbing. No edema. Dermatologic--normal skin turgor, normal color, no abnormal lymph nodes, no rash. Neurologic--cranial nerves II through XII grossly intact. Rheumatologic--normal range of motion. Psychiatric--normal affect. Results & Data Results & Data ([facility]) Vital Signs (Past 12 Hours) Vital Signs Temp Pulse Pulse Resp BP BP Pulse Ox 11/07/20 04:23 69 16 141/87 H 95 11/07/20 02:33 99.5 F 92 H 16 146/78 H 95 11/07/20 02:19 97 H 95 Diagnostic Findings [facility] Patient: VOLODYMYR VENEGAS (Male) : 41 Status: ER Date: 11/07/20 03:28 Room #: History: FALL ON ASA Slices: 66 Priors: Tech: Mike Alex @ [phone] Exams: CT HEAD Contrast: Accession Numbers: [id number] Preliminary Findings Only See Final Report For Complete Findings CT HEAD: No acute intracranial hemorrhage, edema or mass. Mild cerebral and moderate cerebellar atrophy. Chronic right thalamic and left basal ganglia infarcts. Mild periventricular white matter chronic small vessel ischemic changes. No extra-axial fluid collection. No calvarial fracture. Chronic sinus disease. Orbits and mastoids are unremarkable. Radiologist: Sukhdev Yarbrough M.D. Study ready at 03:29 and initial results transmitted at 03:32 *This report constitutes a preliminary interpretation only. Non-acute findings felt to be unrelated to the clinical presentation may not be discussed in this report. The study will be interpreted and a final report will be generated by the local Radiologist the following shift. To reach the hospital radiology department call [phone]. If a discrepancy is found between the preliminary and final interpretations of this study, please notify us via our Client Portal at [email or web address] can also fax this report with a description of the discrepancy, or include the final report, to our daytime fax number [phone].If faxing, please indicate the severity of discrepancy using one of the following categories: [ ] 1 - Agree/Informational [ ] 2 - Unlikely to Affect Management [ ] 3 - Possible Eventual Change of Management [ ] 4 - Probable Immediate Change of Management For all other patient related information, please fax us at [phone]. [id number] [facility] Patient: VOLODYMYR VENEGAS (Male) : 41 Status: ER Date: 11/07/20 03:29 Room #: History: FALL ON ASA Slices: 833 Priors: Tech: Mike Alex @ [phone] Exams: CT C SPINE Contrast: Accession Numbers: [id number] Preliminary Findings Only See Final Report For Complete Findings CT C SPINE: Comparison 08/13/2019. Normal alignment of cranial-cervical junction. No acute fracture or malalignment. Moderate to advanced multilevel spondylosis, as before. No prevertebral soft tissue swelling or paraspinous hematoma. Radiologist: Sukhdev Yarbrough M.D. Study ready at 03:33 and initial results transmitted at 03:39 *This report constitutes a preliminary interpretation only. Non-acute findings felt to be unrelated to the clinical presentation may not be discussed in this report. The study will be interpreted and a final report will be generated by the local Radiologist the following shift. To reach the hospital radiology department call [phone]. If a discrepancy is found between the preliminary and final interpretations of this study, please notify us via our Client Portal at [email or web address].You can also fax this report with a description of the discrepancy, or include the final report, to our daytime fax number [phone].If faxing, please indicate the severity of discrepancy using one of the following categories: [ ] 1 - Agree/Informational [ ] 2 - Unlikely to Affect Management [ ] 3 - Possible Eventual Change of Management [ ] 4 - Probable Immediate Change of Management For all other patient related information, please fax us at [phone]. [id number] Code Status & VTE Plan VTE Prophylaxis Plan VTE Prophylaxis will be ordered: Yes PG Care Time/CCT Total # of Minutes Spent Total Time Spent with Patient: Total time spent is greater than 50% in coordination of care (as documented) at patient's floor/unit and/or counseling patient: Coding Level of Care Code 62117 Initial Inpt Care Lvl 3 Diagnoses COVID-19 virus infection U07.1 Hypoxia R09.02 Enlarged prostate with lower urinary tract symptoms (LUTS) N40.1 Hypothyroidism E03.9 Hypercholesterolemia E78.00 Seizure disorder G40.909 DM type 2 (diabetes mellitus, type 2) E11.9 Hyperlipidemia E78.5
[2020-11-07 06:22] LABS: D Dimer 540 ug/L FEU (0-500)
[2020-11-07] MEDS ORDERED: HYDROCORTISONE ACETATE 25 MG SUPP PR PRN (06:23)
[2020-11-07] MEDS ORDERED: ACETAMINOPHEN 325 MG TAB PO PRN (06:23)
[2020-11-07] MEDS ORDERED: ONDANSETRON INJ 2 MG/ML 2 ML VIAL IV PRN (06:23)
[2020-11-07] MEDS ORDERED: ALBUTEROL HFA 8 GM INHALER INH PRN (06:26)
--- NOTE | 2020-11-07 06:41 | CT Scan Report ---
CT OF THE HEAD WITHOUT CONTRAST CLINICAL HISTORY: fall on asa COMPARISON STUDY: Head CT November 19, 2019. CT DOSE: 729.78 mGycm TECHNIQUE: Helical axial images of the head were obtained without IV contrast. Automated exposure con trol was utilized for the study. A dose lowering technique was utilized adhering to the principles o f ALARA. FINDINGS: No acute intracranial hemorrhage, midline shift or mass effect is present. The ventricular system is unremarkable. Old lacunar infarct within the left basal ganglia is unchanged. Atrophy is ag ain noted, greater within the cerebellum. The basal cisterns are patent. No extra-axial collections a re present. There are no findings to suggest acute dural sinus thrombosis or acute territorial infarc t. No significant calvarial abnormalities are present. Visualized portions of the sinuses and mastoid air cells are clear. IMPRESSION: 1. No acute intracranial findings. No change in appearance of the brain. 2. No calvarial fracture. ACT 112: Negative or not required by law. Electronically signed by: Donald Young M.D. 11/07/2020 6:40 AM
[2020-11-07] MEDS ORDERED: cefTRIAXone SODIUM 1,000 MG in DEXTROSE 5% 50 ML IV SCH (06:45)
--- NOTE | 2020-11-07 06:56 | XRay Report ---
XR chest 1V portable CLINICAL HISTORY: SEPSIS COMPARISON STUDY: 11/19/2019 FINDINGS: There is stable bibasilar areas of atelectasis/scarring. The heart is normal in size. There is no failure. There is no acute parenchymal consolidation. There are no significant pleural effusio ns.[ IMPRESSION: Stable basilar atelectasis/scarring. No acute findings ACT 112: Negative or not required by law. Electronically signed by: Dwaine Mack M.D. 11/07/2020 6:54 AM
[2020-11-07] MEDS ORDERED: REMDESIVIR 200 MG in SODIUM CHLORIDE 0.9% 210 ML IV ONE (07:15)
--- NOTE | 2020-11-07 07:17 | CT Scan Report ---
CT OF THE CERVICAL SPINE CLINICAL HISTORY: Neck pain status post trauma COMPARISON STUDY: August 13, 2019 CT DOSE: 480.92 mGycm TECHNIQUE: CT scan of the cervical spine was performed from the skull base to the thoracic inlet. Sima ges are reviewed in the axial, sagittal, and coronal planes. IV contrast was not administered for thi s examination. A dose lowering technique was utilized adhering to the principles of ALARA. FINDINGS: The visualized portions of the lung apices reveal no evidence of pneumothorax. The prevertebral soft tissues are normal. No fractures or subluxations are visualized. There are multilevel degenerative changes IMPRESSION: No evidence of acute fracture or traumatic subluxation. ACT 112: Negative or not required by law. Electronically signed by: Dwaine Mack M.D. 11/07/2020 7:15 AM
[2020-11-07] MEDS: cefTRIAXone SODIUM 2,000 MG in DEXTROSE 5% 50 ML IV SCH (07:18)
[2020-11-07] MEDS: ALBUTEROL HFA 8 GM INHALER INH SCH ×4 (07:37→19:25)
[2020-11-07] MEDS: PANCREAZE (LIPASE 4,200U) CAP PO SCH ×4 (09:11→21:41)
[2020-11-07] MEDS: ASPIRIN 81 MG ECTAB PO SCH (09:12)
[2020-11-07] MEDS: PHENYTOIN SODIUM ER 100 MG CAP PO SCH ×3 (09:12→21:41)
[2020-11-07] MEDS: LEVOTHYROXINE SODIUM 50 MCG TABLET PO SCH (09:13)
[2020-11-07] MEDS: levETIRAcetam 250 MG TAB PO SCH ×2 (09:13→21:41)
[2020-11-07] MEDS: SODIUM CHLORIDE 0.9% 10ML FLUSH IV SCH (09:50)
[2020-11-07] MEDS: AZITHROMYCIN 500 MG in DEXTROSE 5% 250 ML IV SCH (09:55)
--- NOTE | 2020-11-07 14:46 | Electrocardiogram Report ---
Test Reason : Blood Pressure : / mmHG Vent. Rate : 099 BPM Atrial Rate : 099 BPM P-R Int : 148 ms QRS Dur : 078 ms QT Int : 324 ms P-R-T Axes : 019 014 -10 degrees QTc Int : 415 ms Poor data quality, interpretation may be adversely affected Normal sinus rhythm Nonspecific T wave abnormality Abnormal ECG When compared with ECG of 12-NOV-2019 13:44, Vent. rate has increased BY 36 BPM Confirmed by Ravi Thompson ([id number]) on 11/07/2020 2:46:00 PM Referred By: REFERRED SELF Confirmed By:Ravi Thompson
[2020-11-07] MEDS ORDERED: DEXTROSE 50% 50 ML SYRINGE IV PRN (15:00)
[2020-11-07] MEDS ORDERED: CARBOHYDRATES FOR HYPOGLYCEMIA PO PRN (15:00)
[2020-11-07] MEDS ORDERED: GLUCOSE 40% GEL 15 GM TUBE PO PRN (15:00)
[2020-11-07] MEDS ORDERED: GLUCOSE 10 TABS/TUBE PO PRN (15:00)
[2020-11-07] MEDS ORDERED: GLUCAGON FOR INJ 1 MG VIAL IM PRN (15:00)
[2020-11-07] MEDS: TAMSULOSIN HCL 0.4 MG CAP PO SCH (18:03)
[2020-11-07] MEDS: INSULIN ASPART 100 UNITS/ML 3 ML PEN SC SCH ×2 (19:56→21:42)
[2020-11-07] MEDS: SIMVASTATIN 40 MG TAB PO SCH (21:41)
[2020-11-08] MEDS: cefTRIAXone SODIUM 2,000 MG in DEXTROSE 5% 50 ML IV SCH (06:24)
[2020-11-08] MEDS: LEVOTHYROXINE SODIUM 50 MCG TABLET PO SCH (06:24)
[2020-11-08] MEDS: INSULIN ASPART 100 UNITS/ML 3 ML PEN SC SCH ×4 (08:50→20:56)
[2020-11-08] MEDS: PANCREAZE (LIPASE 4,200U) CAP PO SCH ×4 (08:53→20:48)
[2020-11-08] MEDS: PHENYTOIN SODIUM ER 100 MG CAP PO SCH ×3 (08:54→20:49)
[2020-11-08] MEDS: levETIRAcetam 250 MG TAB PO SCH ×2 (08:54→20:49)
[2020-11-08] MEDS: dexAMETHasone 6 MG in SYRINGE 0 ML IV SCH (08:54)
[2020-11-08] MEDS: ASPIRIN 81 MG ECTAB PO SCH (08:55)
[2020-11-08] MEDS: AZITHROMYCIN 500 MG in DEXTROSE 5% 250 ML IV SCH (09:03)
[2020-11-08] MEDS: REMDESIVIR 100 MG in SODIUM CHLORIDE 0.9% 230 ML IV SCH (12:09)
--- NOTE | 2020-11-08 12:41 | Hospitalist Progress Note ---
Date of Service November 08, 2020 Assessment & Plan (1) COVID-19 virus infection: Pneumonia due to COVID-19 virus infection with hypoxia- Pulse ox 88% on room air, improved to 95% on 2 L. today he is stable on 1L, will try to wean down to room air today Decadron 6 mg IV every morning, day 2 Remdesivir IV per protocol if he comes off oxygen there will be no need to continue Remdesivir Ceftriaxone 1 g IV daily x 5 days Azithromycin 500 mg IV daily x 5 days Ventolin HFA 2 puffs 4 times daily, and every 2 hours as needed eating well, will get PT/OT evaluations try for discharge tomorrow if he can be titrated to room air, no distress at this time (2) Hypoxia: See above stable on 1L today, try to wean to room air no increased work of breathing would like him to be on room air for 24 hours prior to discharge (3) Enlarged prostate with lower urinary tract symptoms (LUTS): Continue tamsulosin no LUTS at this time (4) Hypothyroidism: Continue levothyroxine 50 mcg daily (5) Hypercholesterolemia: Continue simvastatin 40 mg at bedtime (6) Seizure disorder: Continue Keppra and phenobarbital (7) DM type 2 (diabetes mellitus, type 2): Hold metformin. Placed on Accu-Cheks before meals and at bedtime with NovoLog coverage per scale sugars around 200, continue Novolog, if he gets more hyperglycemic then add NPH with Decadron (8) Hyperlipidemia: Admission and Anticipated Discharge Date Admission Date: November 07, 2020 Subjective patient is doing well, resting in bed, saturations stable on only 1L minimal cough, no fever, no chest pain, no diarrhea reviewed chart from admission will check labs tomorrow morning Review of Systems Review of Systems: All systems reviewed & are unremarkable except as noted in Subjective Physical Exam Constitutional: well developed, well nourished, + frail appearing and cooperative; no acute distress Neck: trachea midline, no thyromegaly Respiratory: normal respiratory effort, lungs clear to auscultation Cardiovascular: RRR, no murmur, no edema Gastrointestinal (Abdomen): normal bowel sounds, soft, nontender, no hepatosplenomegaly Musculoskeletal: no cyanosis or clubbing, extremities motor strength 5/5 Skin: no rashes, warm and dry Neurologic: patellar DTR's 2+ bilat, sensation intact and PERRL, EOMI, accommodation nl, no face palsy, no dysarthria Psychiatric: A+Ox3, euthymic affect Lymphatic: no cervical or axillary lymphadenopathy Results & Data Results & Data ([facility]) Vital Signs (Past 12 Hours) Vital Signs Temp Pulse Resp BP Pulse Ox 11/08/20 07:11 36.6 C 84 18 121/74 95 Laboratory Results Laboratory Results - last 24 hr 11/07/20 11/07/20 11/07/20 14:05 17:03 21:00 POC Glucose 215 H 151 H 201 H 11/08/20 11/08/20 08:23 12:21 POC Glucose 187 H 209 H Medications Administered Current Inpatient Medications Acetaminophen (Acetaminophen 325 Mg Tab) 650 mg PO Q4H PRN PRN Reason: Pain or Fever Stop: 12/07/20 06:22 Albuterol (Albuterol Hfa 8 Gm Inhaler) 2 puffs INH Q2H PRN PRN Reason: Shortness Of Breath Stop: 12/07/20 06:25 Lipase/Protease/Amylase (Pancreaze (Lipase 4,200u) Cap) 2 cap PO QIDM JESUS; Protocol Stop: 12/07/20 07:59 Last Admin: 11/08/20 08:53 Dose: 2 cap Documented by: Aspirin (Aspirin 81 Mg Ectab) 81 mg PO QAM [facility] Stop: 12/07/20 08:59 Last Admin: 11/08/20 08:55 Dose: 81 mg Documented by: Dextrose (Dextrose 50% 50 Ml Syringe) 25 - 50 ml IV UD PRN; Protocol PRN Reason: Hypoglycemia Protocol Stop: 12/07/20 14:59 Glucagon (Glucagon For Inj 1 Mg Vial) 1 mg IM UD PRN; Protocol PRN Reason: Hypoglycemia Protocol Stop: 12/07/20 14:59 Glucose (Glucose 40% Gel 15 Gm Tube) 15 - 30 gm PO UD PRN; Protocol PRN Reason: Hypoglycemia Protocol Stop: 12/07/20 14:59 Glucose (Glucose 10 Tabs/Tube) 4 - 8 tabs PO UD PRN; Protocol PRN Reason: Hypoglycemia Protocol Stop: 12/07/20 14:59 Hydrocortisone (Hydrocortisone Acetate 25 Mg Supp) 25 mg WA BID PRN PRN Reason: Hemorrhoids Stop: 12/07/20 06:22 Dexamethasone 6 mg/ Syringe 1.5 mls @ 1 [facility] Stop: 12/08/20 08:59 Last Admin: 11/08/20 08:54 Dose: 1 mls/min Documented by: Azithromycin 500 mg/ Dextrose 255 mls @ 125 mls/hr IV DAILY@0800 [facility] Stop: 11/14/20 07:59 Last Infusion: 11/08/20 11:33 Dose: Infused Documented by: Remdesivir 100 mg/ Sodium (Chloride) 250 mls @ 250 mls/hr IV Q24H [facility]; Protocol Stop: 11/11/20 12:59 Last Admin: 11/08/20 12:09 Dose: 250 mls/hr Documented by: Ceftriaxone Sodium 2,000 mg/ (Dextrose) 70 mls @ 100 mls/hr IV Q24H [facility]; Protocol Stop: 11/14/20 06:59 Last Infusion: 11/08/20 07:15 Dose: Infused Documented by: Insulin Aspart (Insulin Aspart 100 Units/Ml 3 Ml Pen) 0 units SC ACHS [facility] Stop: 12/07/20 16:29 Last Admin: 11/08/20 08:50 Dose: 7 units Documented by: Levetiracetam (Levetiracetam 250 Mg Tab) 750 mg PO BID [facility] Stop: 12/07/20 08:59 Last Admin: 11/08/20 08:54 Dose: 750 mg Documented by: Levothyroxine Sodium (Levothyroxine Sodium 50 Mcg Tablet) 50 mcg PO DAILYBB [facility] Stop: 12/07/20 06:29 Last Admin: 11/08/20 06:24 Dose: 50 mcg Documented by: Lorazepam (Lorazepam 0.5 Mg Tab) 0.5 mg PO BID PRN PRN Reason: Anxiety Stop: 12/07/20 06:22 Miscellaneous (Carbohydrates For Hypoglycemia ) 15 - 30 gm PO UD PRN PRN Reason: Hypoglycemia Treatment Stop: 12/07/20 14:59 Ondansetron HCl (Ondansetron Inj 2 Mg/Ml 2 Ml Vial) 4 mg IV Q6H PRN PRN Reason: Nausea Stop: 12/07/20 06:22 Phenobarbital (Phenobarbital 32.4 Mg Tab) 64.8 mg PO BID [facility] Stop: 12/07/20 08:59 Last Admin: 11/08/20 11:10 Dose: 64.8 mg Documented by: Phenytoin Sodium (Phenytoin Sodium Er 100 Mg Cap) 100 mg PO TID [facility] Stop: 12/07/20 08:59 Last Admin: 11/08/20 08:54 Dose: 100 mg Documented by: Simvastatin (Simvastatin 40 Mg Tab) 40 mg PO HS [facility] Stop: 12/07/20 20:59 Last Admin: 11/07/20 21:41 Dose: 40 mg Documented by: Sodium Chloride (Sodium Chloride 0.9% 10ml Flush) 30 ml IV DAILY@1200 [facility] Stop: 11/11/20 12:01 Last Admin: 11/07/20 09:50 Dose: 30 ml Documented by: Tamsulosin HCl (Tamsulosin Hcl 0.4 Mg Cap) 0.4 mg PO DAILY@1700 [facility] Stop: 12/07/20 16:59 Last Admin: 11/07/20 18:03 Dose: 0.4 mg Documented by: PG Care Time/CCT Total # of Minutes Spent Total Time Spent with Patient: Total time spent is greater than 50% in coordination of care (as documented) at patient's floor/unit and/or counseling patient: Coding Level of Care Code 66046 Subseq Hosp Care Lvl 3 Diagnoses COVID-19 virus infection U07.1 Hypoxia R09.02 Enlarged prostate with lower urinary tract symptoms (LUTS) N40.1 Hypothyroidism E03.9 Hypercholesterolemia E78.00 Seizure disorder G40.909 DM type 2 (diabetes mellitus, type 2) E11.9 Hyperlipidemia E78.5
[2020-11-08] MEDS: SODIUM CHLORIDE 0.9% 10ML FLUSH IV SCH (13:13)
[2020-11-08] MEDS: TAMSULOSIN HCL 0.4 MG CAP PO SCH (17:57)
[2020-11-08] MEDS: SIMVASTATIN 40 MG TAB PO SCH (20:48)
[2020-11-08] MEDS: LORazepam 0.5 MG TAB PO PRN (21:35)
[2020-11-09] MEDS: cefTRIAXone SODIUM 2,000 MG in DEXTROSE 5% 50 ML IV SCH (06:20)
[2020-11-09] MEDS: LEVOTHYROXINE SODIUM 50 MCG TABLET PO SCH (06:20)
[2020-11-09 07:03] LABS: Hematocrit (blood only) 40.5 % (42-52); Hemoglobin 13.7 g/dL (14.0-18.0); Mean Corpuscular Hgb Conc 33.8 g/dL (32-36); Mean Corpuscular Volume 100.5 fL (80-100); Mean Platelet Volume 8.4 fL (7.4-10.4); Platelet Count 153 K/uL (130-400); RDW Coefficient of Variation 12.5 % (11.5-14.5); RDW Standard Deviation 45.9 fL (36.4-46.3); Red Blood Count 4.03 M/uL (4.7-6.1)
[2020-11-09 07:36] LABS: BUN Creatinine Ratio 16.9 (10-20); Calcium 8.4 mg/dl (8.5-10.1); Creatinine Clr Calc Pharmacy 83.4 ml/min; Est GFR (Non-African American) 82.9; Potassium 3.7 mmol/L (3.5-5.1)
[2020-11-09] MEDS: dexAMETHasone 6 MG in SYRINGE 0 ML IV SCH (08:49)
[2020-11-09] MEDS: PHENYTOIN SODIUM ER 100 MG CAP PO SCH ×3 (08:49→20:54)
[2020-11-09] MEDS: AZITHROMYCIN 500 MG in DEXTROSE 5% 250 ML IV SCH (08:49)
[2020-11-09] MEDS: LORazepam 0.5 MG TAB PO PRN ×2 (08:49→20:56)
[2020-11-09] MEDS: levETIRAcetam 250 MG TAB PO SCH ×2 (08:49→20:56)
[2020-11-09] MEDS: ASPIRIN 81 MG ECTAB PO SCH (08:50)
[2020-11-09] MEDS: INSULIN ASPART 100 UNITS/ML 3 ML PEN SC SCH ×4 (08:50→20:59)
[2020-11-09] MEDS: PANCREAZE (LIPASE 4,200U) CAP PO SCH ×4 (08:50→20:53)
[2020-11-09] MEDS: SODIUM CHLORIDE 0.9% 10ML FLUSH IV SCH (13:14)
[2020-11-09] MEDS: REMDESIVIR 100 MG in SODIUM CHLORIDE 0.9% 230 ML IV SCH (13:14)
--- NOTE | 2020-11-09 14:57 | Hospitalist Progress Note ---
Date of Service November 09, 2020 Assessment & Plan (1) COVID-19 virus infection: Pneumonia due to COVID-19 virus infection with hypoxia- Pulse ox 88% on room air, improved to 95% on 2 L. today he was on 1.5L this morning, now on room air 96% he can go home tomorrow morning if still on room air Decadron 6 mg IV every morning, day 3 Remdesivir IV per protocol, stop today as he is on room air Ceftriaxone 1 g IV daily x 5 days, day 3 Azithromycin 500 mg IV daily x 5 days, day 3 Ventolin HFA 2 puffs 4 times daily, and every 2 hours as needed eating well, will get PT/OT evaluations try for discharge tomorrow if he is still on room air (2) Hypoxia: See above stable on 1.5L today then down to room air no increased work of breathing should be good for discharge tomorrow morning (3) Enlarged prostate with lower urinary tract symptoms (LUTS): Continue tamsulosin no LUTS at this time (4) Hypothyroidism: Continue levothyroxine 50 mcg daily (5) Hypercholesterolemia: Continue simvastatin 40 mg at bedtime (6) Seizure disorder: Continue Keppra and phenobarbital (7) DM type 2 (diabetes mellitus, type 2): Hold metformin. Placed on Accu-Cheks before meals and at bedtime with NovoLog coverage per scale sugars more elevated today at 284 on discharge would resume Metformin, would not need further Decadron if he remains off oxygen and hyperglycemia would not be an issue (8) Hyperlipidemia: Admission and Anticipated Discharge Date Admission Date: November 07, 2020 Subjective patient doing well, sitting up in a chair, frustrated because he wants to go home when I was in the room he was 1.5 liters and saturations were 92% later in the day he was 96% on room air, RN says he drops at night will get an overnight pulse ox, likely he can go home tomorrow morning, set up night oxygen if needed eating well, no fever Review of Systems Review of Systems: All systems reviewed & are unremarkable except as noted in Subjective Physical Exam Constitutional: well developed, well nourished, + frail appearing and cooperative; no acute distress Neck: trachea midline, no thyromegaly Respiratory: normal respiratory effort, lungs clear to auscultation Cardiovascular: RRR, no murmur, no edema Gastrointestinal (Abdomen): normal bowel sounds, soft, nontender, no hepatosplenomegaly Musculoskeletal: no cyanosis or clubbing, extremities motor strength 5/5 Skin: no rashes, warm and dry Neurologic: patellar DTR's 2+ bilat, sensation intact and PERRL, EOMI, accommodation nl, no face palsy, no dysarthria Psychiatric: A+Ox3, euthymic affect Lymphatic: no cervical or axillary lymphadenopathy Results & Data Results & Data ([facility]) Vital Signs (Past 12 Hours) Vital Signs Temp Pulse Resp BP Pulse Ox 11/09/20 07:24 36.7 C 80 18 131/69 99 Laboratory Results Laboratory Results - last 24 hr 11/08/20 11/08/20 11/09/20 17:23 20:54 06:14 WBC 2.60 L RBC 4.03 L Hgb 13.7 L Hct 40.5 L MCV 100.5 H MCH 34.0 MCHC 33.8 RDW Std Deviation 45.9 RDW Coeff of Amber 12.5 Plt Count 153 MPV 8.4 Sodium Potassium Chloride Carbon Dioxide Anion Gap BUN Creatinine Est Cr Clr Drug Dosing Est GFR ( Amer) Est GFR (Non-Af Amer) BUN/Creatinine Ratio Glucose POC Glucose 193 H 153 H Calcium 11/09/20 11/09/20 11/09/20 06:14 07:58 12:07 WBC RBC Hgb Hct MCV MCH MCHC RDW Std Deviation RDW Coeff of Amber Plt Count MPV Sodium 136 Potassium 3.7 Chloride 104 Carbon Dioxide 27 Anion Gap 5.0 BUN 15 Creatinine 0.88 Est Cr Clr Drug Dosing 83.4 Est GFR ( Amer) 96.0 Est GFR (Non-Af Amer) 82.9 BUN/Creatinine Ratio 16.9 Glucose 171 H POC Glucose 192 H 284 H Calcium 8.4 L Medications Administered Current Inpatient Medications Acetaminophen (Acetaminophen 325 Mg Tab) 650 mg PO Q4H PRN PRN Reason: Pain or Fever Stop: 12/07/20 06:22 Albuterol (Albuterol Hfa 8 Gm Inhaler) 2 puffs INH Q2H PRN PRN Reason: Shortness Of Breath Stop: 12/07/20 06:25 Lipase/Protease/Amylase (Pancreaze (Lipase 4,200u) Cap) 2 cap PO QIDM JESUS; Protocol Stop: 12/07/20 07:59 Last Admin: 11/09/20 13:14 Dose: 2 cap Documented by: Aspirin (Aspirin 81 Mg Ectab) 81 mg PO QAM [facility] Stop: 12/07/20 08:59 Last Admin: 11/09/20 08:50 Dose: 81 mg Documented by: Dextrose (Dextrose 50% 50 Ml Syringe) 25 - 50 ml IV UD PRN; Protocol PRN Reason: Hypoglycemia Protocol Stop: 12/07/20 14:59 Glucagon (Glucagon For Inj 1 Mg Vial) 1 mg IM UD PRN; Protocol PRN Reason: Hypoglycemia Protocol Stop: 12/07/20 14:59 Glucose (Glucose 40% Gel 15 Gm Tube) 15 - 30 gm PO UD PRN; Protocol PRN Reason: Hypoglycemia Protocol Stop: 12/07/20 14:59 Glucose (Glucose 10 Tabs/Tube) 4 - 8 tabs PO UD PRN; Protocol PRN Reason: Hypoglycemia Protocol Stop: 12/07/20 14:59 Hydrocortisone (Hydrocortisone Acetate 25 Mg Supp) 25 mg MT BID PRN PRN Reason: Hemorrhoids Stop: 12/07/20 06:22 Dexamethasone 6 mg/ Syringe 1.5 mls @ [facility] [place] Stop: 12/08/20 08:59 Last Admin: 11/09/20 08:49 Dose: 1 mls/min Documented by: Azithromycin 500 mg/ Dextrose 255 mls @ 125 mls/hr IV DAILY@0800 [facility] Stop: 11/14/20 07:59 Last Infusion: 11/09/20 11:04 Dose: Infused Documented by: Remdesivir 100 mg/ Sodium (Chloride) 250 mls @ 250 mls/hr IV Q24H [facility]; Protocol Stop: 11/11/20 12:59 Last Infusion: 11/09/20 14:28 Dose: Infused Documented by: Ceftriaxone Sodium 2,000 mg/ (Dextrose) 70 mls @ 100 mls/hr IV Q24H [facility]; Protocol Stop: 11/14/20 06:59 Last Infusion: 11/09/20 08:44 Dose: Infused Documented by: Insulin Aspart (Insulin Aspart 100 Units/Ml 3 Ml Pen) 0 units SC [facility] Stop: 12/07/20 16:29 Last Admin: 11/09/20 13:15 Dose: 10 units Documented by: Levetiracetam (Levetiracetam 250 Mg Tab) 750 mg PO BID [facility] Stop: 12/07/20 08:59 Last Admin: 11/09/20 08:49 Dose: 750 mg Documented by: Levothyroxine Sodium (Levothyroxine Sodium 50 Mcg Tablet) 50 mcg PO DAILYBB [facility] Stop: 12/07/20 06:29 Last Admin: 11/09/20 06:20 Dose: 50 mcg Documented by: Lorazepam (Lorazepam 0.5 Mg Tab) 0.5 mg PO BID PRN PRN Reason: Anxiety Stop: 12/07/20 06:22 Last Admin: 11/09/20 08:49 Dose: 0.5 mg Documented by: Miscellaneous (Carbohydrates For Hypoglycemia ) 15 - 30 gm PO UD PRN PRN Reason: Hypoglycemia Treatment Stop: 12/07/20 14:59 Ondansetron HCl (Ondansetron Inj 2 Mg/Ml 2 Ml Vial) 4 mg IV Q6H PRN PRN Reason: Nausea Stop: 12/07/20 06:22 Phenobarbital (Phenobarbital 32.4 Mg Tab) 64.8 mg PO BID [facility] Stop: 12/07/20 08:59 Last Admin: 11/09/20 08:49 Dose: 64.8 mg Documented by: Phenytoin Sodium (Phenytoin Sodium Er 100 Mg Cap) 100 mg PO TID [facility] Stop: 12/07/20 08:59 Last Admin: 11/09/20 13:14 Dose: 100 mg Documented by: Simvastatin (Simvastatin 40 Mg Tab) 40 mg PO HS [facility] Stop: 12/07/20 20:59 Last Admin: 11/08/20 20:48 Dose: 40 mg Documented by: Sodium Chloride (Sodium Chloride 0.9% 10ml Flush) 30 ml IV DAILY@1200 [facility] Stop: 11/11/20 12:01 Last Admin: 11/09/20 13:14 Dose: 30 ml Documented by: Tamsulosin HCl (Tamsulosin Hcl 0.4 Mg Cap) 0.4 mg PO DAILY@1700 [facility] Stop: 12/07/20 16:59 Last Admin: 11/08/20 17:57 Dose: 0.4 mg Documented by: PG Care Time/CCT Total # of Minutes Spent Total Time Spent with Patient: Total time spent is greater than 50% in coordination of care (as documented) at patient's floor/unit and/or counseling patient: Coding Level of Care Code 09534 Subseq Hosp Care Lvl 2 Diagnoses COVID-19 virus infection U07.1 Hypoxia R09.02 Enlarged prostate with lower urinary tract symptoms (LUTS) N40.1 Hypothyroidism E03.9 Hypercholesterolemia E78.00 Seizure disorder G40.909 DM type 2 (diabetes mellitus, type 2) E11.9 Hyperlipidemia E78.5
[2020-11-09] MEDS: TAMSULOSIN HCL 0.4 MG CAP PO SCH (18:09)
[2020-11-09] MEDS: SIMVASTATIN 40 MG TAB PO SCH (20:54)
[2020-11-10] MEDS: LEVOTHYROXINE SODIUM 50 MCG TABLET PO SCH (06:12)
[2020-11-10] MEDS: PANCREAZE (LIPASE 4,200U) CAP PO SCH ×3 (09:00→18:01)
[2020-11-10] MEDS: INSULIN ASPART 100 UNITS/ML 3 ML PEN SC SCH ×3 (09:43→18:00)
[2020-11-10] MEDS: ASPIRIN 81 MG ECTAB PO SCH (09:45)
[2020-11-10] MEDS: PHENYTOIN SODIUM ER 100 MG CAP PO SCH ×2 (09:45→14:30)
[2020-11-10] MEDS: levETIRAcetam 250 MG TAB PO SCH (09:45)
[2020-11-10] MEDS: dexAMETHasone 6 MG in SYRINGE 0 ML IV SCH (09:46)
[2020-11-10] MEDS: SODIUM CHLORIDE 0.9% 10ML FLUSH IV SCH (14:30)
--- NOTE | 2020-11-10 16:04 | Discharge Summary ---
Date of Service November 10, 2020 Admission HPI Per Admitting Provider The patient is a 75-year-old male with a past medical history including incomplete bladder emptying, recurrent UTI, hypertension, hypothyroidism, ataxic gait, BPH with LUTS, hypercholesterolemia, headache, peripheral neuropathy, seizure disorder, diabetes mellitus type 2, hyperlipidemia and frequent falls. The patient is presently living with his son who has been diagnosed with COVID- 19. The patient was noted by EMS to be 88% on room air upon their arrival. Work-up in the emergency department included the following pertinent laboratories: Sodium 134, glucose 174. COVID-[address] testing was positive. CT of head and CT cervical spine showed no acute findings. Chest x-ray with hazy infiltrates at bases, left greater than right. Principal Diagnosis Covid-19 pneumonia Discharge Exam Constitutional WD/WN, vitals as above Eyes + anicteric sclerae Neck trachea midline, no thyromegaly Respiratory normal respiratory effort, lungs clear to auscultation Cardiovascular RRR, no murmur, no edema Chest (Breasts) Chest: normal inspection of chest Gastrointestinal (Abdomen) normal bowel sounds, soft, nontender, no hepatosplenomegaly Musculoskeletal Extremities: extremities normal to inspection; no cyanosis and no clubbing Skin no rashes, warm and dry Neurologic moves all extremities and awake; no focal motor deficits Psychiatric A+Ox3, euthymic affect Lymphatic no lymphedema Discharge Data Allergies Allergy/AdvReac Type Severity Reaction Status Date / Time morphine Allergy Unknown ? Verified 11/07/20 02:27 nitrofurantoin AdvReac Mild NAUSEA Verified 11/07/20 02:27 Quinolones AdvReac Mild NAUSEA Verified 11/07/20 02:27 meperidine AdvReac Unknown SEIZURES Verified 11/07/20 02:27 Consultations 11/07/20 03:14 ED Decision to Admit Stat Ordered Studies 11/07/20 02:06 CT cervical spine wo con Urgent CT head/brain wo con Urgent Chest/abdomen x-ray Chest x-ray x2 Hospital Course (1) COVID-19 virus infection: Pneumonia due to COVID-19 virus infection with hypoxia- Pulse ox 88% on room air, improved and was on room air, passed a two-step walk test prior to discharge He received Decadron 6 mg IV daily x4 days-we will discharged home with 6 more days of p.o. Decadron Remdesivir IV daily x3 days was given and then discontinued Ceftriaxone 1 g IV daily x 5 days, day 4 Azithromycin 500 mg IV daily x 4 days we will give 1 more day of p.o. antibiotics Doing well and stable for discharge to home He should have a repeat chest x-ray in 3 to 4 weeks to ensure resolution of pneumonia (2) Hypoxia: See above-resolved On room air at rest and with exertion on the day of discharge (3) Enlarged prostate with lower urinary tract symptoms (LUTS): Continue tamsulosin no LUTS at this time (4) Hypothyroidism: Continue levothyroxine 50 mcg daily (5) Hypercholesterolemia: Continue simvastatin 40 mg at bedtime (6) Seizure disorder: Continue Keppra and phenobarbital, Dilantin (7) DM type 2 (diabetes mellitus, type 2): Can restart Metformin upon discharge Having some hyperglycemia which should improve after Decadron is discontinued Disposition-stable for discharge to home Total Time Total Time Spent Total Time Spent (In Minutes): 35 minutes Total Time Includes: Examination of the Patient, Discharge Planning and Medication Reconciliation Discharge Plan Discharge Items Patient Disposition: Home - Self-Care Reason For Visit: COVID-19 PNEUMONA W HYPOXIA,PROGRESSIVE WEAKNESS, Discharge Diagnosis: COVID-19 Pneumonia, Hypoxia Condition on Discharge: Fair Activity: Per Instructions section Lifting: Gradually increase as tolerated Bathing: No limitations Exercise/Sports: Gradually increase as tolerated Non-emergency contact: Primary Care Provider Call non-emergency contact if: you have any medication questions and your symptoms worsen Follow-up/Referrals: Coleman Gillespie MD [Primary Care Provider] - (Follow up within 1-2 weeks.) Diet: Carb Consistent or DM2 Addtl Attending Provider Instructions: Please finish out 6 more days of the dexamethasone (steroid pill) to help treat your pneumonia. Also, you will need 2 more days of azithromycin and 4 more days of cefdinir for antibiotics for your pneumonia. Home Isolation COVID-19 Instructions The following information about Home Isolation is from the CDC Website: https://www.cdc.gov/coronavirus/2019-ncov/hcp/bfobmgtr-oparcmz-dsvoyg.html Stay home except to get medical care People who are mildly ill with COVID-19 are able to isolate at home during their illness. You should restrict activities outside your home, except for getting medical care. Do not go to work, school, or public areas. Avoid using public transportation, ride-sharing, or taxis. Separate yourself from other people and animals in your home People: As much as possible, you should stay in a specific room and away from other people in your home. Also, you should use a separate bathroom, if available. Animals: You should restrict contact with pets and other animals while you are sick with COVID-19, just like you would around other people. Although there have not been reports of pets or other animals becoming sick with COVID-19, it is still recommended that people sick with COVID-19 limit contact with animals until more information is known about the virus. When possible, have another member of your household care for your animals while you are sick. If you are sick with COVID-19, avoid contact with your pet, including petting, snuggling, being kissed or licked, and sharing food. If you must care for your pet or be around animals while you are sick, wash your hands before and after you interact with pets and wear a face mask. Call ahead before visiting your doctor If you have a medical appointment, call the healthcare provider and tell them that you have or may have COVID-19. This will help the healthcare providers office take steps to keep other people from getting infected or exposed. Wear a face mask You should wear a face mask when you are around other people (e.g., sharing a room or vehicle) or pets and before you enter a healthcare providers office. If you are not able to wear a face mask (for example, because it causes trouble breathing), then people who live with you should not stay in the same room with you, or they should wear a face mask if they enter your room. Cover your coughs and sneezes Cover your mouth and nose with a tissue when you cough or sneeze. Throw used tissues in a lined trash can. Immediately wash your hands with soap and water for at least 20 seconds or, if soap and water are not available, clean your hands with an alcohol-based hand psychiatric registered nurse that contains at least 60% alcohol. Clean your hands often Wash your hands often with soap and water for at least 20 seconds, especially after blowing your nose, coughing, or sneezing; going to the bathroom; and before eating or preparing food. If soap and water are not readily available, use an alcohol-based hand psychiatric registered nurse with at least 60% alcohol, covering all surfaces of your hands and rubbing them together until they feel dry. Soap and water are the best option if hands are visibly dirty. Avoid touching your eyes, nose, and mouth with unwashed hands. Avoid sharing personal household items You should not share dishes, drinking glasses, cups, eating utensils, towels, or bedding with other people or pets in your home. After using these items, they should be washed thoroughly with soap and water. Clean all high-touch surfaces everyday High touch surfaces include counters, tabletops, doorknobs, bathroom fixtures, toilets, phones, keyboards, tablets, and bedside tables. Also, clean any surfaces that may have blood, stool, or body fluids on them. Use a household cleaning spray or wipe, according to the label instructions. Labels contain instructions for safe and effective use of the cleaning product including precautions you should take when applying the product, such as wearing gloves and making sure you have good ventilation during use of the product. Monitor your symptoms Seek prompt medical attention if your illness is worsening (e.g., difficulty breathing).Beforeseeking care, call your healthcare provider and tell them that you have, or are being evaluated for, COVID-19. Put on a face mask before you enter the facility. These steps will help the healthcare providers office to keep other people in the office or waiting room from getting infected or exposed. Ask your healthcare provider to call the local or [facility] health department. Persons who are placed under active monitoring or facilitated self- monitoring should follow instructions provided by their local health department or occupational health professionals, as appropriate. When working with your local health department check their available hours. If you have a medical emergency and need to call 911, notify the dispatch personnel that you have, or are being evaluated for COVID-19. If possible, put on a face mask before emergency medical services arrive. Discontinuing home isolation Patients with confirmed COVID-19 should remain under home isolation precautions until the risk of secondary transmission to others is thought to be low. The decision to discontinue home isolation precautions should be made on a fobl-tr-hyxr basis, in consultation with healthcare providers and [facility] and [facility] health departments. Pending Studies at Discharge: No Stand-Alone Forms: My [facility] Medications and DC Order Prescriptions: New dexamethasone 6 mg tablet 6 mg PO DAILY Qty: 6 RF: 0 azithromycin 250 mg tablet 250 mg PO DAILY Qty: 2 RF: 0 cefdinir 300 mg capsule 300 mg PO BID Qty: 8 RF: 0 Continued (DME) Wheeled Walker Misc See Rx Instructions .ROUTE .MEDSUPPLY Qty: 1 RF: 0 aspirin 81 mg tablet,delayed release (DR/EC) 81 mg PO QAM Qty: 90 RF: 3 levetiracetam 250 mg tablet 750 mg PO BID Qty: 540 RF: 3 Creon 6,000-19,000 -30,000 unit capsule,delayed release(DR/EC) 2 cap PO QID Qty: 720 RF: 3 metformin 500 mg tablet extended release 24 hr 500 mg PO DAILY Qty: 90 RF: 3 phenobarbital 64.8 mg tablet 64.8 mg PO BID Qty: 180 RF: 1 phenytoin sodium extended 100 mg capsule 100 mg PO TID Qty: 270 RF: 3 tamsulosin [Flomax] 0.4 mg capsule 0.4 mg PO .COMPLEX Qty: 90 RF: 3 simvastatin 40 mg tablet 40 mg PO HS RF: 0 hydrocortisone acetate [Anusol-HC] 25 mg suppository 25 mg ID BID PRN (Reason: Hemorrhoids) RF: 0 lorazepam 0.5 mg tablet 0.5 mg PO BID PRN (Reason: Anxiety) RF: 0 levothyroxine 50 mcg tablet 50 mcg PO DAILYBB RF: 0 Discharge Orders: Discharge Order (Routine); Ordered 11/10/20 Ordered By: Yamilka Gipson/Other Patient Handouts: Preventing the Spread of ... Admission Data Admit Date/Time: 11/07/20 04:31 Attending Provider: Yamilka Chong Admit Provider: Jose Nolan Primary Care Provider: Coleman Gillespie Other Providers: Jose Nolan Other Interventions: Discharge Summary Assessment (RN) Last Done: 11/10/20 16:08 Coding Level of Care Code D/C Day Management >30 mins Diagnoses COVID-19 virus infection U07.1 Hypoxia R09.02 Enlarged prostate with lower urinary tract symptoms (LUTS) N40.1 Hypothyroidism E03.9 Hypercholesterolemia E78.00 Seizure disorder G40.909 DM type 2 (diabetes mellitus, type 2) E11.9
[2020-11-10] MEDS: TAMSULOSIN HCL 0.4 MG CAP PO SCH (18:01)
== END 2020-11-10 18:56 | disposition home health service (06) | DRG 177 ==
LOC: ED 01:54 → SUATTDRO 04:31 → EDINP 04:31 → 3E 05:59

== ENCOUNTER 2020-11-15 17:13 | Inpatient (IN) ==
[2020-11-15] MEDS ORDERED: SODIUM CHLORIDE 0.9% 1000ML 500 ML IV ONE (17:31)
--- NOTE | 2020-11-15 17:53 | Emergency Department Note ---
Impression & Plan Weakness, Fall, COVID-19 ED Provider Note Provider: Jose Renner MD DATE OF SERVICE:11/15/2020 CHIEF COMPLAINT: Not himself HISTORY OF PRESENT ILLNESS: Patient is a 75-year-old gentleman with a history of prostate issues, diabetes, hyperlipidemia, seizures presenting via ambulance today from home. Patient was hospitalized prior week and has been diagnosed with COVID-19. Reports formerly [facility] visited today and while he was reportedly satting okay had a fever. Was given some Tylenol EMS states by the time they arrived patient was afebrile at 99 Fahrenheit for them. Patient himself states he is doing okay and does not know why he is here. Denies significant pain at this time he had a little bit of a strain in his left posterior neck. Discussed with the patient's with his permission and she states formerly [facility] thought he was not quite himself today and was not joking is normal and recommended he be evaluated and thus he presents here. Patient denies any significant focal weakness or difficulty with speech. Patient's granddaughter later calls in and states she got up and a call from formerly [facility] that he might have been slurring her speech and was not as excited about [place] presented expectancy may be lethargic so she called 911 to have him evaluated again. Evidently last day or 2 he has been more weak and did suffer a fall yesterday and had to be assisted up from this with some effort by other family members. Some decreased intake reported. REVIEW OF SYSTEMS: A total of 10 review of systems was obtained and negative except as stated above in the HPI. PAST MEDICAL HISTORY: As noted above MEDICATIONS: Reviewed home medication listings. SOCIAL HISTORY: Lives at home with and son PHYSICAL EXAM: GENERAL: alert and oriented to person, month, and most of recent events in no acute distress on stretcher Head: normocephalic and atraumatic EYES: No injection, discharge or icterus. PERRL NECK: Trachea midline. Supple. ENT: Mucous membranes pink and moist. LUNGS: Airway patent. No retractions. Breath sounds clear with good air entry bilaterally. HEART: Regular rate and rhythm. No chest wall tenderness ABDOMEN: Soft and non-tender, without guarding or rebound. SKIN: Acyanotic, warm, dry, without rashes EXTREMITIES: Without swelling, tenderness or deformity NEUROLOGICAL: No focal deficits. No aphasia. No facial droop or slurred speech. Patient does appear somewhat fatigued and somewhat slow to answer. EK bpm normal sinus rhythm. No PVC. No acute ST segment elevation or depression. Normal QTC. CONTINUOUS CARDIAC MONITORING: was ordered and showed a heart rate of 50's-60's bpm in normal sinus rhythm to sinus bradycardia GCS 15 Patient's laboratory studies and imaging reviewed. Differential includes Infection, dehydration, metabolic abnormality, hypo/hyperglycemia, electrolyte disturbance, anemia, hypoxia, cardiac sources, intracerebral event, toxicologic, neurologic, as well as other pathologies. IMPRESSION/MEDICAL DECISION MAKING: Patient resents not quite acting like himself no significant focal deficit appr eciated exam. Patient is a little bit hard of hearing but seems fairly alert and oriented for his age. Not hypoxic here. Patient denies significant chest pain or abdominal pain although he states is A little bit sore. Afebrile here not significantly tachycardic. Discussed with via phone with his permission she states understanding note he had fever and quite seem like himself. Reports he has been eating and drinking okay. Basic work-up was pursued with the CT of the head, laboratory studies, and EKG. Maintained on isolation here due to recent coronavirus. Given the recent fall CT head and cervical spine were completed. Given a small IV fluid bolus. Laboratory studies show mild leukopenia stable anemia. Slight hyponatremia is noted but renal function is stable otherwise. Negative troponin. No signs of transaminitis. TSH within normal limits. CT the head and cervical spine per radiology without evidence of significant acute traumatic injury or large territory stroke. Chest x-ray with some patchy infiltrates and he recently completed course of antibiotics and with no significant leukocytosis I have a lower suspicion this is bacterial. Patient on reassessment is without significant planes at this time. Patient still seems somewhat weak and difficult to get a good history from about the fall yesterday. Discussed with granddaughter who is the primary director of partner marketing at home and state home health been providing little services at this time due to staffing issues and has concerns about her grandmother being able to help him if he goes home (living with her grandmother who has some cognitive decline issues). Given the weakness that he is exhibiting right now, I believe related to coronavirus in discussion feel that further observation for possible additional home health replacement may be needed. Patient did have some slight complaint of shortness of breath well not hypoxic placed on a little bit oxygen for comfort. Likely I do not see significant traumatic injury from the fall yesterday. DIAGNOSIS: Weakness, coronavirus, fall DISPOSITION: Being evaluated by the hospitalist Past Med/Surg History Medical History (Updated 11/15/20 @ 20:07 by Jose Renner M.D.) CVA (cerebral vascular accident) Headache TIA (transient ischemic attack) (04/08/14) 2013 Ventral hernia Surgical History H/O abdominal surgery Hx of cholecystectomy Family History Mother Hypertension Brother Hypertension Kidney stones Denies family history of Myocardial infarction Stroke Social History Smoking Status: Former smoker Tobacco Type: Cigarettes Second Hand Exposure: No; Hx Alcohol Use: No Hx Substance Use: No Preferred Language: Japanese Communication Ability: Effective Child Nutrition Director Required: No Beliefs That Will Affect Care: None marital status: Current Living Situation: Family How many Children do You have: 0 Feels Safe at Home: Yes Assistive Devices: Glasses Allergies Allergies Allergy/AdvReac Type Severity Reaction Status Date / Time morphine Allergy Unknown ? Verified 11/07/20 02:27 nitrofurantoin AdvReac Mild NAUSEA Verified 11/07/20 02:27 Quinolones AdvReac Mild NAUSEA Verified 11/07/20 02:27 meperidine AdvReac Unknown SEIZURES Verified 11/07/20 02:27 Home Meds Home Medications Medication Instructions Recorded Confirmed hydrocortisone acetate [Anusol-HC] 25 mg UT BID PRN 11/07/20 11/15/20 levothyroxine 50 mcg PO DAILYBB 11/07/20 11/15/20 lorazepam 0.5 mg PO BID PRN 11/07/20 11/15/20 simvastatin 40 mg PO HS 11/07/20 11/15/20 tamsulosin [Flomax] 0.4 mg PO DAILY 11/15/20 11/15/20 Previous Rx's Medication Instructions Recorded aspirin 81 mg tablet,delayed 81 mg PO QAM #90 tab 10/07/20 release levetiracetam 250 mg tablet 750 mg PO BID #540 tab 10/07/20 [id number] 2 cap PO QID #720 cap 10/07/20 6,000-19,000-30,000 unit capsule,delayed rel metformin 500 mg tablet,extended 500 mg PO DAILY #90 tab 10/07/20 release 24 hr phenobarbital 64.8 mg tablet 64.8 mg PO BID #180 tab 10/07/20 phenytoin sodium extended 100 mg 100 mg PO TID #270 cap 10/07/20 capsule dexamethasone 6 mg PO DAILY #6 tab 11/10/20 Results & Data (ED) Vital Signs Vital Signs - 24 hr 11/15/20 17:13 11/15/20 17:20 11/15/20 17:51 Temperature 36.9 C Temperature Source Oral Pulse Rate 84 66 66 Pulse Rate [Apical] 84 Pulse Rate from SpO2 Sensor 66 Pulse Rhythm Regular Pulse Rhythm [Apical] Regular Pulse Strength Normal Pulse Strength [Apical] Normal Respiratory Rate 18 17 19 Respiratory Effort / Characteristics Short of Breath Blood Pressure 122/82 122/82 Blood Pressure [Left Arm] 122/82 Blood Pressure Mean 95 98 Blood Pressure Mean [Left Arm] 95 Blood Pressure Position Lying Blood Pressure Position [Left Arm] Lying Pulse Oximetry 92 92 Oxygen Delivery Method Room Air Oxygen Flow Rate 89 Sepsis Recent Fever Within 48 Hours No Sepsis New/Unexplained Change in Mental Status N/A Sepsis Action Taken by Nursing No Action Required Oxygen Flow Rate - Titration 2 11/15/20 18:00 11/15/20 18:01 11/15/20 18:20 Temperature Temperature Source Pulse Rate 62 61 58 L Pulse Rate [Apical] Pulse Rate from SpO2 Sensor 63 61 59 L Pulse Rhythm Pulse Rhythm [Apical] Pulse Strength Pulse Strength [Apical] Respiratory Rate 20 18 17 Respiratory Effort / Characteristics Blood Pressure 106/53 L Blood Pressure [Left Arm] Blood Pressure Mean 70 Blood Pressure Mean [Left Arm] Blood Pressure Position Blood Pressure Position [Left Arm] Pulse Oximetry 95 96 95 Oxygen Delivery Method Oxygen Flow Rate Sepsis Recent Fever Within 48 Hours Sepsis New/Unexplained Change in Mental Status Sepsis Action Taken by Nursing Oxygen Flow Rate - Titration 11/15/20 18:30 11/15/20 18:32 11/15/20 18:33 Temperature Temperature Source Pulse Rate 61 60 60 Pulse Rate [Apical] Pulse Rate from SpO2 Sensor 61 60 60 Pulse Rhythm Pulse Rhythm [Apical] Pulse Strength Pulse Strength [Apical] Respiratory Rate 17 17 15 Respiratory Effort / Characteristics Blood Pressure 102/58 L 105/62 117/56 L Blood Pressure [Left Arm] Blood Pressure Mean 72 77 66 Blood Pressure Mean [Left Arm] Blood Pressure Position Blood Pressure Position [Left Arm] Pulse Oximetry 97 95 96 Oxygen Delivery Method Nasal Cannula Nasal Cannula Nasal Cannula Oxygen Flow Rate 2 2 2 Sepsis Recent Fever Within 48 Hours Sepsis New/Unexplained Change in Mental Status Sepsis Action Taken by Nursing Oxygen Flow Rate - Titration 11/15/20 18:40 11/15/20 19:00 11/15/20 19:01 Temperature Temperature Source Pulse Rate 54 L 51 L 52 L Pulse Rate [Apical] Pulse Rate from SpO2 Sensor 54 L 51 L 52 L Pulse Rhythm Pulse Rhythm [Apical] Pulse Strength Pulse Strength [Apical] Respiratory Rate 16 18 17 Respiratory Effort / Characteristics Blood Pressure 96/51 L Blood Pressure [Left Arm] Blood Pressure Mean 64 Blood Pressure Mean [Left Arm] Blood Pressure Position Blood Pressure Position [Left Arm] Pulse Oximetry 95 95 94 Oxygen Delivery Method Nasal Cannula Nasal Cannula Nasal Cannula Oxygen Flow Rate 2 2 2 Sepsis Recent Fever Within 48 Hours Sepsis New/Unexplained Change in Mental Status Sepsis Action Taken by Nursing Oxygen Flow Rate - Titration 11/15/20 19:28 Temperature Temperature Source Pulse Rate Pulse Rate [Apical] Pulse Rate from SpO2 Sensor Pulse Rhythm Pulse Rhythm [Apical] Pulse Strength Pulse Strength [Apical] Respiratory Rate Respiratory Effort / Characteristics Blood Pressure Blood Pressure [Left Arm] Blood Pressure Mean Blood Pressure Mean [Left Arm] Blood Pressure Position Blood Pressure Position [Left Arm] Pulse Oximetry 94 Oxygen Delivery Method Nasal Cannula Oxygen Flow Rate 2 Sepsis Recent Fever Within 48 Hours Sepsis New/Unexplained Change in Mental Status Sepsis Action Taken by Nursing Oxygen Flow Rate - Titration Laboratory Data Result diagrams: 11/15/20 17:52 11/15/20 17:52 Lab Results 11/15/20 11/15/20 11/15/20 Range/Units 17:52 17:52 17:54 WBC 3.14 L (4.8-10.8) K/uL RBC 3.89 L (4.7-6.1) M/uL Hgb 13.3 L (14.0-18.0) g/dL Hct 38.3 L (42-52) % MCV 98.5 (80-100) fL MCH 34.2 H (25-34) pg MCHC 34.7 (32-36) g/dL RDW Std Deviation 43.7 (36.4-46.3) fL RDW Coeff of Amber 12.2 (11.5-14.5) % Plt Count 196 (130-400) K/uL MPV 8.6 (7.4-10.4) fL Immature Gran % (Auto) 0.0 % Neut % (Auto) 57.7 % Lymph % (Auto) 21.0 % Moffat % (Auto) 21.3 % Eos % (Auto) 0.0 % Baso % (Auto) 0.0 % Neut # (Auto) 1.81 (1.4-6.5) K/uL Lymph # (Auto) 0.66 L (1.2-3.4) K/uL Moffat # (Auto) 0.67 H (0.11-0.59) K/uL Eos # (Auto) 0.00 (0-0.5) K/uL Baso # (Auto) 0.00 (0-0.2) K/uL Immature Gran # (Auto) 0.00 (0.00-0.02) K/uL Sodium 131 L (136-145) mmol/L Potassium 4.0 (3.5-5.1) mmol/L Chloride 97 L (98-107) mmol/L Carbon Dioxide 27 (21-32) mmol/L Anion Gap 7.0 (3-11) BUN 12 (7-18) mg/dl Creatinine 1.02 (0.6-1.4) mg/dl Est Cr Clr Drug Dosing 71.2 ml/min Est GFR ( Amer) 81.8 Est GFR (Non-Af Amer) 70.6 BUN/Creatinine Ratio 12.1 (10-20) Glucose 231 H (70-99) mg/dl POC Glucose 224 H (70-99) mg/dl Calcium 8.3 L (8.5-10.1) mg/dl Total Bilirubin 0.4 (0.2-1) mg/dl AST 19 (15-37) U/L ALT 17 (12-78) U/L Alkaline Phosphatase 79 (45-117) U/L Troponin I < 0.015 (0-0.045) ng/ml Total Protein 7.3 (6.4-8.2) gm/dl Albumin 3.3 L (3.4-5.0) gm/dl Globulin 4.0 (2.5-4.0) gm/dl Albumin/Globulin Ratio 0.8 L (0.9-2) TSH 0.741 (0.300-4.500) uIu/ml Phenytoin (10-20) mcg/ml Phenobarbital (15-40) mcg/mL //20 Range/Units 18:27 WBC (4.8-10.8) K/uL RBC (4.7-6.1) M/uL Hgb (14.0-18.0) g/dL Hct (42-52) % MCV (80-100) fL MCH (25-34) pg MCHC (32-36) g/dL RDW Std Deviation (36.4-46.3) fL RDW Coeff of Amber (11.5-14.5) % Plt Count (130-400) K/uL MPV (7.4-10.4) fL Immature Gran % (Auto) % Neut % (Auto) % Lymph % (Auto) % Moffat % (Auto) % Eos % (Auto) % Baso % (Auto) % Neut # (Auto) (1.4-6.5) K/uL Lymph # (Auto) (1.2-3.4) K/uL Moffat # (Auto) (0.11-0.59) K/uL Eos # (Auto) (0-0.5) K/uL Baso # (Auto) (0-0.2) K/uL Immature Gran # (Auto) (0.00-0.02) K/uL Sodium (136-145) mmol/L Potassium (3.5-5.1) mmol/L Chloride (98-107) mmol/L Carbon Dioxide (21-32) mmol/L Anion Gap (3-11) BUN (7-18) mg/dl Creatinine (0.6-1.4) mg/dl Est Cr Clr Drug Dosing ml/min Est GFR ( Amer) Est GFR (Non-Af Amer) BUN/Creatinine Ratio (10-20) Glucose (70-99) mg/dl POC Glucose (70-99) mg/dl Calcium (8.5-10.1) mg/dl Total Bilirubin (0.2-1) mg/dl AST (15-37) U/L ALT (12-78) U/L Alkaline Phosphatase (45-117) U/L Troponin I (0-0.045) ng/ml Total Protein (6.4-8.2) gm/dl Albumin (3.4-5.0) gm/dl Globulin (2.5-4.0) gm/dl Albumin/Globulin Ratio (0.9-2) TSH (0.300-4.500) uIu/ml Phenytoin 8.3 L (10-20) mcg/ml Phenobarbital 24.0 (15-40) mcg/mL Administered Medications Discontinued Medications Sodium Chloride (Nss 1000ml) 500 mls @ 999 mls/hr IV .Q31M ONE Stop: 11/15/20 18:01 Last Infusion: 11/15/20 18:19 Dose: 0 mls/hr Documented by: [id number] Admin: 11/15/20 17:48 Dose: 999 mls/hr Documented by: [id number] Discharge Plan Visit Data Chief Complaint: Altered Mental Status ED Provider: Jose Renner Discharge Problem: Weakness, Fall, COVID-19 Patient Disposition: Home - Self-Care Prescriptions Prescriptions: No Action aspirin 81 mg tablet,delayed release (DR/EC) 81 mg PO QAM Qty: 90 RF: 3 levetiracetam 250 mg tablet 750 mg PO BID Qty: 540 RF: 3 Creon 6,000-19,000 -30,000 unit capsule,delayed release(DR/EC) 2 cap PO QID Qty: 720 RF: 3 metformin 500 mg tablet extended release 24 hr 500 mg PO DAILY Qty: 90 RF: 3 phenobarbital 64.8 mg tablet 64.8 mg PO BID Qty: 180 RF: 1 phenytoin sodium extended 100 mg capsule 100 mg PO TID Qty: 270 RF: 3 simvastatin 40 mg tablet 40 mg PO HS RF: 0 hydrocortisone acetate [Anusol-HC] 25 mg suppository 25 mg UT BID PRN (Reason: Hemorrhoids) RF: 0 lorazepam 0.5 mg tablet 0.5 mg PO BID PRN (Reason: Anxiety) RF: 0 levothyroxine 50 mcg tablet 50 mcg PO DAILYBB RF: 0 dexamethasone 6 mg tablet 6 mg PO DAILY Qty: 6 RF: 0 tamsulosin [Flomax] 0.4 mg capsule 0.4 mg PO DAILY RF: 0 Referrals Referrals: Coleman Gillespie MD [Primary Care Provider] - Discharge Problem: Fall Qualifiers: Encounter type: initial encounter Qualified Code(s): W19.XXXA - Unspecified fall, initial encounter
[2020-11-15 18:00] LABS: Hematocrit (blood only) 38.3 % (42-52); Hemoglobin 13.3 g/dL (14.0-18.0); Lymphocytes # (auto) 0.66 K/uL (1.2-3.4); Mean Corpuscular Hemoglobin 34.2 pg (25-34); Mean Corpuscular Hgb Conc 34.7 g/dL (32-36); Mean Corpuscular Volume 98.5 fL (80-100); Mean Platelet Volume 8.6 fL (7.4-10.4); Monocytes # (auto) 0.67 K/uL (0.11-0.59); Monocytes % (auto) 21.3 %; Neutrophils # (auto) 1.81 K/uL (1.4-6.5); Neutrophils % (auto) 57.7 %; Platelet Count 196 K/uL (130-400); RDW Coefficient of Variation 12.2 % (11.5-14.5); RDW Standard Deviation 43.7 fL (36.4-46.3); Red Blood Count 3.89 M/uL (4.7-6.1); White Blood Count 3.14 K/uL (4.8-10.8)
[2020-11-15 18:18] LABS: Alanine Aminotransferase 17 U/L (12-78); Albumin Level 3.3 gm/dl (3.4-5.0); Aspartate Aminotransferase 19 U/L (15-37); BUN Creatinine Ratio 12.1 (10-20); Blood Urea Nitrogen 12 mg/dl (7-18); Calcium 8.3 mg/dl (8.5-10.1); Carbon Dioxide 27 mmol/L (21-32); Chloride 97 mmol/L (98-107); Creatinine Clr Calc Pharmacy 71.2 ml/min; Est GFR (African American) 81.8; Est GFR (Non-African American) 70.6; Glucose 231 mg/dl (70-99); Sodium 131 mmol/L (136-145)
--- NOTE | 2020-11-15 18:24 | CT Scan Report ---
CT SCAN OF THE BRAIN WITHOUT IV CONTRAST CLINICAL HISTORY: Generalized weakness. Fall. COMPARISON STUDY: CT of the brain dated 11/07/2020 TECHNIQUE: Unenhanced axial CT scan of the brain is performed from the vertex to the skull base. A do se lowering technique was utilized adhering to the principles of ALARA. FINDINGS: Brain parenchyma: There are age-related involutional changes noting mild subcortical and periventric ular microangiopathic change. There is no hemorrhage, mass effect, or evidence of acute territorial i schemia by CT criteria. Small chronic lacunar infarcts are seen in the left internal capsule and the right thalamus. Franklin-white matter differentiation is preserved. No extra-axial fluid collection is se en. Ventricles, sulci, cisterns: Prominent secondary to involutional change. Intracranial vasculature: There is atherosclerotic calcification of the cavernous carotid and vertebr al arteries. Calvarium: The skeletal structures are osteopenic. No depressed calvarial fracture is identified. Sinuses and mastoids: The visualized paranasal sinuses are clear. The mastoid air cells are well pneu matized. Orbits: The bony orbits are grossly intact. There are bilateral ocular lens implants. IMPRESSION: There is no hemorrhage, mass effect, or evidence of acute territorial ischemia by CT crit michael. ACT 112: Negative or not required by law. Electronically signed by: Jose Umana M.D. 11/15/2020 6:22 PM
[2020-11-15 18:30] LABS: Albumin Globulin Ratio 0.8 (0.9-2); Alkaline Phosphatase 79 U/L (45-117); Bilirubin,Total 0.4 mg/dl (0.2-1); Thyroid Stimulating Hormone 0.741 uIu/ml (0.300-4.500); Total Protein 7.3 gm/dl (6.4-8.2); Troponin I < 0.015 ng/ml (0-0.045)
--- NOTE | 2020-11-15 18:33 | CT Scan Report ---
CT SCAN OF THE CERVICAL SPINE CLINICAL HISTORY: Fall. Weakness. COMPARISON STUDY: CT of the cervical spine dated 11/07/2020. TECHNIQUE: CT scan of the cervical spine is performed from the skull base to the upper thoracic spine . Images are reviewed in the axial, sagittal, and coronal planes. IV contrast was not administered fo r this examination. A dose lowering technique was utilized adhering to the principles of ALARA. CT DOSE: 1062.80 mGy.cm FINDINGS: Skeletal structures: The skeletal structures are osteopenic. There is no evidence of fracture or subl uxation involving the cervical spine. Vertebral body height and alignment are maintained. Anterior os teophytes are seen throughout. The odontoid process and lateral masses are intact. The atlantoaxial a rticulation is preserved noting mild productive degenerative change. The spinous processes appear int act. There is a mild chronic superior endplate compression deformity of T2. There is moderate to adva nced multilevel cervical spondylosis. Uncovertebral and facet arthropathy contribute to neural forami nal stenosis at most levels. Intervertebral discs: Moderate to advanced disc space narrowing is seen at all levels between C3-C4 a nd C6-C7. There is associated endplate sclerosis. Central canal: Posterior disc osteophyte complexes from C3-C4 through C6-C7 likely contribute to mult ilevel acquired compromise of the central canal. Soft tissues: The prevertebral and paraspinous soft tissues are within normal limits. Calvarium: The visualized calvarium at the skull base appears intact. Brain parenchyma: Partially visualized brain parenchyma the skull base is within normal limits. Sinuses and mastoids: The visualized paranasal sinuses are clear. The mastoid air cells are well pneu matized. Lung apices: Clear as visualized. IMPRESSION: 1. There is no evidence of fracture or subluxation involving the cervical spine. 2. Osteopenia and spondylotic change as above. ACT 112: Negative or not required by law. Electronically signed by: Jose Umana M.D. 11/15/2020 6:32 PM
[2020-11-15 19:19] LABS: Phenytoin (Dilantin) 8.3 mcg/ml (10-20)
--- NOTE | 2020-11-15 19:38 | XRay Report ---
SINGLE VIEW CHEST CLINICAL HISTORY: Fever. Dyspnea. Covid. FINDINGS: An AP, portable, upright chest radiograph is compared to study dated 11/07/2020. The cardio mediastinal silhouette is unremarkable. There is mild elevation of the right hemidiaphragm. Patchy ai rspace consolidation is seen throughout both lungs, greatest at the lung bases. No large pleural effu bulmaro or pneumothorax is seen. The skeletal structures are osteopenic. The bony thorax is grossly inta ct. IMPRESSION: Patchy airspace consolidation at both lung bases is consistent with an infectious pneumon itis, and this has worsened as compared to 11/07/2020. Follow-up to resolution is recommended. ACT 112: Negative or not required by law. Electronically signed by: Jose Umana M.D. 11/15/2020 7:37 PM
--- NOTE | 2020-11-15 22:08 | History & Physical Report ---
Date of Service November 15, 2020 Assessment & Plan (1) Fall: 75yo C male with Covid-19 PNA - Positive test on 11/04/20, recent hospitalization from 11/07 - 11/10 for PNA/hypoxemia s/p treatment with Dexamethasone, Remdesivir, Ceftriaxone and Azithromycin. Persistent weakness since discharge home. Fall yesterday with difficulty getting up. Patient reportedly febrile today as well as altered. Patient is in second week of illness - concern for inflammatory response that may be contributing to fever and AMS, although he is afebrile here. Slightly hypoxic on arrival at 89% on room air which quickly improved with minimal supplemental O2 - 2L NC now 96%. ?Deconditioning and infection contributing to patients fall and weakness. -Fall precautions -PT/OT evaluation - ?need for home services vs placement -Check CK total Present on Admission?: Yes (2) COVID-19: Patient with Covid-19 diagnosed 11/04/20 - PNA with hypoxemia s/p hospitalization. He received Remdesivir x 3 days, Dexamethasone day 08/07. He was reportedly febrile today prior to arrival, however has been afebrile since arrival. -Complete 10 day course of Dexamethasone - patient should receive dose today and tomorrow -Maintain isolation precautions - Airborne and Contact -Supplemental O2 as needed -Tylenol as needed -Lovenox 40 BID Present on Admission?: Yes (3) Hypertension: Patient currently with borderline hypotension - BP=97/48 which is considerably lower than prior readings. ?Volume contraction, possible underlying infection -Check UA and culture -Check blood cultures -Check lactate level -Check procalcitonin -Will hold off on empiric antibiotics for now -NSS at 80mL/hr x 1 liter Present on Admission?: Yes (4) Hypothyroidism: Chronic. Stable. TSH = 0.741 on 11/15/20 -Continue Synthroid 50mcg daily Present on Admission?: Yes (5) Seizures: Chronic. No reported seizures -Continue Phenytoin 100mg po TID -Continue PHenobarbital 64.8mg po BID -Continue Keppra 750mg po BID Present on Admission?: Yes (6) DM type 2 (diabetes mellitus, type 2): Patient with well controlled DM on oral agents. Last HgbA1C = 7.2 on 09/03/20. Blood sugar elevated today at 231. Possibly secondary to steroid effect vs underlying infection -Hold Metformin -Lantus 8u BID -ISS -Goal blood sugar 100 - 140 Present on Admission?: Yes (7) Enlarged prostate with lower urinary tract symptoms (LUTS): Chronic. Patient with remote history of self-catheterization -Continue Flomax -Monitor I/O -Bladder scan and straight cath as needed Present on Admission?: Yes (8) Hypercholesterolemia: Chronic. Stable -Continue Simvastatin 40mg po daily Present on Admission?: Yes (9) Anxiety: Chronic. -Continue Ativan 0.5mg po BID as needed for anxiety F/E/N - NSS at 80mL/hr x 1 liter, monitor electrolytes and replete as needed, CC/AHA diet as tolerated Ppx - Lovenox 30 BID Code - DNR/DNI per discussion with granddaughter Dispo - Observation to medical POC: Carmen Vang -granddaughter/caregiver/nurse - [phone] Present on Admission?: Yes History of Present Illness Chief Complaint: weakness, fall, inability to care for self Primary Care Provider: Coleman Gillespie MD Ra Vang is a 75yo male with history of HTN, HLP, DM, Seizure disorder recently admitted to [facility] from 11/07/20 - 11/10/20 with Covid-19 pneumonia. Patient Covid-19 POSITIVE on 11/04/20. Patient was treated with Dexamethasone 6mg IV x 4 days and discharged home with PO Decadron for 6 more days to complete a 10 day course. He was treated with Remdesivir x 3 days as well as Ceftriaxone and Azithromycin x 4 days. He was discharged home in stable condition on 11/10/20. Patient has not been doing well at home - he has been weak and fatigued and unable to care for himself. He had a fall yesterday and was unable to get up. He developed fever today as well as lethargy and decreased responsiveness. 911 was called and patient found to be hypoxic and weak. No additional complaints at this time. He denies chest pain, palpitations, cough, abdominal pain, nausea, vomiting, diarrhea or constipation. ER Course: No therapies administered Allergies Allergy/AdvReac Type Severity Reaction Status Date / Time morphine Allergy Unknown ? Verified 11/07/20 02:27 nitrofurantoin AdvReac Mild NAUSEA Verified 11/07/20 02:27 Quinolones AdvReac Mild NAUSEA Verified 11/07/20 02:27 meperidine AdvReac Unknown SEIZURES Verified 11/07/20 02:27 Home Medications Medication Instructions Recorded Confirmed Type aspirin 81 mg tablet,delayed 81 mg PO QAM #90 tab 10/07/20 11/15/20 Rx release levetiracetam 250 mg tablet 750 mg PO BID #540 tab 10/07/20 11/15/20 Rx dxyayt-vbyxpjwh-jxfhjgu 2 cap PO QID #720 cap 10/07/20 11/15/20 Rx 6,000-19,000-30,000 unit capsule,delayed rel metformin 500 mg tablet,extended 500 mg PO DAILY #90 tab 10/07/20 11/15/20 Rx release 24 hr phenobarbital 64.8 mg tablet 64.8 mg PO BID #180 tab 10/07/20 11/15/20 Rx phenytoin sodium extended 100 mg 100 mg PO TID #270 cap 10/07/20 11/15/20 Rx capsule hydrocortisone acetate [Anusol-HC] 25 mg [place] BID PRN 11/07/20 11/15/20 History levothyroxine 50 mcg PO DAILYBB 11/07/20 11/15/20 History lorazepam 0.5 mg PO BID PRN 11/07/20 11/15/20 History simvastatin 40 mg PO HS 11/07/20 11/15/20 History dexamethasone 6 mg PO DAILY #6 tab 11/10/20 11/15/20 Rx tamsulosin [Flomax] 0.4 mg PO DAILY 11/15/20 11/15/20 History Past Med/Surg History Medical History (Updated 11/15/20 @ 22:37 by Elena Ordonez DO) CVA (cerebral vascular accident) DM type 2 (diabetes mellitus, type 2) Falls frequently Headache Hypertension Hypothyroidism Seizures TIA (transient ischemic attack) (04/08/14) 2013 Ventral hernia Surgical History H/O abdominal surgery Hx of cholecystectomy Family History Mother Hypertension Brother Hypertension Kidney stones Denies family history of Myocardial infarction Stroke Social History Smoking Status: Former smoker Tobacco Type: Cigarettes Second Hand Exposure: No; Hx Alcohol Use: No Hx Substance Use: No Preferred Language: Vietnamese Communication Ability: Effective Packaging Sales Representative Required: No Beliefs That Will Affect Care: None marital status: Current Living Situation: Family How many Children do You have: 0 Feels Safe at Home: Yes Assistive Devices: Glasses Review of Systems Review of Systems: All systems reviewed & are unremarkable except as noted in HPI & below Physical Exam Physical Exam: General: patient resting comfortably, NAD, chronically ill in appearance, awake/alert/oriented to self, location with some confusion of date. Follows commands and answers most questions Skin: warm, dry, intact, no rashes or lesions HEENT: NC/AT, PERRL, EOMI, anicteric sclera, conjunctiva without injection, external ear normal to inspection and nontender, nares patent, dry mucus membranes, dentition intact, no oropharyngeal lesions, neck supple, trachea midline, no LAD, no thyromegaly, no JVD Heart: +S1/S2, regular, no m/r/g Lungs: equal air entry bilaterally, no rales/rhonchi/wheezes Abd: +BS, soft, NT/ND, no masses/organomegaly/ascites Ext: warm, 2+ pulses in UE/LE bilaterally, no clubbing/cyanosis or edema Neuro: nonfocal, patient AA&O x 4, speech intact, no facial droop, moving all extremities on command with equal strength 5/5 Results & Data Results & Data ([facility]) Vital Signs (Past 12 Hours) Vital Signs Temp Pulse Pulse Resp BP BP Pulse Ox 11/15/20 21:00 65 18 94/59 L 98 11/15/20 20:30 58 L 16 106/63 97 11/15/20 20:00 54 L 16 122/57 L 96 11/15/20 19:31 54 L 16 113/58 L 96 11/15/20 19:28 94 11/15/20 19:01 52 L 17 94 11/15/20 19:00 51 L 18 96/51 L 95 11/15/20 18:40 54 L 16 95 11/15/20 18:33 60 15 117/56 L 96 11/15/20 18:32 60 17 105/62 95 11/15/20 18:30 61 17 102/58 L 97 12/19/20 18:20 58 L 17 95 11/15/20 18:01 61 18 106/53 L 96 11/15/20 18:00 62 20 95 11/15/20 17:51 66 19 11/15/20 17:20 66 17 122/82 92 11/15/20 17:13 36.9 C 84 84 18 122/82 122/82 92 Laboratory Results Lab Results 11/15/20 11/15/20 11/15/20 Range/Units 17:52 17:52 17:54 WBC 3.14 L (4.8-10.8) K/uL RBC 3.89 L (4.7-6.1) M/uL Hgb 13.3 L (14.0-18.0) g/dL Hct 38.3 L (42-52) % MCV 98.5 (80-100) fL MCH 34.2 H (25-34) pg MCHC 34.7 (32-36) g/dL RDW Std Deviation 43.7 (36.4-46.3) fL RDW Coeff of Amber 12.2 (11.5-14.5) % Plt Count 196 (130-400) K/uL MPV 8.6 (7.4-10.4) fL Immature Gran % (Auto) 0.0 % Neut % (Auto) 57.7 % Lymph % (Auto) 21.0 % [place] % (Auto) 21.3 % Eos % (Auto) 0.0 % Baso % (Auto) 0.0 % Neut # (Auto) 1.81 (1.4-6.5) K/uL Lymph # (Auto) 0.66 L (1.2-3.4) K/uL [place] # (Auto) 0.67 H (0.11-0.59) K/uL Eos # (Auto) 0.00 (0-0.5) K/uL Baso # (Auto) 0.00 (0-0.2) K/uL Immature Gran # (Auto) 0.00 (0.00-0.02) K/uL Sodium 131 L (136-145) mmol/L Potassium 4.0 (3.5-5.1) mmol/L Chloride 97 L (98-107) mmol/L Carbon Dioxide 27 (21-32) mmol/L Anion Gap 7.0 (3-11) BUN 12 (7-18) mg/dl Creatinine 1.02 (0.6-1.4) mg/dl Est Cr Clr Drug Dosing 71.2 ml/min Est GFR ( Amer) 81.8 Est GFR (Non-Af Amer) 70.6 BUN/Creatinine Ratio 12.1 (10-20) Glucose 231 H (70-99) mg/dl POC Glucose 224 H (70-99) mg/dl Calcium 8.3 L (8.5-10.1) mg/dl Total Bilirubin 0.4 (0.2-1) mg/dl AST 19 (15-37) U/L ALT 17 (12-78) U/L Alkaline Phosphatase 79 (45-117) U/L Troponin I < 0.015 (0-0.045) ng/ml Total Protein 7.3 (6.4-8.2) gm/dl Albumin 3.3 L (3.4-5.0) gm/dl Globulin 4.0 (2.5-4.0) gm/dl Albumin/Globulin Ratio 0.8 L (0.9-2) TSH 0.741 (0.300-4.500) uIu/ml Phenytoin (10-20) mcg/ml Phenobarbital (15-40) mcg/mL /19/20 Range/Units 18:27 WBC (4.8-10.8) K/uL RBC (4.7-6.1) M/uL Hgb (14.0-18.0) g/dL Hct (42-52) % MCV (80-100) fL MCH (25-34) pg MCHC (32-36) g/dL RDW Std Deviation (36.4-46.3) fL RDW Coeff of Amber (11.5-14.5) % Plt Count (130-400) K/uL MPV (7.4-10.4) fL Immature Gran % (Auto) % Neut % (Auto) % Lymph % (Auto) % [place] % (Auto) % Eos % (Auto) % Baso % (Auto) % Neut # (Auto) (1.4-6.5) K/uL Lymph # (Auto) (1.2-3.4) K/uL [place] # (Auto) (0.11-0.59) K/uL Eos # (Auto) (0-0.5) K/uL Baso # (Auto) (0-0.2) K/uL Immature Gran # (Auto) (0.00-0.02) K/uL Sodium (136-145) mmol/L Potassium (3.5-5.1) mmol/L Chloride (98-107) mmol/L Carbon Dioxide (21-32) mmol/L Anion Gap (3-11) BUN (7-18) mg/dl Creatinine (0.6-1.4) mg/dl Est Cr Clr Drug Dosing ml/min Est GFR ( Amer) Est GFR (Non-Af Amer) BUN/Creatinine Ratio (10-20) Glucose (70-99) mg/dl POC Glucose (70-99) mg/dl Calcium (8.5-10.1) mg/dl Total Bilirubin (0.2-1) mg/dl AST (15-37) U/L ALT (12-78) U/L Alkaline Phosphatase (45-117) U/L Troponin I (0-0.045) ng/ml Total Protein (6.4-8.2) gm/dl Albumin (3.4-5.0) gm/dl Globulin (2.5-4.0) gm/dl Albumin/Globulin Ratio (0.9-2) TSH (0.300-4.500) uIu/ml Phenytoin 8.3 L (10-20) mcg/ml Phenobarbital 24.0 (15-40) mcg/mL Diagnostic Findings CT OF THE HEAD WITHOUT CONTRAST CLINICAL HISTORY: fall on asa COMPARISON STUDY: Head CT November 19, 2019. CT DOSE: 729.78 mGycm TECHNIQUE: Helical axial images of the head were obtained without IV contrast. Automated exposure control was utilized for the study. A dose lowering technique was utilized adhering to the principles of ALARA. FINDINGS: No acute intracranial hemorrhage, midline shift or mass effect is present. The ventricular system is unremarkable. Old lacunar infarct within the left basal ganglia is unchanged. Atrophy is again noted, greater within the cerebellum. The basal cisterns are patent. No extra-axial collections are present. There are no findings to suggest acute dural sinus thrombosis or acute territorial infarct. No significant calvarial abnormalities are present. Visualized portions of the sinuses and mastoid air cells are clear. IMPRESSION: 1. No acute intracranial findings. No change in appearance of the brain. 2. No calvarial fracture. ACT 112: Negative or not required by law. Electronically signed by: Donald Young M.D. 11/07/2020 6:40 AM Dictated: 11/07/2037Transcribed: 11/07/2037 XR chest 1V portable CLINICAL HISTORY: SEPSIS COMPARISON STUDY: 11/19/2019 FINDINGS: There is stable bibasilar areas of atelectasis/scarring. The heart is normal in size. There is no failure. There is no acute parenchymal consolidation. There are no significant pleural effusions.[ IMPRESSION: Stable basilar atelectasis/scarring. No acute findings ACT 112: Negative or not required by law. Electronically signed by: Dwaine Mack M.D. 11/07/2020 6:54 AM Dictated: 11/07/2054Transcribed: 11/07/20653 CT OF THE CERVICAL SPINE CLINICAL HISTORY: Neck pain status post trauma COMPARISON STUDY: August 13, 2019 CT DOSE: 480.92 mGycm TECHNIQUE: CT scan of the cervical spine was performed from the skull base to the thoracic inlet. Images are reviewed in the axial, sagittal, and coronal planes. IV contrast was not administered for this examination. A dose lowering technique was utilized adhering to the principles of ALARA. FINDINGS: The visualized portions of the lung apices reveal no evidence of pneumothorax. The prevertebral soft tissues are normal. No fractures or subluxations are visualized. There are multilevel degenerative changes IMPRESSION: No evidence of acute fracture or traumatic subluxation. ACT 112: Negative or not required by law. Electronically signed by: Dwaine Mack M.D. 11/07/2020 7:15 AM Dictated: 11/07/20713Transcribed: 11/07/20713 ECG Additional Comments: est Reason : Blood Pressure : / mmHG Vent. Rate : 099 BPM Atrial Rate : 099 BPM P-R Int : 148 ms QRS Dur : 078 ms QT Int : 324 ms P-R-T Axes : 019 014 -10 degrees QTc Int : 415 ms Poor data quality, interpretation may be adversely affected Normal sinus rhythm Nonspecific T wave abnormality Abnormal ECG When compared with ECG of 12-NOV-2019 13:44, Vent. rate has increased BY 36 BPM Confirmed by Ravi Thompson ([id number]) on 11/07/2020 2:46:00 PM Referred By: REFERRED SELF Confirmed By:Ravi Thompson Code Status & VTE Plan VTE Prophylaxis Plan VTE Prophylaxis will be ordered: Yes PG Care Time/CCT Total # of Minutes Spent Total Time Spent with Patient: Total time spent is greater than 50% in coordination of care (as documented) at patient's floor/unit and/or counseling patient: Coding Level of Care Code 13502 OBS Care - Level 3 Diagnoses Fall W19.XXXA Encounter type: initial encounter COVID-19 U07.1 Hypertension I10 Hypertension type: essential hypertension Hypothyroidism E03.9 Hypothyroidism type: unspecified Seizures R56.9 DM type 2 (diabetes mellitus, type 2) E11.9 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: without 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 school teacher use Diabetes mellitus complication status: without complication Enlarged prostate with lower urinary tract symptoms (LUTS) N40.1 Lower urinary tract symptom detail: unspecified Hypercholesterolemia E78.00 Anxiety F41.9 (1) Hypothyroidism Hypothyroidism type: unspecified Qualified Code(s): E03.9 - Hypothyroidism, unspecified (2) Hypertension Hypertension type: essential hypertension Qualified Code(s): I10 - Essential (primary) hypertension (3) DM type 2 (diabetes mellitus, type 2) 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
[2020-11-15] MEDS ORDERED: DEXAMETHASONE SOD INJ 10 MG/ML VIAL IV SCH (22:30)
[2020-11-15] MEDS ORDERED: DEXTROSE 50% 50 ML SYRINGE IV PRN (23:02)
[2020-11-15] MEDS ORDERED: GLUCOSE 40% GEL 15 GM TUBE PO PRN (23:02)
[2020-11-15] MEDS ORDERED: ACETAMINOPHEN 325 MG TAB PO PRN (23:02)
[2020-11-15] MEDS ORDERED: LORazepam 0.5 MG TAB PO PRN (23:02)
[2020-11-15] MEDS ORDERED: GLUCOSE 10 TABS/TUBE PO PRN (23:02)
[2020-11-15] MEDS ORDERED: CARBOHYDRATES FOR HYPOGLYCEMIA PO PRN (23:02)
[2020-11-15] MEDS ORDERED: GLUCAGON FOR INJ 1 MG VIAL SQ PRN (23:02)
[2020-11-15] MEDS ORDERED: SODIUM CHLORIDE 0.9% 1000ML 1,000 ML IV SCH (23:30)
[2020-11-16] MEDS: PHENYTOIN SODIUM ER 100 MG CAP PO SCH ×4 (00:20→20:23)
[2020-11-16] MEDS: dexAMETHasone 6 MG in SYRINGE 0 ML IV SCH ×2 (00:21→08:27)
[2020-11-16] MEDS: INSULIN ASPART 100 UNITS/ML 3 ML PEN SC SCH ×5 (00:24→20:26)
[2020-11-16] MEDS: INSULIN GLARGINE SOLOSTAR 100 UNITS/ML 3 ML PEN SC SCH ×3 (00:25→20:23)
[2020-11-16 00:54] LABS: Magnesium 2.4 mg/dl (1.8-2.4); Phosphorus 2.9 mg/dl (2.5-4.9)
[2020-11-16 02:58] LABS: Appearance Urine Clear (Clear); Bacteria Urine Automated Negative (Negative); Bilirubin Urine Negative (Negative); Blood Urine Negative (Negative); Color Urine Yellow; Epithelial Cell Urine Auto 0-5 /lpf (0-5); Glucose Urine UA 1+ (Negative); Ketones Urine Negative (Negative); Leukocyte Esterase Urine Negative (Negative); Nitrite Urine Negative (Negative); Protein Urine 1+ (Negative); RBC Urine Automated 0-4 /hpf (0-4); Specific Gravity Urine 1.011 (1.000-1.030); Urobilinogen Urine Negative (Negative); WBC Urine Automated 0 /hpf (0-5)
[2020-11-16] MEDS ORDERED: INSULIN ASPART 100 UNITS/ML 3 ML PEN SC SCH (04:00)
[2020-11-16] MEDS: LEVOTHYROXINE SODIUM 50 MCG TABLET PO SCH (04:56)
[2020-11-16 06:06] LABS: Hematocrit (blood only) 37.1 % (42-52); Hemoglobin 12.9 g/dL (14.0-18.0); Lymphocytes # (auto) 0.45 K/uL (1.2-3.4); Lymphocytes % (auto) 16.5 %; Mean Corpuscular Hemoglobin 34.3 pg (25-34); Mean Corpuscular Hgb Conc 34.8 g/dL (32-36); Mean Corpuscular Volume 98.7 fL (80-100); Mean Platelet Volume 8.6 fL (7.4-10.4); Monocytes % (auto) 14.7 %; Neutrophils # (auto) 1.88 K/uL (1.4-6.5); Neutrophils % (auto) 68.8 %; Platelet Count 195 K/uL (130-400); RDW Coefficient of Variation 12.2 % (11.5-14.5); Red Blood Count 3.76 M/uL (4.7-6.1); White Blood Count 2.73 K/uL (4.8-10.8)
[2020-11-16 06:30] LABS: BUN Creatinine Ratio 15.4 (10-20); Calcium 8.1 mg/dl (8.5-10.1); Creatinine Clr Calc Pharmacy 95.8 ml/min; Est GFR (African American) 103.7; Est GFR (Non-African American) 89.5
[2020-11-16] MEDS: ASPIRIN 81 MG ECTAB PO SCH (08:28)
[2020-11-16] MEDS: TAMSULOSIN HCL 0.4 MG CAP PO SCH (08:29)
[2020-11-16] MEDS: levETIRAcetam 250 MG TAB PO SCH ×2 (08:29→20:22)
[2020-11-16] MEDS: PANCREAZE (LIPASE 4,200U) CAP PO SCH ×4 (08:34→20:21)
[2020-11-16] MEDS ORDERED: ENOXAPARIN INJ 30 MG/0.3 ML SYR SQ SCH (09:00)
--- NOTE | 2020-11-16 13:09 | Electrocardiogram Report ---
Test Reason : Blood Pressure : / mmHG Vent. Rate : 065 BPM Atrial Rate : 065 BPM P-R Int : 144 ms QRS Dur : 078 ms QT Int : 392 ms P-R-T Axes : 014 012 007 degrees QTc Int : 407 ms Normal sinus rhythm Normal ECG When compared with ECG of 07-NOV-2020 02:01, Vent. rate has decreased BY 34 BPM Confirmed by Case Bedoya ([id number]) on 11/16/2020 1:09:06 PM Referred By: REFERRED SELF Confirmed By:Gonzalez Bedoya
--- NOTE | 2020-11-16 13:55 | Hospitalist Progress Note ---
Date of Service November 16, 2020 Assessment & Plan (1) Fall: 75yo C male with Covid-19 PNA - Positive test on 11/04/20, recent hospitalization from 11/07 - 11/10 for PNA/hypoxemia s/p treatment with Dexamethasone, Remdesivir, Ceftriaxone and Azithromycin. Persistent weakness since discharge home. Fall yesterday with difficulty getting up. Patient reportedly febrile today as well as altered. Patient is in second week of illness - concern for inflammatory response that may be contributing to fever and AMS, although he is afebrile here. Slightly hypoxic on arrival at 89% on room air which quickly improved with minimal supplemental O2 - 2L NC now 96%. ?Deconditioning and infection contributing to patients fall and weakness. continue treatment for COVID pneumonia awaiting PT/OT evaluations, likely needs 2-3 days in hospital to make sure he is strong enough (2) COVID-19: Patient with Covid-19 diagnosed 11/04/20 - PNA with hypoxemia s/p hospitalization. He received Remdesivir x 3 days, Dexamethasone day 08/07. He was reportedly febrile prior to arrival, however has been afebrile since arrival. -Complete 10 day course of Dexamethasone - last dose today -Maintain isolation precautions - Airborne and Contact -Supplemental O2 as needed -Tylenol as needed -Lovenox 40 BID try to wean oxygen as tolerated (3) Hypertension: Patient had borderline hypotension - BP=97/48 on admission UA clean urine and blood cultures with no growth lactate normal BP high today (4) Hypothyroidism: Chronic. Stable. TSH = 0.741 on 11/15/20 -Continue Synthroid 50mcg daily (5) Seizures: Chronic. No reported seizures -Continue Phenytoin 100mg po TID -Continue PHenobarbital 64.8mg po BID -Continue Keppra 750mg po BID (6) DM type 2 (diabetes mellitus, type 2): Patient with well controlled DM on oral agents. Last HgbA1C = 7.2 on 09/03/20. Blood sugar elevated today at 231. Possibly secondary to steroid effect vs underlying infection -Hold Metformin -Lantus 8u BID -ISS -Goal blood sugar 100 - 140 monitor for hyper/hypoglycemia (7) Enlarged prostate with lower urinary tract symptoms (LUTS): Chronic. Patient with remote history of self-catheterization -Continue Flomax -Monitor I/O -Bladder scan and straight cath as needed (8) Hypercholesterolemia: Chronic. Stable -Continue Simvastatin 40mg po daily (9) Anxiety: Chronic. -Continue Ativan 0.5mg po BID as needed for anxiety F/E/N - NSS at 80mL/hr x 1 liter, monitor electrolytes and replete as needed, CC/AHA diet as tolerated Ppx - Lovenox 30 BID Code - DNR/DNI per discussion with granddaughter Dispo - Observation to medical POC: Carmen Chronister -granddaughter/caregiver/nurse - [phone] Admission and Anticipated Discharge Date Admission Date: November 15, 2020 Subjective patient is upset about being in the hospital, says he just wants to go home discussed that he fell twice at home since he was discharged one week ago he needs therapy, he is reluctant but agrees he is eating okay, breathing stable on room air and 1-2L, fluctuating reviewed chart, reviewed labs Review of Systems Review of Systems: All systems reviewed & are unremarkable except as noted in Subjective Constitutional: + fatigue and + weakness; no fever Respiratory: + dyspnea on exertion; no cough and no dyspnea Cardiovascular: no chest pain and no edema Gastrointestinal: no abdominal pain, no nausea, no vomiting, no constipation and no diarrhea/loose stools Physical Exam Constitutional: WD/WN, vitals as above Neck: trachea midline, no thyromegaly Respiratory: normal respiratory effort, lungs clear to auscultation Cardiovascular: RRR, no murmur, no edema Gastrointestinal (Abdomen): normal bowel sounds, soft, nontender, no hepatosplenomegaly Musculoskeletal: no cyanosis or clubbing, extremities motor strength 5/5 Skin: no rashes, warm and dry Neurologic: patellar DTR's 2+ bilat, sensation intact and PERRL, EOMI, accommodation nl, no face palsy, no dysarthria Psychiatric: A+Ox3, euthymic affect Lymphatic: no cervical or axillary lymphadenopathy Results & Data Results & Data ([facility]) Vital Signs (Past 12 Hours) Vital Signs Temp Pulse Resp BP Pulse Ox 11/16/20 07:13 36.6 C 74 16 124/72 92 Laboratory Results Laboratory Results - last 24 hr 11/15/20 11/15/20 11/15/20 17:52 17:52 17:54 WBC 3.14 L RBC 3.89 L Hgb 13.3 L Hct 38.3 L MCV 98.5 MCH 34.2 H MCHC 34.7 RDW Std Deviation 43.7 RDW Coeff of Amber 12.2 Plt Count 196 MPV 8.6 Immature Gran % (Auto) 0.0 Neut % (Auto) 57.7 Lymph % (Auto) 21.0 [place] % (Auto) 21.3 Eos % (Auto) 0.0 Baso % (Auto) 0.0 Neut # (Auto) 1.81 Lymph # (Auto) 0.66 L [place] # (Auto) 0.67 H Eos # (Auto) 0.00 Baso # (Auto) 0.00 Immature Gran # (Auto) 0.00 Sodium 131 L Potassium 4.0 Chloride 97 L Carbon Dioxide 27 Anion Gap 7.0 BUN 12 Creatinine 1.02 Est Cr Clr Drug Dosing 71.2 Est GFR ( Amer) 81.8 Est GFR (Non-Af Amer) 70.6 BUN/Creatinine Ratio 12.1 Glucose 231 H POC Glucose 224 H Lactate Calcium 8.3 L Phosphorus Magnesium Total Bilirubin 0.4 AST 19 ALT 17 Alkaline Phosphatase 79 Total Creatine Kinase Troponin I < 0.015 NT-Pro-B Natriuret Pep Total Protein 7.3 Albumin 3.3 L Globulin 4.0 Albumin/Globulin Ratio 0.8 L Procalcitonin TSH 0.741 Urine Color Urine Appearance Urine pH Ur Specific [place] Urine Protein Urine Glucose (UA) Urine Ketones Urine Blood Urine Nitrite Urine Bilirubin Urine Urobilinogen Ur Leukocyte Esterase Urine WBC (Auto) Urine RBC (Auto) U Hyaline Cast (Auto) U Epithel Cells (Auto) Urine Bacteria (Auto) Phenytoin Phenobarbital 11/15/20 11/16/20 11/16/20 18:27 00:05 00:05 WBC RBC Hgb Hct MCV MCH MCHC RDW Std Deviation RDW Coeff of Amber Plt Count MPV Immature Gran % (Auto) Neut % (Auto) Lymph % (Auto) [place] % (Auto) Eos % (Auto) Baso % (Auto) Neut # (Auto) Lymph # (Auto) [place] # (Auto) Eos # (Auto) Baso # (Auto) Immature Gran # (Auto) Sodium Potassium Chloride Carbon Dioxide Anion Gap BUN Creatinine Est Cr Clr Drug Dosing Est GFR ( Amer) Est GFR (Non-Af Amer) BUN/Creatinine Ratio Glucose POC Glucose Lactate Calcium Phosphorus 2.9 Magnesium 2.4 Total Bilirubin AST ALT Alkaline Phosphatase Total Creatine Kinase 42 Troponin I NT-Pro-B Natriuret Pep 175 Total Protein Albumin Globulin Albumin/Globulin Ratio Procalcitonin < 0.05 TSH Urine Color Urine Appearance Urine pH Ur Specific [place] Urine Protein Urine Glucose (UA) Urine Ketones Urine Blood Urine Nitrite Urine Bilirubin Urine Urobilinogen Ur Leukocyte Esterase Urine WBC (Auto) Urine RBC (Auto) U Hyaline Cast (Auto) U Epithel Cells (Auto) Urine Bacteria (Auto) Phenytoin 8.3 L Phenobarbital 24.0 11/16/20 11/16/20 11/16/20 00:05 00:15 04:19 WBC RBC Hgb Hct MCV MCH MCHC RDW Std Deviation RDW Coeff of Amber Plt Count MPV Immature Gran % (Auto) Neut % (Auto) Lymph % (Auto) [place] % (Auto) Eos % (Auto) Baso % (Auto) Neut # (Auto) Lymph # (Auto) [place] # (Auto) Eos # (Auto) Baso # (Auto) Immature Gran # (Auto) Sodium Potassium Chloride Carbon Dioxide Anion Gap BUN Creatinine Est Cr Clr Drug Dosing Est GFR ( Amer) Est GFR (Non-Af Amer) BUN/Creatinine Ratio Glucose POC Glucose 149 H 204 H Lactate 1.0 Calcium Phosphorus Magnesium Total Bilirubin AST ALT Alkaline Phosphatase Total Creatine Kinase Troponin I NT-Pro-B Natriuret Pep Total Protein Albumin Globulin Albumin/Globulin Ratio Procalcitonin TSH Urine Color Urine Appearance Urine pH Ur Specific [place] Urine Protein Urine Glucose (UA) Urine Ketones Urine Blood Urine Nitrite Urine Bilirubin Urine Urobilinogen Ur Leukocyte Esterase Urine WBC (Auto) Urine RBC (Auto) U Hyaline Cast (Auto) U Epithel Cells (Auto) Urine Bacteria (Auto) Phenytoin Phenobarbital 11/16/20 11/16/20 11/16/20 05:12 05:12 08:13 WBC 2.73 L RBC 3.76 L Hgb 12.9 L Hct 37.1 L MCV 98.7 MCH 34.3 H MCHC 34.8 RDW Std Deviation 44.0 RDW Coeff of Amber 12.2 Plt Count 195 MPV 8.6 Immature Gran % (Auto) 0.0 Neut % (Auto) 68.8 Lymph % (Auto) 16.5 [place] % (Auto) 14.7 Eos % (Auto) 0.0 Baso % (Auto) 0.0 Neut # (Auto) 1.88 Lymph # (Auto) 0.45 L [place] # (Auto) 0.40 Eos # (Auto) 0.00 Baso # (Auto) 0.00 Immature Gran # (Auto) 0.00 Sodium 134 L Potassium 4.0 Chloride 102 Carbon Dioxide 26 Anion Gap 6.0 BUN 11 Creatinine 0.73 Est Cr Clr Drug Dosing 95.8 Est GFR ( Amer) 103.7 Est GFR (Non-Af Amer) 89.5 BUN/Creatinine Ratio 15.4 Glucose 202 H POC Glucose 153 H Lactate Calcium 8.1 L Phosphorus Magnesium Total Bilirubin AST ALT Alkaline Phosphatase Total Creatine Kinase Troponin I NT-Pro-B Natriuret Pep Total Protein Albumin Globulin Albumin/Globulin Ratio Procalcitonin TSH Urine Color Urine Appearance Urine pH Ur Specific [place] Urine Protein Urine Glucose (UA) Urine Ketones Urine Blood Urine Nitrite Urine Bilirubin Urine Urobilinogen Ur Leukocyte Esterase Urine WBC (Auto) Urine RBC (Auto) U Hyaline Cast (Auto) U Epithel Cells (Auto) Urine Bacteria (Auto) Phenytoin Phenobarbital 11/16/20 11/16/20 12:06 Unknown WBC RBC Hgb Hct MCV MCH MCHC RDW Std Deviation RDW Coeff of Amber Plt Count MPV Immature Gran % (Auto) Neut % (Auto) Lymph % (Auto) [place] % (Auto) Eos % (Auto) Baso % (Auto) Neut # (Auto) Lymph # (Auto) [place] # (Auto) Eos # (Auto) Baso # (Auto) Immature Gran # (Auto) Sodium Potassium Chloride Carbon Dioxide Anion Gap BUN Creatinine Est Cr Clr Drug Dosing Est GFR ( Amer) Est GFR (Non-Af Amer) BUN/Creatinine Ratio Glucose POC Glucose 186 H Lactate Calcium Phosphorus Magnesium Total Bilirubin AST ALT Alkaline Phosphatase Total Creatine Kinase Troponin I NT-Pro-B Natriuret Pep Total Protein Albumin Globulin Albumin/Globulin Ratio Procalcitonin TSH Urine Color Yellow Urine Appearance Clear Urine pH 6.0 Ur Specific [place] 1.011 Urine Protein 1+ H Urine Glucose (UA) 1+ H Urine Ketones Negative Urine Blood Negative Urine Nitrite Negative Urine Bilirubin Negative Urine Urobilinogen Negative Ur Leukocyte Esterase Negative Urine WBC (Auto) 0 Urine RBC (Auto) 0-4 U Hyaline Cast (Auto) 1-5 U Epithel Cells (Auto) 0-5 Urine Bacteria (Auto) Negative Phenytoin Phenobarbital Medications Administered Current Inpatient Medications Acetaminophen (Acetaminophen 325 Mg Tab) 650 mg PO Q4H PRN PRN Reason: pain/fever Stop: 12/15/20 23:01 Lipase/Protease/Amylase (Pancreaze (Lipase 4,200u) Cap) 2 cap PO QID [facility] Stop: 12/16/20 08:59 Last Admin: 11/16/20 12:40 Dose: 2 cap Documented by: Aspirin (Aspirin 81 Mg Ectab) 81 mg PO QAM JESUS Stop: 12/16/20 08:59 Last Admin: 11/16/20 08:28 Dose: 81 mg Documented by: Dextrose (Dextrose 50% 50 Ml Syringe) 25 - 50 ml IV UD PRN; Protocol PRN Reason: Hypoglycemia Protocol Stop: 12/15/20 23:01 Enoxaparin Sodium (Enoxaparin Inj 40 Mg/0.4 Ml Syr) 40 mg SQ Q12 [facility] Stop: 12/16/20 20:59 Glucagon (Glucagon For Inj 1 Mg Vial) 1 mg SQ UD PRN; Protocol PRN Reason: Hypoglycemia Protocol Stop: 12/15/20 23:01 Glucose (Glucose 10 Tabs/Tube) 4 - 8 tabs PO UD PRN; Protocol PRN Reason: Hypoglycemia Protocol Stop: 12/15/20 23:01 Glucose (Glucose 40% Gel 15 Gm Tube) 15 - 30 gm PO UD PRN; Protocol PRN Reason: Hypoglycemia Protocol Stop: 12/15/20 23:01 Dexamethasone Sodium Phosphate (6 mg/ Syringe) 1.5 mls @ 1 mls/min IV DAILY [facility] Stop: 12/15/20 23:44 Last Admin: 11/16/20 08:27 Dose: 1 mls/min Documented by: Insulin Aspart (Insulin Aspart 100 Units/Ml 3 Ml Pen) 0 units SC ACHS [facility] Stop: 12/15/20 23:44 Last Admin: 11/16/20 12:39 Dose: 2 units Documented by: Insulin Glargine (Insulin Glargine Solostar 100 Units/Ml 3 Ml Pen) 8 units SC BID [facility] Stop: 12/15/20 23:44 Last Admin: 11/16/20 08:56 Dose: 8 units Documented by: Levetiracetam (Levetiracetam 250 Mg Tab) 750 mg PO BID [facility] Stop: 12/16/20 08:59 Last Admin: 11/16/20 08:29 Dose: 750 mg Documented by: Levothyroxine Sodium (Levothyroxine Sodium 50 Mcg Tablet) 50 mcg PO DAILYBB [facility]ESUS Stop: 12/16/20 06:29 Last Admin: 11/16/20 04:56 Dose: 50 mcg Documented by: Lorazepam (Lorazepam 0.5 Mg Tab) 0.5 mg PO BID PRN PRN Reason: Anxiety Stop: 12/15/20 23:01 Miscellaneous (Carbohydrates For Hypoglycemia ) 15 - 30 gm PO UD PRN PRN Reason: Hypoglycemia Protocol Stop: 12/15/20 23:01 Phenobarbital (Phenobarbital 32.4 Mg Tab) 64.8 mg PO BID [facility]US Stop: 12/15/20 23:44 Last Admin: 11/16/20 08:44 Dose: 64.8 mg Documented by: Phenytoin Sodium (Phenytoin Sodium Er 100 Mg Cap) 100 mg PO TID [facility]US Stop: 12/15/20 23:44 Last Admin: 11/16/20 12:40 Dose: 100 mg Documented by: Simvastatin (Simvastatin 40 Mg Tab) 40 mg PO HS [facility] Stop: 12/16/20 20:59 Tamsulosin HCl (Tamsulosin Hcl 0.4 Mg Cap) 0.4 mg PO DAILY [facility] Stop: 12/16/20 08:59 Last Admin: 11/16/20 08:29 Dose: 0.4 mg Documented by: PG Care Time/CCT Total # of Minutes Spent Total Time Spent with Patient: Total time spent is greater than 50% in coordination of care (as documented) at patient's floor/unit and/or counseling patient: Coding Level of Care Code 54505 Subseq Hosp Care Lvl 2 Diagnoses Fall W19.XXXA Encounter type: initial encounter COVID-19 U07.1 Hypertension I10 Hypertension type: essential hypertension Hypothyroidism E03.9 Hypothyroidism type: unspecified Seizures R56.9 DM type 2 (diabetes mellitus, type 2) E11.9 Diabetes mellitus complication status: without complication Diabetes mellitus nursing home insulin use: without superintendent container terminal use Enlarged prostate with lower urinary tract symptoms (LUTS) N40.1 Lower urinary tract symptom detail: unspecified Hypercholesterolemia E78.00 Anxiety F41.9 (1) DM type 2 (diabetes mellitus, type 2) Diabetes mellitus complication status: without complication Diabetes mellitus superintendent container terminal insulin use: without superintendent container terminal use Qualified Code(s): E11.9 - Type 2 diabetes mellitus without complications (2) Hypothyroidism Hypothyroidism type: unspecified Qualified Code(s): E03.9 - Hypothyroidism, unspecified (3) Enlarged prostate with lower urinary tract symptoms (LUTS) Lower urinary tract symptom detail: unspecified Qualified Code(s): N40.1 - Benign prostatic hyperplasia with lower urinary tract symptoms (4) Hypertension Hypertension type: essential hypertension Qualified Code(s): I10 - Essential (primary) hypertension (5) Fall Encounter type: initial encounter Qualified Code(s): W19.XXXA - Unspecified fall, initial encounter
[2020-11-16] MEDS: ENOXAPARIN INJ 40 MG/0.4 ML SYR SQ SCH (20:21)
[2020-11-16] MEDS ORDERED: HALOPERIDOL LACTATE 5 MG/ML 1 ML VIAL IM STA (21:00)
[2020-11-16] MEDS ORDERED: SIMVASTATIN 40 MG TAB PO SCH (21:00)
[2020-11-17] MEDS: LEVOTHYROXINE SODIUM 50 MCG TABLET PO SCH (06:30)
[2020-11-17] MEDS: ASPIRIN 81 MG ECTAB PO SCH (08:32)
[2020-11-17] MEDS: TAMSULOSIN HCL 0.4 MG CAP PO SCH (08:32)
[2020-11-17] MEDS: levETIRAcetam 250 MG TAB PO SCH (08:32)
[2020-11-17] MEDS: dexAMETHasone 6 MG in SYRINGE 0 ML IV SCH (08:33)
[2020-11-17] MEDS: PHENYTOIN SODIUM ER 100 MG CAP PO SCH ×2 (08:33→14:05)
[2020-11-17] MEDS: PANCREAZE (LIPASE 4,200U) CAP PO SCH ×2 (08:33→13:01)
[2020-11-17] MEDS: ENOXAPARIN INJ 40 MG/0.4 ML SYR SQ SCH (08:33)
[2020-11-17] MEDS: INSULIN GLARGINE SOLOSTAR 100 UNITS/ML 3 ML PEN SC SCH (08:34)
[2020-11-17] MEDS: INSULIN ASPART 100 UNITS/ML 3 ML PEN SC SCH ×2 (08:36→12:58)
--- NOTE | 2020-11-18 07:10 | Discharge Summary ---
Date of Service November 17, 2020 Admission HPI Per Admitting Provider Ra Vang is a 75yo male with history of HTN, HLP, DM, Seizure disorder recently admitted to [facility] from 11/07/20 - 11/10/20 with Covid-19 pneumonia. Patient Covid-19 POSITIVE on 11/04/20. Patient was treated with Dexamethasone 6mg IV x 4 days and discharged home with PO Decadron for 6 more days to complete a 10 day course. He was treated with Remdesivir x 3 days as well as Ceftriaxone and Azithromycin x 4 days. He was discharged home in stable condition on 11/10/20. Patient has not been doing well at home - he has been weak and fatigued and unable to care for himself. He had a fall yesterday and was unable to get up. He developed fever today as well as lethargy and decreased responsiveness. 911 was called and patient found to be hypoxic and weak. No additional complaints at this time. He denies chest pain, palpitations, cough, abdominal pain, nausea, vomiting, diarrhea or constipation. ER Course: No therapies administered Principal Diagnosis Weakness and falls at home Discharge Exam Constitutional WD/WN, vitals as above Neck trachea midline, no thyromegaly Respiratory normal respiratory effort, lungs clear to auscultation Cardiovascular RRR, no murmur, no edema Gastrointestinal (Abdomen) normal bowel sounds, soft, nontender, no hepatosplenomegaly Musculoskeletal no cyanosis or clubbing, extremities motor strength 5/5 Skin no rashes, warm and dry Neurologic patellar DTR's 2+ bilat, sensation intact and PERRL, EOMI, accommodation nl, no face palsy, no dysarthria Psychiatric A+Ox3, euthymic affect Lymphatic no cervical or axillary lymphadenopathy Discharge Data Allergies Allergy/AdvReac Type Severity Reaction Status Date / Time morphine Allergy Unknown ? Verified 11/07/20 02:27 nitrofurantoin AdvReac Mild NAUSEA Verified 11/07/20 02:27 Quinolones AdvReac Mild NAUSEA Verified 11/07/20 02:27 meperidine AdvReac Unknown SEIZURES Verified 11/07/20 02:27 Consultations 11/15/20 20:16 ED Decision to Admit Stat Ordered Studies 11/15/20 17:25 CT head/brain wo con Stat 11/15/20 17:55 CT cervical spine wo con Stat Hospital Course (1) Fall: 75yo C male with Covid-19 PNA - Positive test on 11/04/20, recent hospitalization from 11/07 - 11/10 for PNA/hypoxemia s/p treatment with Dexamethasone, Remdesivir, Ceftriaxone and Azithromycin. Persistent weakness since discharge home. Fall yesterday with difficulty getting up. Patient reportedly febrile today as well as altered. Patient is in second week of illness - concern for inflammatory response that may be contributing to fever and AMS, although he is afebrile here. Slightly hypoxic on arrival at 89% on room air which quickly improved with minimal supplemental O2 - 2L NC now 96%. ?Deconditioning and infection contributing to patients fall and weakness. continue treatment for COVID pneumonia, completed 10 days of dexamethasone breathing well on room air PT/OT evaluations show that he is at baseline home health arranged his grand daughter is coming to live with he and his to provide extra support for a week (2) COVID-19: Patient with Covid-19 diagnosed 11/04/20 - PNA with hypoxemia s/p hospitalization. He received Remdesivir x 3 days when admitted prior -Completed 10 day course of Dexamethasone - last dose 11/16 -Maintain isolation precautions - Airborne and Contact -Supplemental O2 as needed -Tylenol as needed -Lovenox 40 BID breathing room air for over 24 hours, no respiratory distress main issue is weakness, family will offer extra support eating and drinking well (3) Hypertension: Patient had borderline hypotension - BP=97/48 on admission UA clean urine and blood cultures with no growth lactate normal BP now normal to elevated (4) Hypothyroidism: Chronic. Stable. TSH = 0.741 on 11/15/20 -Continue Synthroid 50mcg daily (5) Seizures: Chronic. No reported seizures -Continue Phenytoin 100mg po TID -Continue PHenobarbital 64.8mg po BID -Continue Keppra 750mg po BID (6) DM type 2 (diabetes mellitus, type 2): Patient with well controlled DM on oral agents. Last HgbA1C = 7.2 on 09/03/20. -Lantus 8u BID -ISS -Goal blood sugar 100 - 140 monitor for hyper/hypoglycemia, no significant episodes (7) Enlarged prostate with lower urinary tract symptoms (LUTS): Chronic. Patient with remote history of self-catheterization -Continue Flomax -Monitor I/O -Bladder scan and straight cath as needed (8) Hypercholesterolemia: Chronic. Stable -Continue Simvastatin 40mg po daily (9) Anxiety: Chronic. -Continue Ativan 0.5mg po BID as needed for anxiety F/E/N - NSS at 80mL/hr x 1 liter, now eating and drinking well Ppx - Lovenox 30 BID Code - DNR/DNI per discussion with granddaughter Dispo - discharge to home with home health and extra family support Total Time Total Time Spent Total Time Spent (In Minutes): 31 minutes Total Time Includes: Examination of the Patient, Discharge Planning, Medication Reconciliation, Communication With Other Providers (coordinated with caser) and Other (spoke with patient's ) Discharge Plan Discharge Items Patient Disposition: Home - Home Health Services Reason For Visit: WEAKNESS,DIFFICULTY AMBULATING Discharge Diagnosis: COVID 19 Weakness Falls at home Condition on Discharge: Good Goals: improve strength and mobility maintain hydration and nutrition Activity: Resume your previous activity Activity Comment: ambulate with walker, have family assist you for now Exercise/Sports: Gradually increase as tolerated Weightbearing: Full weightbearing Non-emergency contact: Primary Care Provider Call non-emergency contact if: you have any medication questions and your symptoms worsen Follow-up/Referrals: Coleman Gillespie MD [Primary Care Provider] - Diet: Carb Consistent or DM2 Addtl Attending Provider Instructions: Medications: you no longer will need the dexamethasone as you completed 10 days continue all your other home medications COVID 19 pneumonia resolved, not requiring oxygen, no respiratory distress completed 10 days of dexamethasone stay well nourished, well hydrated increase activity gradually home health will be arranged for therapy and nurse visits Pending Studies at Discharge: No Stand-Alone Forms: [facility], Smoking Cessation Medications and DC Order Prescriptions: Continued aspirin 81 mg tablet,delayed release (DR/EC) 81 mg PO QAM Qty: 90 RF: 3 levetiracetam 250 mg tablet 750 mg PO BID Qty: 540 RF: 3 Creon 6,000-19,000 -30,000 unit capsule,delayed release(DR/EC) 2 cap PO QID Qty: 720 RF: 3 metformin 500 mg tablet extended release 24 hr 500 mg PO DAILY Qty: 90 RF: 3 phenobarbital 64.8 mg tablet 64.8 mg PO BID Qty: 180 RF: 1 phenytoin sodium extended 100 mg capsule 100 mg PO TID Qty: 270 RF: 3 simvastatin 40 mg tablet 40 mg PO HS RF: 0 hydrocortisone acetate [Anusol-HC] 25 mg suppository 25 mg DE BID PRN (Reason: Hemorrhoids) RF: 0 lorazepam 0.5 mg tablet 0.5 mg PO BID PRN (Reason: Anxiety) RF: 0 levothyroxine 50 mcg tablet 50 mcg PO DAILYBB RF: 0 tamsulosin [Flomax] 0.4 mg capsule 0.4 mg PO DAILY RF: 0 Discontinued dexamethasone 6 mg tablet 6 mg PO DAILY Qty: 6 RF: 0 Discharge Orders: Discharge Order (Routine); Ordered 11/17/20 Ordered By: Sigifredo Francisco Admission Data Admit Date/Time: 11/16/20 23:04 Attending Provider: Sigifredo Francisco Admit Provider: Elena Ordonez Primary Care Provider: Coleman Gillespie Other Interventions: Discharge Summary Assessment (RN) Last Done: 11/17/20 13:11 Coding Level of Care Code D/C Day Management >30 mins Diagnoses Fall W19.XXXA Encounter type: initial encounter COVID-19 U07.1 Hypertension I10 Hypertension type: essential hypertension Hypothyroidism E03.9 Hypothyroidism type: unspecified Seizures R56.9 DM type 2 (diabetes mellitus, type 2) E11.9 Diabetes mellitus complication status: without complication Diabetes mellitus mcfp insulin use: without mcfp use Enlarged prostate with lower urinary tract symptoms (LUTS) N40.1 Lower urinary tract symptom detail: unspecified Hypercholesterolemia E78.00 Anxiety F41.9
== END 2020-11-17 16:13 | disposition home health service (06) ==
LOC: 3E 17:13 → ED 17:13 → SUATTDRO 21:15 → 3E 22:35

== ENCOUNTER 2021-05-08 16:54 | Inpatient (IN) ==
[2021-05-08] MEDS ORDERED: HYDROmorphone INJ 0.5 MG/0.5 ML SYR IV PRN ×2 (17:11→22:14)
--- NOTE | 2021-05-08 17:11 | Emergency Department Note ---
Impression & Plan Hip fracture, Fall, Hyperglycemia ED Provider Note NAME: VOLODYMYR VENEGAS AGE: 76 SEX: M : 1945 ARRIVES VIA: Ambulance INFORMANT: Patient ED PROVIDER(S): Martinez Cruz DO CHIEF COMPLAINT: Right leg pain HPI: Patient is a 76-year-old male who presents ER following a mechanical fall. He was walking with his walker and lost his balance and fell down onto his right hip. He denies hitting his head or neck. He did not pass out. It was witnessed. This occurred at home. He notes the pain is severe and sharp and stabbing with movement of his right hip. On a scale of 1 he describes it as a "bitch" when he moves it. He denies any tingling or numbness. No belly pain back pain or any other extremity pain. No other exacerbating remitting factors. ROS: See above HPI for pertinent positives & negatives. A total of 10 systems reviewed and were otherwise negative. PAST MEDICAL HISTORY:See Below PAST SURGICAL HISTORY:See Below FAMILY HISTORY:See Below SOCIAL HISTORY:See Below HOME MEDICATIONS:See Below ALLERGIES:See Below VITALS:See Below PHYSICAL EXAMINATION: GENERAL: Sitting up in bed, alert, disheveled, chronically ill-appearing HEAD: NC/AT EYE EXAM: normal conjunctiva. PERRL and EOM's grossly intact. OROPHARYNX: no exudate, no erythema, lips, buccal mucosa, and tongue normal and mucous membranes are moist NECK: supple, no nuchal rigidity, no adenopathy, non-tender LUNGS: Clear to auscultation. Normal chest wall mechanics CHEST: Stable to compression HEART: no murmurs, S1 normal and S2 normal ABDOMEN: abdomen soft, non-tender, normo-active bowel sounds, no masses, no rebound or guarding. BACK: Back is symmetrical on inspection and there is no deformity, no midline tenderness, no CVA tenderness. UPPER EXTREMITIES: upper extremities are grossly normal. LOWER EXTREMITIES: No tenderness throughout the entire left lower extremity. Tenderness over the right hip and proximal femur. No tenderness throughout the distal femur knee graham ankle or foot. DPs are 2 out of 4 bilaterally. NEURO EXAM: Normal sensorium, cranial nerves II-XII grossly intact, normal speech, no gross weakness of arms. MEDICAL DECISION MAKING: Patient is a 76-year-old male who presents ER following mechanical fall for sev ere right hip pain. IV was established blood was obtained. Labs show no significant leukocytosis or anemia. He denies hitting his head or neck. INR unremarkable. BMP with slightly elevated glucose. LFTs bilirubin was unremarkable. UA was clean. Covid negative. X-rays show a right subtrochan teric hip fracture. Discussed with Dr. Luis who with from orthopedics as this gentleman has not seen anybody else per his own report. Discussed with the hospitalist for further evaluation. He was given IV narcotics. Triage Nursing notes reviewed. Limited review of prior medical records performed Vital Signs: reviewed and remarkable for HTN and tachy Differential diagnosis: Differential diagnoses include major intracranial, cervical, spinal, thoracic, abdominal, pelvic and neurologic injury. Fracture, contusion, sprain, strain, laceration, abrasions included as well. ER treatment provided: See below Diagnostics interpreted by me: ECG: Sinus rhythm rate of 100 Normal axis No PVCs QTC 436 Cardiac Monitoring: An order was placed for continuous cardiac monitoring. The monitor shows a rate of 111 with sinus rhythm. Laboratory studies: As stated above and show below. Imaging studies: X-rays show a right hip fracture of the pelvis and femur Consultation(s): Discussed the hospitalist for further evaluation Discussed with orthopedics as stated above Procedures: none Critical Care: None Past Med/Surg History Medical History CVA (cerebral vascular accident) DM type 2 (diabetes mellitus, type 2) Fall Falls frequently Headache Hypertension Hypothyroidism Seizures TIA (transient ischemic attack) (04/08/14) 2013 Ventral hernia Surgical History H/O abdominal surgery Hx of cholecystectomy Family History Mother Hypertension Brother Hypertension Kidney stones Denies family history of Myocardial infarction Stroke Social History Smoking Status: Never smoker Tobacco Type: Cigarettes Second Hand Exposure: No; Hx Alcohol Use: No Hx Substance Use: No Preferred Language: Cook Islander Communication Ability: Effective Adjuster Leader Required: No Beliefs That Will Affect Care: None marital status: Current Living Situation: Spouse How many Children do You have: 0 Feels Safe at Home: Yes Assistive Devices: Walker Allergies Allergies Allergy/AdvReac Type Severity Reaction Status Date / Time morphine Allergy Unknown ? Verified 05/08/21 17:19 nitrofurantoin AdvReac Mild NAUSEA Verified 05/08/21 17:19 Quinolones AdvReac Mild NAUSEA Verified 05/08/21 17:19 meperidine AdvReac Unknown SEIZURES Verified 05/08/21 17:19 Home Meds Home Medications Medication Instructions Recorded Confirmed levothyroxine 50 mcg PO DAILYBB 11/07/20 05/08/21 simvastatin 40 mg PO HS 11/07/20 05/08/21 tamsulosin [Flomax] 0.4 mg PO DAILY 11/15/20 05/08/21 phenobarbital 64.8 mg PO AMHS 05/08/21 05/08/21 Previous Rx's Medication Instructions Recorded aspirin 81 mg tablet,delayed 81 mg PO QAM #90 tab 10/07/20 release levetiracetam 250 mg tablet 750 mg PO BID #540 tab 10/07/20 qnjqfv-jqmfveyz-vvuyxhy 2 cap PO QID #720 cap 10/07/20 6,000-19,000-30,000 unit capsule,delayed rel phenytoin sodium extended 100 mg 100 mg PO TID #270 cap 10/07/20 capsule blood sugar diagnostic #100 ea 12/05/20 blood-glucose meter #1 ea 12/05/20 docusate sodium 100 mg capsule 100 mg PO DAILY #30 cap 12/05/20 hydrocortisone acetate 25 mg 25 mg PA BID PRN #12 ea 12/05/20 rectal suppository lancets 30 gauge #100 ea 12/05/20 psyllium husk (aspartame) 3.4 2.987009 g PO DAILY #283 g 12/05/20 gram/5.8 gram oral powder metformin 500 mg tablet,extended 1,000 mg PO BID #180 tab 02/17/21 release 24 hr lorazepam 0.5 mg tablet 0.5 mg PO BID PRN #180 tab 03/17/21 triamcinolone acetonide 0.1 % 1 applic TOPICAL BID #30 g 03/25/21 topical cream ondansetron HCl 4 mg tablet 4 mg PO Q8H PRN #30 tab 04/15/21 Results & Data (ED) Vital Signs Vital Signs - 24 hr 05/08/21 16:58 05/08/21 17:00 05/08/21 18:30 Temperature 36.9 C Temperature Source Oral Pulse Rate 98 H 97 H 98 H Pulse Rate from SpO2 Sensor 96 H 98 H Respiratory Rate 6 L 16 17 Blood Pressure 173/100 H 173/100 H 173/87 H Blood Pressure Mean 124 124 115 Pulse Oximetry 95 96 95 Oxygen Delivery Method Room Air Sepsis Recent Fever Within 48 Hours No Sepsis New/Unexplained Change in Mental Status N/A Sepsis Action Taken by Nursing No Action Required 05/08/21 19:00 05/08/21 19:01 05/08/21 19:30 Temperature Temperature Source Pulse Rate 99 H 100 H 108 H Pulse Rate from SpO2 Sensor 100 H 100 H 108 H Respiratory Rate 10 L 10 L 13 Blood Pressure 159/80 H 153/81 H Blood Pressure Mean 106 105 Pulse Oximetry 96 94 96 Oxygen Delivery Method Sepsis Recent Fever Within 48 Hours Sepsis New/Unexplained Change in Mental Status Sepsis Action Taken by Nursing 05/08/21 20:00 05/08/21 20:01 Temperature Temperature Source Pulse Rate 109 H 109 H Pulse Rate from SpO2 Sensor 109 H 109 H Respiratory Rate 13 12 Blood Pressure 137/83 Blood Pressure Mean 101 Pulse Oximetry 96 96 Oxygen Delivery Method Sepsis Recent Fever Within 48 Hours Sepsis New/Unexplained Change in Mental Status Sepsis Action Taken by Nursing Laboratory Data Result diagrams: 05/08/21 17:13 05/08/21 17:13 Lab Results 05/08/21 05/08/21 05/08/21 Range/Units 17:13 17:13 17:13 WBC 8.60 (4.8-10.8) K/uL RBC 4.04 L (4.7-6.1) M/uL Hgb 14.0 (14.0-18.0) g/dL Hct 41.6 L (42-52) % MCV 103.0 H (80-100) fL MCH 34.7 H (25-34) pg MCHC 33.7 (32-36) g/dL RDW Std Deviation 48.3 H (36.4-46.3) fL RDW Coeff of Amber 12.6 (11.5-14.5) % Plt Count 252 (130-400) K/uL MPV 8.2 (7.4-10.4) fL Immature Gran % (Auto) 0.2 % Neut % (Auto) 74.7 % Lymph % (Auto) 18.0 % [place] % (Auto) 5.7 % Eos % (Auto) 1.2 % Baso % (Auto) 0.2 % Neut # (Auto) 6.42 (1.4-6.5) K/uL Lymph # (Auto) 1.55 (1.2-3.4) K/uL [place] # (Auto) 0.49 (0.11-0.59) K/uL Eos # (Auto) 0.10 (0-0.5) K/uL Baso # (Auto) 0.02 (0-0.2) K/uL Immature Gran # (Auto) 0.02 (0.00-0.02) K/uL PT 10.0 (9.0-12.0) Seconds INR 1.0 (0.9-1.1) APTT 24.4 (21.0-31.0) Seconds PTT Ratio 0.9 Sodium 137 (136-145) mmol/L Potassium 3.8 (3.5-5.1) mmol/L Chloride 104 (98-107) mmol/L Carbon Dioxide 25 (21-32) mmol/L Anion Gap 9.0 (3-11) BUN 12 (7-18) mg/dl Creatinine 0.96 (0.6-1.4) mg/dl Est Cr Clr Drug Dosing 76.1 ml/min Est GFR ( Amer) 87.4 ml/min Est GFR (Non-Af Amer) 75.4 ml/min BUN/Creatinine Ratio 12.1 (10-20) Glucose 180 H (70-99) mg/dl Calcium 9.3 (8.5-10.1) mg/dl Total Bilirubin 0.3 (0.2-1) mg/dl AST 14 L (15-37) U/L ALT 20 (12-78) U/L Alkaline Phosphatase 89 (45-117) U/L Total Protein 8.0 (6.4-8.2) gm/dl Albumin 4.0 (3.4-5.0) gm/dl Globulin 4.0 (2.5-4.0) gm/dl Albumin/Globulin Ratio 1.0 (0.9-2) Urine Color Urine Appearance (Clear) Urine pH (4.5-7.5) Ur Specific [place] (1.000-1.030) Urine Protein (Negative) Urine Glucose (UA) (Negative) Urine Ketones (Negative) Urine Blood (Negative) Urine Nitrite (Negative) Urine Bilirubin (Negative) Urine Urobilinogen (Negative) Ur Leukocyte Esterase (Negative) SARS-CoV-2 (PCR) (Negative) 05/08/21 05/08/21 Range/Units 18:26 18:40 WBC (4.8-10.8) K/uL RBC (4.7-6.1) M/uL Hgb (14.0-18.0) g/dL Hct (42-52) % MCV (80-100) fL MCH (25-34) pg MCHC (32-36) g/dL RDW Std Deviation (36.4-46.3) fL RDW Coeff of Amber (11.5-14.5) % Plt Count (130-400) K/uL MPV (7.4-10.4) fL Immature Gran % (Auto) % Neut % (Auto) % Lymph % (Auto) % [place] % (Auto) % Eos % (Auto) % Baso % (Auto) % Neut # (Auto) (1.4-6.5) K/uL Lymph # (Auto) (1.2-3.4) K/uL [place] # (Auto) (0.11-0.59) K/uL Eos # (Auto) (0-0.5) K/uL Baso # (Auto) (0-0.2) K/uL Immature Gran # (Auto) (0.00-0.02) K/uL PT (9.0-12.0) Seconds INR (0.9-1.1) APTT (21.0-31.0) Seconds PTT Ratio Sodium (136-145) mmol/L Potassium (3.5-5.1) mmol/L Chloride (98-107) mmol/L Carbon Dioxide (21-32) mmol/L Anion Gap (3-11) BUN (7-18) mg/dl Creatinine (0.6-1.4) mg/dl Est Cr Clr Drug Dosing ml/min Est GFR ( Amer) ml/min Est GFR (Non-Af Amer) ml/min BUN/Creatinine Ratio (10-20) Glucose (70-99) mg/dl Calcium (8.5-10.1) mg/dl Total Bilirubin (0.2-1) mg/dl AST (15-37) U/L ALT (12-78) U/L Alkaline Phosphatase (45-117) U/L Total Protein (6.4-8.2) gm/dl Albumin (3.4-5.0) gm/dl Globulin (2.5-4.0) gm/dl Albumin/Globulin Ratio (0.9-2) Urine Color Yellow Urine Appearance Clear (Clear) Urine pH 6.5 (4.5-7.5) Ur Specific [place] 1.010 (1.000-1.030) Urine Protein Negative (Negative) Urine Glucose (UA) Trace H (Negative) Urine Ketones Negative (Negative) Urine Blood Negative (Negative) Urine Nitrite Negative (Negative) Urine Bilirubin Negative (Negative) Urine Urobilinogen Negative (Negative) Ur Leukocyte Esterase Negative (Negative) SARS-CoV-2 (PCR) NEGATIVE (Negative) Administered Medications Sodium Chloride (Nss 1000ml) 1,000 mls @ 75 mls/hr IV .[id number] JESUS Stop: 05/09/21 06:34 Last Admin: 05/08/21 18:30 Dose: 75 mls/hr Documented by: [id number] Discontinued Medications Hydromorphone HCl (Hydromorphone Inj 0.5 Mg/0.5 Ml Syr) 0.5 mg IV Q20M PRN PRN Reason: Severe Pain (Rating 7,8,9,10) Stop: 05/22/21 17:10 Last Admin: 05/08/21 21:47 Dose: 0.5 mg Documented by: [id number] Admin: 05/08/21 21:07 Dose: 0.5 mg Documented by: [id number] Admin: 05/08/21 20:18 Dose: 0.5 mg Documented by: [id number] Admin: 05/08/21 18:49 Dose: 0.5 mg Documented by: [id number] Imaging Data Radiologist's Impression: Chest X-Ray 05/08/21 17:11 XR chest 1V portable CLINICAL HISTORY: fall COMPARISON STUDY: Chest radiograph November 15, 2020. FINDINGS: Lung volumes are normal. Linear bibasilar opacities reflect atelectasis or scarring. There is no pneumothorax or pleural effusion. Cardiac size is normal. Mediastinal contours are normal. There is no evidence for pulmonary edema. There are several old left rib fractures. IMPRESSION: No acute cardiopulmonary findings. ACT 112: Negative or not required by law. Electronically signed by: Donald Young M.D. 05/08/2021 6:09 PM Hip/Pelvis X-Ray 05/08/21 17:11 XR hip RT 2V w pelvis CLINICAL HISTORY: Right hip pain following fall. COMPARISON: Pelvis radiograph May 15, 2017. CT of the abdomen and pelvis February 14, 2019. FINDINGS: The sacroiliac joints and symphysis pubis are intact. Note is made of an acute comminuted mildly displaced oblique intertrochanteric fracture of the right femur which extends into the subtrochanteric portion of the right femur. No additional acute fractures are noted. There is moderate bilateral hip osteoarthritis. IMPRESSION: Acute comminuted oblique mildly displaced intertrochanteric fracture of the right femur which extends into the subtrochanteric region. ACT 112: Negative or not required by law. Electronically signed by: Donald Young M.D. 05/08/2021 6:11 PM Femur X-Ray 05/08/21 17:54 XR femur RT 2V routine CLINICAL HISTORY: r femur fx COMPARISON: Pelvis radiograph May 15, 2017. FINDINGS: There is an acute oblique mildly displaced comminuted intertrochanteric fracture of the right femur which extends into the subtrochanteric region. No distal right femoral fracture is present. Alignment of the right knee is difficult to assess on this exam but is likely anatomic. No proximal right tibial or fibular fracture. IMPRESSION: Acute oblique mildly displaced comminuted intertrochanteric fracture of the right femur with subtrochanteric extension. ACT 112: Negative or not required by law. Electronically signed by: Donald Young M.D. 05/08/2021 6:14 PM Discharge Plan Visit Data Chief Complaint: Fall ED Provider: Martinez Cruz Discharge Problem: Hip fracture, Fall, Hyperglycemia Discharge Instructions Interventions: ED Discharge Assessment Last Done: 05/08/21 21:03 Discharge Problem: Hip fracture Qualifiers: Encounter type: initial encounter Fracture type: closed Laterality: right Qualified Code(s): S72.001A - Fracture of unspecified part of neck of right femur, initial encounter for closed fracture Fall Qualifiers: Encounter type: initial encounter Qualified Code(s): W19.XXXA - Unspecified fall, initial encounter
[2021-05-08] MEDS ORDERED: SODIUM CHLORIDE 0.9% 1000ML 1,000 ML IV SCH (17:15)
[2021-05-08 17:24] LABS: Basophils # (auto) 0.02 K/uL (0-0.2); Basophils % (auto) 0.2 %; Eosinophils % (auto) 1.2 %; Hematocrit (blood only) 41.6 % (42-52); Immature Granulocytes # (auto) 0.02 K/uL (0.00-0.02); Immature Granulocytes % (auto) 0.2 %; Lymphocytes # (auto) 1.55 K/uL (1.2-3.4); Mean Corpuscular Hemoglobin 34.7 pg (25-34); Mean Corpuscular Hgb Conc 33.7 g/dL (32-36); Mean Platelet Volume 8.2 fL (7.4-10.4); Monocytes # (auto) 0.49 K/uL (0.11-0.59); Monocytes % (auto) 5.7 %; Neutrophils # (auto) 6.42 K/uL (1.4-6.5); Neutrophils % (auto) 74.7 %; Platelet Count 252 K/uL (130-400); RDW Coefficient of Variation 12.6 % (11.5-14.5); RDW Standard Deviation 48.3 fL (36.4-46.3); Red Blood Count 4.04 M/uL (4.7-6.1)
[2021-05-08 17:44] LABS: BUN Creatinine Ratio 12.1 (10-20); Calcium 9.3 mg/dl (8.5-10.1); Creatinine Clr Calc Pharmacy 76.1 ml/min; Est GFR (African American) 87.4 ml/min; Est GFR (Non-African American) 75.4 ml/min; Potassium 3.8 mmol/L (3.5-5.1)
[2021-05-08 17:46] LABS: Partial Thromboplastin Ratio 0.9; Partial Thromboplastin Time 24.4 Seconds (21.0-31.0)
[2021-05-08 17:47] LABS: Bilirubin,Total 0.3 mg/dl (0.2-1)
--- NOTE | 2021-05-08 18:10 | XRay Report ---
XR chest 1V portable CLINICAL HISTORY: fall COMPARISON STUDY: Chest radiograph November 15, 2020. FINDINGS: Lung volumes are normal. Linear bibasilar opacities reflect atelectasis or scarring. There is no pneumothorax or pleural effusion. Cardiac size is normal. Mediastinal contours are normal. Ther e is no evidence for pulmonary edema. There are several old left rib fractures. IMPRESSION: No acute cardiopulmonary findings. ACT 112: Negative or not required by law. Electronically signed by: Donald Young M.D. 05/08/2021 6:09 PM
--- NOTE | 2021-05-08 18:12 | XRay Report ---
XR hip RT 2V w pelvis CLINICAL HISTORY: Right hip pain following fall. COMPARISON: Pelvis radiograph May 15, 2017. CT of the abdomen and pelvis February 14, 2019. FINDINGS: The sacroiliac joints and symphysis pubis are intact. Note is made of an acute comminuted mildly displaced oblique intertrochanteric fracture of the right femur which extends into the subtroc hanteric portion of the right femur. No additional acute fractures are noted. There is moderate bilat eral hip osteoarthritis. IMPRESSION: Acute comminuted oblique mildly displaced intertrochanteric fracture of the right femur w hich extends into the subtrochanteric region. ACT 112: Negative or not required by law. Electronically signed by: Donald Young M.D. 05/08/2021 6:11 PM
--- NOTE | 2021-05-08 18:15 | XRay Report ---
XR femur RT 2V routine CLINICAL HISTORY: r femur fx COMPARISON: Pelvis radiograph May 15, 2017. FINDINGS: There is an acute oblique mildly displaced comminuted intertrochanteric fracture of the ri ght femur which extends into the subtrochanteric region. No distal right femoral fracture is present. Alignment of the right knee is difficult to assess on this exam but is likely anatomic. No proximal right tibial or fibular fracture. IMPRESSION: Acute oblique mildly displaced comminuted intertrochanteric fracture of the right femur w ith subtrochanteric extension. ACT 112: Negative or not required by law. Electronically signed by: Donald Young M.D. 05/08/2021 6:14 PM
[2021-05-08] MEDS: HYDROmorphone INJ 0.5 MG/0.5 ML SYR IV PRN ×4 (18:49→21:47)
[2021-05-08 19:18] LABS: Appearance Urine Clear (Clear); Bilirubin Urine Negative (Negative); Blood Urine Negative (Negative); Color Urine Yellow; Glucose Urine UA Trace (Negative); Ketones Urine Negative (Negative); Leukocyte Esterase Urine Negative (Negative); Nitrite Urine Negative (Negative); Protein Urine Negative (Negative); Urobilinogen Urine Negative (Negative); pH Urine 6.5 (4.5-7.5)
--- NOTE | 2021-05-08 20:07 | History & Physical Report ---
Date of Service May 08, 2021 Assessment & Plan Admission and Anticipated Discharge Date Admission Date: 76 yo M w/ pMHx. of DM II, HTN, HLD, Hypothyroidism, Seizure disorder, BPH, anxiety presenting for witnessed ground level fall w/ finding of right hip fracture on XR - admit med/surg tele Right hip fracture Thought to be mechanical, witnessed ground level fall. Less likely that this is cardiogenic or neurologic although the patient does have a history of seizures XR hip w/ --- acute oblique mildly displaced comminuted intertrochanteric fracture w/ subtrochanteric extension - hip fracture order set initiated - Consult placed for orthopedics, case reviewed with ER doctor prior to admission - NPO ordered, ASA held - Garcia placed - pain control with Dilaudid 0.25 mg for 1-5 pain and 0.5 mg for 6-10 pain - PT and OT orders placed for 01/10 Seizure Hx. - continue Phenobarbital 64.8 mg AM/HS, Keppra 250 TID, Phenytoin 100 TID - keppra level ordered DM II - held metformin - sliding scale insulin order Hypothyroidism - continue home Levothyroxine BPH - continue home meds Code: full Diet: NPO DVT: held chemo prophylaxis pre-operative, SCD's ordered History of Present Illness Chief Complaint: right hip pain Primary Care Provider: Coleman Gillespie MD Mr. aR Vang is here due to right hip pain after a fall. He had a witnessed (by his ) ground level fall where he did not hit his head. He was coming out of the bathroom with his walker and lost balance and fell. He was not feeling weak, did not have chest pain or palpitations, did not lose continence or bite his lip. He remembers before, during and after the event. He is currently having right hip pain that is 9/10. He does have a history of a seizure disorder but was unable to remember when he first developed seizures. He was seen here in 2016 by neurology for a seizure event with eyes rolling back and tremulous movements. 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 He had a CT head in October that did not have any acute changes seen. 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 He said he has just had this fall in the last year. Allergies Allergy/AdvReac Type Severity Reaction Status Date / Time morphine Allergy Unknown ? Verified 05/08/21 17:19 nitrofurantoin AdvReac Mild NAUSEA Verified 05/08/21 17:19 Quinolones AdvReac Mild NAUSEA Verified 05/08/21 17:19 meperidine AdvReac Unknown SEIZURES Verified 05/08/21 17:19 Home Medications Medication Instructions Recorded Confirmed Type aspirin 81 mg tablet,delayed 81 mg PO QAM #90 tab 10/07/20 05/08/21 Rx release levetiracetam 250 mg tablet 750 mg PO BID #540 tab 10/07/20 05/08/21 Rx opplfk-mxwyeitf-aywssgt 2 cap PO QID #720 cap 10/07/20 05/08/21 Rx 6,000-19,000-30,000 unit capsule,delayed rel phenytoin sodium extended 100 mg 100 mg PO TID #270 cap 10/07/20 05/08/21 Rx capsule levothyroxine 50 mcg PO DAILYBB 11/07/20 05/08/21 History simvastatin 40 mg PO HS 11/07/20 05/08/21 History tamsulosin [Flomax] 0.4 mg PO DAILY 11/15/20 05/08/21 History blood sugar diagnostic #100 ea 12/05/20 03/25/21 Rx blood-glucose meter #1 ea 12/05/20 03/25/21 Rx docusate sodium 100 mg capsule 100 mg PO DAILY #30 cap 12/05/20 05/08/21 Rx hydrocortisone acetate 25 mg 25 mg MT BID PRN #12 ea 12/05/20 05/08/21 Rx rectal suppository lancets 30 gauge #100 ea 12/05/20 03/25/21 Rx psyllium husk (aspartame) 3.4 2.037627 g PO DAILY #283 g 12/05/20 05/08/21 Rx gram/5.8 gram oral powder metformin 500 mg tablet,extended 1,000 mg PO BID #180 tab 02/17/21 05/08/21 Rx release 24 hr lorazepam 0.5 mg tablet 0.5 mg PO BID PRN #180 tab 03/17/21 05/08/21 Rx triamcinolone acetonide 0.1 % 1 applic TOPICAL BID #30 g 03/25/21 05/08/21 Rx topical cream ondansetron HCl 4 mg tablet 4 mg PO Q8H PRN #30 tab 04/15/21 05/08/21 Rx phenobarbital 64.8 mg PO AMHS 05/08/21 05/08/21 History Past Med/Surg History Medical History CVA (cerebral vascular accident) DM type 2 (diabetes mellitus, type 2) Fall Falls frequently Headache Hypertension Hypothyroidism Seizures TIA (transient ischemic attack) (04/08/14) 2013 Ventral hernia Surgical History H/O abdominal surgery Hx of cholecystectomy Family History Mother Hypertension Brother Hypertension Kidney stones Denies family history of Myocardial infarction Stroke Social History Smoking Status: Former smoker Tobacco Type: Cigarettes Smoking End Date: 20 years ago; Second Hand Exposure: No; Hx Alcohol Use: No Hx Substance Use: No Preferred Language: Colombian Communication Ability: Effective Electrical & Instrumentation Supervisor Required: No Beliefs That Will Affect Care: None marital status: Current Living Situation: Spouse Current Living Situation Comment: Lives at home with How many Children do You have: 0 Feels Safe at Home: Yes Assistive Devices: Denture - Upper and Denture - Lower Review of Systems Review of Systems: Constitutional: denies fevers, chills, nausea, vomiting, weight changes Head: admits some chronic vision changes Neurologic: denies focal weakness admits some numbness and tingling in her lower leg Cardiac: denies chest pain, palpitations, orthopnea Pulm.: denies cough, shortness of breath GI: denies constipation, diarrhea Physical Exam Constitutional: + acute distress Eyes: PERRL, conjunctivae normal, anicteric sclerae ENMT: external ear and nose normal, oropharynx normal Neck: normal visual inspection Respiratory: normal respiratory effort, lungs clear to auscultation Cardiovascular: RRR, no murmur, no edema Gastrointestinal (Abdomen): normal bowel sounds, soft, nontender, no hepatosplenomegaly Musculoskeletal: - right leg internally rotated - pulses 2+ posterior tibial and dorsalis pedis - sensation intact to light touch in lower extremity Skin: no rashes, warm and dry Neurologic: no focal motor deficits Psychiatric: Orientation: alert Eye Contact: good eye contact Speech: no pressured speech Affect: euthymic affect Results & Data Results & Data ([facility]) Vital Signs (Past 12 Hours) Vital Signs Temp Pulse Resp BP Pulse Ox 05/08/21 18:30 98 H 17 173/87 H 95 05/08/21 17:00 36.9 C 97 H 16 173/100 H 96 05/08/21 16:58 98 H 6 L 173/100 H 95 CBC Results Results Complete Blood Count Results: RBC 3.30 M/uL (4.7-6.1) L 05/09/21 WBC 13.24 K/uL (4.8-10.8) H 05/09/21 Hgb 11.3 g/dL (14.0-18.0) L 05/09/21 Hct 33.3 % (42-52) L 05/09/21 Plt Count 221 K/uL (130-400) 05/09/21 Chemistry ([facility]) Results BMP Results: Sodium 136 mmol/L (136-145) 05/09/21 Potassium 4.1 mmol/L (3.5-5.1) 05/09/21 Chloride 104 mmol/L (98-107) 05/09/21 BUN 11 mg/dl (7-18) 05/09/21 Creatinine 0.92 mg/dl (0.6-1.4) 05/09/21 Glucose 186 mg/dl (70-99) H 05/09/21 Supervising Physician Co-Signing Physician Notes Attending addendum: I have physically seen this patient, have supervised the medical residents activities, and agree with the H&P unless as otherwise noted. Assessment and Plan: Closed right hip fracture- Geriatric hip fracture protocol order set NPO Hold ASA Garcia catheter Acetaminophen 1 g IV every 8 hours as needed mild pain or fever Dilaudid 0.25 mg IV every 3 hours as needed moderate pain (1-5) Dilaudid 0.5 mg IV every 3 hours as needed severe pain (6-10) Zofran 4 mg IV every 6 hours as needed Famotidine 20 mg IV every 12 hours Consult orthopedic surgery Seizure disorder- Continue phenobarbital, Keppra and phenytoin as outpatient Diabetes mellitus- Hold Metformin Placed on Accu-Cheks before meals and at bedtime with NovoLog coverage per scale remaining orders and notations as noted Resident Activity Tracking Resident Involvement: Resident Care Provided Care Provided: Adult Hospital Medicine
--- NOTE | 2021-05-08 21:15 | Anesthesiology Consultation ---
Date of Service May 08, 2021 Assessment & Plan Chart Review Chart Review: Acceptable Risk for Surgery and Patient NOT seen in Pre Admission Testing Consults Requested none ASA ASA4 Proposed Anesthesia Anesthesia Type: General History Surgery Operation Date: 05/09/21 07:30 Proposed Procedures p Right hip long troch nail(Right) - Blu Luna M.D. Height/Weight Height: 5 ft 11 in Weight: 99.2 kg Allergies Allergy/AdvReac Type Severity Reaction Status Date / Time morphine Allergy Unknown ? Verified 05/08/21 17:19 nitrofurantoin AdvReac Mild NAUSEA Verified 05/08/21 17:19 Quinolones AdvReac Mild NAUSEA Verified 05/08/21 17:19 meperidine AdvReac Unknown SEIZURES Verified 05/08/21 17:19 Medications Home Medications Medication Instructions Recorded Confirmed Last Taken aspirin 81 mg tablet,delayed 81 mg PO QAM #90 tab 10/07/20 05/08/21 Unknown release levetiracetam 250 mg tablet 750 mg PO BID #540 tab 10/07/20 05/08/21 Unknown jrbnnh-spqcexuj-lwwpogw 2 cap PO QID #720 cap 10/07/20 05/08/21 Unknown 6,000-19,000-30,000 unit capsule,delayed rel phenytoin sodium extended 100 mg 100 mg PO TID #270 cap 10/07/20 05/08/21 Unkno wn capsule levothyroxine 50 mcg PO DAILYBB 11/07/20 05/08/21 Unknown simvastatin 40 mg PO HS 11/07/20 05/08/21 Unknown tamsulosin [Flomax] 0.4 mg PO DAILY 11/15/20 05/08/21 Unknown blood sugar diagnostic #100 ea 12/05/20 03/25/21 Unknown blood-glucose meter #1 ea 12/05/20 03/25/21 Unknown docusate sodium 100 mg capsule 100 mg PO DAILY #30 cap 12/05/20 05/08/21 Unknown hydrocortisone acetate 25 mg 25 mg IN BID PRN #12 ea 12/05/20 05/08/21 Unknown rectal suppository lancets 30 gauge #100 ea 12/05/20 03/25/21 Unknown psyllium husk (aspartame) 3.4 2.378571 g PO DAILY #283 g 12/05/20 05/08/21 Unknown gram/5.8 gram oral powder metformin 500 mg tablet,extended 1,000 mg PO BID #180 tab 02/17/21 05/08/21 Unknown release 24 hr lorazepam 0.5 mg tablet 0.5 mg PO BID PRN #180 tab 03/17/21 05/08/21 Unknown triamcinolone acetonide 0.1 % 1 applic TOPICAL BID #30 g 03/25/21 05/08/21 Unknown topical cream ondansetron HCl 4 mg tablet 4 mg PO Q8H PRN #30 tab 04/15/21 05/08/21 Unknown phenobarbital 64.8 mg PO AMHS 05/08/21 05/08/21 Unknown Active Medications Generic Name Dose Route Start Last Admin Trade Name Freq PRN Reason Stop Dose Admin Hydromorphone HCl 0.5 mg 05/08/21 17:11 05/08/21 21:07 Hydromorphone Inj 0.5 Mg/0.5 Ml Syr IV 05/22/21 17:10 0.5 mg Q20M PRN Administration Severe Pain (Rating 7,8,9,10) Sodium Chloride 1,000 mls @ 75 mls/hr 05/08/21 17:15 05/08/21 18:30 Nss 1000ml IV 05/09/21 06:34 75 mls/hr .[id number] JESUS Administration Past Medical History Medical History CVA (cerebral vascular accident) DM type 2 (diabetes mellitus, type 2) Fall Falls frequently Headache Hypertension Hypothyroidism Seizures TIA (transient ischemic attack) (04/08/14) 2013 Ventral hernia Exercise / Class Metabolic Activity III < 4 Walking/Shop/Light housework Past Family History Family History Mother Hypertension Brother Hypertension Kidney stones Denies family history of Myocardial infarction Stroke Past Surgical History Surgical History H/O abdominal surgery Hx of cholecystectomy Past Anesthesia History No Hx of Anesthesia Complications and No Family Hx of Anesthesia Complications History of PONV No Hx of PONV and No Hx of Motion Sickness Social History Smoking Status: Never smoker Hx Alcohol Use: No Hx Substance Use: No substance use type: does not use Physical Exam Vital Signs Last Vital Signs Temp 36.9 C 05/08/21 17:00 Pulse 118 H 05/08/21 21:03 Resp 19 05/08/21 21:03 BP 144/79 H 05/08/21 21:03 Pulse Ox 94 05/08/21 21:03 Testing Laboratory Results 05/08/21 17:13 05/08/21 17:13 PT 10.0 Seconds (9.0-12.0) 05/08/21 17:13 INR 1.0 (0.9-1.1) 05/08/21 17:13 APTT 24.4 Seconds (21.0-31.0) 05/08/21 17:13 Urine Color Yellow 05/08/21 18:40 Urine Appearance Clear (Clear) 05/08/21 18:40 Urine pH 6.5 (4.5-7.5) 05/08/21 18:40 Ur Specific [place] 1.010 (1.000-1.030) 05/08/21 18:40 Urine Protein Negative (Negative) 05/08/21 18:40 Urine Glucose (UA) Trace (Negative) H 05/08/21 18:40 Urine Ketones Negative (Negative) 05/08/21 18:40 Urine Nitrite Negative (Negative) 05/08/21 18:40 Ur Leukocyte Esterase Negative (Negative) 05/08/21 18:40 Electrocardiogram Date: 11/15/20 Findings: + NSR @ (at 63) Chest X-Ray Date: 05/08/21 Findings: + NAD Echocardiogram Date: 04/09/14 EF: 60% LV Function: normal RWMA: + none Other Findings: + atrial enlargement (mild LA), + LVH (mild) and + diastolic dysfunction (grade 1) Valvular Disease: + MR (mild mr) Other Testing 04/08/2014-carotid U/S-no H/D significant stenosis
[2021-05-08] MEDS ORDERED: GLUCOSE 10 TABS/TUBE PO PRN (22:14)
[2021-05-08] MEDS ORDERED: POLYETHYLENE (MIRALAX) 17 GM PACK PO PRN (22:14)
[2021-05-08] MEDS ORDERED: CARBOHYDRATES FOR HYPOGLYCEMIA PO PRN (22:14)
[2021-05-08] MEDS ORDERED: ONDANSETRON INJ 2 MG/ML 2 ML VIAL IV PRN (22:14)
[2021-05-08] MEDS ORDERED: DEXTROSE 50% 50 ML SYRINGE IV PRN (22:14)
[2021-05-08] MEDS ORDERED: MAGNESIUM HYDROXIDE SUSP 30 ML UDC PO PRN (22:14)
[2021-05-08] MEDS ORDERED: bisacodyL 10 MG SUPP PR PRN (22:14)
[2021-05-08] MEDS ORDERED: GLUCAGON FOR INJ 1 MG VIAL SQ PRN (22:14)
[2021-05-08] MEDS ORDERED: GLUCOSE 40% GEL 15 GM TUBE PO PRN (22:14)
[2021-05-08] MEDS ORDERED: NALOXONE HCL 0.4 MG/1 ML VIAL/CARP IV PRN (22:14)
[2021-05-08] MEDS ORDERED: ONDANSETRON INJ 2 MG/ML 2 ML VIAL ONE (23:06)
[2021-05-08] MEDS ORDERED: HYDROmorphone INJ 0.5 MG/0.5 ML SYR ONE (23:06)
[2021-05-08] MEDS: levETIRAcetam 250 MG TAB PO SCH (23:17)
[2021-05-08] MEDS: DOCUSATE SODIUM/SENNA 50/8.6MG TAB PO SCH (23:17)
[2021-05-08] MEDS: PHENYTOIN SODIUM ER 100 MG CAP PO SCH (23:18)
[2021-05-08] MEDS: SIMVASTATIN 40 MG TAB PO SCH (23:18)
[2021-05-08] MEDS: INSULIN ASPART 100 UNITS/ML 3 ML PEN SC SCH (23:24)
[2021-05-09] MEDS: HYDROmorphone INJ 0.5 MG/0.5 ML SYR IV PRN ×6 (02:41→21:19)
[2021-05-09] MEDS: LEVOTHYROXINE SODIUM 50 MCG TABLET PO SCH (06:15)
[2021-05-09] MEDS ORDERED: SODIUM CHLORIDE 0.9% 1000ML 1,000 ML IV SCH (06:30)
[2021-05-09 06:56] LABS: Basophils # (auto) 0.02 K/uL (0-0.2); Basophils % (auto) 0.2 %; Eosinophils # (auto) 0.02 K/uL (0-0.5); Eosinophils % (auto) 0.2 %; Hematocrit (blood only) 33.3 % (42-52); Hemoglobin 11.3 g/dL (14.0-18.0); Immature Granulocytes # (auto) 0.03 K/uL (0.00-0.02); Immature Granulocytes % (auto) 0.2 %; Lymphocytes # (auto) 1.37 K/uL (1.2-3.4); Lymphocytes % (auto) 10.3 %; Mean Corpuscular Hemoglobin 34.2 pg (25-34); Mean Corpuscular Hgb Conc 33.9 g/dL (32-36); Mean Corpuscular Volume 100.9 fL (80-100); Monocytes # (auto) 1.07 K/uL (0.11-0.59); Monocytes % (auto) 8.1 %; Neutrophils # (auto) 10.73 K/uL (1.4-6.5); Platelet Count 221 K/uL (130-400); RDW Standard Deviation 47.5 fL (36.4-46.3); White Blood Count 13.24 K/uL (4.8-10.8)
[2021-05-09] MEDS: INSULIN ASPART 100 UNITS/ML 3 ML PEN SC SCH ×4 (07:08→21:13)
[2021-05-09 07:22] LABS: BUN Creatinine Ratio 12.4 (10-20); Creatinine Clr Calc Pharmacy 79.3 ml/min; Est GFR (Non-African American) 79.4 ml/min; Potassium 4.1 mmol/L (3.5-5.1)
--- NOTE | 2021-05-09 07:57 | Orthopedic Consultation ---
Date of Consultation May 09, 2021 Assessment & Plan (1) Intertrochanteric fracture of right hip: He has a displaced right hip intertrochanteric fracture with subtrochanteric extension. I would highly recommend long cephalomedullary nailing of this fracture to realign bones, reduce pain, and restore the ability to ambulate. The patient is currently disoriented to place and time, and I am unable to obtain surgical consent from him. I called the patient's granddaughter, Glory Vang ([phone]), to discuss this further. 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 Glory has not been established as the legal power of att orney, but typically makes medical decisions for her grandparents. The surgery was explained in detail to her, and she gives consent to proceed. Risks, benefits, and alternatives of surgery were explained in detail. The surgical procedure, as well as postoperative recovery and rehabilitation, was also explained in detail. Risks include bleeding; infection; damage to surrounding structures such as nerves, blood vessels, and tendons that run in the area; persistent pain or stiffness; nonunion; malunion; hardware failure; painful prominent hardware requiring removal; or need for further surgery. The patient's granddaughter understands all of this and wishes to proceed with surgery. Preoperative workup was completed today, and informed consent was obtained. History of Present Illness Reason for Consultation: Right hip fracture Attending Physician: Jose Nolan MD History of Present Illness Mr. Vang is a 76 year old male who injured his right hip during a ground- level fall at home. The patient is currently disoriented and unable to contribute to the history, so history is largely obtained from chart review. Reportedly this fall was witnessed by his . He does have a history of seizure disorder, but no obvious seizure activity. This was presumably a mechanical ground-level fall. Patient denies any loss of consciousness. He normally ambulates with his walker. Allergies Allergy/AdvReac Type Severity Reaction Status Date / Time morphine Allergy Unknown ? Verified 05/08/21 17:19 nitrofurantoin AdvReac Mild NAUSEA Verified 05/08/21 17:19 Quinolones AdvReac Mild NAUSEA Verified 05/08/21 17:19 meperidine AdvReac Unknown SEIZURES Verified 05/08/21 17:19 Home Medications Medication Instructions Recorded Confirmed Type aspirin 81 mg tablet,delayed 81 mg PO QAM #90 tab 10/07/20 05/08/21 Rx release levetiracetam 250 mg tablet 750 mg PO BID #540 tab 10/07/20 05/08/21 Rx adqsss-tikxudzo-yvctoej 2 cap PO QID #720 cap 10/07/20 05/08/21 Rx 6,000-19,000-30,000 unit capsule,delayed rel phenytoin sodium extended 100 mg 100 mg PO TID #270 cap 10/07/20 05/08/21 Rx capsule levothyroxine 50 mcg PO DAILYBB 11/07/20 05/08/21 History simvastatin 40 mg PO HS 11/07/20 05/08/21 History tamsulosin [Flomax] 0.4 mg PO DAILY 11/15/20 05/08/21 History blood sugar diagnostic #100 ea 12/05/20 03/25/21 Rx blood-glucose meter #1 ea 12/05/20 03/25/21 Rx docusate sodium 100 mg capsule 100 mg PO DAILY #30 cap 12/05/20 05/08/21 Rx hydrocortisone acetate 25 mg 25 mg [place] BID PRN #12 ea 12/05/20 05/08/21 Rx rectal suppository lancets 30 gauge #100 ea 12/05/20 03/25/21 Rx psyllium husk (aspartame) 3.4 2.346749 g PO DAILY #283 g 12/05/20 05/08/21 Rx gram/5.8 gram oral powder metformin 500 mg tablet,extended 1,000 mg PO BID #180 tab 02/17/21 05/08/21 Rx release 24 hr lorazepam 0.5 mg tablet 0.5 mg PO BID PRN #180 tab 03/17/21 05/08/21 Rx triamcinolone acetonide 0.1 % 1 applic TOPICAL BID #30 g 03/25/21 05/08/21 Rx topical cream ondansetron HCl 4 mg tablet 4 mg PO Q8H PRN #30 tab 04/15/21 05/08/21 Rx phenobarbital 64.8 mg PO AMHS 05/08/21 05/08/21 History Patient History Medical History CVA (cerebral vascular accident) DM type 2 (diabetes mellitus, type 2) Fall Falls frequently Headache Hypertension Hypothyroidism Seizures TIA (transient ischemic attack) (04/08/14) 2013 Ventral hernia Surgical History H/O abdominal surgery Hx of cholecystectomy Family History Mother Hypertension Brother Hypertension Kidney stones Denies family history of Myocardial infarction Stroke Social History Smoking Status: Former smoker Tobacco Type: Cigarettes Smoking End Date: 20 years ago; Second Hand Exposure: No; Hx Alcohol Use: No Hx Substance Use: No Preferred Language: Lithuanian Communication Ability: Effective Capsule Maker Required: No Beliefs That Will Affect Care: None marital status: Current Living Situation: Spouse Current Living Situation Comment: Lives at home with How many Children do You have: 0 Feels Safe at Home: Yes Assistive Devices: Denture - Upper Physical Exam Physical Exam: Patient is currently disoriented to place and time. Examination of the right hip shows no open wounds. There is shortening and external rotation of the leg. There is mild swelling and tenderness to palpation of the thigh and hip area. Compartments are soft and compressible. Intact ankle dorsiflexion and plantarflexion. Results & Data ([facility]) Vital Signs (Past 12 Hours) Vital Signs Temp Pulse Pulse Pulse Resp BP BP 05/09/21 07:23 36.8 C 105 H 18 155/72 H 05/09/21 03:46 36.8 C 105 H 18 103/64 05/09/21 01:00 36.5 C 116 H 20 161/81 H 05/09/21 00:38 120 H 05/09/21 00:11 116 H 05/08/21 21:03 118 H 19 144/79 H 05/08/21 21:01 115 H 11 L 05/08/21 21:00 116 H 13 144/79 H 05/08/21 20:31 109 H 12 05/08/21 20:30 110 H 10 L 155/76 H 05/08/21 20:01 109 H 12 05/08/21 20:00 109 H 13 137/83 Pulse Ox 05/09/21 07:23 91 05/09/21 03:46 91 06/12/21 01:00 96 05/09/21 00:38 05/09/21 00:11 05/08/21 21:03 94 05/08/21 21:01 95 05/08/21 21:00 93 05/08/21 20:31 93 05/08/21 20:30 94 05/08/21 20:01 96 05/08/21 20:00 96 Diagnostic Findings Right hip and femur x-rays were reviewed. It shows a comminuted and displaced intertrochanteric hip fracture with significant subtrochanteric extension. Fortunately, no significant apexanterior angulation across the fracture site. No other fractures are seen down the femoral shaft. (1) Intertrochanteric fracture of right hip Encounter type: initial encounter Fracture type: closed Fracture alignment: displaced Qualified Code(s): S72.141A - Displaced intertrochanteric fracture of right femur, initial encounter for closed fracture
[2021-05-09] MEDS: levETIRAcetam 250 MG TAB PO SCH ×2 (08:16→20:46)
[2021-05-09] MEDS: DOCUSATE SODIUM 100 MG CAP PO SCH (08:16)
[2021-05-09] MEDS: PHENYTOIN SODIUM ER 100 MG CAP PO SCH ×3 (08:16→20:50)
[2021-05-09] MEDS: TAMSULOSIN HCL 0.4 MG CAP PO SCH (08:16)
[2021-05-09] MEDS: ACETAMINOPHEN 325 MG TAB PO PRN ×2 (08:19→20:50)
--- NOTE | 2021-05-09 10:30 | History & Physical Bridge Note ---
Date of Service May 09, 2021 History & Physical Bridge Note I have examined the patient, reviewed the History & Physical and in the interval since the performance of the History & Physical I have noted the following changes of clinical significance: no changes noted
[2021-05-09] MEDS ORDERED: fentaNYL citrate 100 MCG/2 ML VIAL ONE (10:50)
[2021-05-09] MEDS ORDERED: ROCURONIUM BROMIDE 10 MG/ML 5 ML VIAL IV ONE (10:51)
[2021-05-09] MEDS ORDERED: ONDANSETRON INJ 2 MG/ML 2 ML VIAL ONE (10:51)
[2021-05-09] MEDS ORDERED: PROPOFOL IV EMULSION 10 MG/ML 20 ML VIAL IV ONE (10:51)
[2021-05-09] MEDS ORDERED: LIDOCAINE 2% 2 ML VIAL/AMP(20MG/ML) INFIL ONE (10:51)
[2021-05-09] MEDS ORDERED: LIDOCAINE 1% LOCAL 20 ML VIAL ONE (10:52)
[2021-05-09] MEDS ORDERED: BUPIVACAINE 0.5 % 5 MG/1 ML MPF 30ML VIAL ONE (10:52)
[2021-05-09] MEDS ORDERED: PHENYLEPHRINE 100MCG/ML 5ML SYR ONE ×2 (11:49→12:12)
[2021-05-09] MEDS ORDERED: ePHEDrine sulfate 50 MG/ML SYR ONE (11:50)
[2021-05-09] MEDS ORDERED: GLYCOPYRROLATE 0.2 MG/ML VIAL ONE (12:17)
[2021-05-09] MEDS ORDERED: NEOSTIGMINE METHYLSULFATE 1 MG/ML 10ML VIAL ONE (12:17)
--- NOTE | 2021-05-09 12:29 | Fluoroscopy Report ---
FL hip RT 2-3V CLINICAL HISTORY: ORIF RT HIP COMPARISON STUDY: 05/08/2021 FLUOROSCOPY TIME: 132 seconds. NUMBER OF FLUOROSCOPIC IMAGES: 6 FINDINGS: 6 intraoperative fluoroscopic spot images demonstrate internal fixation of an intertrochant azam right hip fracture with a femoral neck nail and interlocking medullary esthela. IMPRESSION: Intraoperative fluoroscopic spot images demonstrating internal fixation of an intertroch anteric right hip fracture. ACT 112: Negative or not required by law. Electronically signed by: Dwaine Mack M.D. 05/09/2021 12:28 PM
--- NOTE | 2021-05-09 12:32 | Post Operative Brief Note ---
Immediate Post Op Note v1 Date of Surgery May 09, 2021 Pre & Post Diagnosis Operation Date: 05/09/21 07:30 Pre-Op Diagnosis: Right hip intertrochanteric femur fracture with subtrochanteric extension Post-Op Diagnosis: Right hip intertrochanteric femur fracture with subtrochanteric extension I identified the patient and participated in the time-out.: Yes Procedure Operation Date: 05/09/21 07:30 Actual Procedures Right hip long trochanteric nail(Right) - Blu Luna M.D. Surgeon Blu Luna Corporate Strategy Analyst None Estimated Blood Loss 100 Findings Consistent with Post-Op Diagnosis Drains Gracia Catheter
[2021-05-09] MEDS ORDERED: LABETALOL HCL IV 5 MG/ML 20ML IV PRN (12:38)
[2021-05-09] MEDS ORDERED: PROMETHAZINE HCL 12.5 MG in SODIUM CHLORIDE 0.9% 50 ML IV PRN (12:38)
[2021-05-09] MEDS ORDERED: fentaNYL citrate 100 MCG/2 ML VIAL IV PRN (12:38)
[2021-05-09] MEDS ORDERED: FLUMAZENIL 0.1 MG/1 ML 10 ML VIAL IV PRN (12:38)
[2021-05-09] MEDS ORDERED: NALOXONE HCL 0.4 MG/1 ML VIAL/CARP IV PRN (12:38)
[2021-05-09] MEDS ORDERED: ONDANSETRON INJ 2 MG/ML 2 ML VIAL IV PRN (12:38)
[2021-05-09] MEDS ORDERED: ePHEDrine sulfate 50 MG/ML AMP IV PRN (12:38)
[2021-05-09] MEDS ORDERED: ATROPINE SULFATE 0.1 MG/ML 10ML SYR IV PRN (12:38)
--- NOTE | 2021-05-09 12:41 | Operative Report ---
Post Operative Report Pre & Post Diagnosis Operation Date: 05/09/21 07:30 Pre-Op Diagnosis: Right hip intertrochanteric femur fracture with subtrochanteric extension Post-Op Diagnosis: Right hip intertrochanteric femur fracture with subtrochanteric extension I identified the patient and participated in the time-out.: Yes Procedure Operation Date: 05/09/21 07:30 Actual Procedures Right hip long cephalomedullary nailing of intertrochanteric/subtrochanteric femur fracture (85472) - Blu Luna M.D. Surgeon Blu Luna Orthodontic Technician None Estimated Blood Loss 100 Findings Consistent with Post-Op Diagnosis Specimens None Drains None Anesthesia Type General Complications none Disposition Disposition: Recovery Room Indications Mr. Vang is a 76-year-old male who injured his right hip during a ground- level fall at home yesterday. History, clinical exam, and imaging were consistent with the above diagnosis. Risks, benefits, and alternatives of surgery were explained in detail. The patient understood all this and wished to proceed. Description of Procedure Implants: Synthes Long ([id number]) 130 degree Trochanteric Fixation Nail, 11mm helical blade, 5mm distal locking screws x 2 Patient was identified in the preoperative holding area. Operative extremity was marked. Patient was then brought back to the operating room, and general anesthesia was induced without complication. Appropriate weight-based dose of Ancef was infused intravenously for antibiotic prophylaxis. Patient was then positioned on the fracture table with the traction apparatus. The nonoperative hip was flexed and placed into the well leg vega. Longitudinal traction was applied to the operative hip. Fracture reduction was then performed under fluoroscopic imaging. Once acceptable reduction had been achieved, the right hip was then prepped and draped in a standard sterile fashion using Chlorhexidine prep. I first made an incision just proximal to the greater trochanter in line with the femoral shaft axis, and split the fibers of the iliotibial band. I then bluntly palpated down to the greater trochanter and inserted the guidewire down to the tip of the greater trochanter. It was appropriately positioned on AP and lateral images, and then driven into the proximal femur. I then inserted the soft tissue protector down to the tip of the greater trochanter and then passed the entry reamer over top of the guidewire. It was advanced down towards the lesser trochanter to open the proximal femur. I then inserted a ball-tipped guidewire down the femoral shaft towards the knee. Once it was in appropriate position, an appropriate length nail was selected. The femoral canal was then sequentially reamed up to 12.5 mm diameter to allow passage of an 11 mm diameter nail. The Synthes long TFN was then attached to the targeting arm and inserted into the proximal femur. I malleted it down to an appropriate depth for proper trajectory of the helical blade into the femoral head. Once the nail was at an appropriate depth, I then attached the targeting guide for the helical blade onto the targeting arm. Incision was made in line with the guide through the skin and iliotibial band. The guide sleeve was placed against the lateral cortex of the femur. There was some apexlateral angulation across the subt rochanteric portion of the fracture. A ball spike pusher was inserted through the lateral incision and placed against the lateral femoral cortex to reduce the fracture angulation. This reduction was held for the remainder of the helical blade insertion. Guidewire was then inserted through the guide and up into the femoral neck and head. I verified proper placement and trajectory under both AP and lateral images. I advanced the guidewire to the subchondral bone in the femoral head and verified proper depth on orthogonal images. I then measured the depth off of the guidewire. The drill for the helical blade was then set at an appropriate level to match the measured length. The drill was then advanced to the set depth. An appropriate length helical blade was selected and malleted into place over the guidewire. I then deployed the set screw proximally to prevent rotation of the helical blade during fracture compression. The proximal targeting arm was then removed. I then proceeded with distal locking screw insertion at the knee. "Perfect circles" was achieved with fluoroscopy for targeting of the distal static locking screw hole through the distal end of the nail. Both cortices of the femur were drilled through this distal locking hole. An appropriate length distal locking screw was selected and inserted. I decided to insert a second distal locking screw through the oblong distal hole in static mode for additional longitudinal stabilization due to the comminution of the fracture in the subtrochanteric region. The proximal end of the oblong hole was targeted, and both cortices of the femur were drilled. An appropriate length distal locking screw was then selected and inserted. Final fluoroscopic images were then obtained to ensure proper hardware placement, screw length, and fracture reduction. The wounds were then copiously irrigated with sterile saline. I then closed the iliotibial band and deep dermal tissue with #0 Vicryl suture. Subcutaneous tissues closed with 3-0 Vicryl suture, and skin was closed with wolfgang. Sterile dressings were then applied with Xeroform, sterile gauze, and foam tape. Drapes were then removed and traction apparatus was disconnected. The patient was awakened from general anesthesia, transferred over to the stretcher, and taken to the Post Anesthesia Care Unit in stable condition. There were no immediate complications from the procedure. I was present and scrubbed for the entire procedure. I attest to the content of the Intraoperative Record and any orders documented therein. Any exceptions are noted below.
--- NOTE | 2021-05-09 13:03 | Anesthesiology Progress Note ---
Date of Service May 09, 2021 Anesthesia Post Procedure Vital Signs Vital Signs: Temp Pulse Pulse Pulse Resp BP BP 05/09/21 13:01 36.4 C L 104 H 14 107/68 05/09/21 12:51 36.2 C L 105 H 14 106/65 05/09/21 12:41 36.1 C L 102 H 17 104/64 05/09/21 08:00 102 H 05/09/21 07:23 36.8 C 105 H 18 155/72 H 05/09/21 03:46 36.8 C 105 H 18 103/64 05/09/21 01:00 36.5 C 116 H 20 161/81 H 05/09/21 00:38 120 H 05/09/21 00:11 116 H 05/08/21 21:03 118 H 19 144/79 H 05/08/21 21:01 115 H 11 L 05/08/21 21:00 116 H 13 144/79 H 05/08/21 20:31 109 H 12 05/08/21 20:30 110 H 10 L 155/76 H 05/08/21 20:01 109 H 12 05/08/21 20:00 109 H 13 137/83 05/08/21 19:30 108 H 13 153/81 H 05/08/21 19:01 100 H 10 L 05/08/21 19:00 99 H 10 L 159/80 H 05/08/21 18:30 98 H 17 173/87 H 05/08/21 17:00 36.9 C 97 H 16 173/100 H 05/08/21 16:58 98 H 6 L 173/100 H Pulse Ox 05/09/21 13:01 93 05/09/21 12:51 93 05/09/21 12:41 94 05/09/21 08:00 05/09/21 07:23 91 05/09/21 03:46 91 05/09/21 01:00 96 05/09/21 00:38 05/09/21 00:11 05/08/21 21:03 94 05/08/21 21:01 95 05/08/21 21:00 93 05/08/21 20:31 93 05/08/21 20:30 94 05/08/21 20:01 96 05/08/21 20:00 96 05/08/21 19:30 96 05/08/21 19:01 94 05/08/21 19:00 96 05/08/21 18:30 95 05/08/21 17:00 96 05/08/21 16:58 95 Pain Intensity Right Hip: Pain Intensity: 8 Transfer of Care Handoff Completed per policy Notes Mental Status: alert / awake / arousable Patient Amnestic to Procedure: Yes Nausea / Vomiting: adequately controlled Pain: adequately controlled Airway Patency, RR, SpO2: stable & adequate BP & HR: stable & adequate Hydration State: stable & adequate Anesthetic Complications: no major complications apparent
--- NOTE | 2021-05-09 13:28 | XRay Report ---
XR femur RT 2V routine CLINICAL HISTORY: Postop femoral nail COMPARISON: 05/08/2021 DISCUSSION: There as been interval internal fixation of intertrochanteric right hip fracture with sub trochanteric extension utilizing a femoral neck nail and interlocking intramedullary esthela. IMPRESSION: Internally fixated intertrochanteric right hip fracture. ACT 112: Negative or not required by law. Electronically signed by: Dwaine Mack M.D. 05/09/2021 1:27 PM
--- NOTE | 2021-05-09 14:56 | Electrocardiogram Report ---
Test Reason : Blood Pressure : / mmHG Vent. Rate : 100 BPM Atrial Rate : 100 BPM P-R Int : 148 ms QRS Dur : 076 ms QT Int : 338 ms P-R-T Axes : 044 039 041 degrees QTc Int : 436 ms Normal sinus rhythm Nonspecific T wave abnormality Abnormal ECG When compared with ECG of 15-NOV-2020 17:47, Vent. rate has increased BY 35 BPM Confirmed by Ravi Thompson ([id number]) on 05/09/2021 2:56:13 PM Referred By: REFERRED SELF Confirmed By:Ravi Thompson
[2021-05-09] MEDS: ceFAZolin 2000MG 2,000 MG/15 ML SYR IV SCH (16:13)
--- NOTE | 2021-05-09 16:15 | Orthopedic Progress Note ---
Date of Service May 09, 2021 Assessment & Plan (1) Intertrochanteric fracture of right hip: Postoperative day 0 status post right hip long cephalomedullary nailing -Toe-touch weightbearing on the right leg -Out of bed with therapy -DVT prophylaxis aspirin 325 mg daily -Ancef x24 hours Admission and Anticipated Discharge Date Admission Date: May 08, 2021 Subjective Postop check Patient appears to be resting comfortably. He has somnolent, but arousable. He denies any pain in his right hip. Physical Exam Physical Exam: Right hip dressings are clean, dry, and intact. They did have to be reinforced in the PACU. Motor and sensory function is intact distally. Leg length is restored. Results & Data ([facility]) Vital Signs (Past 12 Hours) Vital Signs Temp Pulse Pulse Resp BP BP Pulse Ox 05/09/21 14:37 36.7 C 91 H 18 111/66 90 05/09/21 14:18 36.3 C L 91 H 18 108/65 90 05/09/21 14:14 92 H 05/09/21 13:50 36.4 C L 93 H 16 126/66 94 05/09/21 13:25 36.5 C 90 14 128/67 94 05/09/21 13:11 36.4 C L 96 H 15 114/57 L 93 05/09/21 13:01 36.4 C L 104 H 14 107/68 93 05/09/21 12:51 36.2 C L 105 H 14 106/65 93 05/09/21 12:41 36.1 C L 102 H 17 104/64 94 05/09/21 08:00 102 H 05/09/21 07:23 36.8 C 105 H 18 155/72 H 91 Diagnostic Findings Postoperative femur x-rays show near-anatomic alignment of the intertrochanteric/subtrochanteric fracture with good hardware placement. (1) Intertrochanteric fracture of right hip Encounter type: initial encounter Fracture type: closed Fracture alignment: displaced Qualified Code(s): S72.141A - Displaced intertrochanteric fracture of right femur, initial encounter for closed fracture
--- NOTE | 2021-05-09 16:59 | Hospitalist Progress Note ---
Date of Service May 09, 2021 Assessment & Plan (1) Fall: By history appears to been a mechanical fall (2) Intertrochanteric fracture of right hip: Highly likely osteoporoticnow postop. Outpatient bone health work-up. (3) Acute blood loss anemia: From hip fracture. Hemodynamically stable. Continue to follow, transfuse if needed, but fortunately he has a lot of margin of air before that would be an issue. (4) Macrocytosis: Check B12 (5) Leukocytosis: Likely demargination from the fall, no overt signs or symptoms of infection. Continue to follow (6) DM type 2 (diabetes mellitus, type 2): Most recent A1c 6.9, sugars at the high end of reasonable given the situation. Continue insulin management for now. (7) Hypertension: Blood pressure acceptable overall given the situation. Continue to follow (8) Hypothyroidism: Continue Synthroid (9) Seizure disorder: Continue Keppra (10) Enlarged prostate with lower urinary tract symptoms (LUTS): Follow postop for any signs or symptoms of urinary retention. Continue Flomax (11) DVT prophylaxis: Per orthopedicsright now aspirin 325 daily (12) Discharge planning issues: PT/OT eval and treat, highly likely to need SNF/rehab Admission and Anticipated Discharge Date Admission Date: May 08, 2021 Subjective Patient seen postopno meaningful HPI review of systems obtainable as he is sleeping soundly. Nursing notes that he was having a bit of postop pain, and they had just given him a dose of pain medicine. Review of Systems Review of Systems: Unobtainable due to cognitive status Physical Exam Physical Exam: In general he is sleeping soundly no distress. HEENT normocephalic atraumatic mucous membranes moist. Breathing unlabored no accessory muscle use, lungs are clear without rales rhonchi or wheezes. Cardio is regular no rubs murmurs or gallops. Extremities show no sinus clubbing or edema, no asymmetry. Results & Data Results & Data ([facility]) Vital Signs (Past 12 Hours) Vital Signs Temp Pulse Pulse Resp BP BP Pulse Ox 05/09/21 16:37 88 05/09/21 14:37 98.1 F 91 H 18 111/66 90 05/09/21 14:18 97.3 F L 91 H 18 108/65 90 05/09/21 14:14 92 H 05/09/21 13:50 97.5 F L 93 H 16 126/66 94 05/09/21 13:25 97.7 F 90 14 128/67 94 05/09/21 13:11 97.5 F L 96 H 15 114/57 L 93 05/09/21 13:01 97.5 F L 104 H 14 107/68 93 05/09/21 12:51 97.2 F L 105 H 14 106/65 93 05/09/21 12:41 97.0 F L 102 H 17 104/64 94 05/09/21 08:00 102 H 05/09/21 07:23 98.2 F 105 H 18 155/72 H 91 PG Care Time/CCT Total # of Minutes Spent Total Time Spent with Patient: Total time spent is greater than 50% in coordination of care (as documented) at patient's floor/unit and/or counseling patient: Coding Level of Care Code 35894 Subseq Hosp Care Lvl 2 Diagnoses Fall W19.XXXA Encounter type: initial encounter Intertrochanteric fracture of right hip S72.141A Encounter type: initial encounter Fracture type: closed Fracture alignment: displaced Acute blood loss anemia D62 Macrocytosis D75.89 Leukocytosis D72.829 DM type 2 (diabetes mellitus, type 2) E11.9 Diabetes mellitus extermination inspector insulin use: without extermination inspector use Diabetes mellitus complication status: without complication Hypertension I10 Hypertension type: essential hypertension Hypothyroidism E03.9 Hypothyroidism type: unspecified Seizure disorder G40.909 Enlarged prostate with lower urinary tract symptoms (LUTS) N40.1 Lower urinary tract symptom detail: unspecified DVT prophylaxis Z29.9 Discharge planning issues Z02.9 (1) Fall Encounter type: initial encounter Qualified Code(s): W19.XXXA - Unspecified fall, initial encounter (2) Intertrochanteric fracture of right hip Encounter type: initial encounter Fracture type: closed Fracture alignment: displaced Qualified Code(s): S72.141A - Displaced intertrochanteric fracture of right femur, initial encounter for closed fracture (3) DM type 2 (diabetes mellitus, type 2) Diabetes mellitus extermination inspector insulin use: without extermination inspector use Diabetes mellitus complication status: without complication Qualified Code(s): E11.9 - Type 2 diabetes mellitus without complications (4) Hypertension Hypertension type: essential hypertension Qualified Code(s): I10 - Essential (primary) hypertension (5) Hypothyroidism Hypothyroidism type: unspecified Qualified Code(s): E03.9 - Hypothyroidism, unspecified (6) Enlarged prostate with lower urinary tract symptoms (LUTS) Lower urinary tract symptom detail: unspecified Qualified Code(s): N40.1 - Benign prostatic hyperplasia with lower urinary tract symptoms
[2021-05-09] MEDS: DOCUSATE SODIUM/SENNA 50/8.6MG TAB PO SCH (20:48)
[2021-05-09] MEDS: SIMVASTATIN 40 MG TAB PO SCH (20:49)
[2021-05-10] MEDS: ceFAZolin 2000MG 2,000 MG/15 ML SYR IV SCH ×2 (00:13→08:15)
[2021-05-10] MEDS: HYDROmorphone INJ 0.5 MG/0.5 ML SYR IV PRN ×4 (00:20→19:48)
--- NOTE | 2021-05-10 05:15 | Billing Data ---
Date of Service May 10, 2021 Coding Level of Care Code 17619 Initial Inpt Care Lvl 3
[2021-05-10] MEDS: LEVOTHYROXINE SODIUM 50 MCG TABLET PO SCH (06:16)
[2021-05-10 06:38] LABS: Basophils # (auto) 0.02 K/uL (0-0.2); Basophils % (auto) 0.2 %; Eosinophils # (auto) 0.14 K/uL (0-0.5); Eosinophils % (auto) 1.2 %; Hematocrit (blood only) 28.5 % (42-52); Hemoglobin 9.8 g/dL (14.0-18.0); Immature Granulocytes # (auto) 0.03 K/uL (0.00-0.02); Immature Granulocytes % (auto) 0.3 %; Lymphocytes # (auto) 1.41 K/uL (1.2-3.4); Lymphocytes % (auto) 12.4 %; Mean Corpuscular Hemoglobin 34.5 pg (25-34); Mean Corpuscular Hgb Conc 34.4 g/dL (32-36); Mean Corpuscular Volume 100.4 fL (80-100); Mean Platelet Volume 8.2 fL (7.4-10.4); Monocytes # (auto) 1.34 K/uL (0.11-0.59); Monocytes % (auto) 11.8 %; Neutrophils # (auto) 8.42 K/uL (1.4-6.5); Neutrophils % (auto) 74.1 %; Platelet Count 230 K/uL (130-400); RDW Coefficient of Variation 12.8 % (11.5-14.5); RDW Standard Deviation 47.1 fL (36.4-46.3); Red Blood Count 2.84 M/uL (4.7-6.1); White Blood Count 11.36 K/uL (4.8-10.8)
[2021-05-10 06:56] LABS: BUN Creatinine Ratio 12.4 (10-20); Calcium 8.8 mg/dl (8.5-10.1); Creatinine Clr Calc Pharmacy 82.4 ml/min; Est GFR (African American) 94.5 ml/min; Est GFR (Non-African American) 81.5 ml/min; Potassium 4.2 mmol/L (3.5-5.1)
[2021-05-10] MEDS: INSULIN ASPART 100 UNITS/ML 3 ML PEN SC SCH ×4 (08:09→20:59)
[2021-05-10] MEDS: ASPIRIN 325 MG ECTAB PO SCH (08:10)
[2021-05-10] MEDS: levETIRAcetam 250 MG TAB PO SCH ×2 (08:10→20:12)
[2021-05-10] MEDS: DOCUSATE SODIUM 100 MG CAP PO SCH (08:10)
[2021-05-10] MEDS: PHENYTOIN SODIUM ER 100 MG CAP PO SCH ×3 (08:11→20:12)
[2021-05-10] MEDS: TAMSULOSIN HCL 0.4 MG CAP PO SCH (08:11)
--- NOTE | 2021-05-10 09:11 | Orthopedic Progress Note ---
Date of Service May 10, 2021 Assessment & Plan (1) Intertrochanteric fracture of right hip: Postoperative day 1 status post right hip long cephalomedullary nailing -Toe-touch weightbearing on the right leg -Out of bed with therapy -DVT prophylaxis aspirin 325 mg daily -Ancef x24 hours, then discontinue -Acute blood loss anemia-hemoglobin down to 9.8 from 11.3 the previous day. Was around 14 on admission. Follow H&H for now. Blood loss not unusual from surgery and fracture. Admission and Anticipated Discharge Date Admission Date: May 08, 2021 Supervising Physician Co-Signing Physician Notes Patient seen and examined. Agree with DULCE Larose's note as above. Patient is more interactive today, but still has difficulty remembering events from just this morning. He denies any significant pain in his right hip. His right hip dressings were changed by nursing just this morning. They are currently clean, dry, and intact. It does not appear that he has been evaluated by physical therapy yet. He is not yet been standing since surgery. He needs to remain toe-touch weightbearing on that right leg. After discharge, follow-up with Dr. Luna at [facility] at 10 to 14 days after surgery. Subjective Postop day 1 Patient sitting up in bed awake but pleasantly confused. He is focused on his home medications which she has not been receiving regularly. We discussed that at times in the hospital, medications are held or changed for certain reasons. Patient continues to focus on his medication but is pleasant. States he is having some pain off and on in the right hip but currently he is comfortable. No other complaints at this time. Physical Exam Physical Exam: Dressings with moderate drainage. The proximal dressing has been reinforced but does not appear to have drained through that. Thigh is soft and nontender. Calves are soft nontender. Neurovascular is intact. Toes are mobile. Results & Data ([facility]) Vital Signs (Past 12 Hours) Vital Signs Temp Pulse Pulse Resp BP Pulse Ox 05/10/21 07:24 37.9 C H 112 H 16 138/75 96 05/10/21 03:50 37.1 C 106 H 14 120/68 92 05/10/21 00:56 107 H 05/09/21 23:02 37.0 C 106 H 20 100/65 96 Laboratory Results Laboratory Results WBC 11.36 K/uL (4.8-10.8) H 05/10/21 06:04 RBC 2.84 M/uL (4.7-6.1) L 05/10/21 06:04 Hgb 9.8 g/dL (14.0-18.0) L 05/10/21 06:04 Hct 28.5 % (42-52) L 05/10/21 06:04 MCV 100.4 fL (80-100) H 05/10/21 06:04 MCH 34.5 pg (25-34) H 05/10/21 06:04 MCHC 34.4 g/dL (32-36) 05/10/21 06:04 RDW Std Deviation 47.1 fL (36.4-46.3) H 05/10/21 06:04 RDW Coeff of Amber 12.8 % (11.5-14.5) 05/10/21 06:04 Plt Count 230 K/uL (130-400) 05/10/21 06:04 MPV 8.2 fL (7.4-10.4) 05/10/21 06:04 Immature Gran % (Auto) 0.3 % 05/10/21 06:04 Neut % (Auto) 74.1 % 05/10/21 06:04 Lymph % (Auto) 12.4 % 05/10/21 06:04 [place] % (Auto) 11.8 % 05/10/21 06:04 Eos % (Auto) 1.2 % 05/10/21 06:04 Baso % (Auto) 0.2 % 05/10/21 06:04 Neut # (Auto) 8.42 K/uL (1.4-6.5) H 05/10/21 06:04 Lymph # (Auto) 1.41 K/uL (1.2-3.4) 05/10/21 06:04 [place] # (Auto) 1.34 K/uL (0.11-0.59) H 05/10/21 06:04 Eos # (Auto) 0.14 K/uL (0-0.5) 05/10/21 06:04 Baso # (Auto) 0.02 K/uL (0-0.2) 05/10/21 06:04 Immature Gran # (Auto) 0.03 K/uL (0.00-0.02) H 05/10/21 06:04 PT 10.0 Seconds (9.0-12.0) 05/08/21 17:13 INR 1.0 (0.9-1.1) 05/08/21 17:13 APTT 24.4 Seconds (21.0-31.0) 05/08/21 17:13 PTT Ratio 0.9 05/08/21 17:13 Sodium 135 mmol/L (136-145) L 05/10/21 06:04 Potassium 4.2 mmol/L (3.5-5.1) 05/10/21 06:04 Chloride 102 mmol/L (98-107) 05/10/21 06:04 Carbon Dioxide 25 mmol/L (21-32) 05/10/21 06:04 Anion Gap 8.0 (3-11) 05/10/21 06:04 BUN 11 mg/dl (7-18) 05/10/21 06:04 Creatinine 0.90 mg/dl (0.6-1.4) 05/10/21 06:04 Est Cr Clr Drug Dosing 82.4 ml/min 05/10/21 06:04 Est GFR ( Amer) 94.5 ml/min 05/10/21 06:04 Est GFR (Non-Af Amer) 81.5 ml/min 05/10/21 06:04 BUN/Creatinine Ratio 12.4 (10-20) 05/10/21 06:04 Glucose 194 mg/dl (70-99) H 05/10/21 06:04 POC Glucose 208 mg/dl (70-99) H 05/10/21 07:37 Calcium 8.8 mg/dl (8.5-10.1) 05/10/21 06:04 Total Bilirubin 0.3 mg/dl (0.2-1) 05/08/21 17:13 AST 14 U/L (15-37) L 05/08/21 17:13 ALT 20 U/L (12-78) 05/08/21 17:13 Alkaline Phosphatase 89 U/L (45-117) 05/08/21 17:13 Total Protein 8.0 gm/dl (6.4-8.2) 05/08/21 17:13 Albumin 4.0 gm/dl (3.4-5.0) 05/08/21 17:13 Globulin 4.0 gm/dl (2.5-4.0) 05/08/21 17:13 Albumin/Globulin Ratio 1.0 (0.9-2) 05/08/21 17:13 Urine Color Yellow 05/08/21 18:40 Urine Appearance Clear (Clear) 05/08/21 18:40 Urine pH 6.5 (4.5-7.5) 05/08/21 18:40 Ur Specific [place] 1.010 (1.000-1.030) 05/08/21 18:40 Urine Protein Negative (Negative) 05/08/21 18:40 Urine Glucose (UA) Trace (Negative) H 05/08/21 18:40 Urine Ketones Negative (Negative) 05/08/21 18:40 Urine Blood Negative (Negative) 05/08/21 18:40 Urine Nitrite Negative (Negative) 05/08/21 18:40 Urine Bilirubin Negative (Negative) 05/08/21 18:40 Urine Urobilinogen Negative (Negative) 05/08/21 18:40 Ur Leukocyte Esterase Negative (Negative) 05/08/21 18:40 SARS-CoV-2 (PCR) NEGATIVE (Negative) 05/08/21 18:26 Blood Type A Positive 05/08/21 22:46 Antibody Screen NEGATIVE 05/08/21 22:46 Impressions Femur X-Ray 05/09/21 12:46 XR femur RT 2V routine CLINICAL HISTORY: Postop femoral nail COMPARISON: 05/08/2021 DISCUSSION: There as been interval internal fixation of intertrochanteric right hip fracture with subtrochanteric extension utilizing a femoral neck nail and interlocking intramedullary esthela. IMPRESSION: Internally fixated intertrochanteric right hip fracture. ACT 112: Negative or not required by law. Electronically signed by: Dwaine Mack M.D. 05/09/2021 1:27 PM (1) Intertrochanteric fracture of right hip Encounter type: initial encounter Fracture alignment: displaced Fracture type: closed Qualified Code(s): S72.141A - Displaced intertrochanteric fracture of right femur, initial encounter for closed fracture
[2021-05-10] MEDS: ACETAMINOPHEN 325 MG TAB PO PRN (12:29)
--- NOTE | 2021-05-10 19:39 | Hospitalist Progress Note ---
Date of Service May 10, 2021 Assessment & Plan (1) Fall: By history appears to been a mechanical fall (2) Intertrochanteric fracture of right hip: Highly likely osteoporoticnow postop. Outpatient bone health work-up. PT/OT eval and treat, likely rehab/subacute rehab placement (3) Acute blood loss anemia: From hip fracture. Hemodynamically stable. Continue to follow, transfuse if needed, but fortunately he has a lot of margin of air before that would be an issue. He is slightly tachycardic, but has a good blood pressure. (4) Macrocytosis: B12 sent and is pending (5) Leukocytosis: Likely demargination from the fall, no overt signs or symptoms of infection. Continue to followis trending down (6) DM type 2 (diabetes mellitus, type 2): Most recent A1c 6.9, sugars now a little high - add small amount of lantus, continue log (7) Hypertension: Blood pressure acceptable overall given the situation. Continue to follow (adding low-dose of metoprolol below) (8) Hypothyroidism: Continue Synthroid (9) Seizure disorder: Continue Keppra (10) Enlarged prostate with lower urinary tract symptoms (LUTS): Follow postop for any signs or symptoms of urinary retention. Continue Flomax (11) DVT prophylaxis: Per orthopedicsright now aspirin 325 daily (12) Discharge planning issues: PT/OT eval and treat, highly likely to need SNF/rehab (13) Tachycardia: Tachycardia likely reactive to pain and volume loss, but with his age and comorbidities I would hesitate to let him run as fast as he is unabatedwe will continue to manage pain and follow his volume status, but for now we will give a low-dose of metoprolol tartrate 12.5 twice daily Admission and Anticipated Discharge Date Admission Date: May 08, 2021 Subjective More communicative but seems to be pleasantly confused. He relates to me that he just got pain medicine. Notes he was having pain earlier but it is controlled now. Otherwise exceedingly limited HPI and review of systems. Review of Systems Review of Systems: Unobtainable due to cognitive status Physical Exam Physical Exam: In general he is awake but confused no distress. HEENT normocephalic atraumatic mucous membranes moist. Breathing shows lungs to be clear to auscultation bilaterally no rales rhonchi or wheezes good effort. Cardio may be slightly tachycardic distant no rubs murmurs or gallops. Extremities show no cyanosis or clubbing. Neuro shows no focal deficits. Results & Data Results & Data ([facility]) Vital Signs (Past 12 Hours) Vital Signs Temp Pulse Resp BP Pulse Ox 05/10/21 14:51 98.2 F 122 H 16 125/56 L 95 05/10/21 10:59 98.6 F 109 H 16 116/72 93 PG Care Time/CCT Total # of Minutes Spent Total Time Spent with Patient: Total time spent is greater than 50% in coordination of care (as documented) at patient's floor/unit and/or counseling patient: Coding Level of Care Code 98080 Subseq Hosp Care Lvl 3 Diagnoses Fall W19.XXXA Encounter type: initial encounter Intertrochanteric fracture of right hip S72.141A Encounter type: initial encounter Fracture type: closed Fracture alignment: displaced Acute blood loss anemia D62 Macrocytosis D75.89 Leukocytosis D72.829 DM type 2 (diabetes mellitus, type 2) E11.9 Diabetes mellitus 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 designer insulin use: without residential use Diabetes mellitus complication status: without complication Hypertension I10 Hypertension type: essential hypertension Hypothyroidism E03.9 Hypothyroidism type: unspecified Seizure disorder G40.909 Enlarged prostate with lower urinary tract symptoms (LUTS) N40.1 Lower urinary tract symptom detail: unspecified DVT prophylaxis Z29.9 Discharge planning issues Z02.9 Tachycardia R00.0 (1) Fall Encounter type: initial encounter Qualified Code(s): W19.XXXA - Unspecified fall, initial encounter (2) Intertrochanteric fracture of right hip Encounter type: initial encounter Fracture type: closed Fracture alignment: displaced Qualified Code(s): S72.141A - Displaced intertrochanteric fracture of right femur, initial encounter for closed fracture (3) DM type 2 (diabetes mellitus, type 2) Diabetes mellitus residential insulin use: without 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 designer use Diabetes mellitus complication status: without complication Qualified Code(s): E11.9 - Type 2 diabetes mellitus without complications (4) Hypertension Hypertension type: essential hypertension Qualified Code(s): I10 - Essential (primary) hypertension (5) Hypothyroidism Hypothyroidism type: unspecified Qualified Code(s): E03.9 - Hypothyroidism, unspecified (6) Enlarged prostate with lower urinary tract symptoms (LUTS) Lower urinary tract symptom detail: unspecified Qualified Code(s): N40.1 - Benign prostatic hyperplasia with lower urinary tract symptoms
[2021-05-10] MEDS: DOCUSATE SODIUM/SENNA 50/8.6MG TAB PO SCH (20:13)
[2021-05-10] MEDS: METOPROLOL TARTRATE 25 MG TAB PO SCH (20:13)
[2021-05-10] MEDS: SIMVASTATIN 40 MG TAB PO SCH (20:55)
[2021-05-10] MEDS: INSULIN GLARGINE SOLOSTAR 100 UNITS/ML 3 ML PEN SC SCH (20:58)
[2021-05-11] MEDS: LEVOTHYROXINE SODIUM 50 MCG TABLET PO SCH (06:10)
[2021-05-11 08:12] LABS: Basophils # (auto) 0.01 K/uL (0-0.2); Basophils % (auto) 0.1 %; Eosinophils # (auto) 0.06 K/uL (0-0.5); Eosinophils % (auto) 0.7 %; Hematocrit (blood only) 24.3 % (42-52); Hemoglobin 8.2 g/dL (14.0-18.0); Immature Granulocytes # (auto) 0.02 K/uL (0.00-0.02); Immature Granulocytes % (auto) 0.2 %; Mean Corpuscular Hemoglobin 34.3 pg (25-34); Mean Corpuscular Hgb Conc 33.7 g/dL (32-36); Mean Corpuscular Volume 101.7 fL (80-100); Monocytes # (auto) 1.04 K/uL (0.11-0.59); Monocytes % (auto) 11.9 %; Neutrophils # (auto) 6.21 K/uL (1.4-6.5); Neutrophils % (auto) 71.1 %; Platelet Count 224 K/uL (130-400); RDW Coefficient of Variation 12.5 % (11.5-14.5); Red Blood Count 2.39 M/uL (4.7-6.1); White Blood Count 8.74 K/uL (4.8-10.8)
[2021-05-11] MEDS: INSULIN ASPART 100 UNITS/ML 3 ML PEN SC SCH ×4 (08:25→21:15)
[2021-05-11] MEDS: DOCUSATE SODIUM 100 MG CAP PO SCH (08:27)
[2021-05-11] MEDS: levETIRAcetam 250 MG TAB PO SCH ×2 (08:27→21:18)
[2021-05-11] MEDS: ASPIRIN 325 MG ECTAB PO SCH (08:27)
[2021-05-11] MEDS: PHENYTOIN SODIUM ER 100 MG CAP PO SCH ×3 (08:27→21:18)
[2021-05-11] MEDS: METOPROLOL TARTRATE 25 MG TAB PO SCH ×2 (08:28→21:18)
[2021-05-11] MEDS: TAMSULOSIN HCL 0.4 MG CAP PO SCH (08:28)
[2021-05-11 08:44] LABS: BUN Creatinine Ratio 14.7 (10-20); Calcium 8.3 mg/dl (8.5-10.1); Creatinine Clr Calc Pharmacy 85.2 ml/min; Est GFR (African American) 96.3 ml/min; Est GFR (Non-African American) 83.1 ml/min; Potassium 3.8 mmol/L (3.5-5.1)
--- NOTE | 2021-05-11 09:47 | Orthopedic Progress Note ---
Date of Service May 11, 2021 Assessment & Plan (1) Intertrochanteric fracture of right hip: Postoperative day 2 status post right hip long cephalomedullary nailing -Toe-touch weightbearing on the right leg -Out of bed with therapy -DVT prophylaxis aspirin 325 mg daily -Ancef x24 hours, then discontinue -Acute blood loss anemia- Hgb 8.2 today. Transfuse as per Med Service. Admission and Anticipated Discharge Date Admission Date: May 08, 2021 Supervising Physician Co-Signing Physician Notes Patient seen and examined. Agree with DULCE Larose's note as above. As he has told me every day, his hip is "awful", but he denies any specific pain in the hip. No pain with logroll. He was sitting on the edge of the bed with therapy today, but has been unable to stand yet. Per nursing, he is refusing to eat. Subjective POD 2 Pt awake, alert. A little more conversant. Pain controlled currently. Dates that when he is moving around that he does have some discomfort. Denies shortness of breath, chest pain, lightheadedness presently. Physical Exam Physical Exam: Dressings C/D/I. Thigh with swelling but soft. Some yellow serous drainage noted on dressings when looking at wounds. Wounds are benign. Calves soft,NT. NV intact. Results & Data ([facility]) Vital Signs (Past 12 Hours) Vital Signs Temp Pulse Pulse Pulse Resp BP Pulse Ox 05/11/21 08:42 90 126/67 05/11/21 07:55 37.2 C 95 H 16 94/56 L 97 05/11/21 02:44 36.9 C 88 16 126/68 95 05/10/21 23:55 93 H 05/10/21 23:50 37.5 C 91 H 22 121/70 95 Laboratory Results 05/11/21 05/11/21 05/11/21 Range/Units 07:44 07:44 07:29 WBC 8.74 (4.8-10.8) K/uL RBC 2.39 L (4.7-6.1) M/uL Hgb 8.2 L (14.0-18.0) g/dL Hct 24.3 L (42-52) % MCV 101.7 H (80-100) fL MCH 34.3 H (25-34) pg MCHC 33.7 (32-36) g/dL RDW Std Deviation 46.0 (36.4-46.3) fL RDW Coeff of Amber 12.5 (11.5-14.5) % Plt Count 224 (130-400) K/uL MPV 8.0 (7.4-10.4) fL Immature Gran % (Auto) 0.2 % Neut % (Auto) 71.1 % Lymph % (Auto) 16.0 % [place] % (Auto) 11.9 % Eos % (Auto) 0.7 % Baso % (Auto) 0.1 % Neut # (Auto) 6.21 (1.4-6.5) K/uL Lymph # (Auto) 1.40 (1.2-3.4) K/uL [place] # (Auto) 1.04 H (0.11-0.59) K/uL Eos # (Auto) 0.06 (0-0.5) K/uL Baso # (Auto) 0.01 (0-0.2) K/uL Immature Gran # (Auto) 0.02 (0.00-0.02) K/uL Sodium 137 (136-145) mmol/L Potassium 3.8 (3.5-5.1) mmol/L Chloride 103 (98-107) mmol/L Carbon Dioxide 25 (21-32) mmol/L Anion Gap 9.0 (3-11) BUN 13 (7-18) mg/dl Creatinine 0.86 (0.6-1.4) mg/dl Est Cr Clr Drug Dosing 85.2 ml/min Est GFR ( Amer) 96.3 ml/min Est GFR (Non-Af Amer) 83.1 ml/min BUN/Creatinine Ratio 14.7 (10-20) Glucose 165 H (70-99) mg/dl POC Glucose 184 H (70-99) mg/dl Calcium 8.3 L (8.5-10.1) mg/dl 05/10/21 05/10/21 05/10/21 Range/Units 20:49 16:28 11:47 WBC (4.8-10.8) K/uL RBC (4.7-6.1) M/uL Hgb (14.0-18.0) g/dL Hct (42-52) % MCV (80-100) fL MCH (25-34) pg MCHC (32-36) g/dL RDW Std Deviation (36.4-46.3) fL RDW Coeff of Amber (11.5-14.5) % Plt Count (130-400) K/uL MPV (7.4-10.4) fL Immature Gran % (Auto) % Neut % (Auto) % Lymph % (Auto) % [place] % (Auto) % Eos % (Auto) % Baso % (Auto) % Neut # (Auto) (1.4-6.5) K/uL Lymph # (Auto) (1.2-3.4) K/uL [place] # (Auto) (0.11-0.59) K/uL Eos # (Auto) (0-0.5) K/uL Baso # (Auto) (0-0.2) K/uL Immature Gran # (Auto) (0.00-0.02) K/uL Sodium (136-145) mmol/L Potassium (3.5-5.1) mmol/L Chloride (98-107) mmol/L Carbon Dioxide (21-32) mmol/L Anion Gap (3-11) BUN (7-18) mg/dl Creatinine (0.6-1.4) mg/dl Est Cr Clr Drug Dosing ml/min Est GFR ( Amer) ml/min Est GFR (Non-Af Amer) ml/min BUN/Creatinine Ratio (10-20) Glucose (70-99) mg/dl POC Glucose 197 H 221 H 208 H (70-99) mg/dl Calcium (8.5-10.1) mg/dl (1) Intertrochanteric fracture of right hip Encounter type: initial encounter Fracture alignment: displaced Fracture type: closed Qualified Code(s): S72.141A - Displaced intertrochanteric fracture of right femur, initial encounter for closed fracture
[2021-05-11 14:54] LABS: Basophils # (auto) 0.02 K/uL (0-0.2); Basophils % (auto) 0.2 %; Eosinophils # (auto) 0.06 K/uL (0-0.5); Eosinophils % (auto) 0.7 %; Hematocrit (blood only) 23.3 % (42-52); Hemoglobin 7.8 g/dL (14.0-18.0); Immature Granulocytes # (auto) 0.02 K/uL (0.00-0.02); Immature Granulocytes % (auto) 0.2 %; Lymphocytes # (auto) 1.71 K/uL (1.2-3.4); Lymphocytes % (auto) 19.5 %; Mean Corpuscular Hemoglobin 34.1 pg (25-34); Mean Corpuscular Hgb Conc 33.5 g/dL (32-36); Mean Corpuscular Volume 101.7 fL (80-100); Mean Platelet Volume 8.1 fL (7.4-10.4); Monocytes # (auto) 0.93 K/uL (0.11-0.59); Monocytes % (auto) 10.6 %; Neutrophils # (auto) 6.04 K/uL (1.4-6.5); Neutrophils % (auto) 68.8 %; Platelet Count 226 K/uL (130-400); RDW Coefficient of Variation 12.7 % (11.5-14.5); RDW Standard Deviation 46.5 fL (36.4-46.3); Red Blood Count 2.29 M/uL (4.7-6.1); White Blood Count 8.78 K/uL (4.8-10.8)
--- NOTE | 2021-05-11 14:54 | Hospitalist Progress Note ---
Date of Service May 11, 2021 Assessment & Plan (1) Fall: By history appears to been a mechanical fall (2) Intertrochanteric fracture of right hip: Highly likely osteoporoticnow postop. Outpatient bone health work-up. PT/OT eval and treat, likely rehab/subacute rehab placement Status post ORIF on 05/09 with orthopedic surgery-management appreciated Continue pain control with Tylenol, IV Dilaudid as needed Continue bowel regimen DVT prophylaxis with aspirin 325 mg once daily, SCDs Continue PT/OT Need to remove Garcia catheter when more mobile-hopefully tomorrow (3) Acute blood loss anemia: From hip fracture. Hemodynamically stable however has had some sinus tachycardia. Hemoglobin dropped further to 7.8 this afternoon This is likely due to the fracture itself as well as some blood loss from the surgery He does have some moderate edema in the hip but no bleeding from the wound Follow CBC in the morning Patient declines blood transfusion at this time but is agreeable to IV iron infusion Start Venofer 300 mg IV x1 now and may give additional doses tomorrow If hemoglobin drops below 7, patient reports that he likely would be more agreeable to transfusion (4) Macrocytosis: B12 sent and is pending Send folate tomorrow (5) Leukocytosis: Likely demargination from the fall, no overt signs or symptoms of infection. Is now improved/resolved (6) DM type 2 (diabetes mellitus, type 2): Most recent A1c 6.9, continues with some hyperglycemia Continue Lantus 5 units at night Tighten NovoLog sliding scale down by lowering goal and increasing correction factor and carb ratio (7) Hypertension: Blood pressure acceptable overall given the situation. Continue to follow (added low-dose of metoprolol below) (8) Hypothyroidism: Continue Synthroid TSH normal at 0.7 in 10/2020 (9) Seizure disorder: No acute issues Continue Keppra, phenobarbital, phenytoin Keppra levels pending Avoid medications at lower seizure threshold (10) Enlarged prostate with lower urinary tract symptoms (LUTS): Follow postop for any signs or symptoms of urinary retention. Has Garcia catheter still in place Continue Flomax (11) Tachycardia: Tachycardia likely reactive to pain and volume loss, but with his age and comorbidities I would hesitate to let him run as fast as he is unabatedwe will continue to manage pain and follow his volume status, but for now we will give a low-dose of metoprolol tartrate 12.5 twice daily Tachycardia is improved today Stable for transfer off telemetry (12) DVT prophylaxis: Per orthopedicsright now aspirin 325 daily, SCDs (13) Discharge planning issues: PT/OT eval and treat, highly likely to need SNF/rehab Hopeful for discharge to rehab in the next 1 to 2 days if anemia remains stable Admission and Anticipated Discharge Date Admission Date: May 08, 2021 Subjective Patient reports pain in the hip. He denies lightheadedness, no chest pain or shortness of breath. He reports he is not eating much. We discussed the possibility of a blood transfusion but he declines to have it at this time but is agreeable to IV iron infusion Telemetry with normal sinus rhythm, PACs, rates in the 110s to 120s yesterday but now improved to the 70s to 90s Review of Systems Review of Systems: All systems reviewed & are unremarkable except as noted in HPI & below Physical Exam Constitutional: WD/WN, vitals as above Eyes: + anicteric sclerae ENMT: Ears: + hearing impairment Neck: trachea midline, no thyromegaly Respiratory: normal respiratory effort, lungs clear to auscultation Cardiovascular: RRR, no murmur, no edema Gastrointestinal (Abdomen): normal bowel sounds, soft, nontender, no hepatosplenomegaly Musculoskeletal: Extremities: + extremities abnormal to inspection (Right hip dressing C/D/I, moderate edema), no cyanosis and no clubbing Skin: no rashes, warm and dry Neurologic: moves all extremities and awake; no focal motor deficits Psychiatric: A+Ox3, euthymic affect Results & Data Results & Data ([facility]) Vital Signs (Past 12 Hours) Vital Signs Temp Pulse Pulse Resp BP Pulse Ox 05/11/21 11:23 37.2 C 82 16 121/66 92 05/11/21 08:42 90 126/67 05/11/21 07:55 37.2 C 95 H 16 94/56 L 97 Laboratory Results 05/11/21 05/11/21 05/11/21 Range/Units 20:27 16:36 14:33 WBC 8.78 (4.8-10.8) K/uL RBC 2.29 L (4.7-6.1) M/uL Hgb 7.8 L (14.0-18.0) g/dL Hct 23.3 L (42-52) % MCV 101.7 H (80-100) fL MCH 34.1 H (25-34) pg MCHC 33.5 (32-36) g/dL RDW Std Deviation 46.5 H (36.4-46.3) fL RDW Coeff of Amber 12.7 (11.5-14.5) % Plt Count 226 (130-400) K/uL MPV 8.1 (7.4-10.4) fL Immature Gran % (Auto) 0.2 % Neut % (Auto) 68.8 % Lymph % (Auto) 19.5 % Bonner % (Auto) 10.6 % Eos % (Auto) 0.7 % Baso % (Auto) 0.2 % Neut # (Auto) 6.04 (1.4-6.5) K/uL Lymph # (Auto) 1.71 (1.2-3.4) K/uL Bonner # (Auto) 0.93 H (0.11-0.59) K/uL Eos # (Auto) 0.06 (0-0.5) K/uL Baso # (Auto) 0.02 (0-0.2) K/uL Immature Gran # (Auto) 0.02 (0.00-0.02) K/uL RBC Morphology Unremarkable Sodium (136-145) mmol/L Potassium (3.5-5.1) mmol/L Chloride (98-107) mmol/L Carbon Dioxide (21-32) mmol/L Anion Gap (3-11) BUN (7-18) mg/dl Creatinine (0.6-1.4) mg/dl Est Cr Clr Drug Dosing ml/min Est GFR ( Amer) ml/min Est GFR (Non-Af Amer) ml/min BUN/Creatinine Ratio (10-20) Glucose (70-99) mg/dl POC Glucose 198 H 169 H (70-99) mg/dl Calcium (8.5-10.1) mg/dl 05/11/21 05/11/21 05/11/21 Range/Units 11:39 07:44 07:44 WBC 8.74 (4.8-10.8) K/uL RBC 2.39 L (4.7-6.1) M/uL Hgb 8.2 L (14.0-18.0) g/dL Hct 24.3 L (42-52) % MCV 101.7 H (80-100) fL MCH 34.3 H (25-34) pg MCHC 33.7 (32-36) g/dL RDW Std Deviation 46.0 (36.4-46.3) fL RDW Coeff of Amber 12.5 (11.5-14.5) % Plt Count 224 (130-400) K/uL MPV 8.0 (7.4-10.4) fL Immature Gran % (Auto) 0.2 % Neut % (Auto) 71.1 % Lymph % (Auto) 16.0 % Bonner % (Auto) 11.9 % Eos % (Auto) 0.7 % Baso % (Auto) 0.1 % Neut # (Auto) 6.21 (1.4-6.5) K/uL Lymph # (Auto) 1.40 (1.2-3.4) K/uL Bonner # (Auto) 1.04 H (0.11-0.59) K/uL Eos # (Auto) 0.06 (0-0.5) K/uL Baso # (Auto) 0.01 (0-0.2) K/uL Immature Gran # (Auto) 0.02 (0.00-0.02) K/uL RBC Morphology Sodium 137 (136-145) mmol/L Potassium 3.8 (3.5-5.1) mmol/L Chloride 103 (98-107) mmol/L Carbon Dioxide 25 (21-32) mmol/L Anion Gap 9.0 (3-11) BUN 13 (7-18) mg/dl Creatinine 0.86 (0.6-1.4) mg/dl Est Cr Clr Drug Dosing 85.2 ml/min Est GFR ( Amer) 96.3 ml/min Est GFR (Non-Af Amer) 83.1 ml/min BUN/Creatinine Ratio 14.7 (10-20) Glucose 165 H (70-99) mg/dl POC Glucose 206 H (70-99) mg/dl Calcium 8.3 L (8.5-10.1) mg/dl 05/11/21 Range/Units 07:29 WBC (4.8-10.8) K/uL RBC (4.7-6.1) M/uL Hgb (14.0-18.0) g/dL Hct (42-52) % MCV (80-100) fL MCH (25-34) pg MCHC (32-36) g/dL RDW Std Deviation (36.4-46.3) fL RDW Coeff of Amber (11.5-14.5) % Plt Count (130-400) K/uL MPV (7.4-10.4) fL Immature Gran % (Auto) % Neut % (Auto) % Lymph % (Auto) % Bonner % (Auto) % Eos % (Auto) % Baso % (Auto) % Neut # (Auto) (1.4-6.5) K/uL Lymph # (Auto) (1.2-3.4) K/uL Bonner # (Auto) (0.11-0.59) K/uL Eos # (Auto) (0-0.5) K/uL Baso # (Auto) (0-0.2) K/uL Immature Gran # (Auto) (0.00-0.02) K/uL RBC Morphology Sodium (136-145) mmol/L Potassium (3.5-5.1) mmol/L Chloride (98-107) mmol/L Carbon Dioxide (21-32) mmol/L Anion Gap (3-11) BUN (7-18) mg/dl Creatinine (0.6-1.4) mg/dl Est Cr Clr Drug Dosing ml/min Est GFR ( Amer) ml/min Est GFR (Non-Af Amer) ml/min BUN/Creatinine Ratio (10-20) Glucose (70-99) mg/dl POC Glucose 184 H (70-99) mg/dl Calcium (8.5-10.1) mg/dl PG Care Time/CCT Total # of Minutes Spent Total Time Spent with Patient: Total time spent is greater than 50% in coordination of care (as documented) at patient's floor/unit and/or counseling patient: Coding Level of Care Code 10660 Subseq Hosp Care Lvl 3 Diagnoses Fall W19.XXXA Encounter type: initial encounter Intertrochanteric fracture of right hip S72.141A Encounter type: initial encounter Fracture alignment: displaced Fracture type: closed Acute blood loss anemia D62 Macrocytosis D75.89 Leukocytosis D72.829 DM type 2 (diabetes mellitus, type 2) E11.9 Diabetes mellitus complication status: without complication Diabetes mellitus fdc insulin use: without ad terminal makeup operator use Hypertension I10 Hypertension type: essential hypertension Hypothyroidism E03.9 Hypothyroidism type: unspecified Seizure disorder G40.909 Enlarged prostate with lower urinary tract symptoms (LUTS) N40.1 Lower urinary tract symptom detail: unspecified Tachycardia R00.0 DVT prophylaxis Z29.9 Discharge planning issues Z02.9 (1) DM type 2 (diabetes mellitus, type 2) Diabetes mellitus complication status: without complication Diabetes mellitus ad terminal makeup operator insulin use: without ad terminal makeup operator use Qualified Code(s): E11.9 - Type 2 diabetes mellitus without complications (2) Hypothyroidism Hypothyroidism type: unspecified Qualified Code(s): E03.9 - Hypothyroidism, unspecified (3) Enlarged prostate with lower urinary tract symptoms (LUTS) Lower urinary tract symptom detail: unspecified Qualified Code(s): N40.1 - Benign prostatic hyperplasia with lower urinary tract symptoms (4) Hypertension Hypertension type: essential hypertension Qualified Code(s): I10 - Essential (primary) hypertension (5) Fall Encounter type: initial encounter Qualified Code(s): W19.XXXA - Unspecified fall, initial encounter (6) Intertrochanteric fracture of right hip Encounter type: initial encounter Fracture alignment: displaced Fracture type: closed Qualified Code(s): S72.141A - Displaced intertrochanteric fracture of right femur, initial encounter for closed fracture
[2021-05-11] MEDS ORDERED: IRON SUCROSE 300 MG in SODIUM CHLORIDE 0.9% 250 ML IV ONE (15:09)
[2021-05-11 15:14] LABS: RBC Morphology Unremarkable
[2021-05-11] MEDS: LORazepam 0.5 MG TAB PO PRN (17:11)
[2021-05-11] MEDS: DOCUSATE SODIUM/SENNA 50/8.6MG TAB PO SCH (21:14)
[2021-05-11] MEDS: INSULIN GLARGINE SOLOSTAR 100 UNITS/ML 3 ML PEN SC SCH (21:16)
[2021-05-11] MEDS: SIMVASTATIN 40 MG TAB PO SCH (21:18)
[2021-05-12] MEDS: HYDROmorphone INJ 0.5 MG/0.5 ML SYR IV PRN (00:16)
[2021-05-12] MEDS: LEVOTHYROXINE SODIUM 50 MCG TABLET PO SCH (06:00)
[2021-05-12 07:48] LABS: Basophils # (auto) 0.02 K/uL (0-0.2); Basophils % (auto) 0.3 %; Eosinophils # (auto) 0.06 K/uL (0-0.5); Eosinophils % (auto) 0.9 %; Hematocrit (blood only) 23.7 % (42-52); Hemoglobin 8.2 g/dL (14.0-18.0); Immature Granulocytes # (auto) 0.01 K/uL (0.00-0.02); Immature Granulocytes % (auto) 0.1 %; Lymphocytes # (auto) 1.15 K/uL (1.2-3.4); Lymphocytes % (auto) 17.2 %; Mean Corpuscular Hemoglobin 34.7 pg (25-34); Mean Corpuscular Hgb Conc 34.6 g/dL (32-36); Mean Corpuscular Volume 100.4 fL (80-100); Mean Platelet Volume 8.2 fL (7.4-10.4); Monocytes # (auto) 0.78 K/uL (0.11-0.59); Monocytes % (auto) 11.7 %; Neutrophils # (auto) 4.67 K/uL (1.4-6.5); Neutrophils % (auto) 69.8 %; Platelet Count 249 K/uL (130-400); RDW Coefficient of Variation 12.9 % (11.5-14.5); RDW Standard Deviation 46.7 fL (36.4-46.3); Red Blood Count 2.36 M/uL (4.7-6.1); White Blood Count 6.69 K/uL (4.8-10.8)
[2021-05-12] MEDS: DOCUSATE SODIUM 100 MG CAP PO SCH (08:09)
[2021-05-12] MEDS: levETIRAcetam 250 MG TAB PO SCH ×2 (08:09→19:51)
[2021-05-12] MEDS: METOPROLOL TARTRATE 25 MG TAB PO SCH ×2 (08:09→19:53)
[2021-05-12] MEDS: ASPIRIN 325 MG ECTAB PO SCH (08:09)
[2021-05-12] MEDS: PHENYTOIN SODIUM ER 100 MG CAP PO SCH ×3 (08:10→19:54)
[2021-05-12] MEDS: TAMSULOSIN HCL 0.4 MG CAP PO SCH (08:10)
[2021-05-12] MEDS: INSULIN ASPART 100 UNITS/ML 3 ML PEN SC SCH ×4 (08:10→21:24)
[2021-05-12 08:16] LABS: BUN Creatinine Ratio 19.5 (10-20); Calcium 8.3 mg/dl (8.5-10.1); Creatinine Clr Calc Pharmacy 97.7 ml/min; Est GFR (African American) 101.8 ml/min; Est GFR (Non-African American) 87.9 ml/min; Potassium 3.4 mmol/L (3.5-5.1)
[2021-05-12] MEDS ORDERED: POTASSIUM CHLORIDE CRTAB 20 MEQ TABCR PO STA (09:19)
[2021-05-12] MEDS ORDERED: IRON SUCROSE 300 MG in SODIUM CHLORIDE 0.9% 250 ML IV ONE (10:00)
[2021-05-12] MEDS: FOLIC ACID 1 MG TAB PO SCH (10:39)
[2021-05-12] MEDS: ACETAMINOPHEN 325 MG TAB PO PRN (13:47)
--- NOTE | 2021-05-12 13:48 | Hospitalist Progress Note ---
Date of Service May 12, 2021 Assessment & Plan (1) Fall: By history appears to been a mechanical fall (2) Intertrochanteric fracture of right hip: Highly likely osteoporoticnow postop. Outpatient bone health work-up. PT/OT eval and treat, likely rehab/subacute rehab placement Status post ORIF on 05/09 with orthopedic surgery-management appreciated Continue pain control with Tylenol, IV Dilaudid as needed, add on po oxycodone instead of IV dilaudid Continue bowel regimen-moving bowels DVT prophylaxis with aspirin 325 mg once daily, SCDs Continue PT/OT-rehab placement planned Harris catheter removed and awaiting TOV (3) Acute blood loss anemia: From hip fracture. Hemodynamically stable however has had some sinus tachycardia. Hemoglobin dropped further to 7.8 but now back up to 8.2 This is likely due to the fracture itself as well as some blood loss from the surgery He does have some moderate edema in the hip but no bleeding from the wound Follow CBC in the morning Patient declines blood transfusion at this time but is agreeable to IV iron infusion-was given IV Venofer 300mg daily x 2 doses If hemoglobin drops below 7, patient reports that he likely would be more agreeable to transfusion (4) Macrocytosis: With macrocytic anemia B12 sent and is pending Folate low at 4.5 start Folic acid 1mg po daily (5) Leukocytosis: Likely demargination from the fall, no overt signs or symptoms of infectio n. Is now improved/resolved (6) DM type 2 (diabetes mellitus, type 2): Most recent A1c 6.9, continues with some hyperglycemia Increase Lantus to 8 units at night Tighten NovoLog sliding scale down again to CR 1:8 (7) Hypertension: Blood pressure acceptable overall given the situation. Continue to follow (added low-dose of metoprolol below) (8) Hypothyroidism: Continue Synthroid TSH normal at 0.7 in 10/2020 (9) Seizure disorder: No acute issues Continue Keppra, phenobarbital, phenytoin Keppra levels pending Avoid medications at lower seizure threshold (10) Enlarged prostate with lower urinary tract symptoms (LUTS): Follow postop for any signs or symptoms of urinary retention. Harris removed, awaiting TOV Continue Flomax (11) Tachycardia: Tachycardia likely reactive to pain and volume loss, but with his age and comorbidities I would hesitate to let him run as fast as he is unabatedwe will continue to manage pain and follow his volume status, but for now we will give a low-dose of metoprolol tartrate 12.5 twice daily Tachycardia is improved today has been transferred off tele (12) DVT prophylaxis: Per orthopedicsright now aspirin 325 daily, SCDs (13) Discharge planning issues: PT/OT eval and treat, needs SNF/rehab HPlan to dc to rehab today but transport was cancelled-plan for dc tomorrow AM Admission and Anticipated Discharge Date Admission Date: May 08, 2021 Subjective Pt reports 6/10 pain in right hip. Denies CP or SOB. He is moving his bowels today and reports he is eating. Discharge was cancelled for today due to transport issues. Harris discontinued today and awaiting TOV Review of Systems Review of Systems: All systems reviewed & are unremarkable except as noted in HPI & below Physical Exam Constitutional: WD/WN, vitals as above Eyes: + anicteric sclerae ENMT: Ears: + hearing impairment Neck: trachea midline, no thyromegaly Respiratory: normal respiratory effort, lungs clear to auscultation Cardiovascular: RRR, no murmur, no edema Gastrointestinal (Abdomen): normal bowel sounds, soft, nontender, no hepatosplenomegaly Musculoskeletal: Extremities: + extremities abnormal to inspection (Right hip dressing C/D/I, moderate edema), no cyanosis and no clubbing Skin: no rashes, warm and dry Neurologic: moves all extremities and awake; no focal motor deficits Psychiatric: A+Ox3, euthymic affect Results & Data Results & Data ([facility]) Vital Signs (Past 12 Hours) Vital Signs Temp Pulse Pulse Resp BP BP Pulse Ox 05/12/21 13:10 37.0 C 91 H 90 18 134/71 128/67 91 05/12/21 08:25 37.0 C 91 H 18 134/71 91 Laboratory Results 05/12/21 07:27 05/12/21 07:27 PG Care Time/CCT Total # of Minutes Spent Total Time Spent with Patient: Total time spent is greater than 50% in coordination of care (as documented) at patient's floor/unit and/or counseling patient: Coding Level of Care Code 92637 Subseq Hosp Care Lvl 2 Diagnoses Fall W19.XXXA Encounter type: initial encounter Intertrochanteric fracture of right hip S72.141A Encounter type: initial encounter Fracture type: closed Fracture alignment: displaced Acute blood loss anemia D62 Macrocytosis D75.89 Leukocytosis D72.829 DM type 2 (diabetes mellitus, type 2) E11.9 Diabetes mellitus 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 insulin use: without 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 use Diabetes mellitus complication status: without complication Hypertension I10 Hypertension type: essential hypertension Hypothyroidism E03.9 Hypothyroidism type: unspecified Seizure disorder G40.909 Enlarged prostate with lower urinary tract symptoms (LUTS) N40.1 Lower urinary tract symptom detail: unspecified Tachycardia R00.0 DVT prophylaxis Z29.9 Discharge planning issues Z02.9 (1) Fall Encounter type: initial encounter Qualified Code(s): W19.XXXA - Unspecified fall, initial encounter (2) Intertrochanteric fracture of right hip Encounter type: initial encounter Fracture type: closed Fracture alignment: displaced Qualified Code(s): S72.141A - Displaced intertrochanteric fracture of right femur, initial encounter for closed fracture (3) DM type 2 (diabetes mellitus, type 2) Diabetes mellitus 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 insulin use: without 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 use Diabetes mellitus complication status: without complication Qualified Code(s): E11.9 - Type 2 diabetes mellitus without complications (4) Hypertension Hypertension type: essential hypertension Qualified Code(s): I10 - Essential (primary) hypertension (5) Hypothyroidism Hypothyroidism type: unspecified Qualified Code(s): E03.9 - Hypothyroidism, unspecified (6) Enlarged prostate with lower urinary tract symptoms (LUTS) Lower urinary tract symptom detail: unspecified Qualified Code(s): N40.1 - Benign prostatic hyperplasia with lower urinary tract symptoms
[2021-05-12] MEDS: DOCUSATE SODIUM/SENNA 50/8.6MG TAB PO SCH (19:07)
[2021-05-12] MEDS: LORazepam 0.5 MG TAB PO PRN (19:49)
[2021-05-12] MEDS: oxyCODONE HCL IR 5 MG TAB (IMMEDIATE RELEASE) PO PRN (19:49)
[2021-05-12] MEDS: SIMVASTATIN 40 MG TAB PO SCH (19:56)
[2021-05-12] MEDS ORDERED: INSULIN GLARGINE SOLOSTAR 100 UNITS/ML 3 ML PEN SC SCH (21:00)
[2021-05-13] MEDS: ACETAMINOPHEN 325 MG TAB PO PRN (00:18)
[2021-05-13] MEDS: oxyCODONE HCL IR 5 MG TAB (IMMEDIATE RELEASE) PO PRN (00:18)
[2021-05-13] MEDS: LEVOTHYROXINE SODIUM 50 MCG TABLET PO SCH (06:24)
[2021-05-13] MEDS: FOLIC ACID 1 MG TAB PO SCH (07:20)
[2021-05-13] MEDS: ASPIRIN 325 MG ECTAB PO SCH (07:20)
[2021-05-13] MEDS: METOPROLOL TARTRATE 25 MG TAB PO SCH (07:20)
[2021-05-13] MEDS: levETIRAcetam 250 MG TAB PO SCH (07:20)
[2021-05-13] MEDS: TAMSULOSIN HCL 0.4 MG CAP PO SCH (07:21)
[2021-05-13] MEDS: DOCUSATE SODIUM 100 MG CAP PO SCH (07:21)
[2021-05-13] MEDS: PHENYTOIN SODIUM ER 100 MG CAP PO SCH (07:21)
--- NOTE | 2021-05-13 08:05 | Discharge Summary ---
Date of Service May 13, 2021 Admission HPI Per Admitting Provider Mr. Ra Vang is here due to right hip pain after a fall. He had a witnessed (by his ) ground level fall where he did not hit his head. He was coming out of the bathroom with his walker and lost balance and fell. He was not feeling weak, did not have chest pain or palpitations, did not lose continence or bite his lip. He remembers before, during and after the event. He is currently having right hip pain that is 9/10. He does have a history of a seizure disorder but was unable to remember when he first developed seizures. He was seen here in 2016 by neurology for a seizure event with eyes rolling back and tremulous movements. 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 He had a CT head in October that did not have any acute changes seen. 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 He said he has just had this fall in the last year. Principal Diagnosis Fall with right hip fracture Discharge Exam Constitutional WD/WN, vitals as above Eyes + anicteric sclerae ENMT Ears: + hearing impairment Neck trachea midline, no thyromegaly Respiratory normal respiratory effort, lungs clear to auscultation Cardiovascular RRR, no murmur, no edema Gastrointestinal (Abdomen) normal bowel sounds, soft, nontender, no hepatosplenomegaly Musculoskeletal Extremities: + extremities abnormal to inspection (Right hip dressing C/D/I, moderate edema), no cyanosis and no clubbing Skin no rashes, warm and dry Neurologic moves all extremities and awake; no focal motor deficits Speech / Cognition: + abnormal speech (Slow speech) Psychiatric A+Ox3, euthymic affect Discharge Data Allergies Allergy/AdvReac Type Severity Reaction Status Date / Time morphine Allergy Unknown ? Verified 05/08/21 17:19 nitrofurantoin AdvReac Mild NAUSEA Verified 05/08/21 17:19 Quinolones AdvReac Mild NAUSEA Verified 05/08/21 17:19 meperidine AdvReac Unknown SEIZURES Verified 05/08/21 17:19 Consultations 05/08/21 18:13 ED Decision to Admit Stat 05/08/21 22:14 Consult Orthopedic Surgery Routine Procedures Performed Operation Date: 05/09/21 07:30 Actual Procedures p Right hip long trochanteric nail(Right) - Blu Luna M.D. Ordered Studies 05/09/21 07:30 FL hip RT 2-3V Routine Chest X-Ray 05/08/21 17:11 XR chest 1V portable CLINICAL HISTORY: fall COMPARISON STUDY: Chest radiograph November 15, 2020. FINDINGS: Lung volumes are normal. Linear bibasilar opacities reflect atelectasis or scarring. There is no pneumothorax or pleural effusion. Cardiac size is normal. Mediastinal contours are normal. There is no evidence for pulmonary edema. There are several old left rib fractures. IMPRESSION: No acute cardiopulmonary findings. ACT 112: Negative or not required by law. Electronically signed by: Donald Young M.D. 05/08/2021 6:09 PM Hip/Pelvis X-Ray 05/08/21 17:11 XR hip RT 2V w pelvis CLINICAL HISTORY: Right hip pain following fall. COMPARISON: Pelvis radiograph May 15, 2017. CT of the abdomen and pelvis February 14, 2019. FINDINGS: The sacroiliac joints and symphysis pubis are intact. Note is made of an acute comminuted mildly displaced oblique intertrochanteric fracture of the right femur which extends into the subtrochanteric portion of the right femur. No additional acute fractures are noted. There is moderate bilateral hip osteoarthritis. IMPRESSION: Acute comminuted oblique mildly displaced intertrochanteric fracture of the right femur which extends into the subtrochanteric region. ACT 112: Negative or not required by law. Electronically signed by: Donald Young M.D. 05/08/2021 6:11 PM Femur X-Ray 05/08/21 17:54 XR femur RT 2V routine CLINICAL HISTORY: r femur fx COMPARISON: Pelvis radiograph May 15, 2017. FINDINGS: There is an acute oblique mildly displaced comminuted intertrochanteric fracture of the right femur which extends into the subtrochanteric region. No distal right femoral fracture is present. Alignment of the right knee is difficult to assess on this exam but is likely anatomic. No proximal right tibial or fibular fracture. IMPRESSION: Acute oblique mildly displaced comminuted intertrochanteric fracture of the right femur with subtrochanteric extension. ACT 112: Negative or not required by law. Electronically signed by: Donald Young M.D. 05/08/2021 6:14 PM Hip X-Ray 05/09/21 07:30 FL hip RT 2-3V CLINICAL HISTORY: ORIF RT HIP COMPARISON STUDY: 05/08/2021 FLUOROSCOPY TIME: 132 seconds. NUMBER OF FLUOROSCOPIC IMAGES: 6 FINDINGS: 6 intraoperative fluoroscopic spot images demonstrate internal fixation of an intertrochanteric right hip fracture with a femoral neck nail and interlocking medullary esthela. IMPRESSION: Intraoperative fluoroscopic spot images demonstrating internal fixation of an intertrochanteric right hip fracture. ACT 112: Negative or not required by law. Electronically signed by: Dwaine Mack M.D. 05/09/2021 12:28 PM Femur X-Ray 05/09/21 12:46 XR femur RT 2V routine CLINICAL HISTORY: Postop femoral nail COMPARISON: 05/08/2021 DISCUSSION: There as been interval internal fixation of intertrochanteric right hip fracture with subtrochanteric extension utilizing a femoral neck nail and interlocking intramedullary esthela. IMPRESSION: Internally fixated intertrochanteric right hip fracture. ACT 112: Negative or not required by law. Electronically signed by: Dwaine Mack M.D. 05/09/2021 1:27 PM Hospital Course (1) Fall: By history appears to been a mechanical fall (2) Intertrochanteric fracture of right hip: Highly likely osteoporoticnow postop. Outpatient bone health work-up. PT/OT eval and treat, likely rehab/subacute rehab placement Status post ORIF on 05/09 with orthopedic surgery-management appreciated Continue pain control with Tylenol, po oxycodone as needed Continue bowel regimen-moving bowels regularly DVT prophylaxis with aspirin 325 mg once daily x4 weeks and then return to her home dose of 81 mg daily after that, SCDs Continue PT/OT-rehab placement for today Garcia catheter removed and is voiding without difficulty Of note, when he sleeps after taking pain medicine, he sometimes does drop his pulse ox to the high 80s. He may benefit from a sleep study as an outpatient an d oxygen with sleeping. (3) Acute blood loss anemia: From hip fracture. Hemodynamically stable however has had some sinus tachycardia. Hemoglobin dropped further to 7.8 but now back up to 8.2 This is likely due to the fracture itself as well as some blood loss from the surgery He does have some moderate edema in the hip but no bleeding from the wound Follow CBC [facility] 1 week at the [facility] Patient declines blood transfusion at this time but is agreeable to IV iron infusion-was given IV Venofer 300mg daily x 2 doses Discharge on ferrous sulfate 325 mg p.o. once daily (4) Macrocytosis: With macrocytic anemia B12 sent and is pending Folate low at 4.5 started Folic acid 1mg po daily (5) Leukocytosis: Likely demargination from the fall, no overt signs or symptoms of infection. Is now improved/resolved (6) DM type 2 (diabetes mellitus, type 2): Most recent A1c 6.9, continues with some hyperglycemia but improved Continue Lantus 8 units at night Continue NovoLog sliding scale if needed at [facility]dc Restart home Metformin (7) Hypertension: Blood pressure acceptable overall given the situation. Continue to follow (added low-dose of metoprolol below) (8) Hypothyroidism: Continue Synthroid TSH normal at 0.7 in 10/2020 (9) Seizure disorder: No acute issues Continue Keppra, phenobarbital, phenytoin Keppra levels pending at the time of discharge Avoid medications at lower seizure threshold (10) Enlarged prostate with lower urinary tract symptoms (LUTS): Follow postop for any signs or symptoms of urinary retention. Garcia removed, is voiding without difficulty Continue Flomax (11) Tachycardia: Tachycardia likely reactive to pain and volume loss, but with his age and comorbidities I would hesitate to let him run as fast as he is unabatedwe will continue to manage pain and follow his volume status, but for now we will give a low-dose of metoprolol tartrate 12.5 twice daily Tachycardia is now resolved (12) DVT prophylaxis: Per orthopedicsaspirin 325 daily, SCDs (13) Discharge planning issues: PT/OT eval and treat, needs SNF/rehab Discharge to rehab today Total Time Total Time Spent Total Time Spent (In Minutes): 35 minutes Total Time Includes: Examination of the Patient, Discharge Planning and Medication Reconciliation Discharge Plan Discharge Items Patient Disposition: Transfer Senior Living Fac Reason For Visit: FALL Discharge Diagnosis: Right hip intertrochanteric/subtrochanteric femur fracture Condition on Discharge: Fair Activity: As commented below Non-emergency contact: Primary Care Provider and Surgeon Call non-emergency contact if: your pain is not controlled, your temperature is above 101.5, your wound has increased redness and your wound has increased drainage Follow-up/Referrals: Coleman Gillespie MD [Primary Care Provider] - (Follow-up within 1 to 2 weeks after discharge from the rehab.) Blu Luna M.D. [Physician] - Diet: Carb Consistent or DM2 and Heart Healthy Addtl Attending Provider Instructions: Things to Watch Out For -Go to the Emergency Room if you have sudden onset of chest pain, shortness of breath, or uncontrollable pain. -Call the orthopedics clinic immediately if you have a sudden increase in the amount of wound drainage or the drainage becomes thick, yellow or green, or foul-smelling. -For routine questions regarding your hip surgery, call the orthopedics clinic at [phone] during regular business hours (8am-5pm). For urgent issues after regular business hours, you may call the clinic to be connected to the on-call physician. Dressings -Keep your dressings clean, dry, and in place for 4 days after surgery. After 4 days postoperatively, you may remove the dressing and cover the incisions with new clean dressings. Be sure to wash your hands thoroughly before touching your incisions. Apply a new dressing daily thereafter. -You may begin showering after your first dressing change (4 days after surgery). You may let the water run BRIEFLY over the incisions, but do not soak the incisions in the bathtub or pool for 2 weeks. You may also gently clean the incisions with mild soap and water; pat the incision dry after cleaning-do not rub the incisions. -You may use an antibiotic ointment (Bacitracin, Polysporin) if desired, but this is not necessary. Weight Bearing -You need to remain toe-touch weight bearing on your operative leg. You may rest the weight of your foot on the ground, but do not put any body weight through that leg. Use a walker for support and balance. Followup -You will need to follow-up with Dr. Luna in orthopedic surgery clinic 10- 14 days after surgery. Please call [facility] at [phone] to make an appointment. Addtl [employer] Provider Instructions: Please take aspirin 325 mg once daily for the next 4 weeks to prevent blood clot in the leg and then return to 81 mg once daily after that which is your usual dose. You were started on metoprolol this admission to help with your blood pressure and heart rate. Please check a CBC in 1 week due to acute blood loss anemia. Continue on the iron pills as prescribed. Pending Studies at Discharge: Yes Stand-Alone Forms: My [facility] Skilled Items Patient informed of condition?: Yes DNR: Yes Discharge Level of Care: Skilled Communicable Disease: No Discharge Prognosis: Improving Lines: None Urinary Catheter: No Medications and DC Order Prescriptions: New metoprolol tartrate 25 mg Tablet 12.5 mg PO BID Qty: 30 RF: 0 acetaminophen 325 mg Tablet 650 mg PO Q4H PRN (Reason: pain) Qty: 30 RF: 0 aspirin [Ecotrin] 325 mg Tablet,Delayed Release (Dr/Ec) 325 mg PO QAM Qty: 30 RF: 0 oxycodone 5 mg Tablet 5 mg PO Q4 PRN (Reason: Severe pain) Qty: 10 RF: 0 sennosides-docusate sodium [Senokot-S] 8.6-50 mg Tablet 2 tab PO HS Qty: 60 RF: 0 Lantus Solostar U-100 Insulin 100 unit/mL (3 mL) Insulin Pen 8 unit SC HS Qty: 15 RF: 0 folic acid 1 mg Tablet 1 mg PO QAM Qty: 30 RF: 0 ferrous sulfate 325 mg (65 mg iron) tablet 325 mg PO DAILY Qty: 30 RF: 0 Continued (DME) blood-glucose meter [OneTouch Verio Flex Start] Kit See Rx Instructions .ROUTE .MEDSUPPLY Qty: 1 RF: 1 (DME) OneTouch Verio test strips Strip See Rx Instructions .ROUTE .MEDSUPPLY Qty: 100 RF: 5 (DME) lancets [OneTouch Delica Plus Lancet] 30 gauge misc See Rx Instructions .ROUTE .MEDSUPPLY Qty: 100 RF: 5 ondansetron HCl [Zofran] 4 mg tablet 4 mg PO Q8H PRN (Reason: nausea and vomiting) Qty: 30 RF: 0 phenytoin sodium extended 100 mg capsule 100 mg PO TID Qty: 90 RF: 0 triamcinolone acetonide 0.1 % cream 1 applic topical BID Qty: 30 RF: 0 simvastatin 40 mg tablet 40 mg PO HS Qty: 30 RF: 0 hydrocortisone acetate [Anusol-HC] 25 mg suppository 25 mg GA BID PRN (Reason: Hemorrhoids) Qty: 12 RF: 0 lorazepam 0.5 mg tablet 0.5 mg PO BID PRN (Reason: Anxiety) Qty: 10 RF: 0 tamsulosin [Flomax] 0.4 mg capsule 0.4 mg PO DAILY Qty: 30 RF: 0 levetiracetam 250 mg tablet 750 mg PO BID Qty: 180 RF: 0 levothyroxine 50 mcg tablet 50 mcg PO DAILYBB Qty: 30 RF: 0 docusate sodium [Colace] 100 mg capsule 100 mg PO DAILY Qty: 30 RF: 0 metformin 500 mg tablet extended release 24 hr 1,000 mg PO BID Qty: 120 RF: 0 Metamucil Sugar-Free (aspart) 3.4 gram/5.8 gram powder 2.559490 g PO DAILY 30 Days Qty: 283 RF: 0 Creon 6,000-19,000 -30,000 unit capsule,delayed release(DR/EC) 2 cap PO QID 30 Days Qty: 240 RF: 0 Changed phenobarbital 64.8 mg tablet 64.8 mg PO AMHS Qty: 60 RF: 0 Discontinued aspirin 81 mg tablet,delayed release (DR/EC) 81 mg PO QAM Qty: 90 RF: 3 Discharge Orders: Discharge Order (Routine); Ordered 05/13/21 Ordered By: Yamilka Chong Admission Data Admit Date/Time: 05/08/21 20:03 Attending Provider: Yamilka Chong Admit Provider: Michael Gómez Primary Care Provider: Coleman Gillespie [facility]: [facility] ; Jose Nolan ; Blu Luna Other Interventions: Discharge Summary Assessment (RN) Last Done: 05/13/21 07:32 Coding Level of Care Code D/C Day Management >30 mins Diagnoses Fall W19.XXXA Encounter type: initial encounter Intertrochanteric fracture of right hip S72.141A Encounter type: initial encounter Fracture alignment: displaced Fracture type: closed Acute blood loss anemia D62 Macrocytosis D75.89 Leukocytosis D72.829 DM type 2 (diabetes mellitus, type 2) E11.9 Diabetes mellitus complication status: without complication Diabetes mellitus custodial insulin use: without custodial use Hypertension I10 Hypertension type: essential hypertension Hypothyroidism E03.9 Hypothyroidism type: unspecified Seizure disorder G40.909 Enlarged prostate with lower urinary tract symptoms (LUTS) N40.1 Lower urinary tract symptom detail: unspecified Tachycardia R00.0 DVT prophylaxis Z29.9 Discharge planning issues Z02.9
[2021-05-13] MEDS: INSULIN ASPART 100 UNITS/ML 3 ML PEN SC SCH (08:14)
== END 2021-05-13 08:30 | DRG 481 ==
LOC: ED 16:54 → SUATTDRO 20:03 → 2W 20:03

== ENCOUNTER 2021-06-16 09:39 | Inpatient (IN) ==
[2021-06-16 10:11] LABS: Basophils # (auto) 0.02 K/uL (0-0.2); Basophils % (auto) 0.2 %; Hematocrit (blood only) 30.7 % (42-52); Hemoglobin 9.8 g/dL (14.0-18.0); Immature Granulocytes # (auto) 0.03 K/uL (0.00-0.02); Immature Granulocytes % (auto) 0.2 %; Lymphocytes # (auto) 0.87 K/uL (1.2-3.4); Lymphocytes % (auto) 6.5 %; Mean Corpuscular Hemoglobin 34.8 pg (25-34); Mean Corpuscular Hgb Conc 31.9 g/dL (32-36); Mean Corpuscular Volume 108.9 fL (80-100); Mean Platelet Volume 8.4 fL (7.4-10.4); Monocytes # (auto) 0.95 K/uL (0.11-0.59); Monocytes % (auto) 7.1 %; Neutrophils # (auto) 11.45 K/uL (1.4-6.5); Platelet Count 224 K/uL (130-400); RDW Coefficient of Variation 13.4 % (11.5-14.5); RDW Standard Deviation 53.3 fL (36.4-46.3); Red Blood Count 2.82 M/uL (4.7-6.1); White Blood Count 13.32 K/uL (4.8-10.8)
[2021-06-16 10:14] LABS: Base Excess VBG -1.9 mEq/L; HCO3 VBG 23 mmol/L; PCO2 VBG 39 mmHg (38-50); PO2 VBG 31 mmHg; pH VBG 7.39 (7.36-7.41)
[2021-06-16 10:15] LABS: Oxygen Saturation VBG < 60.0 %
[2021-06-16 10:15] LABS: iSTAT Creatinine 1.3 mg/dl (0.6-1.3); iSTAT Hemoglobin 10.2 g/dl (14.0-18.0); iSTAT Ionized Calcium 1.22 mmol/l (1.12-1.32); iSTAT Potassium 4.4 mmol/L (3.3-5.0)
--- NOTE | 2021-06-16 10:15 | Emergency Department Note ---
Impression & Plan Metabolic encephalopathy, Elevated troponin, Urinary retention, Seizure disorder, Acute UTI (urinary tract infection) ED Provider Note NAME: VOLODYMYR Knapp CHRONISTER AGE: 76 SEX: M ARRIVES VIA: Ambulance INFORMANT: Patient, ED PROVIDER(S): Alcides Nichols MD CHIEF COMPLAINT: AMS, unresponsive PLAN: Disposition: Admit MEDICAL DECISION MAKING: The patient is a 76-year-old gentleman with a past medical history of seizure disorder, type 2 diabetes, urinary retention, recurrent UTIs, hyperlipidemia, hypertension, hypothyroidism, recent admission for right hip fx s/p ORIF on 05/09 who presents to the emergency department from [facility] for altered mental status weakness that began yesterday at 2 PM and then early this morning was somnolent and minimally responsive. Patient is DNR per EMS and paperwork records. There was report from SNF staff that they thought there may have had right-sided weakness but the patient is somnolent and only responds to pain and so this is difficult to assess. Given last known well was yesterday before 2 PM no indication for stroke alert. On arrival the patient is responsive to pain and will moan but does not withdrawal. Febrile to 38.2. BP 80s/40s but fluid responsive . He does intermittently respond to loud voice. Pupils are 2mm and sluggish. He did have a fentanyl patch on his left upper chest that was removed. Upon placement of Garcia catheter the patient did have over 2L of urine. BLE with 1+ edema. Limited bedside US with normal respiratory variability ~ <75%. GCS 5 on arrival but demonstrated some gradual slight improvement after removal of fentanyl patch. Given DNR and presumed DNI intubation was deferred. EKG without overt acute ischemia. CXR negative for acute cardiopulmonary process. WBC 13.3K. Platelets wnl. H/H decreased from recent but approximate to prior range of values. Initial lactate 2.7. However, Chemistry without acidosis. VBG unremarkable. Magnesium 1.7 with repletion initiated. Electrolytes unremarkable. LFTs without significant abnormality. Ammonia wnl. Lipase is not elevated. Procalcitonin 0.9. Initial Troponin 0.073, likely demand. Phenytoin and Phenobarbital wnl. Keppra level deferred given it is a send-out. Covid-19 PCR negative. UA c/w infection. Treatment initiated with Zosyn. CT head and CTA head/neck and CT abd/pelvis were negative. Trial of low dose narcan had minimal effect. Mental status improved to following simple commands, e.g. hand squeeze but still only moaning. Fluids given cautiously given appears Euvolemic to hypervolemic. Case was discussed with NATALIO Chaudhari hospitalist, who evaluated the patient for admission and did confirm with family DNR/DNI status. Triage Nursing notes reviewed and agree them. Additional history obtained from SNF records. Prior medical records reviewed Vital Signs: reviewed and remarkable for hypotension, fluid responsive. Differential diagnosis: Infection, hypoglycemia, electrolyte abnormalities, overdose, toxicologic, cardiac sources, intracerebral event, neurologic, trauma, as well as other pathologies. ER treatment provided: See below. Diagnostics interpreted by me: ECG: NSR, 76 bpm, no ectopy, no overt ST elevation or depression. Cardiac Monitoring: An order for continuous cardiac monitoring was placed and demonstrated NSR, 76 bpm, no ectopy. Laboratory studies: See below Imaging studies: See below Consultation(s): Case was discussed with MARIA E Chaudhari hospitalist, who will evaluate the patient for admission. HPI: The patient is a 76-year-old gentleman with a past medical history of seizure disorder, type 2 diabetes, urinary retention, recurrent UTIs, hyperlipidemia, hypertension, hypothyroidism, recent admission for right hip fx s/p ORIF on 05/09 who presents to the emergency department from [facility] for altered mental status weakness that began yesterday at 2 PM and then early this morning was somnolent and minimally responsive. Patient is DNR per EMS and paperwork records. There was report from SNF staff that they thought there may have had right-sided weakness but the patient is somnolent and only responds to pain and so this is difficult to assess. Given last known well was yesterday before 2 PM no indication for stroke alert. ROS: See above HPI for pertinent positives & negatives. A total of 10 systems reviewed and were otherwise negative. PAST MEDICAL HISTORY:See Below PAST SURGICAL HISTORY:See Below FAMILY HISTORY:See Below SOCIAL HISTORY:See Below HOME MEDICATIONS:See Below ALLERGIES:See Below VITALS:See Below PHYSICAL EXAMINATION: GENERAL: Somnolent, moans to pain, GCS 5 on arrival, ill-appearing. HENT: Normocephalic, atraumatic. Oropharynx unremarkable. EYES: Normal conjunctiva. Sclera non-icteric. Pupils 2mm and sluggish. NECK: Supple. No nuchal rigidity. FROM. No JVD. RESPIRATORY: Clear to auscultation. CARDIAC: Regular rate, normal rhythm. Extremities warm and well perfused. Pulses equal. ABDOMEN: Distended but soft. No tenderness to palpation. No rebound or guarding. No masses. RECTAL: Deferred. MUSCULOSKELETAL: Chest examination reveals no tenderness. The back is symmetrical on inspection without obvious abnormality. There is no CVA t enderness to palpation. No joint edema. LOWER EXTREMITIES: Calves are equal size bilaterally and non-tender. 1+ BLE edema. No discoloration. NEURO: Somnolent, moans to pain, GCS 5 on arrival. SKIN: No rash or jaundice noted. ED COURSE: Critical Care: I have personally spent greater than 45 minutes of critical care time in the direct management of this patient. This includes bedside care, interpretation of diagnostic studies, and testing, discussion with consultants, patient, and family members, and other required patient management activities. This 45 minutes is in excess of all separately billable procedures. Alcides Nichols MD Past Med/Surg History Medical History Bleeding external hemorrhoids CVA (cerebral vascular accident) DM type 2 (diabetes mellitus, type 2) Fall Fall Falls frequently Headache Hypertension Hypothyroidism Seizures TIA (transient ischemic attack) (04/08/14) 2013 Ventral hernia Surgical History H/O abdominal surgery History of right hip replacement Hx of cholecystectomy Family History Mother Hypertension Brother Hypertension Kidney stones Denies family history of Myocardial infarction Stroke Social History Smoking Status: Former smoker Tobacco Type: Cigarettes Second Hand Exposure: No; Hx Alcohol Use: No Hx Substance Use: No Preferred Language: Lithuanian Communication Ability: Impaired Communication Tools: Other Chiropractic Doctor Required: Yes Beliefs That Will Affect Care: None marital status: Current Living Situation: Halfway Current Living Situation Comment: [facility] How many Children do You have: 0 Feels Safe at Home: Yes Assistive Devices: None Allergies Allergies Allergy/AdvReac Type Severity Reaction Status Date / Time morphine Allergy Unknown ? Verified 06/16/21 10:18 nitrofurantoin AdvReac Mild NAUSEA Verified 06/16/21 10:18 Quinolones AdvReac Mild NAUSEA Verified 06/16/21 10:18 meperidine AdvReac Unknown SEIZURES Verified 06/16/21 10:18 Home Meds Home Medications Medication Instructions Recorded Confirmed acetaminophen 500 mg tablet 1,000 mg PO BID 06/16/21 06/16/21 (Acetaminophen Extra Strength) citalopram 10 mg tablet (Celexa) 5 mg PO HS 06/16/21 06/16/21 cyanocobalamin (vitamin B-12) 1,000 mcg PO QAM 06/16/21 06/16/21 1,000 mcg tablet (Vitamin B-12) docusate sodium 100 mg capsule 100 mg PO QAM 06/16/21 06/16/21 (Colace) fentanyl 25 mcg/hr transdermal 1 patch TRANSDERMAL Q72H 06/16/21 06/16/21 patch (Duragesic) ferrous sulfate 325 mg (65 mg 325 mg PO QAM 06/16/21 06/16/21 iron) tablet (Iron (ferrous sulfate)) levetiracetam 750 mg tablet 750 mg PO Q12H 06/16/21 06/16/21 (Keppra) levothyroxine 75 mcg tablet 75 mcg PO DAILYBB 06/16/21 06/16/21 vajsra-jagvwoad-kconfbk 1 cap PO QID 06/16/21 06/16/21 6,000-19,000-30,000 unit capsule,delayed rel (Creon) metformin 1,000 mg tablet 1,000 mg PO Q12 06/16/21 06/16/21 oxycodone 5 mg tablet (Roxicodone) 5 mg PO Q4 PRN 06/16/21 06/16/21 phenobarbital 64.8 mg tablet 64.8 mg PO Q12 06/16/21 06/16/21 phenytoin sodium extended 100 mg 100 mg PO TID 06/16/21 06/16/21 capsule (Dilantin Extended) psyllium husk (aspartame) 3.4 2.277221 g PO QAM 06/16/21 06/16/21 gram/5.8 gram oral powder (Metamucil Sugar-Free (aspartame)) simvastatin 40 mg tablet (Zocor) 40 mg PO HS 06/16/21 06/16/21 tamsulosin 0.4 mg capsule (Flomax) 0.4 mg PO HS 06/16/21 06/16/21 Previous Rx's Medication Instructions Recorded blood sugar diagnostic (OneTouch #100 ea 12/05/20 Verio test strips) blood-glucose meter (OneTouch #1 ea 12/05/20 Verio Flex Start) lancets 30 gauge (OneTouch Delica #100 ea 12/05/20 Plus Lancet) folic acid 1 mg tablet 1 mg PO QAM #30 tab 05/13/21 insulin glargine 100 unit/mL (3 8 unit SC HS #15 ml 05/13/21 mL) subcutaneous pen (Lantus Solostar U-100 Insulin) metoprolol tartrate 25 mg tablet 12.5 mg PO BID #30 tab 05/13/21 sennosides 8.6 mg-docusate sodium 2 tab PO HS #60 tab 05/13/21 50 mg tablet (Senokot-S) Results & Data (ED) Vital Signs Vital Signs - 24 hr 06/16/21 09:40 06/16/21 10:00 06/16/21 10:15 Temperature Temperature Source Pulse Rate 83 78 76 Pulse Rate from SpO2 Sensor 78 77 Pulse Rhythm Regular Pulse Strength Normal Respiratory Rate 18 15 15 Respiratory Effort / Characteristics Non-Labored Spontaneous Respiratory Depth Normal Respiratory Pattern Regular Blood Pressure 98/58 L 113/52 L 90/48 L Blood Pressure Mean 71 72 62 Pulse Oximetry 89 L 98 98 Oxygen Delivery Method Room Air Nasal Cannula Oxygen Flow Rate 3 3 Sepsis Recent Fever Within 48 Hours No Sepsis New/Unexplained Change in Mental Status Yes Sepsis Action Taken by Nursing Physician Notified 06/16/21 10:20 06/16/21 10:30 06/16/21 10:54 Temperature 38.2 C H Temperature Source Rectal Pulse Rate 78 77 Pulse Rate from SpO2 Sensor 78 76 Pulse Rhythm Pulse Strength Respiratory Rate 15 16 Respiratory Effort / Characteristics Respiratory Depth Respiratory Pattern Blood Pressure 109/51 L 100/46 L Blood Pressure Mean 70 64 Pulse Oximetry 98 100 Oxygen Delivery Method Oxygen Flow Rate 3 3 Sepsis Recent Fever Within 48 Hours Sepsis New/Unexplained Change in Mental Status Sepsis Action Taken by Nursing 06/16/21 11:00 06/16/21 11:15 06/16/21 11:30 Temperature Temperature Source Pulse Rate 73 77 78 Pulse Rate from SpO2 Sensor 75 77 78 Pulse Rhythm Pulse Strength Respiratory Rate Respiratory Effort / Characteristics Respiratory Depth Respiratory Pattern Blood Pressure 82/48 L 96/48 L 107/57 L Blood Pressure Mean 59 64 73 Pulse Oximetry 100 100 100 Oxygen Delivery Method Oxygen Flow Rate Sepsis Recent Fever Within 48 Hours Sepsis New/Unexplained Change in Mental Status Sepsis Action Taken by Nursing 06/16/21 11:45 Temperature Temperature Source Pulse Rate 79 Pulse Rate from SpO2 Sensor 79 Pulse Rhythm Pulse Strength Respiratory Rate Respiratory Effort / Characteristics Respiratory Depth Respiratory Pattern Blood Pressure 118/57 L Blood Pressure Mean 77 Pulse Oximetry 100 Oxygen Delivery Method Oxygen Flow Rate Sepsis Recent Fever Within 48 Hours Sepsis New/Unexplained Change in Mental Status Sepsis Action Taken by Nursing Laboratory Data Attestation: I reviewed the patient's lab results. Result diagrams: 06/16/21 10:01 06/16/21 10:01 Lab Results 06/16/21 06/16/21 06/16/21 Range/Units 09:56 10:01 10:01 WBC (4.8-10.8) K/uL RBC (4.7-6.1) M/uL Hgb (14.0-18.0) g/dL POC Hgb (14.0-18.0) g/dl Hct (42-52) % POC Hct (42-52) % MCV (80-100) fL MCH (25-34) pg MCHC (32-36) g/dL RDW Std Deviation (36.4-46.3) fL RDW Coeff of Amber (11.5-14.5) % Plt Count (130-400) K/uL MPV (7.4-10.4) fL Immature Gran % (Auto) % Neut % (Auto) % Lymph % (Auto) % [place] % (Auto) % Eos % (Auto) % Baso % (Auto) % Neut # (Auto) (1.4-6.5) K/uL Lymph # (Auto) (1.2-3.4) K/uL [place] # (Auto) (0.11-0.59) K/uL Eos # (Auto) (0-0.5) K/uL Baso # (Auto) (0-0.2) K/uL Immature Gran # (Auto) (0.00-0.02) K/uL PT (9.0-12.0) Seconds INR (0.9-1.1) APTT (21.0-31.0) Seconds PTT Ratio VBG pH (7.36-7.41) VBG pCO2 (38-50) mmHg VBG pO2 mmHg VBG HCO3 mmol/L VBG O2 Saturation % VBG Base Excess mEq/L Barometric Pressure mm/Hg POC Sodium (135-144) mmol/L Sodium 140 (136-145) mmol/L POC Potassium (3.3-5.0) mmol/L Potassium 4.4 (3.5-5.1) mmol/L POC Chloride (101-112) mmol/L Chloride 110 H (98-107) mmol/L Carbon Dioxide 25 (21-32) mmol/L POC Total CO2 (24-31) mmol/L Anion Gap 5.0 (3-11) POC Anion Gap (16-25) mmol/L POC BUN (7-18) mg/dl BUN 31 H (7-18) mg/dl Creatinine 1.38 (0.6-1.4) mg/dl POC Creatinine (0.6-1.3) mg/dl Est Cr Clr Drug Dosing Not Reportable Est GFR ( Amer) 56.4 ml/min Est GFR (Non-Af Amer) 48.6 ml/min BUN/Creatinine Ratio 22.4 H (10-20) Glucose 136 H (70-99) mg/dl POC Glucose (other) (70-99) mg/dl Lactate (0.4-2.0) mmol/L Calcium 8.8 (8.5-10.1) mg/dl POC Ioniz Calcium Rashi (1.12-1.32) mmol/l Phosphorus 2.4 L (2.5-4.9) mg/dl Magnesium 1.7 L (1.8-2.4) mg/dl Total Bilirubin 0.4 (0.2-1) mg/dl Direct Bilirubin 0.2 (0-0.2) mg/dl AST 10 L (15-37) U/L ALT 13 (12-78) U/L Alkaline Phosphatase 88 (45-117) U/L Ammonia 19.0 (11-32) umol/L Total Creatine Kinase 38 L (39-308) U/L Troponin I 0.073 H* (0-0.045) ng/ml Total Protein 6.2 L (6.4-8.2) gm/dl Albumin 2.6 L (3.4-5.0) gm/dl Globulin 3.6 (2.5-4.0) gm/dl Albumin/Globulin Ratio 0.7 L (0.9-2) Lipase 63 L (73-393) U/L Procalcitonin (0-0.5) ng/ml TSH 1.470 (0.300-4.500) uIu/ml Urine Color Dark Yellow Urine Appearance Cloudy A (Clear) Urine pH 7.5 (4.5-7.5) Ur Specific [place] 1.018 (1.000-1.030) Urine Protein 1+ H (Negative) Urine Glucose (UA) Negative (Negative) Urine Ketones Negative (Negative) Urine Blood 1+ H (Negative) Urine Nitrite Negative (Negative) Urine Bilirubin Negative (Negative) Urine Urobilinogen Negative (Negative) Ur Leukocyte Esterase 3+ H (Negative) Urine WBC (Auto) >30 H (0-5) /hpf Urine RBC (Auto) 0-4 (0-4) /hpf U Hyaline Cast (Auto) 1-5 (0-5) /lpf U Epithel Cells (Auto) 0-5 (0-5) /lpf Urine Bacteria (Auto) 4+ H (Negative) Phenytoin (10-20) mcg/ml Phenobarbital (15-40) mcg/mL COVID-19 Eval Order SARS-CoV-2 (PCR) (Negative) 06/16/21 06/16/21 06/16/21 Range/Units 10:01 10:01 10:01 WBC (4.8-10.8) K/uL RBC (4.7-6.1) M/uL Hgb (14.0-18.0) g/dL POC Hgb (14.0-18.0) g/dl Hct (42-52) % POC Hct (42-52) % MCV (80-100) fL MCH (25-34) pg MCHC (32-36) g/dL RDW Std Deviation (36.4-46.3) fL RDW Coeff of Amber (11.5-14.5) % Plt Count (130-400) K/uL MPV (7.4-10.4) fL Immature Gran % (Auto) % Neut % (Auto) % Lymph % (Auto) % [place] % (Auto) % Eos % (Auto) % Baso % (Auto) % Neut # (Auto) (1.4-6.5) K/uL Lymph # (Auto) (1.2-3.4) K/uL [place] # (Auto) (0.11-0.59) K/uL Eos # (Auto) (0-0.5) K/uL Baso # (Auto) (0-0.2) K/uL Immature Gran # (Auto) (0.00-0.02) K/uL PT (9.0-12.0) Seconds INR (0.9-1.1) APTT (21.0-31.0) Seconds PTT Ratio VBG pH 7.39 (7.36-7.41) VBG pCO2 39 (38-50) mmHg VBG pO2 31 mmHg VBG HCO3 23 mmol/L VBG O2 Saturation < 60.0 % VBG Base Excess -1.9 mEq/L Barometric Pressure 732.6 mm/Hg POC Sodium (135-144) mmol/L Sodium (136-145) mmol/L POC Potassium (3.3-5.0) mmol/L Potassium (3.5-5.1) mmol/L POC Chloride (101-112) mmol/L Chloride (98-107) mmol/L Carbon Dioxide (21-32) mmol/L POC Total CO2 (24-31) mmol/L Anion Gap (3-11) POC Anion Gap (16-25) mmol/L POC BUN (7-18) mg/dl BUN (7-18) mg/dl Creatinine (0.6-1.4) mg/dl POC Creatinine (0.6-1.3) mg/dl Est Cr Clr Drug Dosing Est GFR ( Amer) ml/min Est GFR (Non-Af Amer) ml/min BUN/Creatinine Ratio (10-20) Glucose (70-99) mg/dl POC Glucose (other) (70-99) mg/dl Lactate (0.4-2.0) mmol/L Calcium (8.5-10.1) mg/dl POC Ioniz Calcium Rashi (1.12-1.32) mmol/l Phosphorus (2.5-4.9) mg/dl Magnesium (1.8-2.4) mg/dl Total Bilirubin (0.2-1) mg/dl Direct Bilirubin (0-0.2) mg/dl AST (15-37) U/L ALT (12-78) U/L Alkaline Phosphatase (45-117) U/L Ammonia (11-32) umol/L Total Creatine Kinase (39-308) U/L Troponin I (0-0.045) ng/ml Total Protein (6.4-8.2) gm/dl Albumin (3.4-5.0) gm/dl Globulin (2.5-4.0) gm/dl Albumin/Globulin Ratio (0.9-2) Lipase (73-393) U/L Procalcitonin 0.90 H (0-0.5) ng/ml TSH (0.300-4.500) uIu/ml Urine Color Urine Appearance (Clear) Urine pH (4.5-7.5) Ur Specific [place] (1.000-1.030) Urine Protein (Negative) Urine Glucose (UA) (Negative) Urine Ketones (Negative) Urine Blood (Negative) Urine Nitrite (Negative) Urine Bilirubin (Negative) Urine Urobilinogen (Negative) Ur Leukocyte Esterase (Negative) Urine WBC (Auto) (0-5) /hpf Urine RBC (Auto) (0-4) /hpf U Hyaline Cast (Auto) (0-5) /lpf U Epithel Cells (Auto) (0-5) /lpf Urine Bacteria (Auto) (Negative) Phenytoin 10.7 (10-20) mcg/ml Phenobarbital 29.3 (15-40) mcg/mL COVID-19 Eval Order SARS-CoV-2 (PCR) (Negative) 06/16/21 06/16/21 06/16/21 Range/Units 10:01 10:01 10:01 WBC 13.32 H (4.8-10.8) K/uL RBC 2.82 L (4.7-6.1) M/uL Hgb 9.8 L (14.0-18.0) g/dL POC Hgb (14.0-18.0) g/dl Hct 30.7 L (42-52) % POC Hct (42-52) % MCV 108.9 H (80-100) fL MCH 34.8 H (25-34) pg MCHC 31.9 L (32-36) g/dL RDW Std Deviation 53.3 H (36.4-46.3) fL RDW Coeff of Amber 13.4 (11.5-14.5) % Plt Count 224 (130-400) K/uL MPV 8.4 (7.4-10.4) fL Immature Gran % (Auto) 0.2 % Neut % (Auto) 86.0 % Lymph % (Auto) 6.5 % [place] % (Auto) 7.1 % Eos % (Auto) 0.0 % Baso % (Auto) 0.2 % Neut # (Auto) 11.45 H (1.4-6.5) K/uL Lymph # (Auto) 0.87 L (1.2-3.4) K/uL [place] # (Auto) 0.95 H (0.11-0.59) K/uL Eos # (Auto) 0.00 (0-0.5) K/uL Baso # (Auto) 0.02 (0-0.2) K/uL Immature Gran # (Auto) 0.03 H (0.00-0.02) K/uL PT 11.2 (9.0-12.0) Seconds INR 1.1 (0.9-1.1) APTT 28.5 (21.0-31.0) Seconds PTT Ratio 1.1 VBG pH (7.36-7.41) VBG pCO2 (38-50) mmHg VBG pO2 mmHg VBG HCO3 mmol/L VBG O2 Saturation % VBG Base Excess mEq/L Barometric Pressure mm/Hg POC Sodium (135-144) mmol/L Sodium (136-145) mmol/L POC Potassium (3.3-5.0) mmol/L Potassium (3.5-5.1) mmol/L POC Chloride (101-112) mmol/L Chloride (98-107) mmol/L Carbon Dioxide (21-32) mmol/L POC Total CO2 (24-31) mmol/L Anion Gap (3-11) POC Anion Gap (16-25) mmol/L POC BUN (7-18) mg/dl BUN (7-18) mg/dl Creatinine (0.6-1.4) mg/dl POC Creatinine (0.6-1.3) mg/dl Est Cr Clr Drug Dosing Est GFR ( Amer) ml/min Est GFR (Non-Af Amer) ml/min BUN/Creatinine Ratio (10-20) Glucose (70-99) mg/dl POC Glucose (other) (70-99) mg/dl Lactate 2.7 H* (0.4-2.0) mmol/L Calcium (8.5-10.1) mg/dl POC Ioniz Calcium Rashi (1.12-1.32) mmol/l Phosphorus (2.5-4.9) mg/dl Magnesium (1.8-2.4) mg/dl Total Bilirubin (0.2-1) mg/dl Direct Bilirubin (0-0.2) mg/dl AST (15-37) U/L ALT (12-78) U/L Alkaline Phosphatase (45-117) U/L Ammonia (11-32) umol/L Total Creatine Kinase (39-308) U/L Troponin I (0-0.045) ng/ml Total Protein (6.4-8.2) gm/dl Albumin (3.4-5.0) gm/dl Globulin (2.5-4.0) gm/dl Albumin/Globulin Ratio (0.9-2) Lipase (73-393) U/L Procalcitonin (0-0.5) ng/ml TSH (0.300-4.500) uIu/ml Urine Color Urine Appearance (Clear) Urine pH (4.5-7.5) Ur Specific [place] (1.000-1.030) Urine Protein (Negative) Urine Glucose (UA) (Negative) Urine Ketones (Negative) Urine Blood (Negative) Urine Nitrite (Negative) Urine Bilirubin (Negative) Urine Urobilinogen (Negative) Ur Leukocyte Esterase (Negative) Urine WBC (Auto) (0-5) /hpf Urine RBC (Auto) (0-4) /hpf U Hyaline Cast (Auto) (0-5) /lpf U Epithel Cells (Auto) (0-5) /lpf Urine Bacteria (Auto) (Negative) Phenytoin (10-20) mcg/ml Phenobarbital (15-40) mcg/mL COVID-19 Eval Order SARS-CoV-2 (PCR) (Negative) 06/16/21 06/16/21 06/16/21 Range/Units 10:02 10:24 10:24 WBC (4.8-10.8) K/uL RBC (4.7-6.1) M/uL Hgb (14.0-18.0) g/dL POC Hgb 10.2 L (14.0-18.0) g/dl Hct (42-52) % POC Hct 30 L (42-52) % MCV (80-100) fL MCH (25-34) pg MCHC (32-36) g/dL RDW Std Deviation (36.4-46.3) fL RDW Coeff of Amber (11.5-14.5) % Plt Count (130-400) K/uL MPV (7.4-10.4) fL Immature Gran % (Auto) % Neut % (Auto) % Lymph % (Auto) % [place] % (Auto) % Eos % (Auto) % Baso % (Auto) % Neut # (Auto) (1.4-6.5) K/uL Lymph # (Auto) (1.2-3.4) K/uL [place] # (Auto) (0.11-0.59) K/uL Eos # (Auto) (0-0.5) K/uL Baso # (Auto) (0-0.2) K/uL Immature Gran # (Auto) (0.00-0.02) K/uL PT (9.0-12.0) Seconds INR (0.9-1.1) APTT (21.0-31.0) Seconds PTT Ratio VBG pH (7.36-7.41) VBG pCO2 (38-50) mmHg VBG pO2 mmHg VBG HCO3 mmol/L VBG O2 Saturation % VBG Base Excess mEq/L Barometric Pressure mm/Hg POC Sodium 140 (135-144) mmol/L Sodium (136-145) mmol/L POC Potassium 4.4 (3.3-5.0) mmol/L Potassium (3.5-5.1) mmol/L POC Chloride 107 (101-112) mmol/L Chloride (98-107) mmol/L Carbon Dioxide (21-32) mmol/L POC Total CO2 21 L (24-31) mmol/L Anion Gap (3-11) POC Anion Gap 18.0 (16-25) mmol/L POC BUN 27 H (7-18) mg/dl BUN (7-18) mg/dl Creatinine (0.6-1.4) mg/dl POC Creatinine 1.3 (0.6-1.3) mg/dl Est Cr Clr Drug Dosing Est GFR ( Amer) ml/min Est GFR (Non-Af Amer) ml/min BUN/Creatinine Ratio (10-20) Glucose (70-99) mg/dl POC Glucose (other) 138 H (70-99) mg/dl Lactate (0.4-2.0) mmol/L Calcium (8.5-10.1) mg/dl POC Ioniz Calcium Rashi 1.22 (1.12-1.32) mmol/l Phosphorus (2.5-4.9) mg/dl Magnesium (1.8-2.4) mg/dl Total Bilirubin (0.2-1) mg/dl Direct Bilirubin (0-0.2) mg/dl AST (15-37) U/L ALT (12-78) U/L Alkaline Phosphatase (45-117) U/L Ammonia (11-32) umol/L Total Creatine Kinase (39-308) U/L Troponin I (0-0.045) ng/ml Total Protein (6.4-8.2) gm/dl Albumin (3.4-5.0) gm/dl Globulin (2.5-4.0) gm/dl Albumin/Globulin Ratio (0.9-2) Lipase (73-393) U/L Procalcitonin (0-0.5) ng/ml TSH (0.300-4.500) uIu/ml Urine Color Urine Appearance (Clear) Urine pH (4.5-7.5) Ur Specific [place] (1.000-1.030) Urine Protein (Negative) Urine Glucose (UA) (Negative) Urine Ketones (Negative) Urine Blood (Negative) Urine Nitrite (Negative) Urine Bilirubin (Negative) Urine Urobilinogen (Negative) Ur Leukocyte Esterase (Negative) Urine WBC (Auto) (0-5) /hpf Urine RBC (Auto) (0-4) /hpf U Hyaline Cast (Auto) (0-5) /lpf U Epithel Cells (Auto) (0-5) /lpf Urine Bacteria (Auto) (Negative) Phenytoin (10-20) mcg/ml Phenobarbital (15-40) mcg/mL COVID-19 Eval Order Covid19 at [facility] SARS-CoV-2 (PCR) NEGATIVE (Negative) Administered Medications Lipase/Protease/Amylase (Pancreaze (Lipase 4,200u) Cap) 1 cap PO QID JESUS; Protocol Stop: 07/16/21 16:59 Last Admin: 06/16/21 20:16 Dose: Not Given Documented by: [id number] Admin: 06/16/21 16:59 Dose: Not Given Documented by: [id number] Citalopram Hydrobromide (Citalopram 20 Mg Tab) 5 mg PO HS JESUS Stop: 07/16/21 20:59 Last Admin: 06/16/21 20:16 Dose: Not Given Documented by: [id number] Piperacillin Sod/Tazobactam (Sod 3.375 gm/ Dextrose) 115 mls @ 28.75 mls/hr IV Q8H JESUS; Protocol Stop: 06/26/21 13:11 Last Admin: 06/17/21 00:57 Dose: 28.8 mls/hr Documented by: [id number] Infusion: 06/16/21 21:41 Dose: 0 mls/hr Documented by: [id number] Admin: 06/16/21 17:33 Dose: 28.8 mls/hr Documented by: [id number] Lactated Ringer's (Lr) 1,000 mls @ 100 mls/hr IV .Q10H JESUS Stop: 06/17/21 09:11 Last Admin: 06/16/21 15:54 Dose: 100 mls/hr Documented by: [id number] Levetiracetam 750 mg/ Sodium (Chloride) 107.5 mls @ 420 mls/hr IV Q12H JESUS; Protocol Stop: 07/16/21 19:59 Last Infusion: 06/16/21 21:19 Dose: 0 mls/hr Documented by: [id number] Admin: 06/16/21 20:39 Dose: 420 mls/hr Documented by: [id number] Daptomycin 500 mg/ Syringe 10 mls @ 5 mls/min IV Q24H JESUS; Protocol Stop: 06/18/21 13:11 Last Admin: 06/16/21 15:55 Dose: 5 mls/min Documented by: [id number] Insulin Aspart (Insulin Aspart 100 Units/Ml 3 Ml Pen) 0 units SC Q6 [facility] Stop: 07/16/21 17:59 Last Admin: 06/17/21 01:15 Dose: Not Given Documented by: [id number] Admin: 06/16/21 18:09 Dose: Not Given Documented by: [id number] Cosigned by: [id number] Insulin Glargine (Insulin Glargine Solostar 100 Units/Ml 3 Ml Pen) 4 units SC BID [facility]ESUS Stop: 07/16/21 20:59 Last Admin: 06/16/21 21:38 Dose: 4 units Documented by: [id number] Cosigned by: [id number] Phenobarbital Sodium (Phenobarbital Sodium 65 Mg/Ml Vial) 65 mg IV BID [facility] Stop: 07/16/21 20:59 Last Admin: 06/16/21 20:39 Dose: 65 mg Documented by: [id number] Senna/Docusate Sodium (Docusate Sodium/Senna 50/8.6mg Tab) 2 tab PO HS [facility] Stop: 07/16/21 20:59 Last Admin: 06/16/21 20:16 Dose: Not Given Documented by: [id number] Tamsulosin HCl (Tamsulosin Hcl 0.4 Mg Cap) 0.4 mg PO [facility] Stop: 07/16/21 20:59 Last Admin: 06/16/21 20:16 Dose: Not Given Documented by: [id number] Discontinued Medications Gadobutrol (Gadobutrol 65ml Vial) 9.1 ml IV ONCE ONE Stop: 06/16/21 15:50 Last Admin: 06/16/21 15:29 Dose: 9.1 ml Documented by: [id number] Piperacillin Sod/Tazobactam Sod (Zosyn) 4.5 gm in 120 mls @ 240 mls/hr IV NOW ONE Stop: 06/16/21 11:28 Last Infusion: 06/16/21 12:10 Dose: 0 mls/hr Documented by: [id number] Admin: 06/16/21 11:29 Dose: 240 mls/hr Documented by: [id number] Sodium Chloride (Nss) 500 mls @ 999 mls/hr IV .Q31M ONE Stop: 06/16/21 11:51 Last Infusion: 06/16/21 12:10 Dose: 0 mls/hr Documented by: [id number] Admin: 06/16/21 11:29 Dose: 999 mls/hr Documented by: [id number] Acetaminophen (Ofirmev) 1,000 mg in 100 mls @ 400 mls/hr IV NOW STA Stop: 06/16/21 11:37 Last Infusion: 06/16/21 12:10 Dose: 0 mls/hr Documented by: [id number] Admin: 06/16/21 11:55 Dose: 400 mls/hr Documented by: [id number] Magnesium Sulfate/Dextrose (Magnesium Sulfate / D5w) 1 gm in 100 mls @ 100 mls/hr IV NOW STA Stop: 06/16/21 12:23 Last Infusion: 06/16/21 13:16 Dose: 0 mls/hr Documented by: [id number] Admin: 06/16/21 11:55 Dose: 100 mls/hr Documented by: [id number] Insulin Aspart (Insulin Aspart 100 Units/Ml 3 Ml Pen) 0 units SC ACHS JESUS Stop: 07/16/21 16:29 Last Admin: 06/16/21 17:34 Dose: Not Given Documented by: [id number] Cosigned by: [id number] Ioversol (Optiray 320 125ml) 120 ml IV ONCE ONE Stop: 06/16/21 10:39 Last Admin: 06/16/21 10:38 Dose: 120 ml Documented by: [id number] Naloxone HCl (Naloxone Hcl 0.4 Mg/1 Ml Vial/Carp) 0.2 mg IV NOW STA Stop: 06/16/21 11:21 Last Admin: 06/16/21 11:28 Dose: 0.2 mg Documented by: [id number] Ondansetron HCl (Ondansetron Inj 2 Mg/Ml 2 Ml Vial) Confirm Administered Dose 4 mg .ROUTE .STK-MED ONE Stop: 06/16/21 11:20 Last Admin: 06/16/21 11:28 Dose: 4 mg Documented by: [id number] Ondansetron HCl (Ondansetron Inj 2 Mg/Ml 2 Ml Vial) 4 mg IV NOW STA Stop: 06/16/21 11:21 Last Admin: 06/16/21 11:28 Dose: Not Given Documented by: [id number] Phenytoin Sodium (Phenytoin Sodium Er 100 Mg Cap) 100 mg PO TID JESUS Stop: 07/16/21 13:59 Last Admin: 06/16/21 20:16 Dose: Not Given Documented by: [id number] Admin: 06/16/21 16:50 Dose: Not Given Documented by: [id number] Discharge Plan Visit Data Chief Complaint: Illness Stated Complaint: LETHARGIC, ED Provider: Alcides Nichols Discharge Problem: Metabolic encephalopathy, Elevated troponin, Urinary retention, Seizure disorder, Acute UTI (urinary tract infection) Patient Disposition: Admitted As Inpatient Discharge Instructions Interventions: ED Discharge Assessment Last Done: 06/16/21 12:32
[2021-06-16 10:21] LABS: INR 1.1 (0.9-1.1); Partial Thromboplastin Ratio 1.1; Partial Thromboplastin Time 28.5 Seconds (21.0-31.0); Prothrombin Time 11.2 Seconds (9.0-12.0)
[2021-06-16 10:23] LABS: Appearance Urine Cloudy (Clear); Bacteria Urine Automated 4+ (Negative); Bilirubin Urine Negative (Negative); Blood Urine 1+ (Negative); Color Urine Dark Yellow; Epithelial Cell Urine Auto 0-5 /lpf (0-5); Glucose Urine UA Negative (Negative); Ketones Urine Negative (Negative); Leukocyte Esterase Urine 3+ (Negative); Nitrite Urine Negative (Negative); RBC Urine Automated 0-4 /hpf (0-4); Specific Gravity Urine 1.018 (1.000-1.030); Urobilinogen Urine Negative (Negative); WBC Urine Automated >30 /hpf (0-5); pH Urine 7.5 (4.5-7.5)
--- NOTE | 2021-06-16 10:29 | XRay Report ---
XR chest 1V portable CLINICAL HISTORY: SEPSIS COMPARISON STUDY: Chest radiograph May 08, 2021. FINDINGS: Lung volumes are normal. Minimal left basilar opacity favors atelectasis. There is no pneum othorax or pleural effusion. Cardiac size is normal. Mediastinal contours are normal. There is no brennen dence for pulmonary edema. IMPRESSION: No acute cardiopulmonary findings. ACT 112: Negative or not required by law. Electronically signed by: Donald Young M.D. 06/16/2021 10:28 AM
[2021-06-16 10:32] LABS: Alanine Aminotransferase 13 U/L (12-78); Albumin Level 2.6 gm/dl (3.4-5.0); Aspartate Aminotransferase 10 U/L (15-37); BUN Creatinine Ratio 22.4 (10-20); Blood Urea Nitrogen 31 mg/dl (7-18); Calcium 8.8 mg/dl (8.5-10.1); Carbon Dioxide 25 mmol/L (21-32); Chloride 110 mmol/L (98-107); Est GFR (African American) 56.4 ml/min; Est GFR (Non-African American) 48.6 ml/min; Glucose 136 mg/dl (70-99); Magnesium 1.7 mg/dl (1.8-2.4); Potassium 4.4 mmol/L (3.5-5.1); Sodium 140 mmol/L (136-145)
[2021-06-16 10:38] LABS: Phenytoin (Dilantin) 10.7 mcg/ml (10-20)
[2021-06-16] MEDS ORDERED: OPTIRAY 320 125ml IV ONE (10:38)
[2021-06-16 10:43] LABS: Albumin Globulin Ratio 0.7 (0.9-2); Alkaline Phosphatase 88 U/L (45-117); Bilirubin Direct 0.2 mg/dl (0-0.2); Bilirubin,Total 0.4 mg/dl (0.2-1); Creatine Kinase 38 U/L (39-308); Globulin 3.6 gm/dl (2.5-4.0); Lipase 63 U/L (73-393); Phosphorus 2.4 mg/dl (2.5-4.9); Total Protein 6.2 gm/dl (6.4-8.2); Troponin I 0.073 ng/ml (0-0.045)
[2021-06-16 10:52] LABS: Protein Urine 1+ (Negative)
[2021-06-16] MEDS ORDERED: PIPERACILLIN/TAZOBACTAM 4.5 GM/120 ML BAG IV ONE (10:59)
[2021-06-16] MEDS ORDERED: PIPERACILL/TAZOBAC CONSULT ACTIVE PRN ×2 (10:59→13:12)
--- NOTE | 2021-06-16 10:59 | CT Scan Report ---
CT SCAN OF THE BRAIN WITHOUT IV CONTRAST CLINICAL HISTORY: Change in mental status. COMPARISON STUDY: CT of the brain dated 11/15/2020 TECHNIQUE: Unenhanced axial CT scan of the brain is performed from the vertex to the skull base. A do se lowering technique was utilized adhering to the principles of ALARA. FINDINGS: Brain parenchyma: There are age-related involutional changes noting mild subcortical and periventric ular microangiopathic change. There is no hemorrhage, mass effect, or evidence of acute territorial i schemia by CT criteria. Small chronic lacunar infarcts are seen in the left internal capsule and the right thalamus. Franklin-white matter differentiation is preserved. No extra-axial fluid collection is se en. Ventricles, sulci, cisterns: Prominent secondary to involutional change. Intracranial vasculature: There is atherosclerotic calcification of the cavernous carotid and vertebr al arteries. Calvarium: The skeletal structures are osteopenic. No depressed calvarial fracture is identified. Sinuses and mastoids: There is mucosal thickening within the ethmoid sinuses. The remaining visualize d paranasal sinuses are clear. The mastoid air cells are well pneumatized. Orbits: The bony orbits are grossly intact. There are bilateral ocular lens implants. IMPRESSION: There is no hemorrhage, mass effect, or evidence of acute territorial ischemia by CT crit michael. ACT 112: Negative or not required by law. \ Electronically signed by: Jose Umana M.D. 06/16/2021 10:58 AM
--- NOTE | 2021-06-16 11:02 | CT Scan Report ---
CTA ANGIOGRAPHY OF THE HEAD CLINICAL HISTORY: Altered mental status. COMPARISON STUDY: PET/CT November 15, 2020. MRA of the head January 11, 2010. TECHNIQUE: Helical axial images of the head were obtained following uneventful intravenous administr ation of 120 cc of Optiray. Sagittal and coronal reconstructions were viewed as well as maximal inten sity projections on an independent 3-D workstation. Automated exposure control was utilized for the study. A dose lowering technique was utilized adhering to the principles of ALARA. FINDINGS: Mild ethmoid sinus mucosal thickening is present. There is no acute calvarial fracture. No acute intracranial hemorrhage, midline shift or mass effect is present. Head CT will be reported sepa rately. The bilateral M1, M2, A1 and A2 segments are patent. There is no central vessel occlusion. No intracranial aneurysm. Right vertebral artery is dominant. Posterior circulation is intact. There is no intracranial aneurysm or dissection. IMPRESSION: No central vessel occlusion. No intracranial aneurysm. ACT 112: Negative or not required by law. Electronically signed by: Donald Young M.D. 06/16/2021 11:01 AM
--- NOTE | 2021-06-16 11:11 | CT Scan Report ---
CT SCAN OF THE ABDOMEN AND PELVIS WITH IV CONTRAST CLINICAL HISTORY: Change in mental status. Urinary retention. COMPARISON STUDY: Abdominal CT dated 02/14/2019 12/24/2012. TECHNIQUE: Following the IV administration of 120 cc of Optiray 320, CT scan of the abdomen and pelv is is performed from the lung bases to the proximal femora. Images are reviewed in the axial, sagitta l, and coronal planes. IV contrast was administered without complication. A dose lowering technique w as utilized adhering to the principles of ALARA. The examination is degraded by motion artifact, as w ell as streak artifact from the arms which could not be elevated above the abdomen. CT DOSE: 2735.36 mGy.cm FINDINGS: Lung bases: The heart is top normal in size and without pericardial effusion. There are coronary erick ry calcifications. A small hiatal hernia is noted. Bibasilar scarring/atelectasis is similar to previ ous. There are scattered calcified granulomas. Liver: The contrast-enhanced liver is normal in size, contour, and attenuation. There is no intrahepa tic biliary ductal dilatation. The hepatic veins and portal veins are patent. Gallbladder: Surgically absent noting clips in the gallbladder fossa. Spleen: Normal in size and attenuation. There are perisplenic collaterals. Pancreas: Atrophic and grossly unremarkable. Adrenal glands: Unremarkable. Kidneys: The contrast enhanced kidneys demonstrate cortical atrophy and are without hydronephrosis. T he kidneys enhance symmetrically. A circumaortic left renal vein is incidentally noted. A 12 mm cyst is noted in the left upper pole. Abdominal vasculature: The abdominal aorta is normal in course and caliber noting moderate atheroscle rotic calcification. Bowel: Postoperative change is noted in the stomach. There is mild colonic fecal retention. No bowel obstruction is identified. The appendix is well-visualized and normal. Peritoneum: There is no intraperitoneal free air or abdominal ascites. There is a fat-containing umbi lical hernia. Haziness throughout the central mesentery is nonspecific and has been present dating ba ck to 2012. Lymphadenopathy: None. Pelvic viscera: A Garcia catheter is in place. The balloon is inflated within the prostate gland. Blad kamar is decompressed and appears thick walled. Intraluminal gas is nonspecific and likely related to r ecent instrumentation. 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 This has been present dating back to at least 2012. The prostate gland is mildly enlarged and heterogeneous. Skeletal structures: The skeletal structures are osteopenic. There is moderate lumbosacral spondylosi s. No lytic or blastic lesions are seen. There is a comminuted fracture of the right proximal femur w ith intertrochanteric and intramedullary nails in place. IMPRESSION: 1. The bladder is decompressed and appears thick walled. Foci of intraluminal gas are likely related to instrumentation. Correlate with urinalysis. 2. The Garcia catheter balloon is inflated within the prostate gland. Repositioning is likely indicate d. 3. There is a comminuted fracture of the right proximal femur with intertrochanteric and intramedulla ry nails in place. 4. Additional findings as above. ACT 112: Negative or not required by law. Electronically signed by: Jose Umana M.D. 06/16/2021 11:10 AM
[2021-06-16] MEDS ORDERED: ONDANSETRON INJ 2 MG/ML 2 ML VIAL ONE (11:19)
[2021-06-16] MEDS ORDERED: ONDANSETRON INJ 2 MG/ML 2 ML VIAL IV STA (11:20)
[2021-06-16] MEDS ORDERED: NALOXONE HCL 0.4 MG/1 ML VIAL/CARP IV STA (11:20)
[2021-06-16] MEDS ORDERED: SODIUM CHLORIDE 0.9% 500 ML IV ONE (11:21)
[2021-06-16] MEDS ORDERED: ACETAMINOPHEN 1,000 MG/100 ML VIAL IV STA (11:23)
--- NOTE | 2021-06-16 11:23 | CT Scan Report ---
CT ANGIOGRAM OF THE NECK CLINICAL HISTORY: Change in mental status. COMPARISON STUDY: CT of the cervical spine dated 11/15/2020. TECHNIQUE: Following the IV administration of 120 of Optiray 320, CT angiogram of the neck was perfor med from the aortic arch to the skull base. Images are reviewed in the axial, sagittal, and coronal p lanes. 3-D MIPS images are created and assessed. IV contrast was administered without complication. A ll measurements were calculated based on NASCET criteria. A dose lowering technique was utilized adh ering to the principles of ALARA. FINDINGS: Thoracic aorta: There is mild atherosclerotic calcification of the thoracic aorta. Visualized portion s of the thoracic aorta are normal in caliber. The aortic arch demonstrates standard 3-vessel anatomy . Right carotid arterial system: The right common carotid artery is widely patent, as are the right int ernal and external carotid arteries. There is mild focal ectasia of the distal right internal carotid artery below the skull base. Left carotid arterial system: The left common carotid artery is widely patent, as are the left technology intern al and external carotid arteries. Vertebral arteries: The vertebral arteries are widely patent bilaterally noting a right-sided dominan ce. Subclavian arteries: Widely patent bilaterally. Intracranial vasculature: The visualized intracranial vessels at the skull base are patent. Jugular veins: Widely patent bilaterally. Brain parenchyma: The visualized brain parenchyma the skull base is within normal limits. Lung apices: Partially visualized upper lobe lung parenchyma appears clear. Soft tissues: The visualized pharyngeal soft tissues are normal in appearance noting angiographic pha se technique. The oropharyngeal airway appears widely patent. The salivary and thyroid glands are nor mal in appearance. No cervical lymphadenopathy is seen. Skeletal structures: The skeletal structures are osteopenic. The visualized calvarium at the skull ba se appears intact. The imaged cervical spine is maintained noting multilevel spondylosis. No lytic or blastic lesion is seen. Sinuses and mastoids: Mild mucosal thickening is noted in the ethmoid sinuses. There is trace left ma stoid effusion.. IMPRESSION: Unremarkable CT angiogram of the neck. ACT 112: Negative or not required by law. Electronically signed by: Jose Umana M.D. 06/16/2021 11:21 AM
[2021-06-16] MEDS ORDERED: MAGNESIUM SULFATE / D5W 1 GM/100 ML BAG IV STA (11:24)
--- NOTE | 2021-06-16 11:56 | History & Physical Report ---
Date of Service June 16, 2021 Assessment & Plan (1) Metabolic encephalopathy: Plan: 76yo male presenting from [facility] with decreased responsiveness. Patient febrile on arrival with neutrophil-predominant leukocytosis with WBC=13.3, elevated lactate of 2.7 and procalcitonin of 0.9. Suspect infection/sepsis as primary cause of patient's altered mental state - possible sources to include UTI, less likely surgical site infection. Patient had a Fentanyl patch in place upon arrival - medication effects could also be contributing to patient's decreased responsiveness. Additional workup reveals stable macrocytic anemia, normal renal and hepatic function, normal TSH, Ammonia level and VBG. CT of the head as well as CTA head and neck unremarkable. Patient's mental state has improved during his time in the ER, although he is still encephalopathic. On transfer paperwork there was mention of a right facial droop and RUE weakness - not appreciated during my exam -Admit to PCU, continuous cardiac monitoring -Follow cultures - blood and urine sent from ER -Check X-ray right hip to assess hardware -LR at 100mL/hr x 2 liters -Empiric antibiotic coverage with Zosyn and Daptomycin -Check MRSA swab -Will discontinue Fentanyl patch for now as may have contributed to patient's symtoms -MRI brain to complete possible CVA workup -NPO for now until mental state improves -Dysphagia screening as needed -Neuro checks per protocol (2) Seizure disorder: Plan: No reported seizure activity. Patient is on Keppra, Dilantin and Phenobarbital. Levels are therapeutic -NPO for now -Will transition Keppra to IV (1:1 conversion) - 750mg IV BID. Can return to PO once mental state improves -Transition Phenobarbital to IV -Continue Phenytoin (3) Elevated troponin: Plan: Suspect secondary to underlying sepsis. No ischemic changes present on EKG -Telemetry monitoring -Trend troponin x 3 (4) DM type 2 (diabetes mellitus, type 2): Plan: Well controlled. FQN=226 currently. Last A1C=5.2 on 06/04/21 - Question patient's ongoing need for insulin -Lantus 4u BID -ISS -Goal blood sugar 100 - 180 -Hold Metformin (5) Enlarged prostate with lower urinary tract symptoms (LUTS): Plan: Alvarado catheter in place with >1L output. Cr and electrolytes are within normal limits -Maintain alvarado -Monitor I/Os -Monitor renal function and electrolytes -Continue Flomax 0.4mg (6) Hyperlipidemia: Plan: Chronic -Will hold statin while on empiric Daptomycin (7) Hypertension: Plan: Blood pressure borderline low in ER -Hold Metoprolol -Continue to monitor (8) Hypothyroidism: Plan: Chronic. TSH is WNL -Transition Synthroid to IV for now - 37.5mg IV daily (50% of PO dose) -Resume PO when mental status improves (9) Macrocytic anemia with vitamin B12 deficiency: Plan: Chronic. Stable -Continue B12 and Folate supplementation outpatient Plan: F/E/N - LR at 100mL/hr x 1 liter, Mg and PO4 repletion, repeat in AM, NPO for now due to AMS - advance as tolerated if patient improves. Continue bowel regimen - Dulcolax [place] PRN, Senokot, Colace Ppx - SCDs Code - DNR/DNI as discussed with family at bedside Dispo - Admit to PCU History of Present Illness Chief Complaint: confusion Primary Care Provider: [facility] Ra Vang is a 76yo male with history of DM, HTN, Hypothyroidism, Seizure disorder and prior CVA. Patient presents to [facility] today from [facility] with reports of decline in mental status as well as possible right facial droop and right arm weakness. Per report, patient was in his usual state of health yesterday AM. Yesterday afternoon he began to decline. Patient was transferred to [facility] today. In the ER he was found to be febrile at 38.2, initially 89% on room air which improved with placement of 3L O2 by nasal cannula. Nearly obtunded on arrival, moaning only to pain. A Alvarado catheter was placed with return of >1L dark urine. Patient had a Fentanyl patch in place which was removed by the ER. A small dose of Narcan was administered which showed no improvement in clinical status. Family is at bedside currently - and [id number]. Patient's mental stat us is slowly improving. Presently he is following commands and stating his name. Per discussion with granddaughter, Glory - patient is quite interactive and coherent at baseline. He had a fall at home resulting in right hip intertrochanteric femur fracture s/p repair on 05/09/[address] Luna. Patient had some acute blood loss anemia following surgery. He received IV Venofer x 2 doses and was discharged home on PO iron supplementation. Patient was discharged to [facility] with plans to complete rehabilitation then return home where he lives with his . Granddaughter reports Mr. Vang has overall been less interactive and coherent since surgery. Also with history of difficulty urinating in the past requiring self- catheterization. ER Course: Mg x 1 gm Tylenol x 1gm NSS x 500mL Zosyn x 4.5gm Zofran 4mg IV Narcan 0.2mg IV Allergies Allergy/AdvReac Type Severity Reaction Status Date / Time morphine Allergy Unknown ? Verified 06/16/21 10:18 nitrofurantoin AdvReac Mild NAUSEA Verified 06/16/21 10:18 Quinolones AdvReac Mild NAUSEA Verified 06/16/21 10:18 meperidine AdvReac Unknown SEIZURES Verified 06/16/21 10:18 Home Medications Medication Instructions Recorded Confirmed Type blood sugar diagnostic (RACTIVTouch #100 ea 12/05/20 05/21/21 Rx Verio test strips) blood-glucose meter (OneTouch #1 ea 12/05/20 05/21/21 Rx Verio Flex Start) lancets 30 gauge (OneTouch Delica #100 ea 12/05/20 05/21/21 Rx Plus Lancet) folic acid 1 mg tablet 1 mg PO QAM #30 tab 05/13/21 06/16/21 Rx insulin glargine 100 unit/mL (3 8 unit SC HS #15 ml 05/13/21 06/16/21 Rx mL) subcutaneous pen (Lantus Solostar U-100 Insulin) metoprolol tartrate 25 mg tablet 12.5 mg PO BID #30 tab 05/13/21 06/16/21 Rx sennosides 8.6 mg-docusate sodium 2 tab PO HS #60 tab 05/13/21 06/16/21 Rx 50 mg tablet (Senokot-S) acetaminophen 500 mg tablet 1,000 mg PO BID 06/16/21 06/16/21 History (Acetaminophen Extra Strength) citalopram 10 mg tablet (Celexa) 5 mg PO HS 06/16/21 06/16/21 History cyanocobalamin (vitamin B-12) 1,000 mcg PO QAM 06/16/21 06/16/21 History 1,000 mcg tablet (Vitamin B-12) docusate sodium 100 mg capsule 100 mg PO QAM 06/16/21 06/16/21 History (Colace) fentanyl 25 mcg/hr transdermal 1 patch TRANSDERMAL Q72H 06/16/21 06/16/21 History patch (Duragesic) ferrous sulfate 325 mg (65 mg 325 mg PO QAM 06/16/21 06/16/21 History iron) tablet (Iron (ferrous sulfate)) levetiracetam 750 mg tablet 750 mg PO Q12H 06/16/21 06/16/21 History (Keppra) levothyroxine 75 mcg tablet 75 mcg PO DAILYBB 06/16/21 06/16/21 History [id number] 1 cap PO QID 06/16/21 06/16/21 History 6,000-19,000-30,000 unit capsule,delayed rel (Creon) metformin 1,000 mg tablet 1,000 mg PO Q12 06/16/21 06/16/21 History oxycodone 5 mg tablet (Roxicodone) 5 mg PO Q4 PRN 06/16/21 06/16/21 History phenobarbital 64.8 mg tablet 64.8 mg PO Q12 06/16/21 06/16/21 History phenytoin sodium extended 100 mg 100 mg PO TID 06/16/21 06/16/21 History capsule (Dilantin Extended) psyllium husk (aspartame) 3.4 2.398254 g PO QAM 06/16/21 06/16/21 History gram/5.8 gram oral powder (Metamucil Sugar-Free (aspartame)) simvastatin 40 mg tablet (Zocor) 40 mg PO HS 06/16/21 06/16/21 History tamsulosin 0.4 mg capsule (Flomax) 0.4 mg PO HS 06/16/21 06/16/21 History Past Med/Surg History Medical History (Updated 06/16/21 @ 12:55 by Elena Ordonez DO) Bleeding external hemorrhoids CVA (cerebral vascular accident) DM type 2 (diabetes mellitus, type 2) Fall Fall Falls frequently Headache Hypertension Hypothyroidism Seizures TIA (transient ischemic attack) (04/08/14) 2013 Ventral hernia Surgical History (Updated 06/16/21 @ 12:21 by Elena Ordonez DO) H/O abdominal surgery History of right hip replacement Hx of cholecystectomy Family History Mother Hypertension Brother Hypertension Kidney stones Denies family history of Myocardial infarction Stroke Social History Smoking Status: Unknown if ever smoked Tobacco Type: Cigarettes Second Hand Exposure: No; Hx Alcohol Use: No Hx Substance Use: No Preferred Language: Yoruba Communication Ability: Effective Tabber Required: No Beliefs That Will Affect Care: None marital status: Current Living Situation: Spouse Current Living Situation Comment: Lives at home with How many Children do You have: 0 Feels Safe at Home: Yes Assistive Devices: Denture - Upper and Denture - Lower Review of Systems Review of Systems: Unobtainable due to reduced consciousness Physical Exam Physical Exam: General: patient somnolent, arousable, is able to follow some commands and state his name Skin: warm, dry, intact, no rashes or lesions HEENT: NC/AT, PERRL, anicteric sclera, conjunctiva without injection, external ear normal to inspection and nontender, nares patent, moist mucus membranes, edentulous, no oropharyngeal lesions, neck supple, trachea midline, no LAD, no thyromegaly, no JVD Heart: +S1/S2, regular, no m/r/g Lungs: equal air entry bilaterally, no rales/rhonchi/wheezes Abd: +BS, soft, grimacing/moaning with abdominal palpation and suprapubic palpation, no masses/organomegaly/ascites Ext: warm, 2+ pulses in UE/LE bilaterally, 1+ pitting edema R > L Neuro: patient moaning, able to follow simple commands, states name, PERRL Results & Data Results & Data ([facility]) Vital Signs (Past 12 Hours) Vital Signs Temp Pulse Resp BP Pulse Ox 06/16/21 11:30 78 107/57 L 100 06/16/21 11:15 77 96/48 L 100 06/16/21 11:00 73 82/48 L 100 06/16/21 10:54 77 16 100/46 L 100 06/16/21 10:30 78 15 109/51 L 98 06/16/21 10:20 38.2 C H 06/16/21 10:15 76 15 90/48 L 98 06/16/21 10:00 78 15 113/52 L 98 06/16/21 09:40 83 18 98/58 L 89 L Laboratory Results Laboratory Results WBC 13.32 K/uL (4.8-10.8) H 06/16/21 10:01 RBC 2.82 M/uL (4.7-6.1) L 06/16/21 10:01 Hgb 9.8 g/dL (14.0-18.0) L 06/16/21 10:01 POC Hgb 10.2 g/dl (14.0-18.0) L 06/16/21 10:02 Hct 30.7 % (42-52) L 06/16/21 10:01 POC Hct 30 % (42-52) L 06/16/21 10:02 MCV 108.9 fL (80-100) H 06/16/21 10:01 MCH 34.8 pg (25-34) H 06/16/21 10:01 MCHC 31.9 g/dL (32-36) L 06/16/21 10:01 RDW Std Deviation 53.3 fL (36.4-46.3) H 06/16/21 10:01 RDW Coeff of Amber 13.4 % (11.5-14.5) 06/16/21 10:01 Plt Count 224 K/uL (130-400) 06/16/21 10:01 MPV 8.4 fL (7.4-10.4) 06/16/21 10:01 Immature Gran % (Auto) 0.2 % 06/16/21 10:01 Neut % (Auto) 86.0 % 06/16/21 10:01 Lymph % (Auto) 6.5 % 06/16/21 10:01 [place] % (Auto) 7.1 % 06/16/21 10:01 Eos % (Auto) 0.0 % 06/16/21 10:01 Baso % (Auto) 0.2 % 06/16/21 10:01 Neut # (Auto) 11.45 K/uL (1.4-6.5) H 06/16/21 10:01 Lymph # (Auto) 0.87 K/uL (1.2-3.4) L 06/16/21 10:01 [place] # (Auto) 0.95 K/uL (0.11-0.59) H 06/16/21 10:01 Eos # (Auto) 0.00 K/uL (0-0.5) 06/16/21 10:01 Baso # (Auto) 0.02 K/uL (0-0.2) 06/16/21 10:01 Immature Gran # (Auto) 0.03 K/uL (0.00-0.02) H 06/16/21 10:01 PT 11.2 Seconds (9.0-12.0) 06/16/21 10:01 INR 1.1 (0.9-1.1) 06/16/21 10:01 APTT 28.5 Seconds (21.0-31.0) 06/16/21 10:01 PTT Ratio 1.1 06/16/21 10:01 VBG pH 7.39 (7.36-7.41) 06/16/21 10:01 VBG pCO2 39 mmHg (38-50) 06/16/21 10:01 VBG pO2 31 mmHg 06/16/21 10:01 VBG HCO3 23 mmol/L 06/16/21 10:01 VBG O2 Saturation < 60.0 % 06/16/21 10:01 VBG Base Excess -1.9 mEq/L 06/16/21 10:01 Barometric Pressure 732.6 mm/Hg 06/16/21 10:01 POC Sodium 140 mmol/L (135-144) 06/16/21 10:02 Sodium 140 mmol/L (136-145) 06/16/21 10:01 POC Potassium 4.4 mmol/L (3.3-5.0) 06/16/21 10:02 Potassium 4.4 mmol/L (3.5-5.1) 06/16/21 10:01 POC Chloride 107 mmol/L (101-112) 06/16/21 10:02 Chloride 110 mmol/L (98-107) H 06/16/21 10:01 Carbon Dioxide 25 mmol/L (21-32) 06/16/21 10:01 POC Total CO2 21 mmol/L (24-31) L 06/16/21 10:02 Anion Gap 5.0 (3-11) 06/16/21 10:01 POC Anion Gap 18.0 mmol/L (16-25) 06/16/21 10:02 POC BUN 27 mg/dl (7-18) H 06/16/21 10:02 BUN 31 mg/dl (7-18) H 06/16/21 10:01 Creatinine 1.38 mg/dl (0.6-1.4) 06/16/21 10:01 POC Creatinine 1.3 mg/dl (0.6-1.3) 06/16/21 10:02 Est Cr Clr Drug Dosing Not Reportable 06/16/21 10:01 Est GFR ( Amer) 56.4 ml/min 06/16/21 10:01 Est GFR (Non-Af Amer) 48.6 ml/min 06/16/21 10:01 BUN/Creatinine Ratio 22.4 (10-20) H 06/16/21 10:01 Glucose 136 mg/dl (70-99) H 06/16/21 10:01 POC Glucose (other) 138 mg/dl (70-99) H 06/16/21 10:02 Lactate 2.7 mmol/L (0.4-2.0) H* 06/16/21 10:01 Calcium 8.8 mg/dl (8.5-10.1) 06/16/21 10:01 POC Ioniz Calcium Rashi 1.22 mmol/l (1.12-1.32) 06/16/21 10:02 Phosphorus 2.4 mg/dl (2.5-4.9) L 06/16/21 10:01 Magnesium 1.7 mg/dl (1.8-2.4) L 06/16/21 10:01 Total Bilirubin 0.4 mg/dl (0.2-1) 06/16/21 10:01 Direct Bilirubin 0.2 mg/dl (0-0.2) 06/16/21 10:01 AST 10 U/L (15-37) L 06/16/21 10:01 ALT 13 U/L (12-78) 06/16/21 10:01 Alkaline Phosphatase 88 U/L (45-117) 06/16/21 10:01 Ammonia 19.0 umol/L (11-32) 06/16/21 10:01 Total Creatine Kinase 38 U/L (39-308) L 06/16/21 10:01 Troponin I 0.073 ng/ml (0-0.045) H* 06/16/21 10:01 Total Protein 6.2 gm/dl (6.4-8.2) L 06/16/21 10:01 Albumin 2.6 gm/dl (3.4-5.0) L 06/16/21 10:01 Globulin 3.6 gm/dl (2.5-4.0) 06/16/21 10:01 Albumin/Globulin Ratio 0.7 (0.9-2) L 06/16/21 10:01 Lipase 63 U/L (73-393) L 06/16/21 10:01 Procalcitonin 0.90 ng/ml (0-0.5) H 06/16/21 10:01 TSH 1.470 uIu/ml (0.300-4.500) 06/16/21 10:01 Urine Color Dark Yellow 06/16/21 09:56 Urine Appearance Cloudy (Clear) A 06/16/21 09:56 Urine pH 7.5 (4.5-7.5) 06/16/21 09:56 Ur Specific [place] 1.018 (1.000-1.030) 06/16/21 09:56 Urine Protein 1+ (Negative) H 06/16/21 09:56 Urine Glucose (UA) Negative (Negative) 06/16/21 09:56 Urine Ketones Negative (Negative) 06/16/21 09:56 Urine Blood 1+ (Negative) H 06/16/21 09:56 Urine Nitrite Negative (Negative) 06/16/21 09:56 Urine Bilirubin Negative (Negative) 06/16/21 09:56 Urine Urobilinogen Negative (Negative) 06/16/21 09:56 Ur Leukocyte Esterase 3+ (Negative) H 06/16/21 09:56 Urine WBC (Auto) >30 /hpf (0-5) H 06/16/21 09:56 Urine RBC (Auto) 0-4 /hpf (0-4) 06/16/21 09:56 U Hyaline Cast (Auto) 1-5 /lpf (0-5) 06/16/21 09:56 U Epithel Cells (Auto) 0-5 /lpf (0-5) 06/16/21 09:56 Urine Bacteria (Auto) 4+ (Negative) H 06/16/21 09:56 Phenytoin 10.7 mcg/ml (10-20) 06/16/21 10:01 Phenobarbital 29.3 mcg/mL (15-40) 06/16/21 10:01 COVID-19 Eval Order Covid19 at [facility] 06/16/21 10:24 SARS-CoV-2 (PCR) NEGATIVE (Negative) 06/16/21 10:[address] 06/16/21 09:47 CT SCAN OF THE BRAIN WITHOUT IV CONTRAST CLINICAL HISTORY: Change in mental status. COMPARISON STUDY: CT of the brain dated 11/15/2020 TECHNIQUE: Unenhanced axial CT scan of the brain is performed from the vertex to the skull base. A dose lowering technique was utilized adhering to the principles of ALARA. FINDINGS: Brain parenchyma: There are age-related involutional changes noting mild subcortical and periventricular microangiopathic change. There is no hemorrhage, mass effect, or evidence of acute territorial ischemia by CT criteria. Small chronic lacunar infarcts are seen in the left internal capsule and the right thalamus. Franklin-white matter differentiation is preserved. No extra-axial fluid collection is seen. Ventricles, sulci, cisterns: Prominent secondary to involutional change. Intracranial vasculature: There is atherosclerotic calcification of the cavernous carotid and vertebral arteries. Calvarium: The skeletal structures are osteopenic. No depressed calvarial fracture is identified. Sinuses and mastoids: There is mucosal thickening within the ethmoid sinuses. The remaining visualized paranasal sinuses are clear. The mastoid air cells are well pneumatized. Orbits: The bony orbits are grossly intact. There are bilateral ocular lens implants. IMPRESSION: There is no hemorrhage, mass effect, or evidence of acute territorial ischemia by CT criteria. ACT 112: Negative or not required by law. \ Electronically signed by: Jose Umana M.D. 06/16/2021 10:58 AM Head CTA 06/16/21 09:47 CTA ANGIOGRAPHY OF THE HEAD CLINICAL HISTORY: Altered mental status. COMPARISON STUDY: PET/CT November 15, 2020. MRA of the head January 11, 2010. TECHNIQUE: Helical axial images of the head were obtained following uneventful intravenous administration of 120 cc of Optiray. Sagittal and coronal reconstructions were viewed as well as maximal intensity projections on an independent 3-D workstation. Automated exposure control was utilized for the study. A dose lowering technique was utilized adhering to the principles of ALARA. FINDINGS: Mild ethmoid sinus mucosal thickening is present. There is no acute calvarial fracture. No acute intracranial hemorrhage, midline shift or mass effect is present. Head CT will be reported separately. The bilateral M1, M2, A1 and A2 segments are patent. There is no central vessel occlusion. No intracranial aneurysm. Right vertebral artery is dominant. Posterior circulation is intact. There is no intracranial aneurysm or dissection. IMPRESSION: No central vessel occlusion. No intracranial aneurysm. ACT 112: Negative or not required by law. Electronically signed by: Donald Young M.D. 06/16/2021 11:01 AM Neck CTA 06/16/21 09:47 CT ANGIOGRAM OF THE NECK CLINICAL HISTORY: Change in mental status. COMPARISON STUDY: CT of the cervical spine dated 11/15/2020. TECHNIQUE: Following the IV administration of 120 of Optiray 320, CT angiogram of the neck was performed from the aortic arch to the skull base. Images are reviewed in the axial, sagittal, and coronal planes. 3-D MIPS images are created and assessed. IV contrast was administered without complication. All measurements were calculated based on NASCET criteria. A dose lowering technique was utilized adhering to the principles of ALARA. FINDINGS: Thoracic aorta: There is mild atherosclerotic calcification of the thoracic aorta. Visualized portions of the thoracic aorta are normal in caliber. The aortic arch demonstrates standard 3-vessel anatomy. Right carotid arterial system: The right common carotid artery is widely patent, as are the right internal and external carotid arteries. There is mild focal ectasia of the distal right internal carotid artery below the skull base. Left carotid arterial system: The left common carotid artery is widely patent, as are the left internal and external carotid arteries. Vertebral arteries: The vertebral arteries are widely patent bilaterally noting a right-sided dominance. Subclavian arteries: Widely patent bilaterally. Intracranial vasculature: The visualized intracranial vessels at the skull base are patent. Jugular veins: Widely patent bilaterally. Brain parenchyma: The visualized brain parenchyma the skull base is within no rmal limits. Lung apices: Partially visualized upper lobe lung parenchyma appears clear. Soft tissues: The visualized pharyngeal soft tissues are normal in appearance noting angiographic phase technique. The oropharyngeal airway appears widely patent. The salivary and thyroid glands are normal in appearance. No cervical lymphadenopathy is seen. Skeletal structures: The skeletal structures are osteopenic. The visualized calvarium at the skull base appears intact. The imaged cervical spine is maintained noting multilevel spondylosis. No lytic or blastic lesion is seen. Sinuses and mastoids: Mild mucosal thickening is noted in the ethmoid sinuses. There is trace left mastoid effusion.. IMPRESSION: Unremarkable CT angiogram of the neck. ACT 112: Negative or not required by law. Electronically signed by: Jose Umana M.D. 06/16/2021 11:21 AM Chest X-Ray 06/16/21 09:48 XR chest 1V portable CLINICAL HISTORY: SEPSIS COMPARISON STUDY: Chest radiograph May 08, 2021. FINDINGS: Lung volumes are normal. Minimal left basilar opacity favors atelectasis. There is no pneumothorax or pleural effusion. Cardiac size is normal. Mediastinal contours are normal. There is no evidence for pulmonary edema. IMPRESSION: No acute cardiopulmonary findings. ACT 112: Negative or not required by law. Electronically signed by: Donald Young M.D. 06/16/2021 10:28 AM Abdomen/Pelvis CT 06/16/21 10:06 CT SCAN OF THE ABDOMEN AND PELVIS WITH IV CONTRAST CLINICAL HISTORY: Change in mental status. Urinary retention. COMPARISON STUDY: Abdominal CT dated 02/14/2019 12/24/2012. TECHNIQUE: Following the IV administration of 120 cc of Optiray 320, CT scan of the abdomen and pelvis is performed from the lung bases to the proximal femora. Images are reviewed in the axial, sagittal, and coronal planes. IV contrast was administered without complication. A dose lowering technique was utilized adheri ng to the principles of ALARA. The examination is degraded by motion artifact, as well as streak artifact from the arms which could not be elevated above the abdomen. CT DOSE: 2735.36 mGy.cm FINDINGS: Lung bases: The heart is top normal in size and without pericardial effusion. There are coronary artery calcifications. A small hiatal hernia is noted. Bibasilar scarring/atelectasis is similar to previous. There are scattered calcified granulomas. Liver: The contrast-enhanced liver is normal in size, contour, and attenuation. There is no intrahepatic biliary ductal dilatation. The hepatic veins and portal veins are patent. Gallbladder: Surgically absent noting clips in the gallbladder fossa. Spleen: Normal in size and attenuation. There are perisplenic collaterals. Pancreas: Atrophic and grossly unremarkable. Adrenal glands: Unremarkable. Kidneys: The contrast enhanced kidneys demonstrate cortical atrophy and are without hydronephrosis. The kidneys enhance symmetrically. A circumaortic left renal vein is incidentally noted. A 12 mm cyst is noted in the left upper pole. Abdominal vasculature: The abdominal aorta is normal in course and caliber noting moderate atherosclerotic calcification. Bowel: Postoperative change is noted in the stomach. There is mild colonic fecal retention. No bowel obstruction is identified. The appendix is well-visualized and normal. Peritoneum: There is no intraperitoneal free air or abdominal ascites. There is a fat-containing umbilical hernia. Haziness throughout the central mesentery is nonspecific and has been present dating back to 2013. Lymphadenopathy: None. Pelvic viscera: A Alvarado catheter is in place. The balloon is inflated within the prostate gland. Bladder is decompressed and appears thick walled. Intraluminal gas is nonspecific and likely related to recent instrumentation. 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 This has been present dating back to at least 2012. The prostate gland is mildly enlarged and heterogeneous. Skeletal structures: The skeletal structures are osteopenic. There is moderate lumbosacral spondylosis. No lytic or blastic lesions are seen. There is a co mminuted fracture of the right proximal femur with intertrochanteric and intramedullary nails in place. IMPRESSION: 1. The bladder is decompressed and appears thick walled. Foci of intraluminal gas are likely related to instrumentation. Correlate with urinalysis. 2. The Alvarado catheter balloon is inflated within the prostate gland. Repositioning is likely indicated. 3. There is a comminuted fracture of the right proximal femur with intertrochanteric and intramedullary nails in place. 4. Additional findings as above. ACT 112: Negative or not required by law. Electronically signed by: Jose Umana M.D. 06/16/2021 11:10 AM ECG Additional Comments: EKG with NSR at 76, normal axis, JG=694, QRS=68, EEx=870, no acute ischemic changes Code Status & VTE Plan VTE Prophylaxis Plan VTE Prophylaxis will be ordered: Yes PG Care Time/CCT Total # of Minutes Spent Total Time Spent with Patient: Total time spent is greater than 50% in coordination of care (as documented) at patient's floor/unit and/or counseling patient: Coding Level of Care Code 76030 Initial Inpt Care Lvl 3 Diagnoses DM type 2 (diabetes mellitus, type 2) E11.9 Diabetes mellitus termite exterminator helper insulin use: without termite exterminator helper use Diabetes mellitus complication status: without complication Enlarged prostate with lower urinary tract symptoms (LUTS) N40.1 Lower urinary tract symptom detail: unspecified Hyperlipidemia E78.5 Hypertension I10 Hypertension type: essential hypertension Hypothyroidism E03.9 Hypothyroidism type: unspecified Macrocytic anemia with vitamin B12 deficiency D51.8 Seizure disorder G40.909 Metabolic encephalopathy G93.41 Elevated troponin R77.8 (1) DM type 2 (diabetes mellitus, type 2) Diabetes mellitus senior care insulin use: without senior care use Diabetes mellitus complication status: without complication Qualified Code(s): E11.9 - Type 2 diabetes mellitus without complications (2) Enlarged prostate with lower urinary tract symptoms (LUTS) Lower urinary tract symptom detail: unspecified Qualified Code(s): N40.1 - Benign prostatic hyperplasia with lower urinary tract symptoms (3) Hypertension Hypertension type: essential hypertension Qualified Code(s): I10 - Essential (primary) hypertension (4) Hypothyroidism Hypothyroidism type: unspecified Qualified Code(s): E03.9 - Hypothyroidism, unspecified
[2021-06-16] MEDS ORDERED: GLUCOSE 40% GEL 15 GM TUBE PO PRN (13:12)
[2021-06-16] MEDS ORDERED: CARBOHYDRATES FOR HYPOGLYCEMIA PO PRN (13:12)
[2021-06-16] MEDS ORDERED: bisacodyL 10 MG SUPP PR PRN (13:12)
[2021-06-16] MEDS ORDERED: DEXTROSE 50% 50 ML SYRINGE IV PRN (13:12)
[2021-06-16] MEDS ORDERED: ONDANSETRON INJ 2 MG/ML 2 ML VIAL IV PRN (13:12)
[2021-06-16] MEDS ORDERED: ACETAMINOPHEN 1,000 MG/100 ML VIAL IV PRN (13:12)
[2021-06-16] MEDS ORDERED: GLUCOSE 10 TABS/TUBE PO PRN (13:12)
[2021-06-16] MEDS ORDERED: GLUCAGON FOR INJ 1 MG VIAL SQ PRN (13:12)
--- NOTE | 2021-06-16 14:37 | XRay Report ---
XR hip RT min 2V CLINICAL HISTORY: assess hardware COMPARISON: Right femur radiographs May 08, 2021 and May 09, 2021. FINDINGS: Internal fixation of the intertrochanteric fracture of the right femur with femoral neck n ail and interlocking intramedullary esthela is again noted. Alignment of the fractures unchanged. Partial interval healing is noted. Fracture line remains evident. The hardware is intact. There are distal s crews. There are no unexpected radiopaque foreign bodies. IMPRESSION: Status post internal fixation of the intertrochanteric fracture of the right femur with p artial interval healing and no change in alignment. Hardware intact. ACT 112: Negative or not required by law. Electronically signed by: Donald Young M.D. 06/16/2021 2:35 PM
--- NOTE | 2021-06-16 14:53 | Ultrasound Report ---
ULTRASOUND RIGHT LOWER EXTREMITY VENOUS CLINICAL HISTORY: Right leg swelling. COMPARISON STUDY: No priors. TECHNIQUE: Real-time, grayscale, and color Doppler sonography of the deep veins of the right lower ex tremity was performed from the inguinal crease to the calf. Compression and augmentation were utilize d. FINDINGS: There is no sonographic evidence of deep venous thrombosis identified in the right lower ex tremity. The common femoral, superficial femoral, and popliteal veins are patent and normally asya sible. The greater saphenous vein and the profunda femoris vein at the junction with the common femor al vein are clear. The visualized calf veins are patent. IMPRESSION: There is no sonographic evidence of deep venous thrombosis identified in the right lower extremity. ACT 112: Negative or not required by law. Electronically signed by: Jose Umana M.D. 06/16/2021 2:52 PM
[2021-06-16] MEDS ORDERED: GADOBUTROL 65ML VIAL IV ONE (15:49)
--- NOTE | 2021-06-16 15:53 | Electrocardiogram Report ---
Test Reason : Blood Pressure : / mmHG Vent. Rate : 076 BPM Atrial Rate : 076 BPM P-R Int : 136 ms QRS Dur : 068 ms QT Int : 340 ms P-R-T Axes : 030 033 002 degrees QTc Int : 382 ms Normal sinus rhythm Normal ECG When compared with ECG of 08-MAY-2021 18:18, QT has shortened Confirmed by Ravi Thompson ([id number]) on 06/16/2021 3:52:49 PM Referred By: [facility] Confirmed By:Ravi Thompson
[2021-06-16] MEDS: LACTATED RINGER'S 1,000 ML IV SCH (15:54)
[2021-06-16] MEDS: DAPTOmycin 500 MG in SYRINGE 0 ML IV SCH (15:55)
--- NOTE | 2021-06-16 16:03 | Magnetic Resonance Report ---
MRI OF THE BRAIN WITHOUT AND WITH IV CONTRAST CLINICAL HISTORY: ?CVA. Altered mental status. COMPARISON STUDY: MRI of the brain September 26, 2017. Head CT and CTA of the head performed earlier yoel patton. TECHNIQUE: Utilizing a 1.5 Latasha magnet and dedicated coil, multiplanar, multiecho imaging of the br ain was performed pre and postcontrast administration. IV administration of 9.1 mL of Gadavist contr ast was uneventful. FINDINGS: This exam is mildly compromised by motion artifact. There are 2 adjacent punctate foci of i ncreased signal intensity within the left frontal lobe, adjacent to the frontal horn of the left late ral ventricle on axial diffusion-weighted sequence image 11 of 22. Correlation with the ADC map is di fficult given their small size and motion artifact. Ventricular system is unremarkable. Basal cistern s are patent. White matter T2 hyperintense foci favor small vessel disease. Marked cerebellar atrophy is noted. There is moderate cerebral atrophy. Numerous old lacunar infarcts are noted, including lac unar infarcts within the left basal ganglia and right thalamus. Calvarial signal is grossly normal. T here is minimal ethmoid sinus mucosal thickening. No intracranial mass or pathologic enhancement is i dentified. IMPRESSION: 1. Two punctate foci of increased signal intensity within the left frontal lobe on diffusion-weighted sequence. These are difficult to assess given motion artifact on this exam and are equivocal for acu te punctate infarcts. 2. Moderate cerebral and marked cerebellar atrophy. 3. No intracranial mass or pathologic enhancement. ACT 112: Negative or not required by law. Electronically signed by: Donald Young M.D. 06/16/2021 4:02 PM
[2021-06-16] MEDS ORDERED: INSULIN ASPART 100 UNITS/ML 3 ML PEN SC SCH (16:30)
[2021-06-16] MEDS: PHENYTOIN SODIUM ER 100 MG CAP PO SCH ×2 (16:50→20:16)
[2021-06-16] MEDS: PANCREAZE (LIPASE 4,200U) CAP PO SCH ×2 (16:59→20:16)
[2021-06-16] MEDS ORDERED: Nursing to Pharmacy Communication SCH (17:00)
[2021-06-16] MEDS: PIPERACILLIN/TAZOBACTAM 3.375 GM in DEXTROSE 5% 100 ML IV SCH (17:33)
[2021-06-16] MEDS: INSULIN ASPART 100 UNITS/ML 3 ML PEN SC SCH (18:09)
[2021-06-16] MEDS: DOCUSATE SODIUM/SENNA 50/8.6MG TAB PO SCH (20:16)
[2021-06-16] MEDS: CITALOPRAM 20 MG TAB PO SCH (20:16)
[2021-06-16] MEDS: TAMSULOSIN HCL 0.4 MG CAP PO SCH (20:16)
[2021-06-16] MEDS: levETIRAcetam 750 MG in 0.9 % SODIUM CHLORIDE 100 ML IV SCH (20:39)
[2021-06-16] MEDS: PHENobarbital sodium 65 MG/ML VIAL IV SCH (20:39)
[2021-06-16] MEDS: INSULIN GLARGINE SOLOSTAR 100 UNITS/ML 3 ML PEN SC SCH (21:38)
[2021-06-17] MEDS: PIPERACILLIN/TAZOBACTAM 3.375 GM in DEXTROSE 5% 100 ML IV SCH ×3 (00:57→16:21)
[2021-06-17] MEDS: INSULIN ASPART 100 UNITS/ML 3 ML PEN SC SCH ×5 (01:15→20:36)
[2021-06-17] MEDS: LACTATED RINGER'S 1,000 ML IV SCH (01:50)
[2021-06-17 02:38] LABS: Basophils # (auto) 0.01 K/uL (0-0.2); Basophils % (auto) 0.1 %; Eosinophils % (auto) 1.2 %; Hematocrit (blood only) 30.5 % (42-52); Immature Granulocytes # (auto) 0.02 K/uL (0.00-0.02); Immature Granulocytes % (auto) 0.2 %; Lymphocytes # (auto) 1.12 K/uL (1.2-3.4); Lymphocytes % (auto) 13.3 %; Mean Corpuscular Hemoglobin 35.2 pg (25-34); Mean Corpuscular Hgb Conc 32.8 g/dL (32-36); Mean Corpuscular Volume 107.4 fL (80-100); Mean Platelet Volume 8.6 fL (7.4-10.4); Monocytes # (auto) 0.64 K/uL (0.11-0.59); Monocytes % (auto) 7.6 %; Neutrophils # (auto) 6.56 K/uL (1.4-6.5); Neutrophils % (auto) 77.6 %; Platelet Count 217 K/uL (130-400); RDW Coefficient of Variation 13.2 % (11.5-14.5); RDW Standard Deviation 52.2 fL (36.4-46.3); Red Blood Count 2.84 M/uL (4.7-6.1); White Blood Count 8.45 K/uL (4.8-10.8)
[2021-06-17 03:06] LABS: BUN Creatinine Ratio 20.8 (10-20); Calcium 8.9 mg/dl (8.5-10.1); Est GFR (African American) 77.5 ml/min; Est GFR (Non-African American) 66.9 ml/min; Magnesium 1.8 mg/dl (1.8-2.4)
[2021-06-17 03:15] LABS: Troponin I 0.031 ng/ml (0-0.045)
[2021-06-17] MEDS: levETIRAcetam 750 MG in 0.9 % SODIUM CHLORIDE 100 ML IV SCH ×2 (07:33→20:25)
[2021-06-17] MEDS ORDERED: Nursing to Pharmacy Communication SCH (08:30)
[2021-06-17] MEDS: PANCREAZE (LIPASE 4,200U) CAP PO SCH ×4 (08:45→20:28)
[2021-06-17] MEDS: PHENobarbital sodium 65 MG/ML VIAL IV SCH (08:45)
[2021-06-17] MEDS: DOCUSATE SODIUM 100 MG CAP PO SCH (08:45)
[2021-06-17] MEDS: PHENYTOIN 100 MG in SYRINGE 0 ML IV SCH ×3 (08:46→20:26)
[2021-06-17] MEDS: SODIUM CHLORIDE 0.9% 10ML FLUSH IV SCH ×3 (08:48→20:27)
[2021-06-17] MEDS ORDERED: LEVOTHYROXINE SODIUM 37.5 MCG in SYRINGE 0 ML IV SCH (09:00)
[2021-06-17] MEDS: INSULIN GLARGINE SOLOSTAR 100 UNITS/ML 3 ML PEN SC SCH ×2 (09:46→20:35)
--- NOTE | 2021-06-17 12:57 | Hospitalist Progress Note ---
Date of Service June 17, 2021 Assessment & Plan (1) Metabolic encephalopathy: Plan: 76yo male presenting from [facility] with decreased responsiveness. Patient febrile on arrival with neutrophil-predominant leukocytosis with WBC=13.3, elevated lactate of 2.7 and procalcitonin of 0.9. Suspect infection/sepsis as primary cause of patient's altered mental state - possible sources to include UTI, less likely surgical site infection. Patient had a Fentanyl patch in place upon arrival - medication effects could also be contributing to patient's decreased responsiveness. Additional workup reveals stable macrocytic anemia, normal renal and hepatic function, normal TSH, Ammonia level and VBG. CT of the head as well as CTA head and neck unremarkable. Patient's mental state has improved during his time in the ER, although he is still encephalopathic. On transfer paperwork there was mention of a right facial droop and RUE weakness - not appreciated during my exam most likely cause is UTI, urine culture growing out gram negative bacteria continue Zosyn, stop Daptomycin change meds from IV to PO since he is eating/drinking follow up final blood and urine cultures -LR at 100mL/hr x 2 liters, can now stop -Will discontinue Fentanyl patch for now as may have contributed to patient's symptoms -MRI brain to complete possible CVA workup - no stroke, two punctate areas are most likely motion artifact (2) Seizure disorder: Plan: No reported seizure activity. Patient is on Keppra, Dilantin and Phenobarbital. Levels are therapeutic change back to PO doses now that he can swallow (3) Elevated troponin: Plan: Suspect secondary to underlying sepsis. No ischemic changes present on EKG -Telemetry monitoring -Trend troponin x 3 9 Negative (4) DM type 2 (diabetes mellitus, type 2): Plan: Well controlled. ZKD=106 currently. Last A1C=5.2 on 06/04/21 - Question patient's ongoing need for insulin -Lantus 4u BID -ISS -Goal blood sugar 100 - 180 -Hold Metformin could likely stop insulin on discharge (5) Enlarged prostate with lower urinary tract symptoms (LUTS): Plan: Alvarado catheter in place with >1L output. Cr and electrolytes are within normal limits -Maintain alvarado -Monitor I/Os -Monitor renal function and electrolytes -Continue Flomax 0.4mg (6) Hyperlipidemia: Plan: Chronic -Will hold statin while on empiric Daptomycin (7) Hypertension: Plan: Blood pressure borderline low in ER -Hold Metoprolol -Continue to monitor (8) Hypothyroidism: Plan: Chronic. TSH is WNL resume PO Synthroid (9) Macrocytic anemia with vitamin B12 deficiency: Plan: Chronic. Stable -Continue B12 and Folate supplementation outpatient Plan: F/E/N - LR at 100mL/hr x 1 liter, Mg and PO4 repletion, repeat in AM, NPO for now due to AMS - advance as tolerated if patient improves. Continue bowel regimen - Dulcolax CO PRN, Senokot, Colace Ppx - SCDs Code - DNR/DNI as discussed with family at bedside Dispo - Admit to PCU Admission and Anticipated Discharge Date Admission Date: June 16, 2021 Subjective patient is alert and talking, he denies any fever, chills, dyspnea, cough, chest pain he cannot recall coming to the hospital I explained he was confused and lethargic, most likely cause is a UTI he is hungry, was able to eat without issue will change meds back to PO reviewed chart and labs today Review of Systems Review of Systems: All systems reviewed & are unremarkable except as noted in Subjective Physical Exam Constitutional: well developed, well nourished and comfortable; no acute distress Neck: trachea midline, no thyromegaly Respiratory: normal respiratory effort, lungs clear to auscultation Cardiovascular: RRR, no murmur, no edema Gastrointestinal (Abdomen): normal bowel sounds, soft, nontender, no hepatosplenomegaly Musculoskeletal: Head/Neck/Chest: normocephalic, head atraumatic and neck supple Extremities: extremities normal to inspection and + abnormal strength; no cyanosis, no clubbing and no petechiae Skin: no rashes, warm and dry Neurologic: CN's II-XI intact bilaterally, moves all extremities and awake; no focal motor deficits Psychiatric: Orientation: alert and oriented to person; + not oriented to place and + not oriented to time Affect: + flat affect Results & Data Results & Data ([facility]) Vital Signs (Past 12 Hours) Vital Signs Temp Pulse Pulse Resp BP Pulse Ox 06/17/21 11:03 36.7 C 68 18 112/72 97 06/17/21 08:00 63 06/17/21 07:13 36.7 C 76 20 122/63 96 06/17/21 03:43 36.8 C 77 19 131/71 95 Laboratory Results Laboratory Results - last 24 hr 06/16/21 06/17/21 06/17/21 21:36 01:03 02:17 WBC 8.45 RBC 2.84 L Hgb 10.0 L Hct 30.5 L MCV 107.4 H MCH 35.2 H MCHC 32.8 RDW Std Deviation 52.2 H RDW Coeff of Amber 13.2 Plt Count 217 MPV 8.6 Immature Gran % (Auto) 0.2 Neut % (Auto) 77.6 Lymph % (Auto) 13.3 [place] % (Auto) 7.6 Eos % (Auto) 1.2 Baso % (Auto) 0.1 Neut # (Auto) 6.56 H Lymph # (Auto) 1.12 L [place] # (Auto) 0.64 H Eos # (Auto) 0.10 Baso # (Auto) 0.01 Immature Gran # (Auto) 0.02 Sodium Potassium Chloride Carbon Dioxide Anion Gap BUN Creatinine Est Cr Clr Drug Dosing Est GFR ( Amer) Est GFR (Non-Af Amer) BUN/Creatinine Ratio Glucose POC Glucose 113 H 112 H Calcium Phosphorus Magnesium Troponin I 06/17/21 06/17/21 06/17/21 02:17 05:39 08:20 WBC RBC Hgb Hct MCV MCH MCHC RDW Std Deviation RDW Coeff of Amber Plt Count MPV Immature Gran % (Auto) Neut % (Auto) Lymph % (Auto) [place] % (Auto) Eos % (Auto) Baso % (Auto) Neut # (Auto) Lymph # (Auto) [place] # (Auto) Eos # (Auto) Baso # (Auto) Immature Gran # (Auto) Sodium 139 Potassium 4.0 Chloride 109 H Carbon Dioxide 27 Anion Gap 3.0 BUN 22 H Creatinine 1.06 Est Cr Clr Drug Dosing 63.0 Est GFR ( Amer) 77.5 Est GFR (Non-Af Amer) 66.9 BUN/Creatinine Ratio 20.8 H Glucose 109 H POC Glucose 104 H 108 H Calcium 8.9 Phosphorus 3.0 Magnesium 1.8 Troponin I 0.031 06/17/21 06/17/21 06/17/21 11:19 16:12 20:34 WBC RBC Hgb Hct MCV MCH MCHC RDW Std Deviation RDW Coeff of Amber Plt Count MPV Immature Gran % (Auto) Neut % (Auto) Lymph % (Auto) [place] % (Auto) Eos % (Auto) Baso % (Auto) Neut # (Auto) Lymph # (Auto) [place] # (Auto) Eos # (Auto) Baso # (Auto) Immature Gran # (Auto) Sodium Potassium Chloride Carbon Dioxide Anion Gap BUN Creatinine Est Cr Clr Drug Dosing Est GFR ( Amer) Est GFR (Non-Af Amer) BUN/Creatinine Ratio Glucose POC Glucose 174 H 139 H 156 H Calcium Phosphorus Magnesium Troponin I Medications Administered Current Inpatient Medications Lipase/Protease/Amylase (Pancreaze (Lipase 4,200u) Cap) 1 cap PO QID JESUS; Protocol Stop: 07/16/21 16:59 Last Admin: 06/17/21 20:28 Dose: 1 cap Documented by: Bisacodyl (Bisacodyl 10 Mg Supp) 10 mg CO DAILY PRN PRN Reason: Constipation Stop: 07/16/21 13:11 Citalopram Hydrobromide (Citalopram 20 Mg Tab) 5 mg PO HS [facility] Stop: 07/16/21 20:59 Last Admin: 06/17/21 20:27 Dose: 5 mg Documented by: Dextrose (Dextrose 50% 50 Ml Syringe) 25 - 50 ml IV UD PRN; Protocol PRN Reason: Hypoglycemia Protocol Stop: 07/16/21 13:11 Docusate Sodium (Docusate Sodium 100 Mg Cap) 100 mg PO QAM [facility] Stop: 07/17/21 08:59 Last Admin: 06/17/21 08:45 Dose: 100 mg Documented by: Glucagon (Glucagon For Inj 1 Mg Vial) 1 mg SQ UD PRN; Protocol PRN Reason: Hypoglycemia Protocol Stop: 07/16/21 13:11 Glucose (Glucose 10 Tabs/Tube) 4 - 8 tabs PO UD PRN; Protocol PRN Reason: Hypoglycemia Protocol Stop: 07/16/21 13:11 Glucose (Glucose 40% Gel 15 Gm Tube) 15 - 30 gm PO UD PRN; Protocol PRN Reason: Hypoglycemia Protocol Stop: 07/16/21 13:11 Piperacillin Sod/Tazobactam (Sod 3.375 gm/ Dextrose) 115 mls @ 28.75 mls/hr IV Q8H JESUS; Protocol Stop: 06/26/21 13:11 Last Infusion: 06/17/21 20:21 Dose: Infused Documented by: Acetaminophen (Ofirmev) 1,000 mg in 100 mls @ 400 mls/hr IV Q8H PRN PRN Reason: Pain or Fever Stop: 06/19/21 13:11 Levothyroxine Sodium 37.5 mcg/ (Syringe) 1.875 mls @ 2 mls/min IV Q3D@0900 [facility]; Protocol Stop: 07/17/21 08:59 Last Admin: 06/17/21 09:48 Dose: 2 mls/min Documented by: Daptomycin 500 mg/ Syringe 10 mls @ 5 mls/min IV Q24H [facility]; Protocol Stop: 06/18/21 13:11 Last Admin: 06/17/21 14:17 Dose: 5 mls/min Documented by: Insulin Aspart (Insulin Aspart 100 Units/Ml 3 Ml Pen) 0 units SC ACHS [facility] Stop: 07/17/21 11:29 Last Admin: 06/17/21 20:36 Dose: Not Given Documented by: Insulin Glargine (Insulin Glargine Solostar 100 Units/Ml 3 Ml Pen) 4 units SC BID [facility] Stop: 07/16/21 20:59 Last Admin: 06/17/21 20:35 Dose: 4 units Documented by: Levetiracetam (Levetiracetam 250 Mg Tab) 750 mg PO Q12H [facility] Stop: 07/18/21 07:59 Levothyroxine Sodium (Levothyroxine Sodium 75 Mcg Tablet) 75 mcg PO DAILYBB [facility] Stop: 07/18/21 06:29 Metoprolol Tartrate (Metoprolol Tartrate 25 Mg Tab) 12.5 mg PO BID [facility] Stop: 07/18/21 08:59 Miscellaneous (Carbohydrates For Hypoglycemia ) 15 - 30 gm PO UD PRN PRN Reason: Hypoglycemia Protocol Stop: 07/16/21 13:11 Miscellaneous Information (Piperacill/Tazobac Consult Active) 1 ea N/A UD PRN PRN Reason: Consult Stop: 07/16/21 13:11 Miscellaneous Information (Daptomycin Consult Active) 1 ea N/A UD PRN PRN Reason: Consult Stop: 07/16/21 13:11 Ondansetron HCl (Ondansetron Inj 2 Mg/Ml 2 Ml Vial) 4 mg IV Q6H PRN PRN Reason: Nausea Stop: 07/16/21 13:11 Phenobarbital (Phenobarbital 32.4 Mg Tab) 64.8 mg PO Q12 [facility] Stop: 07/18/21 08:59 Phenytoin Sodium (Phenytoin Sodium Er 100 Mg Cap) 100 mg PO TID [facility] Stop: 07/18/21 08:59 Senna/Docusate Sodium (Docusate Sodium/Senna 50/8.6mg Tab) 2 tab PO [facility] Stop: 07/16/21 20:59 Last Admin: 06/17/21 20:28 Dose: 2 tab Documented by: Sodium Chloride (Sodium Chloride 0.9% 10ml Flush) 20 ml IV TID [facility] Stop: 07/17/21 08:59 Last Admin: 06/17/21 20:27 Dose: 20 ml Documented by: Tamsulosin HCl (Tamsulosin Hcl 0.4 Mg Cap) 0.4 mg PO [facility] Stop: 07/16/21 20:59 Last Admin: 06/17/21 20:28 Dose: 0.4 mg Documented by: PG Care Time/CCT Total # of Minutes Spent Total Time Spent with Patient: Total time spent is greater than 50% in coordination of care (as documented) at patient's floor/unit and/or counseling patient: Coding Level of Care Code 19171 Subseq Hosp Care Lvl 2 Diagnoses Metabolic encephalopathy G93.41 Seizure disorder G40.909 Elevated troponin R77.8 DM type 2 (diabetes mellitus, type 2) E11.9 Diabetes mellitus complication status: without complication Diabetes mellitus terminal make up operator insulin use: without halfway use Enlarged prostate with lower urinary tract symptoms (LUTS) N40.1 Lower urinary tract symptom detail: unspecified Hyperlipidemia E78.5 Hypertension I10 Hypertension type: essential hypertension Hypothyroidism E03.9 Hypothyroidism type: unspecified Macrocytic anemia with vitamin B12 deficiency D51.8 (1) DM type 2 (diabetes mellitus, type 2) Diabetes mellitus complication status: without complication Diabetes mellitus halfway insulin use: without terminal make up operator use Qualified Code(s): E11.9 - Type 2 diabetes mellitus without complications (2) Hypothyroidism Hypothyroidism type: unspecified Qualified Code(s): E03.9 - Hypothyroidism, unspecified (3) Enlarged prostate with lower urinary tract symptoms (LUTS) Lower urinary tract symptom detail: unspecified Qualified Code(s): N40.1 - Benign prostatic hyperplasia with lower urinary tract symptoms (4) Hypertension Hypertension type: essential hypertension Qualified Code(s): I10 - Essential (primary) hypertension
[2021-06-17] MEDS: DAPTOmycin 500 MG in SYRINGE 0 ML IV SCH (14:17)
[2021-06-17] MEDS: CITALOPRAM 20 MG TAB PO SCH (20:27)
[2021-06-17] MEDS: DOCUSATE SODIUM/SENNA 50/8.6MG TAB PO SCH (20:28)
[2021-06-17] MEDS: TAMSULOSIN HCL 0.4 MG CAP PO SCH (20:28)
[2021-06-17] MEDS ORDERED: PHENobarbitaL sodium 65 MG in SYRINGE 0 ML IV SCH (21:00)
[2021-06-17] MEDS: ACETAMINOPHEN 500 MG TAB PO PRN (23:36)
[2021-06-18] MEDS: PIPERACILLIN/TAZOBACTAM 3.375 GM in DEXTROSE 5% 100 ML IV SCH ×2 (00:51→08:20)
[2021-06-18] MEDS: LEVOTHYROXINE SODIUM 75 MCG TABLET PO SCH (05:38)
[2021-06-18] MEDS: METOPROLOL TARTRATE 25 MG TAB PO SCH ×2 (08:16→21:54)
[2021-06-18] MEDS: levETIRAcetam 250 MG TAB PO SCH ×2 (08:16→21:55)
[2021-06-18] MEDS: PHENYTOIN SODIUM ER 100 MG CAP PO SCH ×3 (08:16→20:48)
[2021-06-18] MEDS: DOCUSATE SODIUM 100 MG CAP PO SCH (08:17)
[2021-06-18] MEDS: PANCREAZE (LIPASE 4,200U) CAP PO SCH ×4 (08:17→21:56)
[2021-06-18] MEDS: INSULIN GLARGINE SOLOSTAR 100 UNITS/ML 3 ML PEN SC SCH ×2 (08:24→20:53)
[2021-06-18] MEDS: INSULIN ASPART 100 UNITS/ML 3 ML PEN SC SCH ×4 (08:24→20:53)
[2021-06-18] MEDS: SODIUM CHLORIDE 0.9% 10ML FLUSH IV SCH ×3 (09:04→20:45)
--- NOTE | 2021-06-18 12:35 | Hospitalist Progress Note ---
Date of Service June 18, 2021 Assessment & Plan (1) Catheter-associated urinary tract infection: Plan: Klebsiella treat with Ancef while here catheter exchange treat for 14 days (2) Metabolic encephalopathy: Plan: 76yo male presenting from [facility] with decreased responsiveness. Patient febrile on arrival with neutrophil-predominant leukocytosis with WBC=13.3, elevated lactate of 2.7 and procalcitonin of 0.9. Suspect infection/sepsis as primary cause of patient's altered mental state - possible sources to include UTI, less likely surgical site infection. Patient had a Fentanyl patch in place upon arrival - medication effects could also be contributing to patient's decreased responsiveness. Additional workup reveals stable macrocytic anemia, normal renal and hepatic function, normal TSH, Ammonia level and VBG. CT of the head as well as CTA head and neck unremarkable. Patient's mental state has improved during his time in the ER most likely cause is UTI, urine culture growing out Klebsiella, sykes sensitive change to Ancef, will need 14 days since this is catheter associated UTI exchange alvarado catheter while here follow up final blood cultures. no growth at this time continue to hold fentanyl patch, not complaining of severe pain -MRI brain to complete possible CVA workup - no stroke, two punctate areas are most likely motion artifact (3) Seizure disorder: Plan: No reported seizure activity. Patient is on Keppra, Dilantin and Phenobarbital. Levels are therapeutic change back to PO doses now that he can swallow no issues while here (4) Elevated troponin: Plan: Suspect secondary to underlying sepsis. No ischemic changes present on EKG -Telemetry monitoring -Trend troponin x 3 Negative move to medical floor (5) DM type 2 (diabetes mellitus, type 2): Plan: Well controlled. WZR=980 currently. Last A1C=5.2 on 06/04/21 - Question patient's ongoing need for insulin -Lantus 4u BID -ISS -Goal blood sugar 100 - 180 -Hold Metformin could likely stop insulin on discharge (6) Enlarged prostate with lower urinary tract symptoms (LUTS): Plan: Alvarado catheter in place with >1L output. Cr and electrolytes are within normal limits -Maintain alvarado, will exchange today -Monitor I/Os -Monitor renal function and electrolytes -Continue Flomax 0.4mg (7) Hyperlipidemia: Plan: Chronic -Will hold statin while on empiric Daptomycin (8) Hypertension: Plan: Blood pressure borderline low in ER -Hold Metoprolol -Continue to monitor (9) Hypothyroidism: Plan: Chronic. TSH is WNL resume PO Synthroid (10) Macrocytic anemia with vitamin B12 deficiency: Plan: Chronic. Stable -Continue B12 and Folate supplementation outpatient Plan: F/E/N - LR at 100mL/hr x 1 liter, Mg and PO4 repletion, repeat in AM, NPO for now due to AMS - advance as tolerated if patient improves. Continue bowel regimen - Dulcolax MT PRN, Senokot, Colace Ppx - SCDs Code - DNR/DNI as discussed with family at bedside Dispo - Admit to PCU Admission and Anticipated Discharge Date Admission Date: June 16, 2021 Subjective patient more alert and pleasant today, no new issues, no seizures, tolerating his medications eating well, no fever, no chills, no cough, no dyspnea, no chest pain urine culture with Klebsiella, sykes sensitive, spoke with pharmacy, will change to Ancef no issues on monitor, move to medical today Review of Systems Review of Systems: All systems reviewed & are unremarkable except as noted in Subjective Physical Exam Constitutional: well developed, well nourished and comfortable; no acute distress Neck: trachea midline, no thyromegaly Respiratory: normal respiratory effort, lungs clear to auscultation Cardiovascular: RRR, no murmur, no edema Gastrointestinal (Abdomen): normal bowel sounds, soft, nontender, no hepatosplenomegaly Musculoskeletal: Head/Neck/Chest: normocephalic, head atraumatic and neck supple Extremities: extremities normal to inspection and + abnormal strength; no cyanosis, no clubbing and no petechiae Skin: no rashes, warm and dry Neurologic: CN's II-XI intact bilaterally, moves all extremities and awake; no focal motor deficits Psychiatric: Orientation: alert, oriented to person, oriented to place and oriented to time Affect: + flat affect Results & Data Results & Data ([facility]) Vital Signs (Past 12 Hours) Vital Signs Temp Pulse Pulse Resp BP Pulse Ox 06/18/21 11:02 36.4 C L 58 L 20 110/63 98 06/18/21 08:00 60 06/18/21 07:05 36.6 C 85 16 123/77 95 06/18/21 03:27 36.7 C 68 17 106/58 L 96 Laboratory Results Laboratory Results - last 24 hr 06/17/21 06/17/21 06/18/21 16:12 20:34 07:09 POC Glucose 139 H 156 H 130 H 06/18/21 11:18 POC Glucose 168 H Medications Administered Current Inpatient Medications Acetaminophen (Acetaminophen 500 Mg Tab) 1,000 mg PO Q8H PRN PRN Reason: Pain or Fever Stop: 07/17/21 23:30 Last Admin: 06/17/21 23:36 Dose: 1,000 mg Documented by: Lipase/Protease/Amylase (Pancreaze (Lipase 4,200u) Cap) 1 cap PO QID JESUS; Protocol Stop: 07/16/21 16:59 Last Admin: 06/18/21 08:17 Dose: 1 cap Documented by: Bisacodyl (Bisacodyl 10 Mg Supp) 10 mg MT DAILY PRN PRN Reason: Constipation Stop: 07/16/21 13:11 Citalopram Hydrobromide (Citalopram 20 Mg Tab) 5 mg PO HS [facility] Stop: 07/16/21 20:59 Last Admin: 06/17/21 20:27 Dose: 5 mg Documented by: Dextrose (Dextrose 50% 50 Ml Syringe) 25 - 50 ml IV UD PRN; Protocol PRN Reason: Hypoglycemia Protocol Stop: 07/16/21 13:11 Docusate Sodium (Docusate Sodium 100 Mg Cap) 100 mg PO QAM [facility] Stop: 07/17/21 08:59 Last Admin: 06/18/21 08:17 Dose: 100 mg Documented by: Glucagon (Glucagon For Inj 1 Mg Vial) 1 mg SQ UD PRN; Protocol PRN Reason: Hypoglycemia Protocol Stop: 07/16/21 13:11 Glucose (Glucose 10 Tabs/Tube) 4 - 8 tabs PO UD PRN; Protocol PRN Reason: Hypoglycemia Protocol Stop: 07/16/21 13:11 Glucose (Glucose 40% Gel 15 Gm Tube) 15 - 30 gm PO UD PRN; Protocol PRN Reason: Hypoglycemia Protocol Stop: 07/16/21 13:11 Ceftriaxone Sodium 1,000 mg/ (Dextrose) 50 mls @ 100 mls/hr IV Q24H [facility] Stop: 06/28/21 12:44 Insulin Aspart (Insulin Aspart 100 Units/Ml 3 Ml Pen) 0 units SC ACHS [facility] Stop: 07/17/21 11:29 Last Admin: 06/18/21 08:24 Dose: 2 units Documented by: Insulin Glargine (Insulin Glargine Solostar 100 Units/Ml 3 Ml Pen) 4 units SC BID [facility] Stop: 07/16/21 20:59 Last Admin: 06/18/21 08:24 Dose: 4 units Documented by: Levetiracetam (Levetiracetam 250 Mg Tab) 750 mg PO Q12H [facility] Stop: 07/18/21 07:59 Last Admin: 06/18/21 08:16 Dose: 750 mg Documented by: Levothyroxine Sodium (Levothyroxine Sodium 75 Mcg Tablet) 75 mcg PO DAILYBB [facility] Stop: 07/18/21 06:29 Last Admin: 06/18/21 05:38 Dose: 75 mcg Documented by: Metoprolol Tartrate (Metoprolol Tartrate 25 Mg Tab) 12.5 mg PO BID [facility] Stop: 07/18/21 08:59 Last Admin: 06/18/21 08:16 Dose: 12.5 mg Documented by: Miscellaneous (Carbohydrates For Hypoglycemia ) 15 - 30 gm PO UD PRN PRN Reason: Hypoglycemia Protocol Stop: 07/16/21 13:11 Miscellaneous Information (Piperacill/Tazobac Consult Active) 1 ea N/A UD PRN PRN Reason: Consult Stop: 07/16/21 13:11 Miscellaneous Information (Daptomycin Consult Active) 1 ea N/A UD PRN PRN Reason: Consult Stop: 06/18/21 13:22 Ondansetron HCl (Ondansetron Inj 2 Mg/Ml 2 Ml Vial) 4 mg IV Q6H PRN PRN Reason: Nausea Stop: 07/16/21 13:11 Phenobarbital (Phenobarbital 32.4 Mg Tab) 64.8 mg PO Q12 [facility] Stop: 07/18/21 08:59 Last Admin: 06/18/21 08:20 Dose: 64.8 mg Documented by: Phenytoin Sodium (Phenytoin Sodium Er 100 Mg Cap) 100 mg PO TID [facility] Stop: 07/18/21 08:59 Last Admin: 06/18/21 08:16 Dose: 100 mg Documented by: Senna/Docusate Sodium (Docusate Sodium/Senna 50/8.6mg Tab) 2 tab PO HS [facility] Stop: 07/16/21 20:59 Last Admin: 06/17/21 20:28 Dose: 2 tab Documented by: Sodium Chloride (Sodium Chloride 0.9% 10ml Flush) 20 ml IV TID [facility] Stop: 07/17/21 08:59 Last Admin: 06/18/21 09:04 Dose: Not Given Documented by: Tamsulosin HCl (Tamsulosin Hcl 0.4 Mg Cap) 0.4 mg PO HS [facility] Stop: 07/16/21 20:59 Last Admin: 06/17/21 20:28 Dose: 0.4 mg Documented by: PG Care Time/CCT Total # of Minutes Spent Total Time Spent with Patient: Total time spent is greater than 50% in coordination of care (as documented) at patient's floor/unit and/or counseling patient: Coding Level of Care Code 57504 Subseq Hosp Care Lvl 2 Diagnoses Metabolic encephalopathy G93.41 Seizure disorder G40.909 Elevated troponin R77.8 DM type 2 (diabetes mellitus, type 2) E11.9 Diabetes mellitus complication status: without complication 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 insulin 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: without 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 use Enlarged prostate with lower urinary tract symptoms (LUTS) N40.1 Lower urinary tract symptom detail: unspecified Hyperlipidemia E78.5 Hypertension I10 Hypertension type: essential hypertension Hypothyroidism E03.9 Hypothyroidism type: unspecified Macrocytic anemia with vitamin B12 deficiency D51.8 Catheter-associated urinary tract infection T83.511A; N39.0 (1) DM type 2 (diabetes mellitus, type 2) Diabetes mellitus complication status: without complication Diabetes mellitus 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 insulin use: without 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 use Qualified Code(s): E11.9 - Type 2 diabetes mellitus without complications (2) Hypothyroidism Hypothyroidism type: unspecified Qualified Code(s): E03.9 - Hypothyroidism, unspecified (3) Enlarged prostate with lower urinary tract symptoms (LUTS) Lower urinary tract symptom detail: unspecified Qualified Code(s): N40.1 - Benign prostatic hyperplasia with lower urinary tract symptoms (4) Hypertension Hypertension type: essential hypertension Qualified Code(s): I10 - Essential (primary) hypertension
[2021-06-18] MEDS ORDERED: cefTRIAXone SODIUM 1,000 MG in DEXTROSE 5% 50 ML IV SCH (12:45)
[2021-06-18] MEDS: ceFAZolin 2000MG 2,000 MG/15 ML SYR IV SCH ×2 (13:44→20:47)
[2021-06-18] MEDS: ACETAMINOPHEN 500 MG TAB PO PRN ×2 (15:56→22:21)
[2021-06-18] MEDS: DOCUSATE SODIUM/SENNA 50/8.6MG TAB PO SCH (20:46)
[2021-06-18] MEDS: CITALOPRAM 20 MG TAB PO SCH (20:48)
[2021-06-18] MEDS: TAMSULOSIN HCL 0.4 MG CAP PO SCH (20:50)
[2021-06-19] MEDS ORDERED: MELATONIN 3 MG TAB PO PRN (00:02)
[2021-06-19] MEDS: LEVOTHYROXINE SODIUM 75 MCG TABLET PO SCH (06:05)
[2021-06-19] MEDS ORDERED: CYANOCOBALAMIN 500 MCG TABLET (VITAMIN B-12) PO SCH (09:00)
[2021-06-19] MEDS ORDERED: FERROUS SULFATE 325 MG TAB PO SCH (09:00)
[2021-06-19] MEDS ORDERED: FOLIC ACID 1 MG TAB PO SCH (09:00)
[2021-06-19] MEDS: DOCUSATE SODIUM/SENNA 50/8.6MG TAB PO SCH (09:02)
[2021-06-19] MEDS: levETIRAcetam 250 MG TAB PO SCH (09:02)
[2021-06-19] MEDS: METOPROLOL TARTRATE 25 MG TAB PO SCH (09:04)
[2021-06-19] MEDS: DOCUSATE SODIUM 100 MG CAP PO SCH (09:04)
[2021-06-19] MEDS: PANCREAZE (LIPASE 4,200U) CAP PO SCH ×2 (09:04→13:08)
[2021-06-19] MEDS: PHENYTOIN SODIUM ER 100 MG CAP PO SCH (09:04)
[2021-06-19] MEDS: INSULIN ASPART 100 UNITS/ML 3 ML PEN SC SCH ×2 (09:14→13:12)
[2021-06-19] MEDS: INSULIN GLARGINE SOLOSTAR 100 UNITS/ML 3 ML PEN SC SCH (09:15)
[2021-06-19] MEDS: ceFAZolin 2000MG 2,000 MG/15 ML SYR IV SCH (09:23)
[2021-06-19] MEDS: SODIUM CHLORIDE 0.9% 10ML FLUSH IV SCH (09:23)
--- NOTE | 2021-06-19 12:44 | Discharge Summary ---
Date of Service June 19, 2021 Admission HPI Per Admitting Provider Ra Vang is a 76yo male with history of DM, HTN, Hypothyroidism, Seizure disorder and prior CVA. Patient presents to [facility] today from [facility] with reports of decline in mental status as well as possible right facial droop and right arm weakness. Per report, patient was in his usual state of health yesterday AM. Yesterday afternoon he began to decline. Patient was transferred to [facility] today. In the ER he was found to be febrile at 38.2, initially 89% on room air which improved with placement of 3L O2 by nasal cannula. Nearly obtunded on arrival, moaning only to pain. A Alvarado catheter was placed with return of >1L dark urine. Patient had a Fentanyl patch in place which was removed by the ER. A small dose of Narcan was administered which showed no improvement in clinical status. Family is at bedside currently - and [id number]. Patient's mental status is slowly improving. Presently he is following commands and stating his name. Per discussion with granddaughter, Glory - patient is quite interactive and coherent at baseline. He had a fall at home resulting in right hip intertrochanteric femur fracture s/p repair on 05/09/[address] Luna. Patient had some acute blood loss anemia following surgery. He received IV Venofer x 2 doses and was discharged home on PO iron supplementation. Patient was discharged to [facility] with plans to complete rehabilitation then return home where he lives with his . Granddaughter reports Mr. Vang has overall been less interactive and coherent since surgery. Also with history of difficulty urinating in the past requiring self- catheterization. ER Course: Mg x 1 gm Tylenol x 1gm NSS x 500mL Zosyn x 4.5gm Zofran 4mg IV Narcan 0.2mg IV Principal Diagnosis Catheter associated UTI, Klebsiella Discharge Exam Constitutional well developed, well nourished and comfortable; no acute distress Neck trachea midline, no thyromegaly Respiratory normal respiratory effort, lungs clear to auscultation Cardiovascular RRR, no murmur, no edema Gastrointestinal (Abdomen) normal bowel sounds, soft, nontender, no hepatosplenomegaly Musculoskeletal Head/Neck/Chest: normocephalic, head atraumatic and neck supple Extremities: extremities normal to inspection and + abnormal strength; no cyanosis, no clubbing and no petechiae Skin no rashes, warm and dry Neurologic CN's II-XI intact bilaterally, moves all extremities and awake; no focal motor deficits Psychiatric Orientation: alert, oriented to person, oriented to place and oriented to time Affect: + flat affect Discharge Data Allergies Allergy/AdvReac Type Severity Reaction Status Date / Time morphine Allergy Unknown ? Verified 06/16/21 10:18 nitrofurantoin AdvReac Mild NAUSEA Verified 06/16/21 10:18 Quinolones AdvReac Mild NAUSEA Verified 06/16/21 10:18 meperidine AdvReac Unknown SEIZURES Verified 06/16/21 10:18 Consultations 06/16/21 11:23 ED Decision to Admit Stat Ordered Studies 06/16/21 09:47 CT angio head w con Stat CT angio neck with con Stat CT head/brain wo con Stat 06/16/21 10:06 CT abd pelvis IV con only Stat 06/16/21 12:09 MR brain wo/w con Routine 06/16/21 12:44 US venous doppler LE RT Routine Hospital Course (1) Catheter-associated urinary tract infection: Klebsiella treated with Ancef while here catheter exchanged while here on 06/18 treat with Cefdinir 300mg BID x 10 more days on discharge (2) Metabolic encephalopathy: 76yo male presenting from [facility] with decreased responsiveness. Patient febrile on arrival with neutrophil-predominant leukocytosis with WBC=13.3, elevated lactate of 2.7 and procalcitonin of 0.9. Suspect infection/sepsis as primary cause of patient's altered mental state - possible sources to include UTI, less likely surgical site infection. Patient had a Fentanyl patch in place upon arrival - medication effects could also be contributing to patient's decreased responsiveness. Additional workup reveals stable macrocytic anemia, normal renal and hepatic function, normal TSH, Ammonia level and VBG. CT of the head as well as CTA head and neck unremarkable. Patient's mental state has improved during his time in the ER most likely cause is UTI, urine culture growing out Klebsiella, sykes sensitive changed to Ancef, will need 10-14 days since this is catheter associated UTI exchanged alvarado catheter on 06/18 follow up final blood cultures. no growth at this time continue to hold fentanyl patch, not complaining of severe pain, would discont inue this on transfer back to [facility] -MRI brain to complete possible CVA workup - no stroke, two punctate areas are most likely motion artifact (3) Seizure disorder: No reported seizure activity. Patient is on Keppra, Dilantin and Phenobarbital. Levels are therapeutic change back to PO doses now that he can swallow no issues while here (4) Elevated troponin: Suspect secondary to underlying sepsis. No ischemic changes present on EKG -Telemetry monitoring -Trend troponin x 3 Negative move to medical floor (5) DM type 2 (diabetes mellitus, type 2): Well controlled. DJH=393 currently. Last A1C=5.2 on 06/04/21 - Question patient's ongoing need for insulin -Lantus 4u BID -ISS -Goal blood sugar 100 - 180 -Hold Metformin STOP INSULIN on discharge as A1c is well below goal for his age (6) Enlarged prostate with lower urinary tract symptoms (LUTS): Alvarado catheter in place with >1L output. Cr and electrolytes are within normal limits -Maintain alvarado, will exchange 06/18 -Monitor I/Os -Monitor renal function and electrolytes -Continue Flomax 0.4mg (7) Hyperlipidemia: Chronic -Will hold statin while on empiric Daptomycin (8) Hypertension: Blood pressure borderline low in ER -Hold Metoprolol -Continue to monitor (9) Hypothyroidism: Chronic. TSH is WNL resume PO Synthroid (10) Macrocytic anemia with vitamin B12 deficiency: Chronic. Stable -Continue B12 and Folate supplementation outpatient Code - DNR/DNI as discussed with family at bedside Dispo - back to SNF Total Time Total Time Spent Total Time Spent (In Minutes): 33 Discharge Plan Discharge Items Patient Disposition: Transfer Nursing Home Fac Reason For Visit: ALTERED MENTAL STATUS,ENCEPHALOPATHY Discharge Diagnosis: Catheter associated UTI - Klebsiella Condition on Discharge: Good Goals: complete course of Cefdinir for UTI Activity: Resume your previous activity Non-emergency contact: Primary Care Provider Call non-emergency contact if: you have any medication questions Follow-up/Referrals: [facility] [Primary Care Provider] - (this week) Diet: Carb Consistent or DM2 Addtl Attending Provider Instructions: see discharge summary for full details - CEFDINIR: 300MG twice a day for treatment of Klebsiella UTI - FENTANYL PATCH: this was STOPPED, pain has been controlled with just Oxycodone PRN - LANTUS: stop as his A1c is 5.2% Pending Studies at Discharge: No Stand-Alone Forms: My [facility] Skilled Items Patient informed of condition?: Yes DNR: Yes Discharge Level of Care: Skilled Communicable Disease: No Discharge Prognosis: Stable Lines: None Urinary Catheter: Yes Medications and DC Order Prescriptions: New cefdinir 300 mg capsule 300 mg PO BID 10 Days Qty: 20 RF: 0 Continued (DME) blood-glucose meter [OneTouch Verio Flex Start] Kit See Rx Instructions .ROUTE .MEDSUPPLY Qty: 1 RF: 1 (DME) OneTouch Verio test strips Strip See Rx Instructions .ROUTE .MEDSUPPLY Qty: 100 RF: 5 (DME) lancets [OneTouch Delica Plus Lancet] 30 gauge misc See Rx Instructions .ROUTE .MEDSUPPLY Qty: 100 RF: 5 metoprolol tartrate 25 mg Tablet 12.5 mg PO BID Qty: 30 RF: 0 sennosides-docusate sodium [Senokot-S] 8.6-50 mg Tablet 2 tab PO HS Qty: 60 RF: 0 folic acid 1 mg Tablet 1 mg PO QAM Qty: 30 RF: 0 citalopram [Celexa] 10 mg Tablet 5 mg PO HS RF: 0 acetaminophen [Acetaminophen Extra Strength] 500 mg Tablet 1,000 mg PO BID RF: 0 levothyroxine 75 mcg Tablet 75 mcg PO DAILYBB RF: 0 levetiracetam [Keppra] 750 mg Tablet 750 mg PO Q12H RF: 0 cyanocobalamin (vitamin B-12) [Vitamin B-12] 1,000 mcg Tablet 1,000 mcg PO QAM RF: 0 metformin 1,000 mg Tablet 1,000 mg PO Q12 RF: 0 phenytoin sodium extended [Dilantin Extended] 100 mg capsule 100 mg PO TID RF: 0 simvastatin [Zocor] 40 mg tablet 40 mg PO HS RF: 0 tamsulosin [Flomax] 0.4 mg capsule 0.4 mg PO HS RF: 0 ferrous sulfate [Iron (ferrous sulfate)] 325 mg (65 mg iron) tablet 325 mg PO QAM RF: 0 phenobarbital 64.8 mg tablet 64.8 mg PO Q12 RF: 0 docusate sodium [Colace] 100 mg capsule 100 mg PO QAM RF: 0 oxycodone [Roxicodone] 5 mg tablet 5 mg PO Q4 PRN (Reason: Severe pain) RF: 0 Metamucil Sugar-Free (aspart) 3.4 gram/5.8 gram powder 2.085624 g PO QAM RF: 0 Creon 6,000-19,000 -30,000 unit capsule,delayed release(DR/EC) 1 cap PO QID RF: 0 Discontinued Lantus Solostar U-100 Insulin 100 unit/mL (3 mL) Insulin Pen 8 unit SC HS Qty: 15 RF: 0 fentanyl [Duragesic] 25 mcg/hr Patch 72 Hour 1 patch TRANSDERMAL Q72H RF: 0 Discharge Orders: Discharge Order (Routine); Ordered 06/19/21 Ordered By: Sigifredo Francisco Admission Data Admit Date/Time: 06/16/21 11:53 Attending Provider: Sigifredo Francisco Admit Provider: Elena Ordonez Primary Care Provider: Taryn Low Other Providers: Taryn Low ; Elena Ordonez Coding Level of Care Code D/C DAY MANAGEMENT >30 MINS Diagnoses Catheter-associated urinary tract infection T83.511A; N39.0 Metabolic encephalopathy G93.41 Seizure disorder G40.909 Elevated troponin R77.8 DM type 2 (diabetes mellitus, type 2) E11.9 Diabetes mellitus complication status: without complication Diabetes mellitus custodial insulin use: without lobsterman use Enlarged prostate with lower urinary tract symptoms (LUTS) N40.1 Lower urinary tract symptom detail: unspecified Hyperlipidemia E78.5 Hypertension I10 Hypertension type: essential hypertension Hypothyroidism E03.9 Hypothyroidism type: unspecified Macrocytic anemia with vitamin B12 deficiency D51.8
--- NOTE | 2021-07-02 07:44 | Coding Query ---
CODING QUERY To promote full compliance with coding requirements relating to patient care, provider participation is requested in all cases of avionics electronics technician uncertainty. Please assist us with the question(s) below: Coding Question(s): Patient admitted from [facility] with Sepsis/UTI. Garcia Catheter inserted in [facility] ED on 06/16 11:53 ss per ED Summary record. Seeking to clarify the UTI. Please check below the phrase that describes the UTI . Thanks for your help. Yifan Nur [facility] Physician's Response(s): Patient was admitted with a UTI __x____ Patient was admitted with a UTI due to Indwelling Urinary Catheter Other/ Please document: Principal Diagnosis: "that condition established after study, to be chiefly responsible for occasioning the admission of the patient to the hospital for care." Co-Existing Principal Diagnosis: "when two or more diagnoses equally meet the criteria for principal diagnosis as determined by the circumstances of admission, diagnostic work up, and/or therapy provided, and the Alphabetic Index, Tabular List, or another coding guideline does not provide sequencing direction, any one of the diagnoses may be sequenced first." "When the physician has documented what appears to be a current diagnosis in the body of the record, but has not included the diagnosis in the final diagnostic statement, the physician should be asked whether the diagnosis should be added." (Source Coding Clinic 2 QTR90. p3-4) PRAVEENA
== END 2021-06-19 14:00 | DRG 698 ==
LOC: ED 09:39 → SUATTDRO 11:53 → 2S 11:53 → 3N 06-18 12:44